=== PATIENT | male | born 1955 | race African-American/Black ===

== ENCOUNTER 2019-05-25 13:22 | Emergency (ER) | payer OTHER ==
--- OUTSIDE RECORDS SUMMARY | 2019-05-25 13:25 | XMS REPORT ---
:1955 Author Organization eClinicalWorks Care Team Providers Name Role Phone Alessandro Vasquez Provider Role Unavailable Allergies, Adverse Reactions, Alerts Substance Reaction Event Type penicillin Info Not Available Drug Allergy Problems Problem Type Condition Code Onset Dates Condition Status Assessment Acute pain of right knee M25.561 Active Problem Primary osteoarthritis of right M17.11 Active knee Assessment Primary osteoarthritis of right M17.11 Active knee Medications Medication Code Code Instructions Start End Status Dosage System Date Date Pravastatin NDC 80153752741 40 MG Orally Jun 01, Active 1 tablet Sodium Once a day 2017 Flomax ND 79049819230 0.4 MG Orally Jun 01, Active 1 capsule Once a day 2017 Brilinta NDC 26402207506 90 MG Orally Jun 01, Active 1 tablet Twice a day 2018 Prozac NDC 0 40 mg Oral Jun 01, Active 2 tab 2018 Metoprolol NDC 0 Jun 01, Active not Succinate 2018 defined Lisinopril NDC 47882079015 30 MG Orally Jun 01, Active 1 tablet Once a day 2018 Nexium NDC 15627651616 40 MG Orally Jun 01, Active 1 capsule Once a day 2018 Results No Known Results Summary Purpose eClinicalWorks Submission
[2019-05-25] MEDS ORDERED: HYDROCODONE/APAP 10/325 TAB ONE (13:50)
[2019-05-25] MEDS ORDERED: predniSONE 20 MG TAB ONE (13:50)
--- NOTE | 2019-05-25 14:38 | RAD REPORT ---
EXAM DESCRIPTION: RAD - Wrist Right 3 View - 05/25/2019 2:22 pm CLINICAL HISTORY: Right hand and wrist pain following trauma COMPARISON: None. FINDINGS: No fracture is identified. There is no dislocation or periosteal reaction noted. Mild dege nerative changes are present at the first MCP joint. Minimal degenerative change at the trapezium fir st metacarpal articulation. No significant carpal bone degenerative change. Patient does have arteria l tree calcifications. No foreign body or other soft tissue abnormality. IMPRESSION: Mild degenerative change present as detailed. No acute bone or joint finding.
--- NOTE | 2019-05-25 14:57 | EDPHYS ---
Physician Documentation [facility] Name: Jose Neil Age: 64 yrs Sex: Male : 1955 Arrival Date: 05/25/2019 Time: 13:24 Bed 17 Private MD: NEW Physician Inderjit Trotter HPI: 05/25 14:25 This 64 yrs old Black Male presents to ER via Ambulatory with complaints of Right Wrist pm1 Pain. 14:25 The patient or guardian reports pain. The complaints affect the Right wrist. 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 Onset: The symptoms/episode began/occurred 1 week(s) ago. Modifying factors: The symptoms are alleviated by holding still, the symptoms are aggravated by movement. Associated signs and symptoms: Pertinent negatives: cyanosis distally, decreased sensation distally, fever, numbness distally, tingling distally. Severity of symptoms: in the emergency department the symptoms are unchanged. The patient has not recently seen a physician. Historical: - Allergies: 13:29 PENICILLINS; aj - Home Meds: 13:29 BRILINTA 90 mg Oral tab 1 tab 2 times per day [Active]; Flomax 0.4 mg Oral cp24 1 cap aj once daily [Active]; lisinopril 30 mg Oral tab [Active]; metoprolol tartrate 25 mg Oral tab 1 tab once daily [Active]; Nexium 40 mg Oral cpDR 1 cap once daily [Active]; Prozac 40 mg Oral cap 1 cap once daily [Active]; pravastatin Oral daily [Active]; amitriptyline Oral [Active]; - PMHx: 13:29 High Cholesterol; Hypertension; Myocardial infarction; neuropathy; aj - Immunization history:: Adult Immunizations up to date. - Social history:: Smoking status: Patient/guardian denies using tobacco. - Ebola Screening: : Patient negative for fever greater than or equal to 101.5 degrees Fahrenheit, and additional compatible Ebola Virus Disease symptoms Patient denies exposure to infectious person Patient denies travel to an Ebola-affected area in the 21 days before illness onset No symptoms or risks identified at this time. ROS: 14:25 Constitutional: Negative for fever, chills, and weight loss, Cardiovascular: Negative pm1 for chest pain, palpitations, and edema, Respiratory: Negative for shortness of breath, cough, wheezing, and pleuritic chest pain, Abdomen/GI: Negative for abdominal pain, nausea, vomiting, diarrhea, and constipation, Back: Negative for injury and pain. 14:25 Skin: Negative for injury, rash, and discoloration, Neuro: Negative for headache, weakness, numbness, tingling, and seizure. 14:25 MS/extremity: Positive for pain, of the right hand and right wrist, Negative for deformity. Exam: 14:25 Constitutional: This is a well developed, well nourished patient who is awake, alert, pm1 and in no acute distress. Chest/axilla: Normal chest wall appearance and motion. Nontender with no deformity. No lesions are appreciated. Cardiovascular: Regular rate and rhythm with a normal S1 and S2. No gallops, murmurs, or rubs. Normal PMI, no JVD. No pulse deficits. Respiratory: Lungs have equal breath sounds bilaterally, clear to auscultation and percussion. No rales, rhonchi or wheezes noted. No increased work of breathing, no retractions or nasal flaring. Abdomen/GI: Soft, non-tender, with normal bowel sounds. No distension or tympany. No guarding or rebound. No evidence of tenderness throughout. Back: No spinal tenderness. No costovertebral tenderness. Full range of motion. Skin: Warm, dry with normal turgor. Normal color with no rashes, no lesions, and no evidence of cellulitis. 14:25 Musculoskeletal/extremity: Extremities: grossly normal except: positive phalen and tinnel sign to right wrist. Vital Signs: 13:29 BP 146 / 81; Pulse 68; Resp 16; Temp 98.6; Pulse Ox 98% on R/A; Weight 128.82 kg; aj Height 5 ft. 7 in. (170.18 cm); 14:30 BP 136 / 76; Pulse 66; Resp 16; Pulse Ox 99% on R/A; hb 13:29 Body Mass Index 44.48 (128.82 kg, 170.18 cm) aj MDM: 13:30 Patient medically screened. pm1 14:23 Data reviewed: vital signs. Data interpreted: Pulse oximetry: on room air is 98 %. pm1 Interpretation: normal. 14:54 Counseling: I had a detailed discussion with the patient and/or guardian regarding: the pm1 historical points, exam findings, and any diagnostic results supporting the discharge/admit diagnosis, radiology results, the need for outpatient follow up, to return to the emergency department if symptoms worsen or persist or if there are any questions or concerns that arise at home. 05/25 13:41 Order name: Wrist Right 3 View XRAY; Complete Time: 14:51 pm1 05/25 14:36 Order name: Wrist Splint; Complete Time: 14:58 pm1 Administered Medications: 13:53 Drug: [place] 10 mg-325 mg 1 tabs Route: PO; hb 14:59 Follow up: Response: No adverse reaction; Pain is decreased; RASS: Alert and Calm (0) ss 13:53 Drug: predniSONE 60 mg Route: PO; hb 14:58 Follow up: Response: No adverse reaction; Pain is decreased; RASS: Alert and Calm (0) ss Disposition: 05/26 09:14 Co-signature as Attending Physician, Inderjit Trotter MD I agree with the assessment and mimi plan of care. Disposition: 05/25/19 14:55 Discharged to Home. Impression: Pain in right wrist. - Condition is Stable. - Discharge Instructions: Wrist Pain, Wrist Splint. - Prescriptions for Tylenol- Codeine #3 300-30 mg Oral Tablet - take 2 tablets by ORAL route every 6 hours As needed; 20 tablet. Medrol (Jack) 4 mg Oral Tablets, Dose Pack - take 1 tablet by ORAL route as directed - follow package instructions; 1 packet. - Medication Reconciliation Form, Thank You Letter, Antibiotic Education, Prescription Opioid Use form. - Follow up: Emergency Department; When: As needed; Reason: Worsening of condition. Follow up: Private Physician; When: 2 - 3 days; Reason: Recheck today's complaints, Continuance of care, Re-evaluation by your physician. - Problem is new. - Symptoms have improved. Signatures: Dispatcher [employer] EDMS Marie Matson RN RN aj Anderson, Corey, MD MD cha Marinas, Patrick, ARBEN WARD MAID pm1 Bernice Mejia RN RN hb Smirch, Shelby RN ss Corrections: (The following items were deleted from the chart) 05/25 15:11 14:55 05/25/2019 14:55 Discharged to Home. Impression: Pain in right wrist. Condition hb is Stable. Forms are Medication Reconciliation Form, Thank You Letter, Antibiotic Education, Prescription Opioid Use. Follow up: Emergency Department; When: As needed; Reason: Worsening of condition. Follow up: Private Physician; When: 2 - 3 days; Reason: Recheck today's complaints, Continuance of care, Re-evaluation by your physician. Problem is new. Symptoms have improved. pm1
--- NOTE | 2019-05-25 14:57 | ER ---
Nurse's Notes [facility] Name: Jose Neil Age: 64 yrs Sex: Male : 1955 Arrival Date: 05/25/2019 Time: 13:24 Bed 17 Private MD: Diagnosis: Pain in right wrist Presentation: 05/25 13:28 Presenting complaint: Patient states: Right hand pain for 1 week after turning a wrench aj too hard and causing pain. Transition of care: patient was not received from another setting of care. Onset of symptoms was May 19, 2019. Risk Assessment: Do you want to hurt yourself or someone else? Patient reports no desire to harm self or others. Initial Sepsis Screen: Does the patient meet any 2 criteria? No. Patient's initial sepsis screen is negative. Does the patient have a suspected source of infection? No. Patient's initial sepsis screen is negative. Care prior to arrival: None. 13:28 Method Of Arrival: Ambulatory aj 13:28 Acuity: ANGIE 4 aj Triage Assessment: 13:29 General: Appears in no apparent distress. comfortable, Behavior is calm, cooperative, aj appropriate for age. Pain: Complains of pain in right hand. Neuro: Level of Consciousness is awake, alert, obeys commands, Oriented to person, place, time, situation, Appropriate for age. Respiratory: Airway is patent Respiratory effort is even, unlabored, Respiratory pattern is regular, symmetrical. Derm: Skin is intact, is healthy with good turgor, Skin is pink, warm \T\ dry. normal. Musculoskeletal: Reports pain in right hand. Historical: - Allergies: 13:29 PENICILLINS; aj - Home Meds: 13:29 BRILINTA 90 mg Oral tab 1 tab 2 times per day [Active]; Flomax 0.4 mg Oral cp24 1 cap aj once daily [Active]; lisinopril 30 mg Oral tab [Active]; metoprolol tartrate 25 mg Oral tab 1 tab once daily [Active]; Nexium 40 mg Oral cpDR 1 cap once daily [Active]; Prozac 40 mg Oral cap 1 cap once daily [Active]; pravastatin Oral daily [Active]; amitriptyline Oral [Active]; - PMHx: 13:29 High Cholesterol; Hypertension; Myocardial infarction; neuropathy; aj - Immunization history:: Adult Immunizations up to date. - Social history:: Smoking status: Patient/guardian denies using tobacco. - Ebola Screening: : Patient negative for fever greater than or equal to 101.5 degrees Fahrenheit, and additional compatible Ebola Virus Disease symptoms Patient denies exposure to infectious person Patient denies travel to an Ebola-affected area in the 21 days before illness onset No symptoms or risks identified at this time. Screenin:30 Abuse screen: Denies threats or abuse. Denies injuries from another. Nutritional hb screening: No deficits noted. Tuberculosis screening: No symptoms or risk factors identified. Fall Risk None identified. Assessment: 13:40 General: Appears in no apparent distress. Behavior is calm, cooperative. Pain: Pain hb currently is 7 out of 10 on a pain scale. Neuro: Level of Consciousness is awake, alert, obeys commands, Oriented to person, place, time, situation. Cardiovascular: Capillary refill < 3 seconds Patient's skin is warm and dry. Respiratory: Airway is patent Respiratory effort is even, unlabored, Respiratory pattern is regular, symmetrical. GI: No signs and/or symptoms were reported involving the gastrointestinal system. : No signs and/or symptoms were reported regarding the genitourinary system. EENT: No signs and/or symptoms were reported regarding the EENT system. Derm: Skin is intact, is healthy with good turgor. Musculoskeletal: Reports right wrist pain. 14:30 Reassessment: Patient appears in no apparent distress at this time. Patient and/or hb family updated on plan of care and expected duration. Pain level reassessed. Patient is alert, oriented x 3, equal unlabored respirations, skin warm/dry/pink. Vital Signs: 13:29 BP 146 / 81; Pulse 68; Resp 16; Temp 98.6; Pulse Ox 98% on R/A; Weight 128.82 kg; aj Height 5 ft. 7 in. (170.18 cm); 14:30 BP 136 / 76; Pulse 66; Resp 16; Pulse Ox 99% on R/A; hb 13:29 Body Mass Index 44.48 (128.82 kg, 170.18 cm) aj ED Course: 13:24 Patient arrived in ED. as 13:27 Chau Boone NP is PHCP. pm1 13:27 Inderjit Trotter MD is Attending Physician. pm1 13:28 Triage completed. aj 13:29 Arm band placed on left wrist. aj 13:53 Bernice Mejia, RN is Primary Nurse. hb 14:23 Wrist Right 3 View XRAY In Process Unspecified. EDMS 14:30 Patient has correct armband on for positive identification. hb 14:59 Velcro wrist splint applied to right wrist. ss 15:10 No provider procedures requiring assistance completed. Patient did not have IV access hb during this emergency room visit. Administered Medications: 13:53 Drug: [place] 10 mg-325 mg 1 tabs Route: PO; hb 14:59 Follow up: Response: No adverse reaction; Pain is decreased; RASS: Alert and Calm (0) ss 13:53 Drug: predniSONE 60 mg Route: PO; hb 14:58 Follow up: Response: No adverse reaction; Pain is decreased; RASS: Alert and Calm (0) Outcome: 14:55 Discharge ordered by MD. pm1 15:10 Discharged to home ambulatory, with significant other. hb 15:10 Condition: stable 15:10 Discharge instructions given to patient, Instructed on discharge instructions, follow up and referral plans. medication usage, Demonstrated understanding of instructions, follow-up care, medications, Prescriptions given X 2. 15:11 Patient left the ED. hb Signatures: Dispatcher [employer] EDMS Marie Matson RN RN aj Martinez, Amelia as Smirch, Shelby, RN RN Chau Boone, ORAL HEALTH THERAPIST ORAL HEALTH THERAPIST pm1 Bernice Mejia, RN RN hb
[2019-05-25 15:15] VITALS: TEMP 98.6
[2019-05-25 15:17] VITALS: BP 136/76; O2SAT 99
== END 2019-05-25 15:11 | disposition home or self-care (01) ==
LOC: ER 13:22
DX: M25.531 Pain in right wrist (principal); E78.00 Pure hypercholesterolemia, unspecified; I10 Essential (primary) hypertension; I25.2 Old myocardial infarction; Z88.0 Allergy status to penicillin
CPT/HCPCS: 99284; J7512

== ENCOUNTER 2021-01-15 21:07 | Emergency (ER) | payer OTHER, SELFPAY ==
[2021-01-15 23:48] LABS: SARS-COV-2 RT PCR POSITIVE (NEGATIVE)
--- OUTSIDE RECORDS SUMMARY | 2021-01-15 23:51 | XMS REPORT | Continuity of Care Document ---
:1955 Author Organization [facility] t Address 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 Clinician (SIG) Name Name Pravastatin Pravastatin Yes Alessandro [address] [facility] Sodium Sodium 06-01 Vasquez [facility] Flomax Flomax Yes Alessandro [address] 06-01 Vasquez [facility] Brilinta Brilinta Yes Alessandro [address] [facility] 14 Vasquez [facility] 00:[facility] Prozac Prozac Yes Alessandro 2 tab [facility] Nexium Nexium Yes Alessandro [address] 8-14 Vasquez [facility] 00[facility] Metoprolol Metoprolol Yes Alessandro not [facility] Succinate Succinate 8 Vasquez defined Rain kes - 00:00: [facility] Lisinopril Lisinopril Yes Alessandro [address] [facility] 8-14 Vasquez [facility] Acetaminoph Acetaminoph Yes Alessandro not [facility] en-Codeine en-Codeine Vasquez defined [facility]3 [facility] MethylPREDN MethylPREDN Yes Alessandro not [facility] ISolone ISolone Vasquez defined [facility] Fluoxetine Fluoxetine Yes Alessandro not [facility] HCl HCl Vasquez defined [facility] Amitriptyli Amitriptyli Yes Alessandro not [facility] ne HCl ne HCl Vasquez defined [facility] Procedures This patient has no known procedures. Encounters Start End Encounter Admission Attending Care Care Encounter Source Date/Time Date/Time Type Type Clinicians Facility Department ID 2020-12-26 2020-12-26 Laboratory Only, [facility] [id number] 11:08:15 11:23:15 Only Test Ariel [id number] [place] [id number] [place] [id number] 2020-12-26 2020-12-26 Orders Doctor GOYO [id number] 00:00:00 00:00:00 Only Unassigned, SERGIO [id number] [place] [facility] [id number] 2019-10-17 2019-10-17 [place] [facility] [id number] [facility] 16:23:00 16:23:00 [facility] 2019-09-19 2019-09-19 [place] [place] [id number] [facility] 14:33:00 14:33:00 t [facility] 2019-09-09 2019-09-09 Outpatient Yvette Turpin [id number] [facility] 09:00:00 09:00:00 t [facility] 2019-08-23 2019-08-23 Outpatient Yvette Turpin [id number] [facility] 13:30:00 13:30:00 t [facility] 2019-08-01 2019-08-01 Outpatient Yvette Turpin [id number] [facility] 08:00:00 08:00:00 t [facility] 2018-06-01 2018-06-01 Outpatient Yvette Turpin [id number] [facility] 10:30:00 10:30:00 t [facility] Results This patient has no known results.
--- NOTE | 2021-01-16 00:13 | EDPHYS ---
Physician Documentation [facility] Name: Jose Neil Age: 65 yrs Sex: Male : 1955 Arrival Date: 01/15/2021 Time: 21:13 Bed 5 Private MD: ED Physician Sameer Hopper HPI: 01/16 00:00 This 65 yrs old Black Male presents to ER via Ambulatory with complaints of Fever. pm1 00:00 The patient or guardian reports cough, with no sputum, flu symptoms, no appetite. pm1 Onset: The symptoms/episode began/occurred 8 day(s) ago. Severity of symptoms: in the emergency department the symptoms have improved. Associated signs and symptoms: Pertinent positives: Nausea and abdominal pain that has resolved. Patient presenting with his that has similar symptoms that started at the same time. 00:00 Patient said that he checked into the ER so that he can be in the ER with his pm1 instead of waiting outside. Historical: - Allergies: 01/15 21:37 PENICILLINS; ll1 - PMHx: 21:37 High Cholesterol; Hypertension; Myocardial infarction; neuropathy; ll1 - PSHx: 21:37 None; ll1 - Immunization history:: Flu vaccine is not up to date. - Social history:: Smoking status: Patient/guardian denies using tobacco, the patient reports quitting approximately 20 years ago. ROS: 01/16 00:00 Cardiovascular: Negative for chest pain, palpitations, and edema, Respiratory: Negative pm1 for shortness of breath, cough, wheezing, and pleuritic chest pain. Back: Negative for injury and pain, : Negative for injury, bleeding, discharge, and swelling, MS/Extremity: Negative for injury and deformity, Skin: Negative for injury, rash, and discoloration, Neuro: Negative for headache, weakness, numbness, tingling, and seizure. Constitutional: Positive for fever, poor PO intake. Abdomen/GI: Positive for abdominal pain, nausea, diarrhea, Negative for vomiting. Exam: 00:00 Constitutional: This is a well developed, well nourished patient who is awake, alert, pm1 and in no acute distress. Head/Face: Normocephalic, atraumatic. 00:00 Skin: Warm, dry with normal turgor. Normal color with no rashes, no lesions, and no evidence of cellulitis. MS/ Extremity: Pulses equal, no cyanosis. Neurovascular intact. Full, normal range of motion. 00:00 Cardiovascular: Exam negative for acute changes, Rate: normal, Rhythm: regular, Pulses: no pulse deficits are appreciated. 00:00 Respiratory: Exam negative for acute changes, respiratory distress, shortness of breath. 00:00 Abdomen/GI: Exam negative for Inspection: abdomen appears normal, Palpation: abdomen is soft and non-tender, in all quadrants. 00:00 Neuro: Exam negative for acute changes, Orientation: is normal, Mentation: is normal, Motor: is normal, moves all fours. Vital Signs: 01/15 21:32 BP 131 / 82; Pulse 82; Resp 18; Temp 98.8; Pulse Ox 99% ; Weight 126.1 kg; Height 5 ft. ll1 8 in. (172.72 cm); Pain 0/10; 21:32 Body Mass Index 42.27 (126.10 kg, 172.72 cm) ll1 MDM: 23:14 Patient medically screened. pm1 01/16 00:00 Data reviewed: vital signs. Data interpreted: Pulse oximetry: on room air is 99 %. pm1 Interpretation: normal. 00:12 Counseling: I had a detailed discussion with the patient and/or guardian regarding: the pm1 historical points, exam findings, and any diagnostic results supporting the discharge/admit diagnosis, lab results, the need for outpatient follow up. 01/15 22:05 Order name: COVID-19 : Document "Date of Symptom Onset" if Symptomatic. em 01/15 22:05 Order name: Flu em 01/15 23:48 Order name: COVID-19/FLU A+B; Complete Time: 00:04 EDMS Administered Medications: No medications were administered Disposition: 00:25 Co-signature as Attending Physician, Sameer Hopper MD. rn Disposition: 01/16/21 00:12 Discharged to Home. Impression: Coronavirus infection, unspecified. - Condition is Stable. - Discharge Instructions: COVID-19. - Medication Reconciliation Form, Thank You Letter, Antibiotic Education, Prescription Opioid Use form. - Follow up: Emergency Department; When: As needed; Reason: Worsening of condition. Follow up: Private Physician; When: 2 - 3 days; Reason: Recheck today's complaints, Continuance of care, Re-evaluation by your physician. - Problem is new. - Symptoms have improved. Signatures: Dispatcher [employer] [facility] Shaun Barry RN RN sg Sameer Hopper MD MD rn Marinas, Patrick, ARBEN FACTORY HELPER pm1 Beck Sands RN RN ll1 Corrections: (The following items were deleted from the chart) 01/15 22: 22:05 CORONAVIRUS ordered. [facility] 22:05 Influenza Screen (A ordered. [facility] 01/16 00:21 00:12 01/16/2021 00:12 Discharged to Home. Impression: Coronavirus infection, sg unspecified. Condition is Stable. Forms are Medication Reconciliation Form, Thank You Letter, Antibiotic Education, Prescription Opioid Use. Follow up: Emergency Department; When: As needed; Reason: Worsening of condition. Follow up: Private Physician; When: 2 - 3 days; Reason: Recheck today's complaints, Continuance of care, Re-evaluation by your physician. Problem is new. Symptoms have improved. pm1
--- NOTE | 2021-01-16 00:13 | ER ---
Nurse's Notes [facility] Name: Jose Neil Age: 65 yrs Sex: Male : 1955 Arrival Date: 01/15/2021 Time: 21:13 Bed 5 Private MD: Diagnosis: Coronavirus infection, unspecified Presentation: 01/15 21:32 Chief complaint: Patient states: Fever off/on, slight cough, abd pain with nausea, no ll1 appetite for 8 days. Coronavirus screen: Client denies travel out of the [place] in the last 14 days. chills, congestion, cough unrelated to allergies, diarrhea, fatigue, nausea, runny nose, shaking with chills, Client presents with at least one sign or symptom that may indicate coronavirus-19. Standard/surgical mask placed on the client. Ebola Screen: Patient denies travel to an Ebola-affected area in the 21 days before illness onset. Initial Sepsis Screen: Does the patient meet any 2 criteria? No. Patient's initial sepsis screen is negative. Does the patient have a suspected source of infection? Yes: Acute abdominal pain. Risk Assessment: Do you want to hurt yourself or someone else? Patient reports no desire to harm self or others. Onset of symptoms was January 07, 2021. 21:32 Method Of Arrival: Ambulatory ll1 21:32 Acuity: ANGIE 3 ll1 Historical: - Allergies: 21:37 PENICILLINS; ll1 - PMHx: 21:37 High Cholesterol; Hypertension; Myocardial infarction; neuropathy; ll1 - PSHx: 21:37 None; ll1 - Immunization history:: Flu vaccine is not up to date. - Social history:: Smoking status: Patient/guardian denies using tobacco, the patient reports quitting approximately 20 years ago. Screenin:13 Abuse screen: Denies threats or abuse. Nutritional screening: No deficits noted. ea Tuberculosis screening: No symptoms or risk factors identified. Fall Risk None identified. Assessment: 23:14 General: Appears in no apparent distress. Behavior is calm, cooperative, appropriate ea for age. Pain: Denies pain. Neuro: Level of Consciousness is awake, alert, obeys commands, Oriented to person, place, time. Cardiovascular: Patient's skin is warm and dry. Respiratory: Airway is patent Respiratory effort is even, unlabored, Respiratory pattern is regular, symmetrical. Derm: Skin is pink, warm \T\ dry. 01/16 00:22 Reassessment: Patient and/or family updated on plan of care and expected duration. Pain ea level reassessed. Patient is alert, oriented x 3, equal unlabored respirations, skin warm/dry/pink. Discharge instruction given to patient, verbalized the understanding of instructions. Vital Signs: 01/15 21:32 BP 131 / 82; Pulse 82; Resp 18; Temp 98.8; Pulse Ox 99% ; Weight 126.1 kg; Height 5 ft. ll1 8 in. (172.72 cm); Pain 0/10; 21:32 Body Mass Index 42.27 (126.10 kg, 172.72 cm) ll1 ED Course: 21:13 Patient arrived in ED. ag3 21:36 Triage completed. ll1 21:37 Arm band placed on. ll1 22:53 Chau Boone NP is PHCP. pm1 22:53 Sameer Hopper MD is Attending Physician. pm1 23:13 Elena Centeno RN is Primary Nurse. ea 23:13 Patient has correct armband on for positive identification. Bed in low position. Call ea light in reach. 01/16 00:22 No provider procedures requiring assistance completed. Patient did not have IV access ea during this emergency room visit. Administered Medications: No medications were administered Outcome: 00:12 Discharge ordered by . pm1 00:18 Discharged to home ambulatory, with family. sg 00:18 Condition: good 00:18 Discharge instructions given to patient, Instructed on discharge instructions, follow up and referral plans. safety practices, Demonstrated understanding of instructions, follow-up care. 00:21 Patient left the ED. sg 00:22 Discharged to home ea 00:22 Condition: stable 00:22 Discharge instructions given to patient, Instructed on discharge instructions, follow up and referral plans. Demonstrated understanding of instructions, follow-up care. Signatures: Shaun Barry RN RN sg Marinas, Patrick, NP MIXING ENGINEER pm1 Elena Centeno RN RN ea Gomez, Alice ag3 Beck Sands RN RN [facility]
[2021-01-16 01:47] VITALS: BP 131/82; TEMP 98.8; O2SAT 99
== END 2021-01-16 00:21 | disposition home or self-care (01) ==
LOC: ER 21:07
DX: U07.1 COVID-19 (principal); I10 Essential (primary) hypertension; I25.2 Old myocardial infarction; Z88.0 Allergy status to penicillin
CPT/HCPCS: 0240U; 99281

== ENCOUNTER 2021-08-04 15:54 | Emergency (ER) | payer OTHER ==
--- NOTE | 2021-08-04 16:43 | ER ---
Nurse's Notes [facility] Name: Jose Neil Age: 66 yrs Sex: Male : 1955 Arrival Date: 08/04/2021 Time: 15:55 Bed 18 Private MD: Diagnosis: Injury of conjunctiva and corneal abrasion with foreign body, right eye - foreign body removed Presentation: 08/04 16:11 Chief complaint: Patient states: FB TO R EYE Y/D AT 1500, PLASTIC FROM NAIL GUN SPOOL. bp Coronavirus screen: At this time, the client does not indicate any symptoms associated with coronavirus-19. Ebola Screen: No symptoms or risks identified at this time. Initial Sepsis Screen: Does the patient meet any 2 criteria? No. Patient's initial sepsis screen is negative. Does the patient have a suspected source of infection? No. Patient's initial sepsis screen is negative. Risk Assessment: Do you want to hurt yourself or someone else? Patient reports no desire to harm self or others. Onset of symptoms was August 03, 2021 at 15:00. 16:11 Method Of Arrival: Ambulatory bp 16:11 Acuity: ANGIE 3 bp Triage Assessment: 16:13 General: Appears in no apparent distress. uncomfortable, obese, Behavior is bp cooperative, appropriate for age, anxious. Pain: Complains of pain in right eye. EENT: Sclera/Cornea are reddened in right eye. Neuro: No deficits noted. Cardiovascular: No deficits noted. Respiratory: No deficits noted. GI: No signs and/or symptoms were reported involving the gastrointestinal system. : No signs and/or symptoms were reported regarding the genitourinary system. Musculoskeletal: No deficits noted. Historical: - Allergies: 16:13 PENICILLINS; bp - Home Meds: 16:13 Amitriptyline Oral [Active]; BRILINTA 90 mg Oral tab 1 tab 2 times per day [Active]; bp Flomax 0.4 mg Oral cp24 1 cap once daily [Active]; lisinopril 30 mg Oral tab [Active]; metoprolol tartrate 25 mg Oral tab 1 tab once daily [Active]; Nexium 40 mg Oral cpDR 1 cap once daily [Active]; pravastatin 40 mg oral tab [Active]; Prozac 40 mg Oral cap 1 cap once daily [Active]; ticagrelor oral [Active]; - PMHx: 16:13 neuropathy; Hypertension; High Cholesterol; Myocardial infarction; bp - Immunization history:: Last tetanus immunization: unknown. - Social history:: Smoking status: Patient denies any tobacco usage or history of. Screenin:17 Abuse screen: Denies threats or abuse. Denies injuries from another. Nutritional bp screening: No deficits noted. Tuberculosis screening: No symptoms or risk factors identified. Fall Risk None identified. Assessment: 16:17 General: SEE TRIAGE NOTE. bp 17:09 Reassessment: PT D/C HOME AMBULATORY, DX WITH CORNEAL ABRASION. bp Vital Signs: 16:06 BP 130 / 77; Pulse 75; Resp 16; Temp 97.8; Pulse Ox 100% on R/A; dh3 17:09 BP 137 / 69; Pulse 79; Resp 16; Temp 97.8; Pulse Ox 100% ; bp Visual Acuity: 16:14 Left Eye Visual acuity 20/15, ; Right Eye Visual acuity 20/15, ; Both Eyes Visual dh3 acuity 20/13; With Lenses; ED Course: 15:55 Patient arrived in ED. am2 16:00 Chau Boone NP is PHCP. pm1 16:00 John Hitchcock MD is Attending Physician. pm1 16:07 Davin Leggett, CALEB is Primary Nurse. bp 16:13 Triage completed. bp 16:13 Arm band placed on. bp 16:17 Patient has correct armband on for positive identification. Bed in low position. Call bp light in reach. Side rails up X2. 16:44 Darius Veras MD is Referral Physician. pm1 17:10 No provider procedures requiring assistance completed. Patient did not have IV access bp during this emergency room visit. 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 Exp: bp 03/01/2024. Lot #: [id number]. } Route: IM; Site: left deltoid; 17:11 Follow up: Response: No adverse reaction bp Outcome: 16:43 Discharge ordered by . pm1 17:10 Discharged to home ambulatory. bp 17:10 Condition: stable 17:10 Discharge instructions given to patient, Instructed on discharge instructions, follow up and referral plans. medication usage, Demonstrated understanding of instructions, follow-up care, medications, Prescriptions given X 1. 17:11 Patient left the ED. bp Signatures: Chau Boone NP SERVICE CENTER SPECIALIST pm1 Marie Caldera 2 Kajal Mccrary 3 Davin Leggett, RN RN bp
--- NOTE | 2021-08-04 16:44 | EDPHYS ---
Physician Documentation [facility] Name: Jose Neil Age: 66 yrs Sex: Male : 1955 Arrival Date: 08/04/2021 Time: 15:55 Bed 18 Private MD: ED Physician John Hitchcock HPI: 08/04 16:38 This 66 yrs old Black Male presents to ER via Ambulatory with complaints of Foreign pm1 Body In Eye. 16:38 The patient is experiencing foreign body sensation, to the right eye, caused by debris. pm1 16:38 Onset: The symptoms/episode began/occurred yesterday. Duration: the symptoms are pm1 continuous. Aggravated by nothing. Alleviated by nothing. Associated signs and symptoms: Pertinent negatives: fever, Visual change. Patient wears glasses. Severity of symptoms: in the emergency department the symptoms are unchanged. The patient has not recently seen a physician. Patient was working with wood and using a nail gun. Patient using standard glasses for vision no safety glasses. Patient reports foreign body sensation to right eye in the upper area.. Historical: - Allergies: 16:13 PENICILLINS; bp - Home Meds: 16:13 Amitriptyline Oral [Active]; BRILINTA 90 mg Oral tab 1 tab 2 times per day [Active]; bp Flomax 0.4 mg Oral cp24 1 cap once daily [Active]; lisinopril 30 mg Oral tab [Active]; metoprolol tartrate 25 mg Oral tab 1 tab once daily [Active]; Nexium 40 mg Oral cpDR 1 cap once daily [Active]; pravastatin 40 mg oral tab [Active]; Prozac 40 mg Oral cap 1 cap once daily [Active]; ticagrelor oral [Active]; - PMHx: 16:13 neuropathy; Hypertension; High Cholesterol; Myocardial infarction; bp - Immunization history:: Last tetanus immunization: unknown. - Social history:: Smoking status: Patient denies any tobacco usage or history of. ROS: 16:38 Constitutional: Negative for fever, chills, and weight loss. pm1 16:38 Cardiovascular: Negative for chest pain, palpitations, and edema, Respiratory: Negative for shortness of breath, cough, wheezing, and pleuritic chest pain, Skin: Negative for injury, rash, and discoloration, Neuro: Negative for headache, weakness, numbness, tingling, and seizure. 16:38 Eyes: Positive for foreign body sensation, pain, redness, Negative for discharge, visual disturbance. 16:38 All other systems are negative. Exam: 16:38 Constitutional: This is a well developed, well nourished patient who is awake, alert, pm1 and in no acute distress. Head/Face: Normocephalic, atraumatic. 16:38 Skin: Warm, dry with normal turgor. Normal color with no rashes, no lesions, and no evidence of cellulitis. MS/ Extremity: Pulses equal, no cyanosis. Neurovascular intact. Full, normal range of motion. 16:38 Eyes: Conjunctiva: injected, in the right eye, Corneas: abrasion, that is small, approximately 2 mm(s), on the right, at 11 o'clock, foreign body, on the right, at 11 o'clock, Hair, a fluorescein strip employed to appreciate the findings, Sclera: no acute changes, icterus, is not appreciated, Lids and lashes: no acute changes. 16:38 Cardiovascular: Exam negative for acute changes, Rate: normal, Rhythm: regular, Pulses: no pulse deficits are appreciated. 16:38 Respiratory: Exam negative for acute changes, respiratory distress, shortness of breath. 16:38 Neuro: Exam negative for acute changes, Orientation: is normal, Mentation: is normal, Motor: moves all fours, Gait: is steady, at a normal pace, without difficulty. Vital Signs: 16:06 BP 130 / 77; Pulse 75; Resp 16; Temp 97.8; Pulse Ox 100% on R/A; dh3 17:09 BP 137 / 69; Pulse 79; Resp 16; Temp 97.8; Pulse Ox 100% ; bp Visual Acuity: 16:14 Left Eye Visual acuity 20/15, ; Right Eye Visual acuity 20/15, ; Both Eyes Visual dh3 acuity 20/13; With Lenses; MDM: 16:05 Patient medically screened. pm1 16:38 Data reviewed: vital signs. Data interpreted: Pulse oximetry: on room air is 100 %. pm1 Interpretation: normal. 16:38 Counseling: I had a detailed discussion with the patient and/or guardian regarding: the pm1 historical points, exam findings, and any diagnostic results supporting the discharge/admit diagnosis, the need for outpatient follow up, an opthalmologist, to return to the emergency department if symptoms worsen or persist or if there are any questions or concerns that arise at home. 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 Exp: bp 03/01/2024. Lot #: [id number]. } Route: IM; Site: left deltoid; 17:11 Follow up: Response: No adverse reaction bp Disposition: 08/05 05:38 Co-signature as Attending Physician, John Hitchcock MD I agree with the assessment and kdr plan of care. Disposition Summary: 08/04/21 16:43 Discharge Ordered Location: Home pm1 Problem: new pm1 Symptoms: have improved pm1 Condition: Stable pm1 Diagnosis - Injury of conjunctiva and corneal abrasion with foreign body, right eye - foreign pm1 body removed Followup: pm1 - With: Emergency Department - When: As needed - Reason: Worsening of condition Followup: pm1 - With: Private Physician - When: 1 - 2 days - Reason: Recheck today's complaints, Continuance of care, Re-evaluation by your physician Followup: pm1 - With: Darius Veras MD - When: 1 - 2 days - Reason: Recheck today's complaints, Continuance of care, Re-evaluation by your physician Discharge Instructions: - Discharge Summary Sheet pm1 - Corneal Abrasion pm1 - Eye Foreign Body pm1 Forms: - Medication Reconciliation Form pm1 - Thank You Letter pm1 - Antibiotic Education pm1 - Prescription Opioid Use pm1 Prescriptions: - Erythromycin 5 mg/gram (0.5 %) Ophthalmic Ointment - apply 1 ribbon by OPHTHALMIC route every 8 hours for 7 days; 1 tube; Refills: pm1 0, Product Selection Permitted Signatures: John Hitchcock MD MD kdr Marinas, Patrick, NP STEAM TUNNEL FEEDER pm1 Davin Leggett, RN RN bp
[2021-08-04] MEDS ORDERED: FLUORESCEIN SODIUM 1 MG/WRAP ONE (16:47)
[2021-08-04] MEDS ORDERED: TETRACAINE HCL 0.5% 4ML OPTH ONE (16:47)
[2021-08-04] MEDS ORDERED: TETANUS & DIPHTHERIA TOX,ADULT 0.5 ML VIAL ONE (16:48)
[2021-08-04 17:22] VITALS: TEMP 97.8; O2SAT 100
[2021-08-04 17:24] VITALS: BP 137/69
== END 2021-08-04 17:11 | disposition home or self-care (01) ==
LOC: ER 15:54
PROC: 08D Eye, Extraction (ICD-10-PCS; principal; 2021-08-04)
DX: T15.01XA Foreign body in cornea, right eye, initial encounter (principal); I10 Essential (primary) hypertension; I25.2 Old myocardial infarction; Z88.0 Allergy status to penicillin; Z23 Encounter for immunization
CPT/HCPCS: 90714; 99283

== ENCOUNTER 2022-06-03 06:24 | Emergency (ER) | payer OTHER ==
--- OUTSIDE RECORDS SUMMARY | 2022-06-03 06:28 | XMS REPORT | Continuity of Care Document ---
:1955 Author Organization [facility] t Address [address] [place] [address] Care Team Providers Name Role Phone Jessica Segura Primary Care Physician Mohini Segura Attending Clinician Unavailable GONZALES Attending Clinician Unavailable Con Zamudio MD Attending Clinician Only, Adc Test Attending Clinician Unavailable Doctor Unassigned, [place] Attending Clinician Unavailable GONZALES Admitting Clinician Unavailable Payers Payer Name Policy Type Policy Number Effective Date Expiration Date S ource Problems Condition Condition Condition Status Onset Resolution Last Treating Co mments Source Name Details Category Date Date Treatment Clinician Date No known No known Disease Unive rs active active ity of problems problems [facility] Primary Primary Problem Active 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 right knee [facility] Carpal Carpal Problem Active 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 St wrist wrist [facility] Allergies, Adverse Reactions, Alerts Allergy Allergy Status Severity Reaction(s) Onset Inactive Treating Comm ents Source Name Type Date Date Clinician penicill Adverse Active Info Not Commo n in Reaction Available Spiri t - [facility] Social History Social Habit Start Date Stop Date Quantity Comments Source Exposure to 2022-02-14 2022-02-24 Not sure [facility] SARS-CoV-2 (event) 00:00:00 08:56:00 Christi Brown Sex Ass[birth year] At [birth year] [facility] 00:00:00 00:00:00 Medical Branch Smoking Status Start Date Stop Date Source Former smoker 2021-07-18 00:00:00 2021-07-18 00:00:00 [facility] Medications Ordered Filled Start Stop Current Ordering Indication Dosage Frequency Signature Comments Components Source Medication Medication Date Date Medication? Clinician (SIG) Name Name FLUoxetine Yes 40mg Take 40 mg U nivers 40 mg 9-30 by mouth ity of capsule 14:26: daily. [place] 40 [facility] esomeprazol Yes 40mg Take 40 mg Univers e (NEXIUM) 9-30 by mouth ity o f 40 mg 14:26: daily with [place] capsule 40 breakfast. Medica l Branch gabapentin Yes TAKE 1 Unive rs 100 mg 9-27 CAPSULE BY ity of capsule 00:00: MOUTH [place] [id number] THREE Medical TIMES Branch DAILY FOR NUMB FEET metoprolol Yes 25mg Take 25 mg U nivers succinate 9-27 by mouth ity of XL 25 mg 24 00:00: [place]. [place] tablet [address] [place] [address] lisinopriL Yes 30mg Take 30 mg U nivers 30 mg 9-13 by mouth ity of tablet 00:00: daily. [address] BRILINTA 60 Yes 1{tbl} Take 1 Un greg mg Tab 9-13 tablet by ity of 00:00: mouth 2 [place] 00 (two) Medical times Branch daily. tamsulosin Yes Univers 0.4 mg 24 8-20 ity of hr capsule 00:00: [address] pravastatin Yes 40mg Take 40 mg Univers 40 mg 8-10 by mouth ity of tablet 00:00: daily. [address] Pravastatin Pravastatin Yes Alessandro 1 tablet Common Sodium Sodium 14 [place] Spirit 00:00: - [facility] Flomax Flomax 2017- Yes Alessandro 1 capsule C ommon 14 [place] [facility] 00:00: - [facility] Brilinta Brilinta Yes Alessandro 1 tablet Common -14 [place] [facility] 00:00: - [facility] Prozac Prozac Yes Alessandro 2 tab Commo n 8-14 [place] [facility] 00:00: - [facility] Nexium Nexium 2018-0 Yes Alessandro 1 capsule C ommon 06-01 [place] [facility] 00:00: - [facility] Metoprolol Metoprolol Yes Alessandro not Common Succinate Succinate 06-01 [place] defined Sp angela 00:00: - [facility] 00 [facility] Lisinopril Lisinopril Yes Alessandro 1 tablet Common 06-01 [place] [facility] 00:00: - 00 [facility] Acetaminoph Acetaminoph Yes Alessandro not Common en-Codeine en-Codeine [place]quez defined Spirit #3 #3 - [facility] MethylPREDN MethylPREDN Yes Alessandro not Common ISolone ISolone [place]quez defined [facility] Fluoxetine Fluoxetine Yes Alessandro not Common HCl HCl Vasquez defined [facility] Amitriptyli Amitriptyli Yes Alessandro not Common ne HCl ne HCl Vasquez defined [facility] Vital Signs Vital Name Observation Time Observation Value Comments Source Systolic blood 2022-02-24 14:25:00 102 mm[Hg] Univer sity [facility] Diastolic blood 2022-02-24 14:25:00 70 mm[Hg] Unive rsity [facility] Heart rate 2022-02-24 14:25:00 76 /min [facility] Respiratory rate 2022-02-24 14:25:00 18 /min [facility] Body height 2022-02-24 14:25:00 170.2 cm [facility] Body weight 2022-02-24 14:25:00 127.461 kg [facility] BMI 2022-02-24 14:25:00 44.01 kg/m2 [facility] Oxygen saturation in 2022-02-24 14:25:00 98 /min [facility] Arterial blood by [facility] Pulse oximetry Branch Procedures This patient has no known procedures. Encounters Start End Encounter Admission Attending Care Care Encounter Source Date/Time Date/Time Type Type Clinicians Facility Department ID 2021-11-13 Outpatient ROLF Segura [id number] Common 10:58:49 Mohini [id number] [facility] 2022 2022 Outpatient RORY BANKS [address] [place] 00:00:00 00:00:00 HN [id number] [facility] 2022-02-24 2022-02-24 Office Robb, [facility] [id number] Univers 09:15:00 10:08:38 Visit Con MINERVA [id number] i ty of [place] [id number] [place] [id number] Sd dical NAL 204 Branch [facility] 2020-12-26 2020-12-26 Laboratory Only, Adc [facility] [id number] 11:08:15 11:23:15 Only Test [place] [id number] [place] [id number] [place] [id number] 2020-12-26 2020-12-26 Orders Doctor GOYO [id number] 00:00:00 00:00:00 Only Unassigned, SERGIO [id number] [place] [facility] [id number] 2019-10-17 2019-10-17 [facility] [id number] Common 16:23:00 16:23:00 t [facility] 2019-09-19 2019-09-19 [facility] [id number] Common 14:33:00 14:33:00 t Bone Bone and Spiri t and Joint [facility] 2019-09-09 2019-09-09 [facility] [id number] Common 09:00:00 09:00:00 t Bone Bone and Spiri t and Joint [facility] 2019-08-23 2019-08-23 [facility] [id number] Common 13:30:00 13:30:00 t Bone Bone and Spiri t and Joint [facility] 2019-08-01 2019-08-01 [facility] [id number] Common 08:00:00 08:00:00 t Bone Bone and Spiri t and Joint [facility] - [facility] 2018-06-01 2018-06-01 Outpatient Yvette Turpin [id number] Common 10:30:00 10:30:00 t Bone Bone and Spiri t and Joint [facility] Results This patient has no known results.
[2022-06-03 07:50] LABS: Absolute Lymphocytes (CBC) 1.4 K/uL (0.7-4.9); Hematocrit 33.3 % (39.6-49.0); Lymphocytes % 21.8 % (15.3-44.8); MCV 67.3 fL (80-100); MPV 7.8 fL (7.6-11.3); RBC Red Blood Cell Count 4.94 M/uL (4.33-5.43)
[2022-06-03 08:13] LABS: Magnesium 2.3 mg/dL (1.8-2.4); Potassium 3.8 mmol/L (3.5-5.1); Troponin High Sensitivity 6.1 pg/mL (<58.9)
--- NOTE | 2022-06-03 08:33 | RAD REPORT ---
EXAM DESCRIPTION: RAD - Chest Single View - 06/03/2022 8:23 am CLINICAL HISTORY: dizziness, vomiting COMPARISON: Two view chest 07/03/2016 TECHNIQUE: AP portable chest image was obtained 06/03/2022 8:23 am . FINDINGS: Lung volumes are low. Underinflated lungs, body habitus affects and under penetrated techn ique accentuate the interstitial pattern. This could mask minimal edema or infiltrate. Cardiac silhou ette is enlarged common magnified by the exam limitations. Upper lobe vasculature within range of nor mal for the exam limitations. No measurable pleural effusion and no pneumothorax. No acute bony abnormality seen. No acute aortic findings suspected. IMPRESSION: No focal mass or consolidation identified. Heart, vasculature and lung markings are accentuated by above detailed exam limitations. Mild failure or volume overload as well as mild interstitial edema or infiltrate could be masked.
[2022-06-03 08:40] LABS: Blood Morphology Comment NOTED (NOT SEEN); Hypochromasia 1+; Platelet Estimate ADEQ
--- NOTE | 2022-06-03 08:42 | ER ---
Nurse's Notes [facility] Name: Jose Neil Age: 67 yrs Sex: Male : 1955 Arrival Date: 06/03/2022 Time: 06:27 Bed 6 Private MD: Diagnosis: Dizziness;Nausea with vomiting, unspecified Presentation: 06/03 06:57 Chief complaint: Patient states: he got up to go to the bathroom this morning and felt bb dizzy and nauseous, he felt off-balance walking to the bathroom and when he looked around everything seemed to be moving he vomited x 2. Coronavirus screen: At this time, the client does not indicate any symptoms associated with coronavirus-19. Ebola Screen: No symptoms or risks identified at this time. Initial Sepsis Screen: Does the patient meet any 2 criteria? No. Patient's initial sepsis screen is negative. Does the patient have a suspected source of infection? No. Patient's initial sepsis screen is negative. Risk Assessment: Do you want to hurt yourself or someone else? Patient reports no desire to harm self or others. Onset of symptoms was June 03, 2022. 06:57 Method Of Arrival: Ambulatory bb 06:57 Acuity: ANGIE 3 bb Historical: - Allergies: 06:59 PENICILLINS; bb - Home Meds: 07:33 gabapentin 100 mg oral cap 1 cap 3 times per day [Active]; BRILINTA 90 mg Oral tab 1 vg1 tab 2 times per day [Active]; metoprolol tartrate 25 mg Oral tab 1 tab once daily [Active]; lisinopril 30 mg Oral tab [Active]; Flomax 0.4 mg Oral cp24 1 cap once daily [Active]; pravastatin 40 mg Oral tab [Active]; fluoxetine 40 mg Oral cap 1 cap once daily [Active]; Nexium 40 mg Oral cpDR 1 cap once daily [Active]; pantoprazole 40 mg oral TbEC 1 tab once daily [Active]; - PMHx: 07:33 High Cholesterol; Hypertension; Myocardial infarction; neuropathy; vg1 - Immunization history:: Moderna x 3. - Social history:: Smoking status: Patient denies any tobacco usage or history of. Screenin:12 Abuse screen: Denies threats or abuse. Nutritional screening: No deficits noted. vg1 Tuberculosis screening: No symptoms or risk factors identified. Fall Risk No fall in past 12 months (0 pts). No secondary diagnosis (0 pts). IV access (20 points). Ambulatory Aid- None/Bed Rest/Nurse Assist (0 pts). Gait- Normal/Bed Rest/Wheelchair (0 pts) Mental Status- Oriented to own ability (0 pts). Total Fong Fall Scale indicates No Risk (0-24 pts). Assessment: 07:12 General: Appears in no apparent distress. comfortable, Behavior is calm, cooperative. vg1 Pain: Denies pain. Neuro: Level of Consciousness is awake, alert, obeys commands, Oriented to person, place, time, situation, Reports dizziness. Cardiovascular: Denies chest pain, Patient's skin is warm and dry. Respiratory: Airway is patent Respiratory effort is even, unlabored. GI: Abdomen is round non-distended, Reports nausea, vomiting. : No signs and/or symptoms were reported regarding the genitourinary system. EENT: No signs and/or symptoms were reported regarding the EENT system. Derm: Skin is pink, warm \T\ dry. Musculoskeletal: Circulation, motion, and sensation intact. 08:31 Reassessment: Patient appears in no apparent distress at this time. No changes from vg1 previously documented assessment. Patient and/or family updated on plan of care and expected duration. Pain level reassessed. Patient is alert, oriented x 3, equal unlabored respirations, skin warm/dry/pink. 09:30 Reassessment: Patient appears in no apparent distress at this time. No changes from vg1 previously documented assessment. Patient and/or family updated on plan of care and expected duration. Pain level reassessed. Patient is alert, oriented x 3, equal unlabored respirations, skin warm/dry/pink. Vital Signs: 06:57 BP 125 / 87; Pulse 62; Resp 16 S; Temp 98.4; Pulse Ox 98% on R/A; Weight 127.01 kg (R); bb Height 5 ft. 8 in. (172.72 cm) (R); 08:32 BP 121 / 70; Pulse 58; Resp 17; Pulse Ox 97% on R/A; vg1 06:57 Body Mass Index 42.57 (127.01 kg, 172.72 cm) bb ED Course: 06:27 Patient arrived in ED. bp1 06:59 Triage completed. bb 06:59 Arm band placed on Patient placed in an exam room, on a stretcher, on pulse oximetry. bb Family accompanied patient. 07:10 Ovidio Tabares DO is Attending Physician. ms3 07:12 Patient has correct armband on for positive identification. Bed in low position. Call vg1 light in reach. Side rails up X 1. Adult w/ patient. Client placed on continuous cardiac and pulse oximetry monitoring. NIBP monitoring applied. 07:35 Initial lab(s) drawn, by ED staff, sent to lab. Inserted saline lock: 20 gauge in right vg1 antecubital area, using aseptic technique. ,using aseptic technique. completed by KJ Blood collected. 08:25 XRAY Chest (1 view) In Process Unspecified. EDMS 08:40 Scott Lovell DO is Referral Physician. ms3 09:37 No provider procedures requiring assistance completed. IV discontinued, intact, vg1 bleeding controlled, No redness/swelling at site. Pressure dressing applied. Administered Medications: No medications were administered Medication: 07:12 VIS not applicable for this client. vg1 Outcome: 08:41 Discharge ordered by MD. ms3 09:37 Discharged to home ambulatory, with family. vg1 09:37 Condition: good 09:37 Discharge instructions given to patient, Instructed on discharge instructions, follow up and referral plans. Demonstrated understanding of instructions, follow-up care. 09:37 Patient left the ED. vg1 Signatures: Dispatcher [employer] EDMS Patricia Smith RN RN bb Garcia, Victoria, RN RN vg1 Ovidio Tabares DO DO ms3 MarlonbevGris angel bp1
--- NOTE | 2022-06-03 08:42 | EDPHYS ---
Physician Documentation [facility] Name: Jose Neil Age: 67 yrs Sex: Male : 1955 Arrival Date: 06/03/2022 Time: 06:27 Bed 6 Private MD: ED Physician Ovidio Tabares HPI: 06/03 07:20 This 67 yrs old Black Male presents to ER via Ambulatory with complaints of Dizziness, ms3 Vomiting, Headache. 07:20 The patient presents with sense of spinning. Onset: The symptoms/episode began/occurred ms3 4 hour(s) ago. Context: occurred at home, occurred while the patient was Getting out of bed and going to the bathroom. Modifying factors: The symptoms are alleviated by lying down, the symptoms are aggravated by nothing. Associated signs and symptoms: Pertinent positives: nausea, vomiting, Pertinent negatives: abdominal pain, blurred vision, chest pain, shortness of breath. Severity of symptoms: At their worst the symptoms were moderate in the emergency department the symptoms have resolved. Patient's baseline: Neuro: alert and fully oriented, Motor: no deficits, Ambulation: walks without assistance, Speech: normal. Historical: - Allergies: 06:59 PENICILLINS; bb - Home Meds: 07:33 gabapentin 100 mg oral cap 1 cap 3 times per day [Active]; BRILINTA 90 mg Oral tab 1 vg1 tab 2 times per day [Active]; metoprolol tartrate 25 mg Oral tab 1 tab once daily [Active]; lisinopril 30 mg Oral tab [Active]; Flomax 0.4 mg Oral cp24 1 cap once daily [Active]; pravastatin 40 mg Oral tab [Active]; fluoxetine 40 mg Oral cap 1 cap once daily [Active]; Nexium 40 mg Oral cpDR 1 cap once daily [Active]; pantoprazole 40 mg oral TbEC 1 tab once daily [Active]; - PMHx: 07:33 High Cholesterol; Hypertension; Myocardial infarction; neuropathy; vg1 - Immunization history:: Moderna x 3. - Social history:: Smoking status: Patient denies any tobacco usage or history of. ROS: 07:20 Constitutional: Negative for fever, and chills. Neck: Negative for injury, pain, and ms3 swelling, Cardiovascular: Negative for chest pain, and palpitations. Respiratory: Negative for shortness of breath, cough, wheezing, and pleuritic chest pain, Neuro: Negative for headache, weakness, numbness, tingling. Psych: Negative for depression, anxiety, suicide ideation, homicidal ideation, and hallucinations. 07:20 Abdomen/GI: Positive for nausea and vomiting. 07:20 Neuro: Positive for dizziness. 07:20 All other systems are negative. Exam: 07:20 Constitutional: This is a well developed, well nourished patient who is awake, alert, ms3 and in no acute distress. Head/Face: Normocephalic, atraumatic. Neck: Trachea midline, no cervical lymphadenopathy. Supple, full range of motion without nuchal rigidity, or vertebral point tenderness. No Meningismus. Chest/axilla: Normal chest wall appearance and motion. Nontender with no deformity. Cardiovascular: Regular rate and rhythm with a normal S1 and S2. No gallops, murmurs, or rubs. Normal PMI, no JVD. No pulse deficits. Respiratory: Lungs have equal breath sounds bilaterally, clear to auscultation and percussion. No rales, rhonchi or wheezes noted. No increased work of breathing, no retractions or nasal flaring. Abdomen/GI: Soft, non-tender, with normal bowel sounds. No distension or tympany. No guarding or rebound. No evidence of tenderness throughout. Skin: Warm, dry with normal turgor. Normal color with no rashes, no lesions, and no evidence of cellulitis. MS/ Extremity: Pulses equal, no cyanosis. Neurovascular intact. Full, normal range of motion. Neuro: Awake and alert, GCS 15, oriented to person, place, time, and situation. Cranial nerves II-XII grossly intact. Motor strength 5/5 in all extremities. Sensory grossly intact. Cerebellar exam normal. Normal gait. Psych: Awake, alert, with orientation to person, place and time. Behavior, mood, and affect are within normal limits. 07:25 ECG was reviewed by the Attending Physician. ms3 Vital Signs: 06:57 BP 125 / 87; Pulse 62; Resp 16 S; Temp 98.4; Pulse Ox 98% on R/A; Weight 127.01 kg (R); bb Height 5 ft. 8 in. (172.72 cm) (R); 08:32 BP 121 / 70; Pulse 58; Resp 17; Pulse Ox 97% on R/A; vg1 06:57 Body Mass Index 42.57 (127.01 kg, 172.72 cm) bb MDM: 07:19 Patient medically screened. ms3 07:20 Differential diagnosis: cardiac arrhythmia, near-syncope, TIA, vertigo. ms3 08:41 Data reviewed: vital signs, nurses notes, lab test result(s), EKG, radiologic studies, ms3 and as a result, I will discharge patient. Data interpreted: satellite project site monitor: rate is 60 beats/min, rhythm is normal sinus rhythm, with no ectopy, Interpretation: normal rate, normal rhythm, Pulse oximetry: on room air is 97 %. Interpretation: normal. Counseling: I had a detailed discussion with the patient and/or guardian regarding: the historical points, exam findings, and any diagnostic results supporting the discharge/admit diagnosis, lab results, radiology results, the need for outpatient follow up, to return to the emergency department if symptoms worsen or persist or if there are any questions or concerns that arise at home. Special discussion: I discussed with the patient/guardian in detail that at this point there is no indication for admission to the hospital. It is understood, however, that if the symptoms persist or worsen the patient needs to return immediately for re-evaluation. ED course: Discussed labs, chest x-ray, physical exam findings with patient. Patient to follow-up with primary care physician in 1 to 2 days. Patient understands and agrees with plan. All questions were answered. Return precautions discussed include worsening symptoms, or any other concerns. On reevaluation patient is alert and oriented x4, in no apparent distress, nontoxic-appearing, speaking full sentences, ambulatory in emergency department.. 06/03 07:20 Order name: Basic Metabolic Panel; Complete Time: 08:23 ms3 06/03 07:20 Order name: CBC with Diff ms3 06/03 07:20 Order name: Magnesium; Complete Time: 08:23 ms3 06/03 07:20 Order name: Troponin HS; Complete Time: 08:23 ms3 06/03 07:20 Order name: XRAY Chest (1 view); Complete Time: 08:35 ms3 06/03 08:40 Order name: Manual Differential EDMS 06/03 07:20 Order name: EKG; Complete Time: 07:24 ms3 06/03 07:20 Order name: Cardiac monitoring; Complete Time: 07:33 ms3 06/03 07:20 Order name: EKG - Nurse/Tech; Complete Time: :33 ms3 06/03 07:20 Order name: IV Saline Lock; Complete Time: :33 ms3 06/03 07:20 Order name: Labs collected and sent; Complete Time: :33 ms3 06/03 07:20 Order name: O2 Per Protocol; Complete Time: : ms3 06/03 07:20 Order name: O2 Sat Monitoring; Complete Time: : ms3 EC:25 Rate is 54 beats/min. Rhythm is regular. QRS [place] is Normal. No ST changes noted. ms3 Clinical impression: Sinus bradycardia and with non-specific ST changes. Interpreted by me. Reviewed by me. Administered Medications: No medications were administered Disposition Summary: 06/03/22 08:41 Discharge Ordered Location: Home ms3 Condition: Stable ms3 Diagnosis - Dizziness ms3 - Nausea with vomiting, unspecified ms3 Followup: ms3 - With: Scott Lovell DO - When: 1 - 2 days - Reason: Recheck today's complaints Forms: - Medication Reconciliation Form ms3 - Thank You Letter ms3 - Antibiotic Education ms3 - Prescription Opioid Use ms3 Signatures: Dispatcher [employer] Patricia Calderon, RN RN Olesya Molina RN RN vg1 Ovidio Tabares DO DO ms3
[2022-06-03 09:54] VITALS: TEMP 98.4
[2022-06-03 09:56] VITALS: BP 121/70; O2SAT 97
== END 2022-06-03 09:37 | disposition home or self-care (01) ==
LOC: ER 06:24
DX: R42 Dizziness and giddiness (principal); R11.2 Nausea with vomiting, unspecified; I10 Essential (primary) hypertension; E78.00 Pure hypercholesterolemia, unspecified; Z88.0 Allergy status to penicillin
CPT/HCPCS: 36415; 71045; 80048; 83735; 84484; 85025

== ENCOUNTER 2022-06-24 08:57 | Observation (INO) | payer OTHER ==
--- OUTSIDE RECORDS SUMMARY | 2022-06-24 09:02 | XMS REPORT | Continuity of Care Document ---
:1955 Author Organization [facility] t Address [address] [place] [address] Care Team Providers Name Role Phone MILLER BARRETT Primary Care Physician Unavailable Mohini Barrett Attending Clinician Unavailable MEKHI ZAMUDIO Attending Clinician Unavailable LORENZA SMITH Attending Clinician Unavailable Jeffrey Lara MD Attending Clinician Lorenza Smith DO Attending Clinician GONZALES Attending Clinician Unavailable Mekhi Zamudio MD Attending Clinician Only, Adc Test Attending Clinician Unavailable Doctor Unassigned, Driscoll Attending Clinician Unavailable LORENZA SMITH Admitting Clinician Unavailable Lorenza Smith DO Admitting Clinician GONZALES Admitting Clinician Unavailable Payers Payer Name Policy Type Policy Number Effective Date Expiration Date Cheri arriola MEDICARE PART A [id number] 2009 \T\ B 00:00:00 Problems Condition Condition Condition Status Onset Resolution Last Treating Co mments Source Name Details Category Date Date Treatment Clinician Date Coronary Coronary Disease Active Unive rs artery artery 06-21 ity of disease disease 00:00: [place] involving involving 00 Medi jenn [place] coronary coronary artery of artery of [place] heart with heart with angina angina pectoris pectoris Essential Essential Disease Active Uni vers hypertensi hypertensi 06-21 it y of on on 00:00: [place] 00 Medical Branch Dyslipidem Dyslipidem Disease Active 2022-0 U nivers ia ia 06-21 ity of 00:00: [place] [facility] Elevated Elevated Disease Active Unive rs brain brain 06-21 ity of natriureti [place]ureti [place] peptide c peptide 00 Medi jenn (BNP) (BNP) Branch level level Chest Chest Disease Active Univers pain, pain, 06-19 ity of unspecifie unspecifie [place] d type d type 00 Medical [place] No known No known Disease Unive rs active active ity of problems problems [facility] Primary Primary Problem Active 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 St wrist wrist [facility] Allergies, Adverse Reactions, Alerts Allergy Allergy Status Severity Reaction(s) Onset Inactive Treating Comm ents Source Name Type Date Date Clinician PENICILL DRUG Active Swelling Univer s IN INGREDI 06-19 ity of 00:00: [place] [facility] Penicill Propensi Active Swelling Univ ers in ty to 06-19 ity of adverse 00:00: [place] reaction 00 Medical s Branch penicill Adverse Active Info Not Commo n in Reaction Available Spiri t - [facility] NO KNOWN Drug Active Univers ALLERGIE Class ity of S [facility] Social History Social Habit Start Date Stop Date Quantity Comments Source History of Cigarette Smoker Universi ty of tobacco use [facility] Exposure to 2022-06-09 2022-06-19 Not sure [facility] SARS-CoV-2 00:00:00 19:09:00 [place] [facility] (event) Branch Tobacco use and 2022-06-19 2022-06-19 Smokeless tobacco Un iversity of exposure 00:00:00 00:00:00 non-user [facility] Education 2022-06-19 2022-06-19 14 University of 00:00:00 00:00:00 [facility] Sex Ass[birth year] Universit y of 00:00:00 00:00:00 [facility] Smoking Status Start Date Stop Date Source Ex-smoker 2022-06-19 00:00:00 2022-06-19 [facility] Ordered Filled Start Stop Current Ordering Indication Dosage Frequency Signature Comments Components Source Medication Medication Date Date Medication? Clinician (SIG) Name Name samiusate 202- Yes [id number] 100mg Take 1 Univers 100 mg 06-22 capsule by ity of capsule 00:00: 04:59 mouth in [place] 00 :00 the Medical morning [place] for 30 days. aspirin 81 0 2021- Yes [id number] 81mg Take 1 Univers mg EC 06-22 tablet by ity of tablet 00:00: 04:59 mouth in [place] 00 :00 [facility] morning [place] for 30 days. FLUoxetine Yes 40mg Take 40 mg U nivers 40 mg 06-21 by mouth ity of capsule 14:27: daily. [address] esomeprazol Yes 40mg Take 40 mg Univers e 40 mg 06-21 by mouth ity of capsule 14:27: daily with [facility] s 59 breakfast. [facility] aspirin EC Yes 81mg 81 mg, Unive rs tablet 81 06-21 Oral, ity of mg 14:00: DAILY, [place] 00 First dose Medical on [facility] 06/21/22 at 0900, Until Discontinu ed, Routine atorvastati Yes 80mg 80 mg, Univ ers n (LIPITOR) 06-21 Oral, QHS, it y of tablet 80 02:00: [place] mg [facility] 06/20/22 at Branch 2100, Until Discontinu ed, Routine
membership sales manager approving Restricted medication : HIMANSHU BOLAÑOS isosorbide Yes 30mg 30 mg, Unive rs mononitrate 06-21 Oral, BID, it y of (IMDUR) 24 01:00: First dose [place] hr tablet 00 on Fri Medical 30 mg 06/20/22 at Branch 2000, Until Discontinu ed, Routine metoprolol 0 Yes 25mg 25 mg, Unive rs succinate 06-21 Oral, BID, ity of XL (TOPROL 01:00: First dose [place] XL) tablet 00 (after Medical 25 mg last Branch modificati on) on [facility] 06/20/22 at 2000, Until Discontinu ed, Routine ticagrelor 0 Yes 90mg 90 mg, Unive rs (BRILINTA) 06-21 Oral, BID, ity of tablet 90 01:00: [place] mg 00 (after Medical last Branch modificati on) on Thu06/20/22 at 2000, Until Discontinu ed, Routine atorvastati 2021- Yes [id number] 80mg Take 1 Univers n 80 mg 06-21 tablet by ity of tablet 00:00: 04:59 mouth at [place] 00 :00 bedtime Medical for 30 Branch days. ferrous 2021- Yes [id number] 325mg Take 1 U nivers sulfate 325 06-21 tablet by it y of mg (65 mg 00:00: 04:59 mouth in [place] as iron) 00 :00 the Medical tablet morning Branch for 30 days. isosorbide 2021- Yes [id number] 30mg Take 1 Univers mononitrate 06-21 tablet by it y of 30 mg 24 hr 00:00: 04:59 [place] in [place] tablet 00 :00 the Medical morning Branch and 1 tablet in the evening. Do all this for 30 days. sulfur 2021- No [id number] 5mL 5 mL, Unive rs hexafluorid 06-20 Intravenou i ty of e microsphr 18:45: 18:45 s, ONCE, 1 [place] (LUMASON) 00 :00 dose, On Medica l injection 5 Thu06/20/22 Br anch mL at 1345, Routine
membership sales manager approving Restricted medication : HIMANSHU BOLAÑOS FLUoxetine Yes 40mg 40 mg, Unive rs (PROZAC) 06-20 Oral, ity of capsule 40 14:00: DAILY, [place] mg 00 First dose Medical on Thu Branch 06/20/22 at 0900, Until Discontinu ed, Routine tamsulosin Yes .4mg 0.4 mg, Univ ers (FLOMAX) 06-20 Oral, ity of capsule 0.4 14:00: DAILY, [place] mg 00 First dose Medical on Thu Branch 06/20/22 at 0900, Until Discontinu ed, Routine docusate Yes 100mg 100 mg, Unive rs (COLACE) 06-20 Oral, ity of capsule 100 14:00: [place]ILY, [place] mg 00 First dose Medical on Thu Branch 06/20/22 at 0900, Until Discontinu ed, Routine enoxaparin Yes 40mg 40 mg, Unive rs (LOVENOX) 06-20 Subcutaneo ity of injection 14:00: [place], [place]ILY, [place] 40 mg 00 First dose Medical on Thu Branch 06/20/22 at 0900, Until Discontinu ed, Routine ticagrelor No 90mg 90 mg, Univ ers (BRILINTA) 06-20 Oral, ity of tablet 90 14:00: 19:37 DAILY, [place] mg 00 :36 First dose Medical on Thu Branch 06/20/22 at 0900, Until Discontinu ed, Routine pravastatin No 40mg 40 mg, Uni vers (PRAVACHOL) 06-20 Oral, ity of tablet 40 14:00: 19:37 DAILY, [place] mg 00 :36 First dose Medical on Thu Branch 06/20/22 at 0900, Until Discontinu ed, Routine metoprolol 2021- No 25mg 25 mg, Univ ers succinate 06-20 Oral, ity of XL (TOPROL 14:00: 19:37 DAILY, [place] XL) tablet 00 :36 First dose Med ical 25 mg on Thu Branch 06/20/22 at 0900, Until Discontinu ed, Routine gabapentin Yes 100mg 100 mg, Uni vers (NEURONTIN) 06-20 Oral, TID, it y of capsule 100 13:00: First dose [place] mg 00 on Thu Medical 06/20/22 at Branch 0800, Until Discontinu ed, Routine maalox:diph 2021- No 15mL 15 mL, Uni vers enhydrAMINE 06-20 Oral, ity of :lidocaine 06:00: 05:19 ONCE, 1 [place] as 2 % viscous 00 :00 dose, On Medi jenn 1:1:1 Thu06/20/22 Branch (FIRST-MOUT at 0100, [facility]) Routine oral suspension 15 mL HYDROcodone 2021- Yes 1{tbl} 1 tablet, Univers -acetaminop 06-19 Oral, ity of hen (NORCO 23:25: 23:24 Q6HPRN, [place] as 5) 5-325 mg 46 :46 Starting Medi jenn tablet 1 on [place] Branch tablet 06/19/22 at 1825, Until 06/21/22 at 1824, Routine, Pain (scale 4-6) acetaminoph Yes 650mg 650 mg, Un greg en 06-19 Oral, ity of (TYLENOL) 23:25: Q6HPRN, [place] tablet 650 40 Starting Medic al mg on [place] Branch 06/19/22 at 1825, Until Discontinu ed, Routine, Pain (scale 1-3) FLUoxetine Yes 40mg Take 40 mg U nivers 40 mg 9-30 by mouth ity of capsule 14:26: daily. [address] esomeprazol Yes 40mg Take 40 mg Univers e (NEXIUM) 9-30 by mouth ity o f 40 mg 14:26: daily with [place] capsule 40 breakfast. [facility] gabapentin Yes TAKE 1 Unive rs 100 mg 9-27 CAPSULE BY ity of capsule 00:00: MOUTH [place] [address] THREE Medical TIMES Branch DAILY FOR NUMB FEET metoprolol Yes 25mg Take 25 mg U nivers succinate 9-27 by mouth ity of XL 25 mg 24 00:00: [place]. [place] tablet 00 Medical Branch gabapentin Yes TAKE 1 Unive rs 100 mg 9-27 CAPSULE BY ity of capsule 00:00: MOUTH [place] [address] THREE Medical TIMES [place] DAILY FOR NUMB FEET metoprolol Yes 25mg Take 25 mg U nivers succinate 9-27 by mouth ity of XL 25 mg 24 00:00: [place]. [place] hr tablet 00 Medical Branch lisinopriL Yes 30mg Take 30 mg U nivers 30 mg 9-13 by mouth ity of tablet 00:00: daily. [address] BRILINTA 60 Yes 1{tbl} Take 1 Un greg mg Tab 9-13 tablet by ity of 00:00: mouth 2 [place] 00 (two) Medical times Branch daily. lisinopriL Yes 30mg Take 30 mg U nivers 30 mg 9-13 by mouth ity of tablet 00:00: daily. [address] Branch TICAGRELOR Yes 1{tbl} Take 1 Uni vers 90 mg 9-13 tablet by ity of tablet 00:00: mouth in [place] 00 the Medical morning. Branch tamsulosin Yes Univers 0.4 mg 24 8-20 ity of hr capsule 00:00: [address] Branch tamsulosin 0 Yes Univers 0.4 mg 24 8-20 ity of hr capsule 00:00: [address] Branch pravastatin 0 Yes 40mg Take 40 mg Univers 40 mg 8-10 by mouth ity of tablet 00:00: daily. [address] pravastatin 2021- No 40mg Take 40 mg Univers 40 mg 8-10 06-21 by mouth ity of tablet 00:00: 00:00 daily. [place] 00 :00 [facility] Pravastatin Pravastatin 0 Yes Alessandro 1 tablet Common Sodium Sodium 06-01 [facility] 00:00: - [facility] Flomax Flomax 2018-0 Yes [place] 1 capsule C ommon 06-01 [facility] [facility] 00:00: - [facility] Brilinta Brilinta 2018-0 Yes Alessandro 1 tablet Common 14 [facility] 00:00: - [facility] Prozac Prozac 2018-0 Yes Aless[place] 2 tab Commo n 06-01 [facility] 00:00: - [facility] Nexium Nexium 2018-0 Yes Alessandro 1 capsule C ommon 14 [facility] 00:00: - [facility] Metoprolol Metoprolol 2018-0 Yes [place]ess[place] not Common Succinate Succinate 06-01 Vasquez defined Sp angela 00:00: - [facility] Lisinopril Lisinopril 2018-0 Yes Alessandro 1 tablet Common 14 [facility] 00:00: - [facility] Acetaminoph Acetaminoph Yes [place] not Common en-Codeine en-Codeine [place]quez defined Spirit #3 #3 [facility] MethylPREDN MethylPREDN Yes [place] not Common ISolone ISolone Vasquez defined [facility] Fluoxetine Fluoxetine Yes [place] not Common HCl HCl Vasquez defined [facility] Amitriptyli Amitriptyli Yes [place] not Common ne HCl ne HCl Vasquez defined [facility] Immunizations Ordered Filled Immunization Date Status Comments Sourc e Immunization Name Name SARS-COV-2 COVID-19 2021-09-10 Completed Unive rsity of MODERNA 0.25ML 00:00:00 [place] Medi jenn BOOSTER VACCINE Branch SARS-COV-2 COVID-19 2021-03-10 Completed Unive rsity of MODERNA 12+ YRS 00:00:00 [place] Med ical VACCINE Branch SARS-COV-2 COVID-19 2021-02-08 Completed Unive rsity of MODERNA 12+ YRS 00:00:00 [place] Med ical VACCINE Branch Vital Signs Vital Name Observation Time Observation Value Comments Source Diastolic blood 2022-06-21 12:39:00 68 mm[Hg] Unive rsity of pressure [facility] Heart rate 2022-06-21 12:39:00 54 /min [facility] Body temperature 2022-06-21 12:39:00 36.44 [facility] Respiratory rate 2022-06-21 12:39:00 14 /min [facility] Oxygen saturation in 2022-06-21 12:39:00 95 /min [place] of Arterial blood by [facility] Pulse oximetry Branch Systolic blood 2022-06-21 12:39:00 122 mm[Hg] Univer sity of [facility] Body weight 2022-06-21 08:20:00 125.465 kg [facility] BMI 2022-06-21 08:20:00 43.32 kg/m2 [facility] Body height 2022-06-20 00:19:00 170.2 cm [facility] Systolic blood 2022-02-24 14:25:00 102 mm[Hg] Univer sity of [facility] Diastolic blood 2022-02-24 14:25:00 70 mm[Hg] Unive rsity of pressure [facility] Heart rate 2022-02-24 14:25:00 76 /min [facility] Respiratory rate 2022-02-24 14:25:00 18 /min [facility] Body height 2022-02-24 14:25:00 170.2 cm [facility] Body weight 2022-02-24 14:25:00 127.461 kg [facility] BMI 2022-02-24 14:25:00 44.01 kg/m2 [facility] Oxygen saturation in 2022-02-24 14:25:00 98 /min University Arterial blood by [facility] Pulse oximetry Branch Procedures Procedure Date / Time Performing Clinician Source Performed FERRITIN SERUM 2022-06-21 09:38:00 Bhanu Cain [facility] TROPONIN I 2022-06-21 09:38:00 Ant [facility] IRON PANEL 2022-06-21 09:38[facility]-06-20 21:14[facility] 2022-06-20 09:42:00 Ant [facility] TROPONIN I 2022-06-20 09:42:00 Ant [facility] THYROID STIMULATING 2022-06-20 09:42:00 [facility] [address] HORMONE [facility] BASIC METABOLIC PANEL 2022-06-20 09:42:00 Bhanu Cain [facility] (NA, K, CL, CO2, GLUCOSE, Medica l Branch BUN, CREATININE, CA) CBC WITH DIFF 2022-06-20 09:42:00 [facility] 2022-06-20 02:17:00 [facility] LIPID PANEL ([id number])(TOTAL 2022-06-20 02:17:00 Patricia Fagan [facility] CHOLESTEROL, [facility] TRIGLYCERIDES, HDL) XR CHEST 1 VW 2022-06-19 21:18:27 Marco [facility] TROPONIN I 2022-06-19 21:11:00 Marco [facility] COMP. METABOLIC PANEL 2022-06-19 21:11:00 Jeffrey Lara [facility] ([id number]) [facility] CBC WITH DIFF 2022-06-19 21:11:00 Jeffrey Lara [place] [facility] PROTHROMBIN TIME / INR 2022-06-19 21:11:00 Jeffrey Lara [facility] ACTIVATED PARTIAL 2022-06-19 21:11:00 Jeffrey Lara [facility] THRMPLAS DIDIER [facility] N-TERMINAL PRO-BNP 2022-06-19 21:11:00 Jeffrey Lara [facility] COVID-19 (ID NOW RAPID 2022-06-19 21:11:00 Jeffrey Lara [facility] TESTING) Medical Branch LAB ONLY COVID 2022-06-19 21:11:00 Jeffrey Lara [facility] INTERPRETATION [facility] HB ECG ROUTINE & RHYTHM 2022-06-19 20:40:50 Jeffrey Lara [facility] CONSENT/REFUSAL FOR 2022-06-19 20:34:15 Doctor Unassigned, [facility] DIAGNOSIS AND TREATMENT [facility] [place] Encounters Start End Encounter Admission Attending Care Care Encounter Source Date/Time Date/Time Type Type Clinicians Facility Department ID 2021-11-13 Outpatient ROLF Barrett [facility] [id number] Common 10:58:49 Mohini [id number] [facility] 2022-09-25 2022-09-25 Outpatient Tracie ZAMUDIO [facility] [id number] P-20 Univers 08:30:00 08:30:00 MEKHI [id number] [facility] 2022-06-19 2022-06-21 Outpatient Sabrina SMITH MTSABINO LEONILA [id number] Univers 15:47:00 14:18:00 LORENZA mary [facility] 2022-06-19 2022-06-21 Emergency Jeffrey Lara [facility] [id number] Univers 15:47:00 14:18:00 Lorenza Smith [id number] [facility] [id number] [facility] [id number] [facility] jenn 081 Branch 2022 2022 Outpatient RORY BANKS [id number] [place] 00:00:00 00:00:00 HN [id number] da [facility] Outre h Program 2022-02-24 2022-02-24 Office Alzweri, [facility] [id number] [facility] 09:15:00 10:08:38 Visit Mekhi PALMA [id number] i ty of [place] [id number] [place] PROFESS[place] [id number] Me dical NAL 204 Branch [facility] 2020-12-26 2020-12-26 Laboratory Only, Adc [facility] [id number] 11:08:15 11:23:15 Only Test Ariel [id number] [place] [id number] [place] [id number] 2020-12-26 2020-12-26 Orders Doctor GOYO [id number] 00:00:00 00:00:00 Only Unassigned, SERGIO [id number] Driscoll [facility] [id number] 2019-10-17 2019-10-17 Out[facility] [id number] Common 16:23:00 16:23:00 [facility] 2019-09-19 2019-09-19 [facility] [id number] Common 14:33:00 14:33:00 t [facility] 2019-09-09 2019-09-09 [facility] [id number] Common 09:00:00 09:00:00 t [facility] 2019-08-23 2019-08-23 [facility] [id number] Common 13:30:00 13:30:00 t [facility] 2019-08-01 2019-08-01 [facility] [id number] Common 08:00:00 08:00:00 t [facility] 2018-06-01 2018-06-01 Outpatient Yvette Turpin [id number] Common 10:30:00 10:30:00 t [facility] Results This patient has no known results.
--- NOTE | 2022-06-24 09:32 | ER ---
Nurse's Notes [facility] Name: Jose Neil Age: 67 yrs Sex: Male : 1955 Arrival Date: 06/24/2022 Time: 09:00 Bed 15 Private MD: Diagnosis: Chest pain, unspecified;Unstable angina Presentation: 06/24 09:11 Chief complaint: Patient states: chest pain that started on and was relieved. kr3 Went to [facility] and stayed till Thursday. Came in this morning per Dr Dupree's orders. 09:11 Method Of Arrival: Ambulatory kr3 09:11 Acuity: ANGIE 2 kr3 11:57 Coronavirus screen: At this time, the client does not indicate any symptoms associated jd3 with coronavirus-19. Ebola Screen: No symptoms or risks identified at this time. Initial Sepsis Screen: Does the patient meet any 2 criteria? No. Patient's initial sepsis screen is negative. Does the patient have a suspected source of infection? No. Patient's initial sepsis screen is negative. Risk Assessment: Do you want to hurt yourself or someone else? Patient reports no desire to harm self or others. Onset of symptoms was June 24, 2022. Triage Assessment: 09:15 General: Appears in no apparent distress. uncomfortable, Behavior is calm, cooperative, kr3 appropriate for age. Historical: - Allergies: 12:28 PENICILLINS; em6 - PMHx: 09:06 Myocardial infarction; neuropathy; ll1 12:28 High Cholesterol; Hypertension; em6 - Immunization history:: Adult Immunizations unknown. - Family history:: not pertinent. - Social history:: Smoking status: unknown. - Hospitalizations: : No recent hospitalization is reported. Screenin:58 Abuse screen: Denies threats or abuse. Nutritional screening: No deficits noted. jd3 Tuberculosis screening: No symptoms or risk factors identified. Fall Risk Ambulatory Aid- None/Bed Rest/Nurse Assist (0 pts). Gait- Normal/Bed Rest/Wheelchair (0 pts) Mental Status- Oriented to own ability (0 pts). Total Fong Fall Scale indicates No Risk (0-24 pts). Assessment: 09:15 General: Appears in no apparent distress. comfortable, Behavior is calm, cooperative, em6 appropriate for age. Pain: Denies pain. Neuro: Quesada Agitation-Sedation Scale (RASS): 0 - Alert and Calm. Cardiovascular: Heart tones present Patient's skin is warm and dry. Rhythm is sinus rhythm. Respiratory: Airway is patent Respiratory effort is even, unlabored, Respiratory pattern is regular, symmetrical, Breath sounds are clear bilaterally. GI: No signs and/or symptoms were reported involving the gastrointestinal system. : No signs and/or symptoms were reported regarding the genitourinary system. EENT: No signs and/or symptoms were reported regarding the EENT system. Derm: No signs and/or symptoms reported regarding the dermatologic system. Musculoskeletal: Circulation, motion, and sensation intact. Range of motion: intact in all extremities. 10:15 Reassessment: Patient appears in no apparent distress at this time. No changes from em6 previously documented assessment. Patient and/or family updated on plan of care and expected duration. Pain level reassessed. Patient is alert, oriented x 3, equal unlabored respirations, skin warm/dry/pink. 11:15 Reassessment: Patient appears in no apparent distress at this time. No changes from em6 previously documented assessment. Patient and/or family updated on plan of care and expected duration. Pain level reassessed. Patient is alert, oriented x 3, equal unlabored respirations, skin warm/dry/pink. 12:15 Reassessment: Patient appears in no apparent distress at this time. No changes from em6 previously documented assessment. Patient and/or family updated on plan of care and expected duration. Pain level reassessed. Patient is alert, oriented x 3, equal unlabored respirations, skin warm/dry/pink. 12:27 Reassessment: left to lab technologist . em6 Vital Signs: 09:11 BP 148 / 77; Pulse 63; Resp 18; Temp 98.1; Pulse Ox 98% on R/A; kr3 11:00 BP 121 / 80; Pulse 58; Resp 13; Pulse Ox 99% ; em6 11:00 BP 123 / 83; Pulse 56; Resp 18; Pulse Ox 97% on R/A; em6 ED Course: 09:00 Patient arrived in ED. rg4 09:01 Sameer Hopper MD is Attending Physician. rn 09:06 Arm band placed on Patient placed in an exam room, on a stretcher. ll1 09:13 Huitron, Alessandro, RN is Primary Nurse. jd3 09:15 Triage completed. kr3 09:28 XRAY Chest (1 view) In Process Unspecified. EDMS 09:32 Niraj Olson is Hospitalizing Provider. rn 09:45 Inserted saline lock: 20 gauge in left antecubital area, using aseptic technique. Blood jd3 collected. 09:47 SARS RAPID Sent. jd3 09:47 Basic Metabolic Panel Sent. jd3 09:47 CBC with Diff Sent. jd3 09:47 NT PRO-BNP Sent. jd3 09:47 Troponin HS Sent. jd3 10:27 Olegario Gaines MD is Hospitalizing Provider. rn 11:58 Patient has correct armband on for positive identification. Placed in gown. Bed in low jd3 position. Call light in reach. Side rails up X 1. Client placed on continuous cardiac and pulse oximetry monitoring. NIBP monitoring applied. turf and grounds supervisor on. Pulse ox on. NIBP on. 11:58 No provider procedures requiring assistance completed. Patient admitted, IV remains in jd3 place. Patient maintains SpO2 saturation greater than 95% on room air. Administered Medications: No medications were administered Medication: 11:58 VIS not applicable for this client. jd3 Outcome: 09:32 Decision to Hospitalize by Provider. rn 12:30 Admitted to Porcelain Enameling Supervisor Other with lab technologist nurse em6 12:30 Condition: stable 12:30 Instructed on the need for admit, the need for admitting to lab technologist 12:33 Patient left the ED. em6 Signatures: Dispatcher [employer] EDMS Sameer Hopper MD MD rn Garcia, Rubi rg4 Alessandro Huitron RN RN Beck Morton RN RN [email or web address] Naty Elliott RN RN [email or web address] Monika Edwards RN RN em6 Corrections: (The following items were deleted from the chart) 12: 09:06 Allergies: PENICILLINS; 1 em6 12: 09:06 PMHx: High Cholesterol; 1 em6 12: 09:06 PMHx: Hypertension; ll1 em6
--- NOTE | 2022-06-24 09:33 | EDPHYS ---
Physician Documentation [facility] Name: Jose Neil Age: 67 yrs Sex: Male : 1955 Arrival Date: 06/24/2022 Time: 09:00 Bed 15 Private MD: ED Physician Sameer Hopper HPI: 06/24 09:02 This 67 yrs old Black Male presents to ER via Unassigned with complaints of Chest Pain. rn 09:02 The patient or guardian reports chest pain that is located primarily in the substernal rn area. Onset: 1 week(s) ago. Associated signs and symptoms: Pertinent negatives: abdominal pain, cough. 09:29 The pain does not radiate. The chest pain is described as aching. Duration: The patient rn or guardian reports multiple episodes, that are intermittent. Modifying factors: The symptoms are alleviated by nothing. the symptoms are aggravated by nothing. Severity of pain: At its worst the pain was moderate in the emergency department the pain has improved. The patient has experienced similar episodes in the past. The patient has been recently seen by a physician:. Sent in by Dr. German for chest pain, planning on heart cath today. No current chest pain. No sob. No hemoptysis. . Historical: - Allergies: 12:28 PENICILLINS; em6 - PMHx: 09:06 Myocardial infarction; neuropathy; ll1 12:28 High Cholesterol; Hypertension; em6 - Immunization history:: Adult Immunizations unknown. - Family history:: not pertinent. - Social history:: Smoking status: unknown. - Hospitalizations: : No recent hospitalization is reported. ROS: 09:29 Constitutional: Negative for fever, chills, and weight loss, Eyes: Negative for injury, rn pain, redness, and discharge, Neck: Negative for injury, pain, and swelling, Cardiovascular: Negative for palpitations, and edema, Respiratory: Negative for shortness of breath, cough, wheezing, and pleuritic chest pain, Abdomen/GI: Negative for abdominal pain, nausea, vomiting, diarrhea, and constipation, Back: Negative for injury and pain, MS/Extremity: Negative for injury and deformity, Skin: Negative for injury, rash, and discoloration, Neuro: Negative for headache, weakness, numbness, tingling, and seizure. Exam: :29 Constitutional: This is a well developed, well nourished patient who is awake, alert, rn and in no acute distress. Head/Face: Normocephalic, atraumatic. Cardiovascular: Regular rate and rhythm. No pulse deficits. Respiratory: No increased work of breathing, no retractions or nasal flaring. Abdomen/GI: Soft, non-tender Skin: Warm, dry MS/ Extremity: Pulses equal, no cyanosis. Neuro: Awake and alert, GCS 15 11:06 ECG was reviewed by the Attending Physician. rn Vital Signs: 09:11 BP 148 / 77; Pulse 63; Resp 18; Temp 98.1; Pulse Ox 98% on R/A; kr3 11:00 BP 121 / 80; Pulse 58; Resp 13; Pulse Ox 99% ; em6 11:00 BP 123 / 83; Pulse 56; Resp 18; Pulse Ox 97% on R/A; em6 MDM: 09:01 Patient medically screened. rn 09:29 Differential diagnosis: acute myocardial infarction, coronary artery disease stable rn angina, unstable angina. HEART Score: History: Moderately Suspicious (1), ECG: Non specific repolarization disturbance / LBTB / PM (1), Age: > or = 65 years (2), Risk Factors: > or = 3 Risk factors for atherosclerotic disease (2), Troponin: < or = 1 x Normal Limit (0), Total Score = 6. Data reviewed: vital signs, nurses notes, EKG, and as a result, I will admit patient. Counseling: I had a detailed discussion with the patient and/or guardian regarding: the historical points, exam findings, and any diagnostic results supporting the discharge/admit diagnosis, the need for further work-up and treatment in the hospital. Response to treatment: and as a result, I will admit patient. 09:29 ED course: Dr. German plans to cath today, requests NPO and no anticoagulation.. rn 06/24 09:11 Order name: Basic Metabolic Panel; Complete Time: 10: rn 06/24 09:11 Order name: CBC with Diff rn 06/24 09:11 Order name: NT PRO-BNP; Complete Time: 10: rn 06/24 09:11 Order name: Troponin HS; Complete Time: 10: rn 06/24 09:11 Order name: SARS RAPID; Complete Time: : rn 06/24 10:53 Order name: CBC Smear Scan EDMS 06/24 09:11 Order name: XRAY Chest (1 view); Complete Time: 09:42 rn 06/24 09:11 Order name: EKG; Complete Time: 09:12 rn 06/24 09:11 Order name: Cardiac monitoring; Complete Time: 09:22 rn 06/24 09:11 Order name: EKG - Nurse/Tech; Complete Time: 09:22 rn 06/24 09:11 Order name: IV Saline Lock; Complete Time: 09:47 rn 06/24 09:11 Order name: Labs collected and sent; Complete Time: 09:47 rn 06/24 09:58 Order name: NPO EDMS 06/24 10:00 Order name: CL CARDIAC CATH - REQUEST EDMS 06/24 09:11 Order name: O2 Per Protocol; Complete Time: 09:13 rn 06/24 09:11 Order name: O2 Sat Monitoring; Complete Time: 09:13 rn EC:06 Rate is 61 beats/min. Rhythm is regular. QRS [place] is Normal. ND interval is normal. QRS rn interval is normal. QT interval is normal. No Q waves. T waves are Normal. No ST changes noted. Clinical impression: NSR w/ Non-specific ST/T Changes. Interpreted by me. Reviewed by me. Administered Medications: No medications were administered Disposition Summary: 06/24/22 09:32 Hospitalization Ordered Hospitalization Status: Observation rn Location: Telemetry/[facility] (observation) rn Condition: Stable rn Problem: an ongoing problem rn Symptoms: have improved rn Bed/Room Type: Standard rn Room Assignment: rn Provider: Olegario Gaines(06/24/22 10:27) rn Diagnosis - Chest pain, unspecified rn - Unstable angina rn Forms: - Medication Reconciliation Form rn - SBAR form rn Signatures: Dispatcher [employer] [facility] Sameer Hopper MD MD rn Davies, Jonathon, RN RN Beck Morton RN RN ll1 Monika Edwards RN RN em6 Corrections: (The following items were deleted from the chart) 10:27 09:32 Niraj Olson rn rn 12:29 09:06 Allergies: PENICILLINS; ll1 em6 12:29 09:06 PMHx: High Cholesterol; ll1 em6 12:29 09:06 PMHx: Hypertension; ll1 em6
--- NOTE | 2022-06-24 09:34 | RAD REPORT ---
EXAM DESCRIPTION: RAD - Chest Single View - 06/24/2022 9:26 am CLINICAL HISTORY: CHEST PAIN COMPARISON: Portable 06/03/2022 TECHNIQUE: AP portable chest image was obtained 06/24/2022 9:26 am . FINDINGS: Lungs are clear. Interstitial pattern matches comparison. Heart and vasculature are normal . No measurable pleural effusion and no pneumothorax. No acute bony abnormality seen. No acute aortic findings suspected. IMPRESSION: No acute cardiopulmonary process.
[2022-06-24 09:58] LABS: Absolute Lymphocytes (CBC) 1.7 K/uL (0.7-4.9); Lymphocytes % 26.2 % (15.3-44.8); MCV 68.2 fL (80-100); MPV 8.5 fL (7.6-11.3); RBC Red Blood Cell Count 5.13 M/uL (4.33-5.43)
[2022-06-24 10:18] LABS: SARS-CoV-2 Antigen Rapid Res Negative (Negative)
[2022-06-24 10:19] LABS: Potassium 4.3 mmol/L (3.5-5.1); Troponin High Sensitivity 6.1 pg/mL (<58.9)
[2022-06-24 10:52] LABS: Anisocytosis 1+; Blood Morphology Comment NOTED (NOT SEEN); Platelet Estimate ADEQ; Poikilocytosis 1+; White Blood Cell Scan OK (OK)
[2022-06-24] MEDS ORDERED: HEPARIN 5000 UNIT/ML 1 ML VIAL ONE (11:25)
[2022-06-24] MEDS ORDERED: HEPA 1000U/500MLS 1,000 UNIT/500 ML BAG IV ONE ×2 (11:25→13:56)
[2022-06-24] MEDS ORDERED: MIDAZOLAM HCL 2 MG/2 ML INJ ONE ×2 (11:25→12:54)
[2022-06-24] MEDS ORDERED: VERAPAMIL HCL 10 MG/4 ML VIAL IV ONE (11:25)
[2022-06-24] MEDS ORDERED: FENTANYL CITR 100 MCG/2 ML ONE (11:25)
[2022-06-24] MEDS ORDERED: CLOPIDOGREL 75 MG TABLET ONE (11:26)
[2022-06-24] MEDS ORDERED: HEPARIN 10,000 UNIT/10 ML VIAL IV ONE ×2 (11:26→13:38)
[2022-06-24] MEDS ORDERED: ASPIRIN 325 MG TAB ONE (11:26)
[2022-06-24] MEDS ORDERED: TICAGRELOR 90 MG TABLET PO ONE (11:27)
[2022-06-24] MEDS ORDERED: ONDANSETRON 4 MG/2 ML VIAL IV PRN (12:37)
[2022-06-24] MEDS ORDERED: NA CHLORIDE 0.9% 500 ML ONE (12:42)
--- NOTE | 2022-06-24 13:10 | P.HP ---
Certification for Inpatient Patient admitted to: Observation With expected LOS: <2 Midnights Patient will require the following post-hospital care: None Practitioner: I am a practitioner with admitting privileges, knowledge of patient current condition, hospital course, and medical plan of care. Services: Services provided to patient in accordance with Admission requirements found in Title 42 Section 412.3 of the Code of Federal Regulations Patient History Date of Service: 06/24/22 Reason for admission: NSTEMI unstable angina. History of Present Illness: [age]-year-old male patient with medical history significant for hypertension, history of coronary artery disease status post stent x2, hyperlipidemia was evaluated in the ER after he had an encounter with cardiology for intervention. He had elevated troponin and chest discomfort couple of days prior to this encounter. He declined intervention at that time but he continued to have have chest pain and has been asked to be admitted for [facility]. No active chest pain reported. No sob, n/v, orthopnea or PND. Allergies Penicillins Allergy (Mild, Verified 07/23/12 12:35) Itching/Hives/Rash Home Medications: Aspirin [Aspirin EC 81 MG] 81 mg PO DAILY 02/23/13 Atorvastatin Calcium [Lipitor*] 80 mg PO BEDTIME 02/23/13 Esomeprazole Mag Trihydrate [Nexium] 40 mg PO DAILY 02/23/13 Fluoxetine HCl [Prozac*] 40 mg PO DAILY 02/23/13 Metoprolol Tartrate [Lopressor*] 25 mg PO DAILY 02/23/13 Ticagrelor [Brilinta*] 90 mg PO BID 02/23/13 lisinopriL [Prinivil*] 30 mg PO DAILY 02/23/13 - Past Medical/Surgical History Diabetic: No -: Hypertension -: Hyperlipidemia -: CAD Past Surgical History: Patient denies surgical history - Social History Alcohol use: Yes CD- Drugs: No Caffeine use: Yes Review of Systems 10-point ROS is otherwise unremarkable Physical Examination - Physical Exam General: Alert, Oriented x3 HEENT: Atraumatic, Normocephalic Neck: Supple Respiratory: Normal air movement Cardiovascular: Regular rate/rhythm, Normal S1 S2 Gastrointestinal: Soft and benign Musculoskeletal: No swelling Neurological: Normal speech - Studies Laboratory Data (last 24 hrs) 06/24/22 09:44: WBC 6.40, Hgb 10.8 L, Hct 35.0 L, Plt Count 253 06/24/22 09:44: Sodium 137, Potassium 4.3, BUN 13, Creatinine 1.12, Glucose 105 Assessment and Plan - Plan Chest Pain/NSTEMI/CAD: Significant concern and need for intervention as per cardiology. Left heart cath to be done by cardiology team today. Will monitor on telemetry and follow cardiology recommendation. He will be n.p.o. for procedure We will continue aspirin and statin therapy. Will obtain lipid panel in am. Hypertension: We will monitor vital signs per unit protocol and continue antihypertensive medications. Hyperlipidemia: Will continue statin therapy. Prophylaxis: SCDs for DVT prophylaxis and Lovenox. Status: Full code Disposition: To be discharged pending left heart cath procedure. - Advance Directives Does patient have a Living Will: No Does patient have a Durable POA for Healthcare: No
[2022-06-24 15:37] VITALS: BMI 42.5
[2022-06-24 16:07] VITALS: O2SAT 99
[2022-06-24] MEDS ORDERED: ATORVASTATIN 10 MG TAB PO SCH (21:00)
[2022-06-24] MEDS: GABAPENTIN 100 MG CAP PO SCH (21:09)
[2022-06-24] MEDS: TICAGRELOR 90 MG TABLET PO SCH (21:09)
[2022-06-24 21:27] LABS: Urine Bilirubin NEGATIVE (Negative); Urine Blood Negative (Negative); Urine Clarity Clear (Clear); Urine Color Light-Yellow (Yellow); Urine Glucose NEGATIVE (Negative); Urine Protein NEGATIVE (Negative); Urine Urobilinogen Normal (Normal)
[2022-06-24 21:29] LABS: Specific Gravity 1.015 (1.005-1.030)
--- NOTE | 2022-06-25 01:10 | OP ---
Date of Procedure: 06/24/2022 Surgeon: JENNIFER HENDERSON Procedures Performed: 1.Selective coronary angiogram. 2.Failed attempt of PCI of [employer]OR proximal RCA. Access: Right radial artery 6-Polish closed with TR band. Complications: None. Estimated Blood Loss: Bleeding less than 20 mL. Anesthesia: Total sedation time was 45 minutes. Description Of Procedure: After risks, benefits, alternatives were explained, the patient agreed to proceed and signed consent. The patient was brought into cardiac catheterization laboratory, prepped and draped in usual sterile fashion. Then, I accessed right radial artery using pediatric micropunc ture kit and took a 5-Polish [place] 4 catheter into the aortic root and engaged left main and right co ronary artery, took standard views and then exchanged for 6-Polish JR4 guide and then 3DRC guide and AR1 guide in attempt to engage the RCA for intervention. I was able to engage it. However, from the radial approach, with the tortuosity, it was very difficult for the guide to sit in and this is a CT O. I could not pass the wire, so the procedure was aborted as there was a good perfusion to the RCA territory from the left and right collaterals and plan for possible staged PCI, if the patient contin ues to be symptomatic. Then I removed the guide and sheath and placed TR band with good hemostasis. Findings: 1.Left main, large and long. It could be coming from the right coronary cusp. However, no disease. 2.LAD, large and normal with some luminal irregularities in the midportion. Normal diagonal branche s. 3.The left circumflex is of moderate size and normal. 4.RCA. Proximal 100% chronic total occlusion right after the marginal branch and there are OM2 boyd aterals from the marginal branch into the PDA as well as from the septals to the PDA with good flow i n the PDA. Conclusion: Severe mid right coronary artery stenosis. It is a chronic total occlusion, 100% occlud ed with good left to right collaterals. Plan: Medical management. If he continues to have symptoms with maximal medical therapy, we will pl an for a PCI of the proximal RCA [employer] in [place] via groin approach. SR/MODL Voice ID: [id number] Report ID: [id number]
--- NOTE | 2022-06-25 04:25 | CON ---
Date of Consultation: 06/24/2022 Reason For Consultation: Unstable angina. History Of Present Illness: Mr. Neil is a 67-year-old black male. He is known to me from previous office visits and admissions in the past. Has had a history of coronary artery disease status post stent of his RCA in the past. He came in with unstable angina. He had a non-STEMI in [facility] recently. They had recommended a heart catheterization, but he wanted to have us do it here in the hospital. He was released with appropriate medication, but came back into the offi ce with chest pain and was sent to the emergency room to be admitted for heart catheterization and fu rther intervention. Allergies: PENICILLIN. Review of Systems: Negative. Social History: Negative. Family History: Noncontributory. Medications: Include Lipitor Neurontin, Brilinta, Imdur, Nexium, Prozac, metoprolol, Pravachol, and tamsulosin as well as lisinopril 30 mg daily. Physical Examination: Vital Signs: Stable, afebrile. HEENT: Negative. Neck: Supple. No bruit. Chest: Clear. Cardiac: Exam revealed a regular rhythm and rate. No murmurs, gallops, or rubs. Abdomen: Benign. Extremities: No clubbing, cyanosis, or edema. Diagnostic Data: His hemoglobin was 10.8. His creatinine was 1.12. Troponin was normal. BNP was 3 67. Chest x-ray was negative. Impression And Plan: The patient with recent non-ST elevation myocardial infarction, history of willy nary artery disease status post RCA stent in the past. I think he needs to be admitted. Left heart catheterization has already been planned to be done today by Dr. Benítez to define his coronary anatom y. He understands the risk and the benefits of the procedure and he agrees to proceed. Meanwhile, w e will continue his present regimen including aspirin, metoprolol, Brilinta, statin, and lisinopril. We will see what that shows before making further decisions. RODNEY/ESPERANZA Voice ID: [id number] Report ID: [id number]
[2022-06-25 06:00] LABS: Absolute Lymphocytes (CBC) 1.7 K/uL (0.7-4.9); Hematocrit 32.4 % (39.6-49.0); Lymphocytes % 24.7 % (15.3-44.8); MCV 67.5 fL (80-100); MPV 8.4 fL (7.6-11.3)
[2022-06-25 06:20] LABS: Magnesium 2.3 mg/dL (1.8-2.4)
[2022-06-25] MEDS ORDERED: PANTOPRAZOLE 40MG TABLET PO SCH (06:30)
[2022-06-25] MEDS: GABAPENTIN 100 MG CAP PO SCH (08:04)
[2022-06-25] MEDS: TICAGRELOR 90 MG TABLET PO SCH (08:04)
[2022-06-25] MEDS ORDERED: METOPROLOL TAR 25 MG TAB PO SCH (09:00)
[2022-06-25] MEDS ORDERED: FLUOXETINE 20 MG CAP PO SCH (09:00)
[2022-06-25] MEDS ORDERED: lisinopriL 10 MG TAB PO SCH (09:00)
[2022-06-25] MEDS ORDERED: TAMSULOSIN 0.4 MG SR CAP PO SCH (09:00)
[2022-06-25] MEDS ORDERED: ISOSORBIDE MONO SR 30 MG TAB PO SCH (09:00)
[2022-06-25 11:37] VITALS: TEMP 96.5
[2022-06-25 11:38] VITALS: BP 144/80
--- NOTE | 2022-06-25 12:50 | EKG ---
Test Date: 2022-06-24 Test Time: 09:12:08 Senior Librarian: MEASUREMENT RESULTS: Intervals: Rate: 61 DE: 200 QRSD: 94 QT: 408 QTc: 410 Ransom: P: 30 DE: 200 QRS: 31 T: -14 INTERPRETIVE STATEMENTS: Normal sinus rhythm Inferior infarct, age undetermined Anterior infarct, age undetermined Abnormal ECG Compared to ECG 06/03/2022 07:25:07 Sinus bradycardia no longer present First degree AV block no longer present Myocardial infarct finding still present Electronically Signed On 06-25-22 12:49:37 CDT by Gurpreet Benítez
--- NOTE | 2022-07-15 00:44 | P.DS ---
Discharge Date: 06/25/22 Disposition: ROUTINE DISCHARGE Discharge Condition: GOOD Reason for Admission: NSTEMI unstable angina. Brief History of Present Illness: Pt is a 67-year-old male patient with medical history significant for hypertension, history of coronary artery disease status post stent x2, hyperlipidemia was evaluated in the ER after he had an encounter with cardiology for intervention. He had elevated troponin and chest discomfort couple of days prior to this encounter. He declined intervention at that time but he continued to have have chest pain and has been asked to be admitted for [facility]. No active chest pain reported. No sob, n/v, orthopnea or PND. Hospital Course: Patient has done well during hospital stay. Clinically, patient is much better. At this time, patient is stable for discharge home. Patient will follow-up with consultants and PCP as an outpatient. Vital Signs/Physical Exam: Temp Pulse Resp BP Pulse Ox 96.5 F L 64 23 H 144/80 H 98 06/25/22 07:00 06/25/22 09:00 06/25/22 09:00 06/25/22 09:00 06/25/22 07:00 General: Alert, In no apparent distress, Oriented x3 Laboratory Data at Discharge: WBC 6.80 K/uL (4.3-10.9) 06/25/22 05:50 Hgb 10.4 g/dL (13.6-17.9) L 06/25/22 05:50 Hct 32.4 % (39.6-49.0) L 06/25/22 05:50 Plt Count 226 K/uL (152-406) 06/25/22 05:50 Sodium 138 mmol/L (136-145) 06/25/22 05:50 Potassium 4.0 mmol/L (3.5-5.1) 06/25/22 05:50 BUN 12 mg/dL (7-18) 06/25/22 05:50 Creatinine 0.93 mg/dL (0.55-1.3) 06/25/22 05:50 Glucose 100 mg/dL (74-106) 06/25/22 05:50 Magnesium 2.3 mg/dL (1.8-2.4) 06/25/22 05:50 Home Medications: Esomeprazole Mag Trihydrate [Nexium] 40 mg PO DAILY 02/23/13 Fluoxetine HCl [Prozac*] 40 mg PO DAILY 02/23/13 Metoprolol Tartrate [Lopressor*] 25 mg PO DAILY 02/23/13 Ticagrelor [Brilinta*] 90 mg PO BID 02/23/13 lisinopriL [Prinivil*] 30 mg PO DAILY 02/23/13 Ferrous Sulfate [Ferrous Sulfate*] 325 mg PO DAILY 06/24/22 Gabapentin [Neurontin*] 100 mg PO TID 06/24/22 Isosorbide Mononitrate [Isosorbide Mononitrate ER] 30 mg PO BID 06/24/22 Pravastatin [Pravachol*] 40 mg PO DAILY 06/24/22 Tamsulosin HCl [Flomax] 0.4 mg PO DAILY 06/24/22 Aspirin [Aspirin EC 81 MG] 162 mg PO DAILY #60 06/25/22 New Medications: Aspirin [Aspirin EC 81 MG] 162 mg PO DAILY #60 Physician Discharge Instructions: PROBLEM: Non ST elevation DE GOAL: Clear understanding of disease process INSTRUCTIONS: PHYSICIAN'S DISCHARGE INSTRUCTIONS OK TO DC IV AND DC HOME FOLLOW-UP WITH PRIMARY CARE PROVIDER IN 1-2 WEEKS FOLLOW-UP WITH CARDIOLOGY IN 1-2 WEEKS RETURN TO THE ER IF symptoms worsens CALL DR. ORTIZ AT [phone] IF ANY QUESTIONS REGARDING HOSPITAL STAY. PLEASE CALL THE FLOOR AT [phone] IF ANY MEDICATION OR NURSING QUESTIONS. Diet: AHA Activity: Fall precautions DME DME: Date Ordered: Name of Company: [employer] Services Needed: Name of Company: Date or Referral: IMMUNIZATION Influenza Vaccine Indicated: Influenza Vaccine Given: Date Given: Pneumonia Vaccine Indicated: No Pneumonia Vaccine Given: Date Given: Diet: AHA Activity: Fall precautions Followup: YAYO BARRETT [Primary Care Provider] - Time spent managing pt's care (in minutes): 35
== END 2022-06-25 11:10 | disposition home or self-care (01) ==
LOC: ER 08:57 → ERHOLD 12:38 → 3RD-ICU 14:45
PROVIDERS: ADMIT Internal Medicine Nephrology; ATTEND Hospitalist
DX: I21.4 Non-ST elevation (NSTEMI) myocardial infarction (principal); I25.110 Atherosclerotic heart disease of native coronary artery with unstable angina pectoris; I25.82 Chronic total occlusion of coronary artery; I77.1 Stricture of artery; I10 Essential (primary) hypertension; E78.5 Hyperlipidemia, unspecified; G62.9 Polyneuropathy, unspecified; E78.00 Pure hypercholesterolemia, unspecified; Z95.5 Presence of coronary angioplasty implant and graft; Z79.01 Long term (current) use of anticoagulants; Z79.899 Other long term (current) drug therapy; Z88.0 Allergy status to penicillin; Z20.822 Contact with and (suspected) exposure to COVID-19
CPT/HCPCS: 93005; 85025 ×2; 80048 ×2; 36415; 83735; 85347; 81003; 84484 ×2; 83880; 71045; 93454; 76937; 99285; 87811; C1893; Q9967; J1644 ×3; J2250; J3010; J7040; G0378 ×3

== ENCOUNTER 2023-06-07 10:50 | Emergency (ER) | payer OTHER ==
--- OUTSIDE RECORDS SUMMARY | 2023-06-07 10:55 | XMS REPORT | Continuity of Care Document ---
:[address] [facility] t Address [address] [facility] [address] [place] [address] Care Team Providers Name Role Phone MILLER BARRETT Primary Care Physician Unavailable Mohini Barrett Attending Clinician Unavailable MEKHI ZAMUDIO Attending Clinician Unavailable Gurpreet Benítez Attending Clinician Unavailable Gerri Boland RN Attending Clinician Unavailable LORENZA SMITH Attending Clinician Unavailable Jeffrey Lara MD Attending Clinician Lorenza Smith DO Attending Clinician GONZALES Attending Clinician Unavailable 2, Adc Lab Attending Clinician Unavailable Mekhi Zamudio MD Attending Clinician Doctor Unassigned, [place] Attending Clinician Unavailable Gramm GREEN BUILDING MATERIALS DESIGNERBruna Davidson A Attending Clinician TANIYA BRUNA A Attending Clinician Unavailable Only, Adc Test Attending Clinician Unavailable Juan Daugherty MD Attending Clinician JUAN DAUGHERTY Attending Clinician Unavailable Referred, Self Admitting Clinician Unavailable LORENZA SMITH Admitting Clinician Unavailable Lorenza Smith DO Admitting Clinician GONZALES Admitting Clinician Unavailable BRUNA MONAHAN Admitting Clinician Unavailable Payers Payer Name Policy Type Policy Number Effective Date Expiration Date S ource MEDICARE PART A [id number] 2009 \T\ B 00:00:00 Problems Condition Condition Condition Status Onset Resolution Last Treating Co mments Source Name Details Category Date Date Treatment Clinician Date Coronary Coronary Disease Active Unive rs artery artery 06-21 ity of disease disease 00:00: [place] involving involving 00 Medi [place]enn [place] coronary coronary artery of artery of [place] heart with heart with angina angina pectoris pectoris Essential Essential Disease Active Uni vers hypertensi hypertensi 06-21 it y of on on 00:00: [address] Branch Dyslipidem Dyslipidem Disease Active U nivers ia ia 06-21 ity of 00:: [address] Branch Elevated Elevated Disease Active Unive rs brain brain 06-21 ity of natriureti [place]ure[place] c peptide c peptide 00 Medi jenn (BNP) (BNP) Branch level level Morbid Morbid Disease Active Univers obesity obesity 06-21 ity of 00:00: [address] Branch NSVT NSVT Disease Active Univers (nonsustai (nonsustai 06-21 it y of megan megan 00:00: [place] ventricula ventricula 00 Me dical r r Branch tachycardi tachycardi a) a) Chest Chest Disease Active Univers pain, pain, 06-19 ity of unspecifie unspecifie [place] d type d type 00 [facility] Branch No known No known Disease Unive rs active active ity of problems problems [facility] Primary Primary Problem Active 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 right knee [facility] Carpal Carpal Problem Active 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 St wrist wrist [facility] Allergies, Adverse Reactions, Alerts Allergy Allergy Status Severity Reaction(s) Onset Inactive Treating Comm ents Source Name Type Date Date Clinician Penicill DA Active SV RASH, [facility] ins SWELLING 06-27 Clear 00:00: Roman [address] [place] [address] PENICILL DRUG Active Swelling Univer s IN INGREDI 06-19 ity of 00:00: [place] 00 Medical Branch Penicill Propensi Active Swelling Univ ers in ty to 06-19 ity of adverse 00:00: [place] reaction 00 Medical s Branch penicill Adverse Active Info Not Commo n in Reaction Available Gil t - MAURO [facility] NO KNOWN Drug Active Univers ALLERGIE Class ity of S [facility] Social History Social Habit Start Date Stop Date Quantity Comments Source History of Cigarette Smoker Universi ty of tobacco use [facility] Exposure to 2022-06-09 2022-06-19 Not sure University SARS-CoV-2 00:00:00 19:09:00 [facility] (event) [place] Tobacco use and 2022-06-19 2022-06-19 Smokeless tobacco Un iversity of exposure 00:00:00 00:00:00 non-user [facility] Education 2022-06-19 2022-06-19 14 University 00:00:00 00:00:00 [facility] Sex Ass[birth year] Universit y of 00:00:00 00:00:00 [facility] Smoking Status Start Date Stop Date Source Ex-smoker 2022-06-19 00:00:00 2022-06-19 00:00:00 [facility] of [facility] Medications Ordered Filled Start Stop Current Ordering Indication Dosage Frequency Signature Comments Components Source Medication Medication Date Date Medication? Clinician (SIG) Name Name docusate 2021- No [id number] 100mg Take 1 Univers 100 mg 9-04 10-05 capsule by ity of capsule 00:00: 04:59 mouth in [place] 00 :00 [facility] for 30 days. aspirin 81 2021- No [id number] 81mg Take 1 Univers mg EC 9-04 10-05 tablet by ity of tablet 00:00: 04:59 mouth in [place] 00 :00 [facility] for 30 days. docusate 2021- No [id number] 100mg Take 1 Univers 100 mg 9-04 10-05 capsule by ity of capsule 00:00: 04:59 mouth in [place] 00 :00 [facility] for 30 days. aspirin 81 2021- No [id number] 81mg Take 1 Univers mg EC 9-04 10-05 tablet by ity of tablet 00:00: 04:59 mouth in [place] 00 :00 [facility] for 30 days. FLUoxetine 2022-0 Yes 40mg Take 40 mg U nivers 40 mg 06-21 by mouth ity of capsule 14:27: daily. [address] Branch esomeprazol 0 Yes 40mg Take 40 mg Univers e 40 mg 06-21 by mouth ity of capsule 14:27: daily [place] 59 breakfast. [facility] Branch FLUoxetine 0 Yes 40mg Take 40 mg U nivers 40 mg 06-21 by mouth ity of capsule 14:27: daily. [address] Branch esomeprazol 0 Yes 40mg Take 40 mg Univers e 40 mg 06-21 by mouth ity of capsule 14:27: daily [place] 59 breakfast. [facility] Branch aspirin EC 0 Yes 81mg 81 mg, Unive rs tablet 81 06-21 Oral, ity of mg 14:00: DAILY, [place] [address] First dose Medical on [facility] 06/21/22 at 0900, Until Discontinu ed, Routine atorvastati Yes 80mg 80 mg, Univ ers n (LIPITOR) 06-21 Oral, QHS, it y of tablet 80 02:00: [place] mg 00 on Thu [facility] 06/20/22 at Branch 2100, Until Discontinu ed, Routine
hourly team members approving Restricted medication : HIMANSHU BOLAÑOS isosorbide Yes 30mg 30 mg, Unive rs mononitrate 06-21 Oral, BID, it y of (IMDUR) 24 01:00: First dose [place] hr tablet 00 on Thu Medical 30 mg 06/20/22 at Branch 2000, Until Discontinu ed, Routine metoprolol 0 Yes 25mg 25 mg, Unive rs succinate 06-21 Oral, BID, ity of XL (TOPROL 01:00: First dose [place] XL) tablet 00 (after Medical 25 mg last Branch modificati on) on [facility] 06/20/22 at 2000, Until Discontinu ed, Routine ticagrelor 0 Yes 90mg 90 mg, Unive rs (BRILINTA) 06-21 Oral, BID, ity of tablet 90 01:00: First [place] mg 00 (after Medical last Branch modificati on) on [facility] 06/20/22 at 1999, Until Discontinu ed, Routine atorvastati 2021- No [id number] 80mg Take 1 Univers n 80 mg 06-21 tablet by ity of tablet 00:00: 04:59 mouth at [place] 00 :00 bedtime Medical for 30 Branch days. ferrous 2021- No [id number] 325mg Take 1 U nivers sulfate 325 06-21 tablet by it y of mg (65 mg 00:00: 04:59 mouth in [place] as iron) 00 :00 the Medical tablet morning Branch for 30 days. isosorbide 2021- No [id number] 30mg Take 1 Univers mononitrate 06-21 tablet by it y of 30 mg 24 hr 00:00: 04:59 mouth in [place] tablet 00 :00 the Medical morning Branch and 1 tablet in the evening. Do all this for 30 days. atorvastati 2021- No [id number] 80mg Take 1 Univers n 80 mg 06-21 tablet by ity of tablet 00:00: 04:59 mouth at [place] 00 :00 bedtime Medical for 30 Branch days. ferrous 2021- No [id number] 325mg Take 1 U nivers sulfate 325 06-21 tablet by it y of mg (65 mg 00:00: 04:59 mouth in [place] iron) 00 :00 the Medical tablet morning Branch for 30 days. isosorbide 2021- No [id number] 30mg Take 1 Univers mononitrate 06-21 tablet by it y of 30 mg 24 hr 00:00: 04:59 mouth in [place] tablet 00 :00 the Medical morning Branch and 1 tablet in the evening. Do all this for 30 days. sulfur 2021- No [id number] 5mL 5 mL, Unive rs hexafluorid 06-20 Intravenou i ty of e microsphr 18:45: 18:45 s, ONCE, 1 [place] (LUMASON) 00 :00 dose, On Medica l injection 5 Thu06/20/22 Br anch mL at 1345, Routine
hourly team members approving Restricted medication : HIMANSHU BOLAÑOSHBang FLUoxetine Yes 40mg 40 mg, Unive rs [...] ed, Routine enoxaparin Yes 40mg 40 [facility], [facility] ([facility] 06-20 Subcutaneo ity of injection 14:00: [place], [place]ILY, [place] 40 mg 00 First dose Medical on Thu Branch 06/20/22 at 0900, Until Discontinu ed, Routine ticagrelor 2021- No 90mg 90 mg, Univ ers (BRILINTA) 06-20 Oral, ity of tablet 90 14:00: 19:37 DAILY, [place] mg 00 :36 First dose Medical on Thu Branch 06/20/22 at 0900, Until Discontinu ed, Routine pravastatin 2021- No 40mg 40 mg, Uni vers (PRAVACHOL) [...] 13:00: First dose [place] mg 00 on [facility] Medical 06/20/22 at Branch 0800, Until Discontinu ed, Routine maalox:diph 2021- No 15mL 15 mL, Uni vers enhydrAMINE 06-20 Oral, ity of :lidocaine 06:00: 05:19 ONCE, 1 [place] as 2 % viscous 00 :00 dose, On Medi jenn 1:1:1 06/20/22 Branch (FIRST-MOUT at 0100, HWASH BLM) Routine oral suspension 15 mL HYDROcodone 2021- No 1{tbl} 1 tablet, Univers -acetaminop 06-19 Oral, ity of hen (NORCO 23:25: 23:24 Q6HPRN, [place] as 5) 5-325 mg 46 :46 Starting Medi jenn tablet 1 on [facility] Branch tablet 06/19/22 at 1825, Until 06/21/22 [...] by mouth ity of capsule 14:26: daily. [address] esomeprazol Yes 40mg Take 40 mg Univers e (NEXIUM) 9-30 by mouth ity o f 40 mg 14:26: daily with [place] capsule 40 breakfast. Medica l Branch gabapentin Yes TAKE 1 Unive rs 100 mg 9-27 CAPSULE BY ity of capsule 00:00: MOUTH [place] [address] THREE Medical TIMES [place] DAILY FOR NUMB FEET metoprolol Yes 25mg Take 25 mg U nivers succinate 9-27 by mouth ity of XL 25 mg 24 00:00: [place]. [place] tablet 00 [facility] gabapentin Yes TAKE 1 Unive rs 100 mg 9-27 CAPSULE BY ity of capsule 00:00: MOUTH [place] 00 THREE Medical TIMES [place] DAILY FOR NUMB FEET metoprolol Yes 25mg Take 25 mg U nivers succinate 9-27 by mouth ity of XL 25 mg 24 00:00: daily. [place] hr tablet [facility] gabapentin Yes TAKE 1 Unive rs 100 mg 9-27 CAPSULE BY ity of capsule 00:00: MOUTH [place] [address] THREE Medical TIMES [place] DAILY FOR NUMB FEET metoprolol Yes 25mg Take 25 mg U nivers succinate 9-27 by mouth ity of XL 25 mg 24 00:00: daily. [place] hr tablet [facility] Branch lisinopriL Yes 30mg Take 30 mg U nivers 30 mg 9-13 by mouth ity of tablet 00:00: daily. [address] BRILINTA 60 Yes 1{tbl} Take 1 Un greg mg Tab 9-13 tablet by ity of 00:00: mouth 2 [place] [address] (two) Medical times [place] daily. lisinopriL Yes 30mg Take 30 mg U nivers 30 mg 9-13 by mouth ity of tablet 00:00: daily. [address] TICAGRELOR Yes 1{tbl} Take 1 Uni vers 90 mg 9-13 tablet by ity of tablet 00:00: mouth in [place] the Medical morning. Branch lisinopriL Yes 30mg Take 30 mg U nivers 30 mg 9-13 by mouth ity of tablet 00:00: daily. [address] TICAGRELOR Yes 1{tbl} Take 1 Uni vers 90 mg 9-13 tablet by ity of tablet 00:00: mouth in [place] the Medical morning. Branch tamsulosin Yes Univers 0.4 mg 24 8-20 ity of hr capsule 00:00: [address] tamsulosin 0 Yes Univers 0.4 mg 24 8-20 ity of hr capsule 00:00: [address] tamsulosin 0 Yes Univers 0.4 mg 24 8-20 ity of hr capsule 00:00: [address] pravastatin 0 Yes 40mg Take 40 mg Univers 40 mg 8-10 by mouth ity of tablet 00:00: daily. [address] pravastatin 2020-0 2022- No 40mg Take 40 mg Univers 40 mg 8-10 06-21 by mouth ity of tablet 00:00: 00:00 daily. [place] 00 :00 Medical Branch Pravastatin Pravastatin 2017-0 Yes Alessandro 1 tablet Common Sodium Sodium 06-01 [facility] Spirit 00:00: - [facility] Flomax Flomax Yes Alessandro 1 capsule C ommon 06-01 [facility] 00:00: - [facility] Brilinta Brilinta 0 Yes Alessandro 1 tablet Common 06-01 [facility] 00:00: - [facility] Prozac Prozac Yes Alessandro 2 tab Commo n 06-01 [facility] [facility] 00:00: - [facility] Nexium Nexium Yes Alessandro 1 capsule C ommon 06-01 [facility] 00:00: - [facility] Metoprolol Metoprolol Yes Alessandro not Common Succinate Succinate 06-01 Vasquez defined Sp angela 00:00: - [facility] Lisinopril Lisinopril Yes Alessandro 1 tablet Common 06-01 [facility] Spirit 00:00: - [facility] Acetaminoph Acetaminoph Yes Alessandro not Common en-Codeine en-Codeine Vasquez defined [facility] #3 #3 [facility] MethylPREDN MethylPREDN Yes Alessandro not Common ISolone ISolone Vasquez defined [facility] Fluoxetine Fluoxetine Yes Alessandro not Common HCl HCl Vasquez defined [facility] Amitriptyli Amitriptyli Yes Alessandro not Common ne HCl ne HCl Mcdavid defined [facility] Immunizations Ordered Filled Immunization Date Status Comments Sour e Immunization Name Name SARS-COV-2 COVID-19 2021-09-10 Completed Unive rsity of MODERNA 0.25ML 00:00:00 [place] Medi jenn BOOSTER VACCINE Branch SARS-COV-2 COVID-19 2021-09-10 Completed Unive rsity of MODERNA 0.25ML 00:00:00 [place] Medi jenn BOOSTER VACCINE Branch SARS-COV-2 COVID-19 2021-03-10 Completed Unive rsity of MODERNA 12+ YRS 00:00:00 [place] Med ical VACCINE Branch SARS-COV-2 COVID-19 2021-03-10 Completed Unive rsity of MODERNA 12+ YRS 00:00:00 [place] Med ical VACCINE Branch SARS-COV-2 COVID-19 2021-02-08 Completed Unive rsity of MODERNA 12+ YRS 00:00:00 [place] Med ical VACCINE Branch SARS-COV-2 COVID-19 2021-02-08 Completed Unive rsity of MODERNA 12+ YRS 00:00:[address] [facility] [place] ical VACCINE Branch Vital Signs Vital Name Observation Time Observation Value Comments Source Systolic blood 2022-06-21 12:39:00 122 mm[Hg] Univer sity of pressure [place] Medical Branch Diastolic blood 2022-06-21 12:39:00 68 mm[Hg] Unive rsity of pressure [facility] Heart rate 2022-06-21 12:39:00 54 /min Universi ty of [facility] Body temperature 2022-06-21 12:39:00 36.44 Sidra Univ ersity of [facility] Respiratory rate 2022-06-21 12:39:00 14 /min Univ ersity of [facility] Oxygen saturation in 2022-06-21 12:39:00 95 /min University Arterial blood by [facility] Pulse oximetry Branch Body weight 2022-06-21 08:20:00 125.465 kg Universi ty of [place] Medical [place] BMI 2022-06-21 08:20:00 43.32 kg/m2 Universi ty of [place] Medical [place] Body height 2022-06-20 00:19:00 170.2 cm Universi ty of [place] [facility] Systolic blood 2022-02-24 14:25:00 102 mm[Hg] Univer sity of pressure [place] [facility] Diastolic blood 2022-02-24 14:25:00 70 mm[Hg] Unive rsity of pressure [facility] Branch Heart rate 2022-02-24 14:25:00 76 /min Universi ty of [place] [facility] Branch Respiratory rate 2022-02-24 14:25:00 18 /min Univ ersity of [facility] Branch Body height 2022-02-24 14:25:00 170.2 cm Universi ty of [place] [facility] [place] Body weight 2022-02-24 14:25:00 127.461 kg Universi ty of [place] Medical [place] BMI 2022-02-24 14:25:00 44.01 kg/m2 Universi ty of [facility] Oxygen saturation in 2022-02-24 14:25:00 98 /min University Arterial blood by [facility] Pulse oximetry Branch Procedures Procedure Date / Time Performing Clinician Source Performed FERRITIN SERUM 2022-06-21 09:38:00 Bhanu Cain [facility] TROPONIN I 2022-06-21 09:38:00 Bhanu Cain [facility] IRON PANEL 2022-06-21 09:38:00 Bhanu Cain [facility] TROPONIN I 2022-06-20 21:14:00 Bhanu Cain [facility] MAGNESIUM 2022-06-20 09:42:[address] [facility] 2022-06-20 09:42:[address] [facility] THYROID STIMULATING 2022-06-20 09:42:00 [facility] BASIC METABOLIC PANEL 2022-06-20 09:42:00 [facility] (NA, K, CL, CO2, GLUCOSE, Medica l Branch BUN, CREATININE, CA) CBC WITH DIFF 2022-06-20 09:42:[address] [facility] TROP[facility] I 2022-06-20 02:17:[address] [facility] LIPID PANEL ([id number])(TOTAL 2022-06-20 02:17:00 Patricia Fagan [facility] CHOLESTEROL, [facility] TRIGLYCERIDES, HDL) XR CHEST 1 VW 2022-06-19 21:18:27 Jeffrey Lara [facility] TROPONIN I 2022-06-19 21:11:00 Marco Jeffrey [facility] COMP. METABOLIC PANEL 2022-06-19 21:11:00 Jeffrey Lara [facility] ([id number]) [facility] CBC WITH DIFF 2022-06-19 21:11:00 Marco Jeffrey [facility] PROTHROMBIN TIME / INR 2022-06-19 21:11:00 Jeffrey Lara [facility] ACTIVATED PARTIAL 2022-06-19 21:11:00 Laar, [facility] PRO-BNP 2022-06-19 21:11:00 Jeffrey Lara [facility] of [facility] COVID-19 (ID NOW RAPID 2022-06-19 21:11:00 Jeffrey Lara [facility] TESTING) Medical Branch LAB ONLY COVID 2022-06-19 21:11:00 Jeffrey Lara [place] INTERPRETATION [facility] HB ECG ROUTINE & RHYTHM 2022-06-19 20:40:50 Jeffrey Lara [facility] STRIP [facility] Branch CONSENT/REFUSAL FOR 2022-06-19 20:34:15 Doctor Unassigned, [facility] DIAGNOSIS AND TREATMENT [place] [facility] Branch Encounters Start End Encounter Admission Attending Care Care Encounter Source Date/Time Date/Time Type Type Clinicians Facility Department ID 2021-11-13 [facility] [id number] Common 10:58:49 Mohini 10222 [facility] 2023-05-04 2023-05-04 Outpatient SFA SFA [id number] [place] 14:10:12 14:10:12 [id number] [place] 2023-04-10 2023-04-10 Outpatient SFA SFA [id number] [place] 08:58:41 08:58:41 [id number] [place] 2023-04-03 2023-04-03 Outpatient SFA [id number] [id number] [place] 16:42:57 16:42:57 [id number] [facility] 2022-08-27 2022-08-27 Outpatient Tracie ZAMUDIO [facility] [id number] [facility] 00:00:00 00:00:00 MEKHI hood [facility] 2022-07-09 2022-07-09 Outpatient DENNY Allen [facility] [id number] [facility] 05:05:00 05:05:00 Gurpreet 96 [facility] 2022-06-24 2022-06-24 Transition DANNA Boland 1.2.840.114 [id number] Univers 00:00:00 00:00:00 of Care Gerri JASSO 350.1.13.10 it y of [place] [id number] Medi jenn 403 Branch 2022-06-19 2022-06-21 Outpatient X SARAH [facility] [id number] Univers 15:47:00 14:18:00 LORENZA ity [facility] 2022-06-19 2022-06-21 Emergency Jeffrey Lara [facility] 1.2.840. 114 [id number] Univers 15:47:00 14:18:00 Lorenza Smith [place] [id number] ity of [place] [id number] [facility] 081 [place] 2022 2022 Outpatient JOEL_GABRIELA [facility] 811 [place] 00:00:00 00:00:00 HN [id number] da [facility] 2022-02-24 2022-02-24 Bookmaker'S Clerk 2, Adc Lab [facility] 1.2.840.114 [id number] Univers 10:15:00 10:30:00 Visit Mekhi Zamudio [id number] ity of [place] PROFESS[place] [id number] Me dical NAL 353 [facility] 2022-02-24 2022-02-24 [facility] [id number] Univers 09:15:00 10:08:38 MEKHI [facility] 2022-02-24 2022-02-24 [facility] 1.2.840.114 [id number] Univers 09:15:00 10:08:38 Visit Mekhi PALMA [id number] i ty of [facility] 4.2.7.2.[place] [phone] Me dical NAL 204 [facility] 2022-02-24 2022-02-24 Orders Doctor NANCE 1.2.840.114 [id number] Univers 00:00:00 00:00:00 Only Unassigned, SERGIO 350.1.13.10 ity of [place] [facility] 4.2.7.2.686 Jemal as [id number] [facility] 009 Branch 2021-12-30 2021-12-30 Outpatient [facility] [id number] Univers 11:30:00 11:30:00 MEKHI ity of [facility] 2021-08-20 2021-08-20 Hospital ROSALINDA Monahan 1.2.840.114 [id number] Univers 11:22:46 23:59:00 Encounter Bruna CHOI 350.1.13.10 ity of CL[place]ICS 4[place]2.[place].2.[place] [id number] [facility] 804 [place] 2021-08-20 2021-08-20 Outpatient R TANYIA [facility] [id number] [facility] 11:22:46 23:59:00 BRUNA ity of [facility] 2021-07-18 2021-07-18 Bookmaker'S Clerk 2, [facility] Lab [facility] 1.2.840.114 [id number] Univers 14:54:30 15:09:30 Visit Mekhi Zamudio 350.1.13.10 ity of [place] Professio [id number] Mn dical nal 353 [facility] 2021-07-18 2021-07-18 [facility] 1.2.840.114 [id number] Univers 13:54:19 14:51:57 Visit Mekhi Palma 350.1.13.10 i ty of [place] Professio [id number] Mn dical nal 204 [facility] 2021-07-18 2021-07-18 Outpatient R ROBB [facility] [id number] Univers 14:30:00 14:30:00 MEKHI ity of [facility] 2021-07-18 2021-07-18 Orders Doctor GOYO 1.2.840.114 [id number] Univers 00:00:00 00:00:00 Only Unassigned, SERGIO 350.1.13.10 ity of [place] [facility] 4.2.7.2.686 Jemal as [id number] [facility] 009 [place] 2020-12-26 2020-12-26 Laboratory Only, [facility] 1.2.840.114 [id number] 11:08:15 11:23:15 Only Test Mullen 350.1.13.10 [place] 4.2.7.2.686 [place] [id number] 353 2020-12-26 2020-12-26 Laboratory Only, Adc Test [facility] 1.2.840. 114 [id number] Univers 11:08:15 11:23:15 Only Juan Daugherty 350.1.13.10 ity of [place] [id number] [place] [address] Branch 2020-12-26 2020-12-26 Outpatient R DAT [facility] [id number] Univers 11:00:00 11:00:00 JUAN hood [facility] 2020-12-26 2020-12-26 Orders Doctor GOYO 1.2.840.114 [id number] 00:00:00 00:00:00 Only Unassigned, SERGIO 350.1.13.10 [place] [id number] 2020-12-26 2020-12-26 Orders Doctor GOYO 1.2.840.114 [id number] [facility] 00:00:00 00:00:00 Only Unassigned, SERGIO 350.1.13.10 ity of [place] [facility] 4.2.7.2.686 Jemal [id number] [address] 2019-10-17 2019-10-17 Outpatient [facility] [id number] Common 16:23:00 16:23:00 t [facility] - [facility] 2019-09-19 2019-09-19 Outpatient [facility] [id number] Common 14:33:00 14:33:00 t [facility] Bone [facility] Spiri t and Joint [facility] - [facility] 2019-09-09 2019-09-09 Outpatient [facility] [id number] Common 09:00:00 09:00:00 t Bone Bone [facility] Spiri t and [facility] - [facility] 2019-08-23 2019-08-23 Outpatient [facility] [id number] Common 13:30:00 13:30:00 t Bone Bone [facility] Spiri t and [facility] - [facility] [facility] 2019-08-01 2019-08-01 Outpatient Yvette Turpin 27 [id number] Common 08:00:00 08:00:00 [facility] - [facility] 2018-06-01 2018-06-01 Outpatient Yvette Turpin 14 [id number] Common 10:30:00 10:30:00 t [facility] - [facility] Results Test Description Test Time Test Comments Results Result Comments Source ACT-ISTAT 2022-07-09 10:06:00 Test Item Value Reference Range Interpretation Comme nts ACT-ISTAT (test code = ACTI) 277 SEC 74-137 H Performed by certified strap making machine operator at [facility] [id number] 09:27:00 Test Item Value Reference Range Interpretation Comments ACT-ISTAT (test code 306 SEC 74-137 H Perform ed by certified = ACTI) strap making machine operator at [facility] CBC W/AUTO [id number] 13:11:00 Test Item Value Reference Range Interpretation Comments WHITE BLOOD CELL (test code = 6.3 x10 3/uL 4.5-11.0 N WBC) RED BLOOD CELL (test code = 4.91 x10 6/uL 4.00-5.60 N RBC) HEMOGLOBIN (test code = HGB) 10.5 g/dL 12.5-16.9 L HEMATOCRIT (test code = HCT) 35.4 % 37.5-50.7 L MEAN CELL VOLUME (test code = 72.1 fL 81.0-99.0 L MCV) MEAN CELL HGB (test code = MCH) 21.4 pg 27.0-33.0 L MEAN CELL HGB CONCETRATION 29.7 g/dL 33.0-37.0 L (test code = MCHC) RED CELL DISTRIBUTION WIDTH CV 18.8 % 11.5-14.5 H (test code = RDW) RED CELL DISTRIBUTION WIDTH SD 48.0 fL 37.0-54.0 N (test code = RDW-SD) PLATELET COUNT (test code = 368 x10 3/uL 150-400 N PLT) MEAN PLATELET VOLUME (test code 9.6 fL 7.0-9.0 H = MPV) NEUTROPHIL % (test code = NT%) 55.0 % 56.0-77.0 L IMMATURE GRANULOCYTE % (test 0.3 % 0.0-2.0 N code = IG%) LYMPHOCYTE % (test code = LY%) 30.6 % 14.0-32.0 N MONOCYTE % (test code = MO%) 8.4 % 4.8-9.0 N EOSINOPHIL % (test code = EO%) 5.1 % 0.3-3.7 H BASOPHIL % (test code = BA%) 0.6 % 0.0-2.0 N NUCLEATED RBC % (test code = 0.0 % 0-0 N NRBC%) NEUTROPHIL # (test code = NT#) 3.47 x10 3/uL 2.0-7.6 N IMMATURE GRANULOCYTE # (test 0.02 x10 3/uL 0.00-0.03 N code = IG#) LYMPHOCYTE # (test code = LY#) 1.93 x10 3/uL 1.0-3.8 N MONOCYTE # (test code = MO#) 0.53 x10 3/uL 0.1-0.8 N EOSINOPHIL # (test code = EO#) 0.32 x10 3/uL 0.0-0.2 H BASOPHIL # (test code = BA#) 0.04 x10 3/uL 0.0-0.2 N NUCLEATED RBC # (test code = 0.00 x10 3/uL 0.0-0.1 N NRBC#) MANUAL DIFF REQUIRED (test code NO = MDIFF) RBC [id number] 13:11:00 Test Item Value Reference Range Interpretation Comments ANISOCYTOSIS (test code = ANISO) 2+ POIKILOCYTOSIS (test code = POIK) 1+ MICROCYTOSIS (test code = MICR) 1+ ELLIPTOCYTES (test code = ELL) 1+ BASIC METABOLIC [id number] 11:54:00 Test Item Value Reference Range Interpretation Comments SODIUM (test code = NA) 139 mEq/L 134-147 N POTASSIUM (test code = 4.3 mEq/L 3.4-5.0 N K) CHLORIDE (test code = 107 mEq/L 100-108 N CL) CARBON DIOXIDE (test 26 mEq/l 21-33 N code = CO2) ANION GAP (test code = 10 0-20 N GAP) GLUCOSE (test code = 94 mg/dL 70-110 N GLU) BLOOD UREA NITROGEN 8 mg/dL 7-18 N (test code = BUN) GLOMERULAR FILTRATION 80.3 80-90 N Units of measure = RATE (test code = GFR) ml/mi n/1.73 m2 CREATININE (test code = 1.1 mg/dL 0.6-1.3 N CREAT) CALCIUM (test code = 9.2 mg/dL 8.0-10.5 N CA) PROTHROMBIN [id number] 11:53:00 Test Item Value Reference Range Interpretation Comments PROTHROMBIN TIME 13.0 SECONDS 9.3-12.9 H PATIENT (test code = PTP) INTERNATIONAL NORMAL 1.2 0.8-1.2 N TARGET INR BY RATIO (test code = INDICATIO N Indication INR) INR1. Prophylax is of venous thrombos is 2.0 - 3.0 (orthoped ic surgery), Proph ylaxis of venous throm bosis (other than hig h-risk surgery), Treat ment of Deep Vein Thrombosis/Pulm onary Embolism, Preve ntion of systemic emb olism - Tissue heart va lves, Acute Myocardia l Infarction (to prevent systemic emboli sm), Valvular heart disease, Atrial Fibrillation, Bileaflet mecha nical valve in aortic position.2. Mec hanical prosthetic valv es (high risk), 2. 5 - 3.5 Presence of Lup us Anticoagulant o r Antiphospholipi d Antibodies, Pre vention of systemic emb olism - Acute Myocardia l Infarction (to prevent recurrent infar ct). - XR CHEST 2 [id number] 00:00:00 [facility] : 1955 Sex: M FAX:Gurpreet Christianson MD [phone] [place]: St: PRE Name: ELMER BLOUNT [facility] [place] : 1955 Age/S: 67/M [address] [place] [address] Unit #: [id number] Loc: [place] [address] Phys: Gurpreet Benítez MD Acct: [id number] Dis Date: Status: PRE SDC PHONE #: [phone] Exam Date: 07/07/2022 1245 FAX #: [phone] Reason: PREOP EXAMS: CPT CODE: [id number] XR CHEST 2 V [id number] PROCEDURE INFORMATION: Exam: XR Chest Exam date and time: 07/07/2022 12:40 PM Age: 67 years old Clinical indication: Pre-operative exam; Respiratory screening exam; Additional info: Preop TECHNIQUE: Imaging protocol: Radiologic exam of the [facility]. Views: 2 views. PA and Lateral COMPARISON: No relevant prior studies available. FINDINGS: Lungs:There are normal lung volumes without consolidation or interstitial oppacities. Pleural spaces: No pleural effusion. No pneumothorax. Heart/Mediastinum: Mild cardiomegaly. Bones/joints: Degenerative changes in lower thoracic spine. IMPRESSION: Hypoinflated lungs. No acute cardiopulmonary process. at 1402 Reported and signed by: Davin Celis M.D. CC: Gurpreet Benítez MD Technologist: RT Laurel(R) Trnscrd Date/Time/By: 07/07/2022 (1401) : By: [email or web address] Orig Print D/T: S: 07/07/2022 (0530) PAGE 1 Signed Report Notes Date/Time Note Provider Source 2022-07-09 10:31:00-00:00 [id number] [address] PATIENT NAME: ELMER BLOUNT ADMIT DATE: 07/09/22 ACCOUNT NO: [id number] ROOM NO: AGE: 67 REPORT TYPE: CARDIAC CATHETERIZATION REPORT SEX: M ADMITTING PHYSICIAN: ATTENDING PHYSICIAN:Gurpreet Benítez MD PROCEDURE DATE: 07/09/2022 PROCEDURE PERFORMED: 1. Selective coronary angiogram. 2. Failed attempt of PCI to proximal to mid RCA LITIGATION EXAMINER. INDICATION: Angina with known LITIGATION EXAMINER of the mid RCA . ACCESS: Right femoral artery, 6-Tristanian with 6-Fr ench Angio-Seal. COMPLICATIONS: None. BLEEDING: Less than 20 mL TOTAL SEDATION TIME: 75 minutes. I used fentanyl and Versed. DESCRIPTION OF PROCEDURE: After risks, benefits and alternatives were explained. The patient gives us informed consent, the patient was brought into cardiac catheterization laboratory, prepped and draped in the usual sterile fashion. Accessed the right femoral artery using micropuncture kit under fluoroscopy and ultrasound g iwona and placed 6-Tristanian Kinney sheath and took a 6-Tristanian JR4 catheter into the aortic root, engaged the RCA and took a Fielder XT wire, [TIME: 01:08] LITIGATION EXAMINER and the microcat heter and also placed a GuideLiner for further support, placed i t in the mid RCA and then subsequently was able to get through all the way to the stent of the distal RCA; however, once I get to the stent, I c ould not advance the wires anymore. I exchanged for a [employer] 6 and a [employer] 200 wires witho ut success. At this point, it was felt that aborting the p rocedure is in the best interest of the patient and we will treat him medically. We then removed the wires and the catheter and took final pictures that showed a beauti ful channel that was created; however, it was stopped at the stent, then removed the gu erick and the sheath, placed a 6-Tristanian Angio-Seal for closure with good hemost asis. FINDINGS: Mid RCA 100% occluded all the way to the distal portion, status post failed attempt to PCI . PLAN: Continue medical management and fo llow up in 1 to 2 weeks in the office. Dictated By: Gurpreet Benítez MD Date Dictated: 07/09/2022 10:31:31 Date Transcribed: 07/09/2022 13:38:38 PATIENT NAME: ELMER BLOUNT 696 SR/FINA/AMI Receipt ID: [id number] Authenticated by Gurpreet Benítez MD On 08/20/2022 09:56:42 AM Electronically Signed by Gurpreet Benítez MD on at 0956 PATIENT NAME: ELMER BLOUNT 696 2022-07-07 12:15:00-00:00 [id number] [place] [address] PATIENT NAME: ELMER BLOUNT ADMIT DATE: ACCOUNT NO: [id number] ROOM NO: AGE: 67 REPORT TYPE: eELECTROCARDIOGRAM REPORT SEX: M ADMITTING PHYSICIAN: ATTENDING PHYSICIAN:Gurpreet Benítez MD Order: [id number] Test Reason : PREOP Test Date/Time Stamp: ThuJul 07 2022 12:15:14 Blood Pressure : / mmHG Vent. Rate : 061 BPM Atrial Rate : 061 BPM P-R Int : 208 ms QRS Dur : 084 ms QT Int : 436 ms P-R-T Axes : 059 -63 014 degree s QTc Int : 438 ms Sinus rhythm with frequent premature ventricular complexes Left axis deviation Inferior infarct , age undetermined Anterior infarct , age undetermined Abnormal ECG PRE_OP Confirmed by SHELL YAN MD ([id number]) on 07/08/20 8:42:41 AM Referred By: Self Referred Confirmed by:SHELL RICO MD at 0842 PATIENT NAME: ELMER BLOUNT 696
[2023-06-07 12:08] LABS: Absolute Lymphocytes (CBC) 2.3 K/uL (0.7-4.9); Hematocrit 36.3 % (39.6-49.0); Lymphocytes % 30.5 % (15.3-44.8); MCV 69.8 fL (80-100); MPV 8.5 fL (7.6-11.3); Platelets 256 thou/uL (152-406)
[2023-06-07 12:13] LABS: Protime INR 1.15
[2023-06-07 12:28] LABS: ALT/SGPT 16 U/L (16-61); AST/SGOT 11 U/L (15-37); Albumin 3.4 g/dL (3.4-5.0); Alkaline Phosphatase 65 U/L (45-117); BUN Blood Urea Nitrogen 13 mg/dL (7-18); Bicarbonate 26 mEq/L (21-32); Bilirubin Total 0.2 mg/dL (0.2-1.0); Glomerular Filtration Rate 72 ml/min (=/>90); Glucose Level 89 mg/dL (74-106); Magnesium 2.1 mg/dL (1.6-2.4); NT PRO-BNP 287 pg/mL (<125); Potassium 3.8 mEq/L (3.5-5.1); Protein, Total 7.1 g/dL (6.4-8.2); Sodium Level 138 mEq/L (136-145); Troponin High Sensitivity 8.9 pg/mL (<58.9)
--- NOTE | 2023-06-07 12:30 | RAD REPORT ---
EXAM DESCRIPTION: RAD - Chest Single View - 06/07/2023 12:21 pm CLINICAL HISTORY: CHEST PAIN COMPARISON: Chest Single View dated 06/24/2022; Chest Single View dated 06/03/2022; Chest Pa And Lat (2 Views) dated 07/03/2016; CHEST PA AND LAT 2 VIEW dated 11/14/2014 FINDINGS: Lines: None. Lungs: No evidence of edema or pneumonia. Pleural: No significant pleural effusions or pneumothorax. Cardiac: The heart size is within normal limits. Mediastinum: Within normal limits. Bones: No acute fractures. Other: None IMPRESSION: No acute cardiopulmonary disease.
[2023-06-07 12:46] LABS: Bilirubin Direct < 0.1 mg/dL (0-0.2); Bilirubin Indirect, Calculated ND mg/dL (0.2-0.8)
[2023-06-07 13:18] LABS: SARS-CoV-2 Antigen Rapid Res Negative (Negative)
[2023-06-07 13:41] LABS: Anisocytosis 1+; Blood Morphology Comment NOTED (NOT SEEN); Platelet Estimate ADEQ; White Blood Cell Scan OK (OK)
--- NOTE | 2023-06-07 13:55 | ER ---
Nurse's Notes [facility] Name: Jose Neil Age: 68 yrs Sex: Male : 1955 Arrival Date: 06/07/2023 Time: 10:50 Bed 13 Private MD: Diagnosis: Other malaise and fatigue;Chest pain, unspecified Presentation: 06/07 10:57 Chief complaint: Patient states: Everything tasting too salty. Excessive saliva nj1 production. Pressure sensation to throat. Last few days "it bothers me when i swallow". Coronavirus screen: Vaccine status: Patient reports receiving the 2nd dose of the covid vaccine. Ebola Screen: Patient denies travel to an Ebola-affected area in the 21 days before illness onset. Initial Sepsis Screen: Does the patient meet any 2 criteria? No. Patient's initial sepsis screen is negative. Does the patient have a suspected source of infection? No. Patient's initial sepsis screen is negative. Risk Assessment: Do you want to hurt yourself or someone else? Patient reports no desire to harm self or others. Onset of symptoms was June 04, 2023. 10:57 Method Of Arrival: Ambulatory [facility] 10:57 Acuity: ANGIE 3 nj1 Triage Assessment: 11:06 General: Appears in no apparent distress. comfortable, Behavior is calm, cooperative, nj1 appropriate for age. Pain: Complains of pain in back and throat Pain currently is 3 out of 10 on a pain scale. EENT: Reports difficulty swallowing pain in throat sore throat. Neuro: Level of Consciousness is awake, alert, obeys commands, Oriented to person, place, time, situation. Cardiovascular: Reports chest pain, mostly when swallowing Patient's skin is warm and dry. Respiratory: Airway is patent Respiratory effort is even, unlabored. Musculoskeletal: Reports pain in upper back. Historical: - Allergies: 11:02 PENICILLINS; nj1 - PMHx: 11:02 High Cholesterol; Hypertension; Myocardial infarction; neuropathy; Myocardial nj1 infarction; Coronary atherosclerosis; - PSHx: 11:02 Coronary Angioplasty; Stented artery; nj1 - Immunization history:: Client reports receiving the 2nd dose of the Covid vaccine. - Social history:: Smoking status: Patient denies any tobacco usage or history of. Screenin:09 [facility] ED Fall Risk Assessment (Adult) Score/Fall Risk Level 0 - 2 = Low Risk [facility] Oriented to surroundings, Maintained a safe environment, Hourly rounding (assess needs \\T\\ fall precautionary measures) done. Abuse screen: Denies threats or abuse. Denies injuries from another. Nutritional screening: No deficits noted. Tuberculosis screening: No symptoms or risk factors identified. Assessment: 11:49 Reassessment: PATIENT AMBULATORY TO RESTROOM WITH STEADY GATE. db Vital Signs: 10:57 BP 107 / 76; Pulse 75; Resp 18; Temp 98.3; Pulse Ox 99% ; Weight 129.27 kg; Height 5 nj1 ft. 6 in. ; Pain 3/10; 12:42 BP 109 / 66; Pulse 66; Resp 20; Pulse Ox 97% on R/A; hb 13:30 BP 117 / 68; Pulse 66; Resp 16; Pulse Ox 100% on R/A; db 10:57 Body Mass Index 46.00 (129.27 kg, 167.64 cm) nj1 10:57 Pain Scale: Adult [facility] ED Course: 10:53 Patient arrived in ED. ts1 10:56 Saira Mckay FNP-C is PHCP. snw 10:56 Benjamin Lovell MD is Attending Physician. snw 11:02 Triage completed. nj1 11:03 Arm band placed on left wrist. nj1 11:08 Tiffany Fulton, RN is Primary Nurse. db 11:09 Patient has correct armband on for positive identification. Bed in low position. Call [facility] light in reach. Side rails up X 1. Adult w/ patient. Provided Education on: fall precautions, call light. 12:22 XRAY Chest (1 view) In Process Unspecified. EDMS 12:30 Warm blanket given. Client placed on continuous cardiac and pulse oximetry monitoring. ds4 NIBP monitoring applied. site monitor on. Pulse ox on. NIBP on. 12:30 EKG done, by ED staff, reviewed by Saira RAMIREZ. Initial lab(s) drawn, by ED ds4 staff, sent to lab. COVID swab sent to lab. Flu and/or RSV swab sent to lab. 12:35 Basic Metabolic Panel Sent. ds4 12:35 CBC Smear Scan Sent. ds4 12:35 Strep Sent. ds4 12:35 SARS RAPID Sent. ds4 12:35 LFT's Sent. ds4 12:35 Magnesium Sent. ds4 12:35 NT PRO-BNP Sent. ds4 12:35 Troponin HS Sent. ds4 12:36 Strep swab sent to lab. ds4 13:49 EKG done, by ED staff, reviewed by Saira RAMIREZ. db 14:10 No provider procedures requiring assistance completed. IV discontinued, intact, hb bleeding controlled. Administered Medications: No medications were administered Medication: 14:10 VIS not applicable for this client. hb Outcome: 13:55 Discharge ordered by . snw 14:10 Discharged to home ambulatory, with significant other. hb 14:10 Condition: stable 14:10 Discharge instructions given to patient, significant other, Instructed on discharge instructions, follow up and referral plans. medication usage, Demonstrated understanding of instructions, follow-up care, medications, Prescriptions given X 1. 14:10 Patient left the ED. hb Signatures: Dispatcher [employer] EDMS Saira Mckay, JAMES SILVERING APPLICATOR-Csnw Alfred Rodas ds4 Bernice Mejia, RN RN Tiffany Fulton, CALEB RN db Inés Noonan RN RN nj1 Lucia Liao, PAS PAS ts1
--- NOTE | 2023-06-07 13:55 | EDPHYS ---
Physician Documentation [facility] Name: Jose Neil Age: 68 yrs Sex: Male : 1955 Arrival Date: 06/07/2023 Time: 10:50 Bed 13 Private MD: ED Physician Benjamin Lovell HPI: 06/07 11:55 This 68 yrs old Black Male presents to ER via Ambulatory with complaints of Back Pain, snw Chest Pain, Sore Throat. 11:55 Severity of symptoms: At their worst the symptoms were moderate. It is unknown whether snw or not the patient has had similar symptoms in the past. Historical: - Allergies: 11:02 PENICILLINS; nj1 - PMHx: 11:02 High Cholesterol; Hypertension; Myocardial infarction; neuropathy; Myocardial nj1 infarction; Coronary atherosclerosis; - PSHx: 11:02 Coronary Angioplasty; Stented artery; nj1 - Immunization history:: Client reports receiving the 2nd dose of the Covid vaccine. - Social history:: Smoking status: Patient denies any tobacco usage or history of. ROS: 11:55 Eyes: Negative for injury, pain, redness, and discharge, ENT: Negative for injury, snw pain, and discharge, Neck: Negative for injury, pain, and swelling, Respiratory: Negative for shortness of breath, cough, wheezing, and pleuritic chest pain, Back: Negative for injury and pain, : Negative for injury, bleeding, discharge, and swelling, MS/Extremity: Negative for injury and deformity, Skin: Negative for injury, rash, and discoloration, Neuro: Negative for headache, weakness, numbness, tingling, and seizure, Psych: Negative for depression, anxiety, suicide ideation, homicidal ideation, and hallucinations. 11:55 Constitutional: Positive for fatigue, foods taste salty, metallic. . 11:55 Cardiovascular: Positive for chest pain, of the chest. 11:55 Abdomen/GI: Positive for nausea. Exam: 11:55 Constitutional: This is a well developed, well nourished patient who is awake, alert, snw and in no acute distress. Head/Face: Normocephalic, atraumatic. Eyes: Pupils equal round and reactive to light, extra-ocular motions intact. Lids and lashes normal. Conjunctiva and sclera are non-icteric and not injected. Cornea within normal limits. Periorbital areas with no swelling, redness, or edema. 11:55 Neck: Trachea midline, no thyromegaly or masses palpated, and no cervical lymphadenopathy. Supple, full range of motion without nuchal rigidity, or vertebral point tenderness. No Meningismus. Chest/axilla: Normal chest wall appearance and motion. Nontender with no deformity. No lesions are appreciated. Cardiovascular: Regular rate and rhythm with a normal S1 and S2. No gallops, murmurs, or rubs. Normal PMI, no JVD. No pulse deficits. Respiratory: Lungs have equal breath sounds bilaterally, clear to auscultation and percussion. No rales, rhonchi or wheezes noted. No increased work of breathing, no retractions or nasal flaring. Abdomen/GI: Soft, non-tender, with normal bowel sounds. No distension or tympany. No guarding or rebound. No evidence of tenderness throughout. Back: No spinal tenderness. No costovertebral tenderness. Full range of motion. Skin: Warm, dry with normal turgor. Normal color with no rashes, no lesions, and no evidence of cellulitis. MS/ Extremity: Pulses equal, no cyanosis. Neurovascular intact. Full, normal range of motion. Neuro: Awake and alert, GCS 15, oriented to person, place, time, and situation. Cranial nerves II-XII grossly intact. Motor strength 5/5 in all extremities. Sensory grossly intact. Cerebellar exam normal. Normal gait. Psych: Awake, alert, with orientation to person, place and time. Behavior, mood, and affect are within normal limits. 11:55 ENT: Ear canal(s): cerumen impaction, that is mild, bilaterally, Nose: is normal, Posterior pharynx: erythema, that is moderate, Voice: is normal. Vital Signs: 10:57 BP 107 / 76; Pulse 75; Resp 18; Temp 98.3; Pulse Ox 99% ; Weight 129.27 kg; Height 5 nj1 ft. 6 in. ; Pain 3/10; 12:42 BP 109 / 66; Pulse 66; Resp 20; Pulse Ox 97% on R/A; hb 13:30 BP 117 / 68; Pulse 66; Resp 16; Pulse Ox 100% on R/A; db 10:57 Body Mass Index 46.00 (129.27 kg, 167.64 cm) nj1 10:57 Pain Scale: Adult nj1 MDM: 11:17 Patient medically screened. snw 13:57 Differential diagnosis: arthritis, Cholelithiasis unstable angina, stable angina, gerd. snw Data reviewed: vital signs, nurses notes. Historians other than the Patient: Spouse/Significant Other: . Counseling: I had a detailed discussion with the patient and/or guardian regarding the historical points, exam findings, and any diagnostic results supporting the discharge/admit diagnosis, lab results, radiology results, the need for outpatient follow up, for definitive care, to return to the emergency department if symptoms worsen or persist or if there are any questions or concerns that arise at home. Special discussion: Based on the patient's history, exam, and Dx evaluation, there is no indication for emergent intervention or inpatient Tx. It is understood by the patient/guardian that if the Sx's persist or worsen they need to return immediately for re-evaluation. Based on the history and exam findings, there is no indication for further emergent testing or inpatient evaluation. I discussed with the patient/guardian the need to see the spring coiler hand for further evaluation of the symptoms. I discussed with the patient/guardian the need to see the assistant signal maintainer for further evaluation of the symptoms. I discussed with the patient/guardian the need to see the primary care provider for further evaluation of the symptoms. 16:25 ED course: Discussed with pt and Spouse likelihood of GERD as Chest pain intermittent snw with sore throat without source of infection, EKGs unchanged, enzymes and chest x-ray negative. 06/07 11:29 Order name: Basic Metabolic Panel; Complete Time: 12:46 snw 06/07 11:29 Order name: CBC with Diff; Complete Time: 13:43 snw 06/07 11:29 Order name: LFT's; Complete Time: 12:46 snw 06/07 11:29 Order name: Magnesium; Complete Time: 12:46 snw 06/07 11:29 Order name: NT PRO-BNP; Complete Time: 12:46 snw 06/07 11:29 Order name: PT-INR; Complete Time: 12:18 snw 06/07 11:29 Order name: Troponin HS; Complete Time: 12:46 snw 06/07 11:29 Order name: SARS RAPID; Complete Time: 13:18 snw 06/07 11:29 Order name: Strep snw 06/07 12:15 Order name: CBC Smear Scan; Complete Time: 13:43 EDMS 06/07 13:18 Order name: Throat Culture EDMS 06/07 13:19 Order name: Troponin High Sensitivity snw 06/07 11:29 Order name: XRAY Chest (1 view); Complete Time: 12:31 snw 06/07 11:29 Order name: EKG; Complete Time: 11:30 snw 06/07 13:19 Order name: EKG; Complete Time: 13:20 snw 06/07 11:29 Order name: Cardiac monitoring; Complete Time: 11:56 snw 06/07 11:29 Order name: EKG - Nurse/Tech; Complete Time: 11:57 snw 06/07 11:29 Order name: IV Saline Lock; Complete Time: 12:35 snw 06/07 11:29 Order name: Labs collected and sent; Complete Time: 12:35 snw 06/07 11:29 Order name: O2 Per Protocol; Complete Time: 12:35 snw 06/07 11:29 Order name: O2 Sat Monitoring; Complete Time: 12:33 snw 06/07 13:19 Order name: EKG - Nurse/Tech; Complete Time: 14:10 snw EC:10 Rate is 70 beats/min. Rhythm is regular. Q waves are Present in leads II, III, aVF, V1, snw V6. Clinical impression: NSR w/ Non-specific ST/T Changes and 1st degree heart block. 13:49 Rate is 63 beats/min. Rhythm is regular. LA interval is prolonged. Q waves are Present snw in leads II, III, aVF, V1, V6. Clinical impression: NSR w/ Non-specific ST/T Changes and 1st degree heart block. Administered Medications: No medications were administered Disposition Summary: 06/07/23 13:55 Discharge Ordered Location: Home snw Condition: Stable snw Diagnosis - Other malaise and fatigue snw - Chest pain, unspecified snw Followup: snw - With: Emergency Department - When: As needed - Reason: Worsening of condition Followup: snw - With: Private Physician - When: 2 - 3 days - Reason: Recheck today's complaints, Continuance of care, Re-evaluation by your physician Discharge Instructions: - Discharge Summary Sheet snw - Nonspecific Chest Pain, Adult snw - Gastroesophageal Reflux Disease, Adult snw - Fatigue snw Forms: - Medication Reconciliation Form snw - Thank You Letter snw - Antibiotic Education snw - Prescription Opioid Use snw - Patient Portal Instructions snw - Leadership Thank You Letter snw Prescriptions: - Pepcid 20 mg Oral Tablet - take 1 tablet by ORAL route once daily; 20 tablet; Refills: 0, Product snw Selection Permitted Signatures: Dispatcher [employer] Saira Martines, ASSISTANT ACCOUNT MANAGER-C ASSISTANT ACCOUNT MANAGER-Csnw Inés Noonan, RN RN nj1
[2023-06-07 14:18] VITALS: TEMP 98.3
[2023-06-07 14:20] VITALS: BP 117/68; O2SAT 100
--- NOTE | 2023-06-08 17:58 | EKG ---
Test Date: 2023-06-07 Test Time: 13:49:01 Bean Picker: PREETHI MEASUREMENT RESULTS: Intervals: Rate: 63 WI: 212 QRSD: 96 QT: 420 QTc: 429 [place]: P: 37 WI: 212 QRS: -23 T: 16 INTERPRETIVE STATEMENTS: Sinus rhythm with 1st degree AV block Inferior infarct, age undetermined Anterior infarct, age undetermined Abnormal ECG Compared to ECG 06/07/2023 12:07:36 No significant changes Electronically Signed On 06-08-23 17:56:41 CDT by Gurpreet Benítez
--- NOTE | 2023-06-08 17:59 | EKG ---
Test Date: 2023-06-07 Test Time: 12:07:36 High School Music Teacher: KIYA MEASUREMENT RESULTS: Intervals: Rate: 70 RI: 212 QRSD: 94 QT: 402 QTc: 434 [place]: P: 37 RI: 212 QRS: -26 T: 10 INTERPRETIVE STATEMENTS: Sinus rhythm with 1st degree AV block Inferior infarct, age undetermined Anterior infarct, age undetermined Abnormal ECG Compared to ECG 06/24/2022 09:12:08 First degree AV block now present Myocardial infarct finding still present Electronically Signed On 06-08-23 17:56:47 CDT by Gurpreet Benítez
== END 2023-06-07 14:10 | disposition home or self-care (01) ==
LOC: ER 10:50
DX: R07.9 Chest pain, unspecified (principal); R53.81 Other malaise; R53.83 Other fatigue; I10 Essential (primary) hypertension; I25.2 Old myocardial infarction; Z20.822 Contact with and (suspected) exposure to COVID-19; Z88.0 Allergy status to penicillin
CPT/HCPCS: 36415; 71045; 80048; 80076; 83735; 83880; 84484; 85025; 85610; 87070; 87081; 87811; 93005; 99284

== ENCOUNTER → 2024-01-02 | Emergency (ER) | payer OTHER ==
[~2024-01-02] MED LIST: HYDROCODONE/APAP 5/325 MG TAB ONE; dexAMETHasone 10 MG/ML VIAL ONE
--- OUTSIDE RECORDS SUMMARY | 2024-01-02 17:14 | XMS REPORT | Continuity of Care Document ---
Author Name Unknown Address [address] [facility] [address] [place] [address] [facility] thconnect Address [address] [facility] [address] [place] [address] Care Team Providers Care C Java Developer Name Role Phone MILLER BARRETT Primary Care Physician Unav ailable Mohini Barrett Attending Clinician UnavailMEKHI Mcwilliams Attending Clinician Unavailable Gurpreet Benítez Attending Clinician Unavailable Gerri Boland RN Attending Clinician Unavailable LORENZA SIMTH Attending Clinician Unavailable Jeffrey Lara MD Attending Clinician [phone] Lorenza Smith DO Attending Clinician [phone] GONZALES Attending Clinician Unavailable 2, [facility] Attending Clinician Unavailable Mekhi Zamudio MD Attending Clinician [phone] Doctor Unassigned, [place] Attending Clinician U navailable Bruna Valenzuela Attending Clinician [phone] BRUNA MONAHAN Attending Clinician Unavailable Only, Adc Test Attending Clinician Unavailable Juan Daugherty MD Attending Clinician [phone] JUAN DAUGHERTY Attending Clinician Unavaileduardo e Referred, Self Admitting Clinician Unavailable LORENZA SMITH Admitting Clinician Unavailable Lorenza Smith DO Admitting Clinician [phone] GONZALES Admitting Clinician Unavailable BRUNA MONAHAN Admitting Clinician Unavailable Payers Payer Name Policy Type Policy Number Effective Date Expirati on Date Source MEDICARE PART A \T\ B [id number] 2009 00:00:00 Problems Condition Name Condition Details Condition Category Status Onset Date Resolution Date Last Treatment Date Treating Clinician Comments Source Coronary artery disease involving [place] coronary artery of [place] heart with angina pectoris Coronary artery disease involving [place] coronary artery of [place] heart with angina pectoris Disease Active 06-21 00:00: 00 [facility] Essential hypertensi on Essential hypertensi on Disease Active 06-21 00:00: 00 [facility] Dyslipidem ia Dyslipidem ia Disease Active 06-21 00:00: 00 [facility] Elevated brain natriureti c peptide (BNP) level Elevated brain natriureti c peptide (BNP) level Disease Active 06-21 00:00: 00 [facility] Morbid obesity Morbid obesity Disease Active 06-21 00:00: 00 [facility] NSVT (nonsustai megan ventricula r tachycardi a) NSVT (nonsustai megan ventricula r tachycardi a) Disease Active 06-21 00:00: 00 [facility] Chest pain, unspecifie d type Chest pain, unspecifie d type Disease Active 06-19 00:00: 00 [facility] No known active problems No known active problems Disease [facility] Primary osteoarthr itis of right knee Primary osteoarthr itis of right knee Problem Active [facility] Carpal tunnel syndrome of right wrist Carpal tunnel syndrome of right wrist Problem Active [facility] Allergies, Adverse Reactions, Alerts Allergy Name Allergy Type Status Severity Reaction(s) Onset Date Inactive Date Treating Clinician Comments Source Penicill ins DA Active SV RASH, SWELLING 06-27 00:00: 00 [facility] PENICILL IN DRUG INGREDI Active Swelling 06-19 00:00: 00 [facility] Penicill in Propensi ty to adverse reaction s Active Swelling 06-19 00:00: 00 [facility] penicill in Adverse Reaction Active Info Not Available [facility] NO KNOWN ALLERGIE S Drug Class Active [facility] Social History Social Habit Start Date Stop Date Quantity Comments Source History of tobacco use Cigarette Smoker [facility] Exposure to SARS-CoV-2 (event) 2022-06-09 00:00:00 2022-06-19 19:09:00 Not sure [facility] Tobacco use and exposure 2022-06-19 00:00:00 2022-06-19 00:00:00 Smokeless tobacco non-user [facility] Education 2022-06-19 00:00:00 2022-06-19 00:00:00 14 [facility] Sex Assigned At 1955 00:00:00 1955 00:00:00 [facility] Smoking Status Start Date Stop Date Source Ex-smoker 2022-06-19 00:00:00 [facility]22-[facility] Ordered Medication Name Filled Medication Name Start Date Stop Date Current Medication? Ordering Clinician Indication Dosage Frequency Signature (SIG) Comments Components Source docusate 100 mg capsule 06-22 00:00: 00 07-23 04:59 :00 No [id number] 100mg Take 1 capsule by mouth in the morning for 30 days. [facility] aspirin 81 mg EC tablet 06-22 00:00: 00 07-23 04:59 :00 No [id number] 81mg Take 1 tablet by mouth in the morning for 30 days. [facility] docusate 100 mg capsule 06-22 00:00: 00 07-23 04:59 :00 No [id number] 100mg Take 1 capsule by mouth in the morning for 30 days. [facility] aspirin 81 mg EC tablet 06-22 00:00: 00 07-23 04:59 :00 No [id number] 81mg Take 1 tablet by mouth in the morning for 30 days. [facility] FLUoxetine 40 mg capsule 06-21 14:27: 59 Yes 40mg Take 40 mg by mouth daily. [facility] esomeprazol e 40 mg capsule 06-21 14:27: 59 Yes 40mg Take 40 mg by mouth daily with breakfast. [facility] FLUoxetine 40 mg capsule 06-21 14:27: 59 Yes 40mg Take 40 mg by mouth daily. [facility] esomeprazol e 40 mg capsule 06-21 14:27: 59 Yes 40mg Take 40 mg by mouth daily with breakfast. [facility] aspirin EC tablet 81 mg 06-21 14:00: 00 Yes 81mg 81 mg, Oral, DAILY, First dose on Thu06/21/22 at 0900, Until Discontinu ed, Routine [facility] atorvastati n (LIPITOR) tablet 80 mg 06-21 02:00: 00 Yes 80mg 80 mg, Oral, QHS, First dose on Thu06/20/22 at 2100, Until Discontinu ed, Routine
research assistant member approving Restricted medication : HIMANSHU BOLAÑOS [facility] isosorbide mononitrate (IMDUR) 24 hr tablet 30 mg 06-21 01:00: 00 Yes 30mg 30 mg, Oral, BID, First dose on Thu06/20/22 at 2000, Until Discontinu ed, Routine [facility] metoprolol succinate XL (TOPROL XL) tablet 25 mg 06-21 01:00: 00 Yes 25mg 25 mg, Oral, BID, First dose (after last modificati on) on Thu06/20/22 at 2000, Until Discontinu ed, Routine [facility] ticagrelor (BRILINTA) tablet 90 mg 06-21 01:00: 00 Yes 90mg 90 mg, Oral, BID, First dose (after last modificati on) on Thu06/20/22 at 2000, Until Discontinu ed, Routine [facility] atorvastati n 80 mg tablet 06-21 00:00: 00 07-22 04:59 :00 No [id number] 80mg Take 1 tablet by mouth at bedtime for 30 days. [facility] ferrous sulfate 325 mg (65 mg iron) tablet 06-21 00:00: 07-22 04:59 :00 No [id number] 325mg Take 1 tablet by mouth in the morning for 30 days. [facility] isosorbide mononitrate 30 mg 24 hr tablet 06-21 00:00: 07-22 04:59 :00 No [id number] 30mg Take 1 tablet by mouth in the morning and 1 tablet in the evening. Do all this for 30 days. [facility] atorvastati n 80 mg tablet 06-21 00:00: 00 07-22 04:59 :00 No [id number] 80mg Take 1 tablet by mouth at bedtime for 30 days. [facility] ferrous sulfate 325 mg (65 mg iron) tablet 06-21 00:00: 07-22 04:59 :00 No [id number] 325mg Take 1 tablet by mouth in the morning for 30 days. [facility] isosorbide mononitrate 30 mg 24 hr tablet 06-21 00:00: 00 07-22 04:59 :00 No [id number] 30mg Take 1 tablet by mouth in the morning and 1 tablet in the evening. Do all this for 30 days. [facility] sulfur hexafluorid e microsphr (LUMASON) injection 5 mL 06-20 18:45: 00 06-20 18:45 :00 No [id number] 5mL 5 mL, Intravenou s, ONCE, 1 dose, On Thu06/20/22 at 1345, Routine
research assistant member approving Restricted medication : HIMANSHU BOLAÑOS [facility] FLUoxetine (PROZAC) capsule 40 mg 06-20 14:00: 00 Yes 40mg 40 mg, Oral, DAILY, First dose on Thu06/20/22 at 0900, Until Discontinu ed, Routine [facility] tamsulosin (FLOMAX) capsule 0.4 mg 06-20 14:00: 00 Yes .4mg 0.4 mg, Oral, DAILY, First dose on Thu06/20/22 at 0900, Until Discontinu ed, Routine [facility] docusate (COLACE) capsule 100 mg 06-20 14:00: 00 Yes 100mg 100 mg, Oral, DAILY, First dose on Thu06/20/22 at 0900, Until Discontinu ed, Routine [facility] enoxaparin (LOVENOX) injection 40 mg 06-20 14:00: 00 Yes 40mg 40 mg, Subcutaneo us, DAILY, First dose on Thu06/20/22 at 0900, Until Discontinu ed, Routine [facility] ticagrelor (BRILINTA) tablet 90 mg 06-20 14:00: 00 06-20 19:37 :36 No 90mg 90 mg, Oral, DAILY, First dose on Thu06/20/22 at 0900, Until Discontinu ed, Routine [facility] pravastatin (PRAVACHOL) tablet 40 mg 06-20 14:00: 00 06-20 19:37 :36 No 40mg 40 mg, Oral, DAILY, First dose on Thu06/20/22 at 0900, Until Discontinu ed, Routine [facility] metoprolol succinate XL (TOPROL XL) tablet 25 mg 06-20 14:00: 00 06-20 19:37 :36 No 25mg 25 mg, Oral, DAILY, First dose on Thu06/20/22 at 0900, Until Discontinu ed, Routine [facility] gabapentin (NEURONTIN) capsule 100 mg 06-20 13:00: 00 Yes 100mg 100 mg, Oral, TID, First dose on Thu06/20/22 at 0800, Until Discontinu ed, Routine [facility] maalox:diph enhydrAMINE :lidocaine 2 % viscous 1:1:1 ([facility]) oral suspension 15 mL 06-20 06:00: 00 06-20 05:19 :00 No 15mL 15 mL, Oral, ONCE, 1 dose, On Thu06/20/22 at 0100, Routine [facility] HYDROcodone -acetaminop hen (NORCO 5) 5-325 mg tablet 1 tablet 06-19 23:25: 46 06-21 23:24 :46 No 1{tbl} 1 tablet, Oral, Q6HPRN, Starting on Lesli 06/19/22 at 1825, Until 06/21/22 at 1824, Routine, Pain (scale 4-6) [facility] acetaminoph en (TYLENOL) tablet 650 mg 06-19 23:25: 40 Yes 650mg 650 mg, Oral, Q6HPRN, Starting on Thu06/19/22 at 1825, Until Discontinu ed, Routine, Pain (scale 1-3) [facility] FLUoxetine 40 mg capsule 07-18 14:26: 40 Yes 40mg Take 40 mg by mouth daily. [facility] esomeprazol e (NEXIUM) 40 mg capsule 07-18 14:26: 40 Yes 40mg Take 40 mg by mouth daily with breakfast. [facility] gabapentin 100 mg capsule 07-15 00:00: 00 Yes TAKE 1 CAPSULE BY MOUTH THREE TIMES DAILY FOR NUMB FEET [facility] metoprolol succinate XL 25 mg 24 hr tablet 07-15 00:00: 00 Yes 25mg Take 25 mg by mouth daily. [facility] gabapentin 100 mg capsule 07-15 00:00: 00 Yes TAKE 1 CAPSULE BY MOUTH THREE TIMES DAILY FOR NUMB FEET [facility] metoprolol succinate XL 25 mg 24 hr tablet 07-15 00:00: 00 Yes 25mg Take 25 mg by mouth daily. [facility] gabapentin 100 mg capsule 07-15 00:00: 00 Yes TAKE 1 CAPSULE BY MOUTH THREE TIMES DAILY FOR NUMB FEET [facility] metoprolol succinate XL 25 mg 24 hr tablet 07-15 00:00: 00 Yes 25mg Take 25 mg by mouth daily. [facility] lisinopriL 30 mg tablet 07-01 00:00: 00 Yes 30mg Take 30 mg by mouth daily. [facility] BRILINTA 60 mg Tab 07-01 00:00: 00 Yes 1{tbl} Take 1 tablet by mouth 2 (two) times daily. [facility] lisinopriL 30 mg tablet 07-01 00:00: 00 Yes 30mg Take 30 mg by mouth daily. [facility] TICAGRELOR 90 mg tablet 07-01 00:00: 00 Yes 1{tbl} Take 1 tablet by mouth in the morning. [facility] lisinopriL 30 mg tablet 07-01 00:00: 00 Yes 30mg Take 30 mg by mouth daily. [facility] TICAGRELOR 90 mg tablet 07-01 00:00: 00 Yes 1{tbl} Take 1 tablet by mouth in the morning. [facility] tamsulosin 0.4 mg 24 hr capsule 06-07 00:00: 00 Yes [facility] tamsulosin 0.4 mg 24 hr capsule 0 06-07 00:00: 00 Yes [facility] tamsulosin 0.4 mg 24 hr capsule 06-07 00:00: 00 Yes [facility] pravastatin 40 mg tablet 05-28 00:00: 00 Yes 40mg Take 40 mg by mouth daily. [facility] pravastatin 40 mg tablet 05-28 00:00: 00 06-21 00:00 :00 No 40mg Take 40 mg by mouth daily. [facility] Pravastatin Sodium Pravastatin Sodium 06-01 00:00: 00 Yes Alessandro Vasquez 1 tablet [facility] Flomax Flomax 06-01 00:00: 00 Yes Alessandro Vasquez 1 capsule [facility] Brilinta Brilinta 06-01 00:00: 00 Yes Alessandro Vasquez 1 tablet [facility] Prozac Prozac 06-01 00:00: 00 Yes Alessandro Vasquez 2 tab [facility] Nexium Nexium 06-01 00:00: 00 Yes Alessandro Vasquez 1 capsule [facility] Metoprolol Succinate Metoprolol Succinate 06-01 00:00: 00 Yes Alessandro Vasquez not defined [facility] Lisinopril Lisinopril 06-01 00:00: 00 Yes Alessandro Vasquez 1 tablet [facility] Acetaminoph en-Codeine #3 Acetaminoph en-Codeine #3 Yes Alessandro Vasquez not defined [facility] MethylPREDN ISolone MethylPREDN ISolone Yes Alessandro Vasquez not defined [facility] Fluoxetine HCl Fluoxetine HCl Yes Alessandro Vasquez not defined [facility] Amitriptyli ne HCl Amitriptyli ne HCl Yes Alessandro Vasquez not defined [facility] Vital Signs Vital Name Observation Time Observation Value Comments S ource Systolic blood pressure 2022-06-21 12:39:00 122 mm[Hg] [facility] Diastolic blood pressure 2022-06-21 12:39:00 68 mm[Hg] [facility] Heart rate 2022-06-21 12:39:00 54 /min [facility] Body temperature 2022-06-21 12:39:00 36.44 Sidra [facility] Respiratory rate 2022-06-21 12:39:00 14 /min [facility] Oxygen saturation in Arterial blood by Pulse oximetry 2022-06-21 12:39:00 95 /min [facility] Body weight 2022-06-21 08:20:00 125.465 kg [facility] BMI 2022-06-21 08:20:00 43.32 kg/m2 [facility] Body height 2022-06-20 00:19:00 170.2 cm [facility] Systolic blood pressure 2022-02-24 14:25:00 102 mm[Hg] [facility] Diastolic blood pressure 2022-02-24 14:25:00 70 mm[Hg] [facility] Heart rate 2022-02-24 14:25:00 76 /min [facility] Respiratory rate 2022-02-24 14:25:00 18 /min [facility] Body height 2022-02-24 14:25:00 170.2 cm [facility] Body weight 2022-02-24 14:25:00 127.461 kg [facility] BMI 2022-02-24 14:25:00 44.01 kg/m2 [facility] Oxygen saturation in Arterial blood by Pulse oximetry 2022-02-24 14:25:00 98 /min [facility] Procedures Procedure Date / Time Performed Performing Clinician Source FERRITIN SERUM 2022-06-21 09:38:00 Bhanu Cain [facility] TROPONIN I 2022-06-21 09:38:[address] [facility] IRON PANEL 2022-06-21 09:38:[address] [facility] TROPONIN I 2022-06-20 21:14:[address] [facility] MAGNESIUM 2022-06-20 09:42:[address] [facility] TROPONIN I 2022-06-20 09:42:[address] [facility] THYROID STIMULATING HORMONE 2022-06-20 09:42:00 Bhanu Cain [facility] BASIC METABOLIC PANEL (NA, K, CL, CO2, GLUCOSE, BUN, CREATININE, CA) 2022-06-20 09:42:00 Bhanu Cain [facility] CBC WITH DIFF 2022-06-20 09:42:00 Bhanu Cain [facility] TROPONIN I 2022-06-20 02:17:[address] [facility] LIPID PANEL ([id number])(TOTAL CHOLESTEROL, TRIGLYCERIDES, HDL) 2022-06-20 02:17:00 Patricia Fagan [facility] XR CHEST 1 VW 2022-06-19 21:18:27 Jeffrey Lara [facility] TROPONIN I 2022-06-19 21:11:00 Jeffrey Lara [facility] COMP. METABOLIC PANEL ([id number]) 2022-06-19 21:11:00 Jeffrey Lara [facility] CBC WITH DIFF 2022-06-19 21:11:00 Jeffrey Lara [facility] PROTHROMBIN TIME / INR 2022-06-19 21:11:00 Mario Lara [facility] ACTIVATED PARTIAL THRMPLAS DIDIER 2022-06-19 21:11:00 Jeffrey Lara [facility] N-TERMINAL PRO-BNP 2022-06-19 21:11:00 Jeffrey Lara [facility] COVID-19 (ID NOW RAPID TESTING) 2022-06-19 21:11:00 Jeffrey Lara [facility] LAB ONLY COVID INTERPRETATION 2022-06-19 21:11:00 Jeffrey Lara [facility] HB ECG ROUTINE & RHYTHM STRIP 2022-06-19 20:40:50 Jeffrey Lara [facility] CONSENT/REFUSAL FOR DIAGNOSIS AND TREATMENT 2022-06-19 20:34:15 Doctor Unassigned, [place] [facility] Encounters Start Date/Time End Date/Time Encounter Type Admission Type Attending [facility] Care Facility Care Department Encounter ID Source 2021-11-13 10:58:[address] [facility] [id number] [facility] 2023-09-29 14:28:19 2023-09-29 14:28:19 Outpatient [facility] [id number] Goldy Menon David 2023-05-04 14:10:12 2023-05-04 14:10:12 Outpatient SFA SFA [id number] Goldy Menon David 2023-04-10 08:58:41 2023-04-10 08:58:41 Outpatient SFA SFA [id number] Goldy F David 2023-04-03 16:42:57 2023-04-03 16:42:57 Outpatient SFA SFA [id number] Goldy Menon David 2022-08-27 00:00:00 2022-08-27 00:00:00 [id number] 2022-07-09 05:05:00 2022-07-09 05:05:00 Outpatient Gurpreet Allen [facility] [id number] [facility] 2022-06-24 00:00:00 2022-06-24 00:00:00 Transition of Care Gerri Boland 1..840.114 350.1.13.10 4.2.7.2.686 [id number] [facility] 2022-06-19 15:47:00 2022-06-21 14:18:00 Outpatient LORENZA PATRICK [facility] [id number] [facility] 2022-06-19 15:47:00 2022-06-21 14:18:00 Emergency Jeffrey Lara [facility] 1..840.114 350.1.13.10 4.2.7.2.686 [id number] [facility] 2022 00:00:00 2022 00:00:00 Outpatient RORY BANKS [facility] [id number] [facility] Program 2022-02-24 10:15:00 2022-02-24 10:30:00 Cover Operator Visit 2, Adc Lab Robb [facility]ESSIO [facility] 1..840.114 350.1.13.10 4.2.7.2.686 [id number] [facility] 2022-02-24 09:15:00 2022-02-24 10:08:38 [facility] [id number] [facility] 2022-02-24 09:15:00 2022-02-24 10:08:38 Office Visit Robb [facility] [id number] 350.1.13.10 4.2.7.2.686 [id number] [facility] 2022-02-24 00:00:00 2022-02-24 00:00:00 Orders Only Doctor Unassigned, [place] [facility] [id number] 350.1.13.10 4.2.7.2.686 [id number] [facility] 2021-12-30 11:30:00 2021-12-30 11:30:00 Outpatient R ROBB [facility] [id number] [facility] 2021-08-20 11:22:46 2021-08-20 23:59:00 Hospital Encounter Bruna Monahan [facility] 1..114 350.1.13.10 4.2.7.2.686 [id number] [facility] 2021-08-20 11:22:46 2021-08-20 23:59:00 Outpatient R BRUNA MONAHAN [facility] [id number] [facility] 2021-07-18 14:54:30 2021-07-18 15:09:30 Cover Operator Visit 2, Adc Lab Robb [facility] [id number] 350.1.13.10 4.2.7.2.686 [id number] [facility] 2021-07-18 13:54:19 2021-07-18 14:51:57 Office Visit Robb [facility] 1.2840.114 350.1.13.10 4.2.7.2.686 [id number] [facility] 2021-07-18 14:30:00 2021-07-18 14:30:00 Outpatient R ROBB [facility] [id number] [facility] 2021-07-18 00:00:00 2021-07-18 00:00:00 Orders Only Doctor Unassigned, [place] [facility] [id number] 350.1.13.10 4.2.7.2.686 [id number] [facility] 2020-12-26 11:08:15 2020-12-26 11:23:15 Laboratory Only Only, Adc Test [facility] [id number] 350.1.13.10 4.2.7.2.686 [id number] 2020-12-26 11:08:15 2020-12-26 11:23:15 Laboratory Only Only, Adc Test Juan Daugherty [facility] [id number] 350.1.13.10 4.2.7.2.686 [id number] [facility] 2020-12-26 11:00:00 2020-12-26 11:00:00 Outpatient JUAN HUGGINS [facility] [id number] [facility] 2020-12-26 00:00:00 2020-12-26 00:00:00 Orders Only Doctor Unassigned, [place] [facility] [id number] 350.1.13.10 4.2.7.2.686 [id number] 2020-12-26 00:00:00 2020-12-26 00:00:00 Orders Only Doctor Unassigned, [place] [facility] [id number] 350.1.13.10 4.2.7.2.686 [id number] [facility] 2019-10-17 16:23:00 2019-10-17 16:23:00 Outpatient [facility] [id number] [facility] 2019-09-19 14:33:00 2019-09-19 14:33:00 Outpatient [facility] [id number] [facility] 2019-09-09 09:00:00 2019-09-09 09:00:00 Outpatient [facility] [id number] [facility] 2019-08-23 13:30:00 2019-08-23 13:30:00 Outpatient [facility] [id number] [facility] 2019-08-01 08:00:00 2019-08-01 08:00:00 Outpatient [facility] [id number] [facility] 2018-06-01 10:30:00 2018-06-01 10:30:00 Outpatient [facility] [id number] [facility] Results Test Description Test Time Test Comments Results Result Co mments Source [id number] 09:27:00* Test Item Value Reference Range Interpretation Comme nts ACT-ISTAT (test code = ACTI) 306 SEC [id number] H Performed by cer tified sand system operator at [facility] CBC W/AUTO [id number] 13:11:00* Test Item Value Reference Range Interpretation Comme nts WHITE BLOOD CELL (test code = WBC) 6.3 x10 3/uL 4.5-11.0 N RED BLOOD CELL (test code = RBC) 4.91 x10 6/uL 4.00-5.60 N HEMOGLOBIN (test code = HGB) 10.5 g/dL 12.5-16.9 L HEMATOCRIT (test code = HCT) 35.4 % 37.5-50.7 L MEAN CELL VOLUME (test code = MCV) 72.1 fL 81.0-99.0 L MEAN CELL HGB (test code = MCH) 21.4 pg 27.0-33.0 L MEAN CELL HGB CONCETRATION (test code = MCHC) 29.7 g/dL 33.0-37.0 L RED CELL DISTRIBUTION WIDTH CV (test code = RDW) 18.8 % 11.5-14.5 H RED CELL DISTRIBUTION WIDTH SD (test code = RDW-SD) 48.0 fL 37.0-54.0 N PLATELET COUNT (test code = PLT) 368 x10 3/uL 150-400 N MEAN PLATELET VOLUME (test c ode = MPV) 9.6 fL 7.0-9.0 H NEUTROPHIL % (test code = NT%) 55.0 % 56.0-77.0 L IMMATURE GRANULOCYTE % (test code = IG%) 0.3 % 0.0-2.0 N LYMPHOCYTE % (test code = LY%) 30.6 % 14.0-32.0 N MONOCYTE % (test code = MO%) 8.4 % 4.8-9.0 N EOSINOPHIL % (test code = EO%) 5.1 % 0.3-3.7 H BASOPHIL % (test code = BA%) 0.6 % 0.0-2.0 N NUCLEATED RBC % (test code = NRBC%) 0.0 % 0-0 N NEUTROPHIL # (test code = NT#) 3.47 x10 3/uL 2.0-7.6 N IMMATURE GRANULOCYTE # (test code = IG#) 0.02 x10 3/uL 0.00-0.03 N LYMPHOCYTE # (test code = LY#) 1.93 x10 3/uL 1.0-3.8 N MONOCYTE # (test code = MO#) 0.53 x10 3/uL 0.1-0.8 N EOSINOPHIL # (test code = EO#) 0.32 x10 3/uL 0.0-0.2 H BASOPHIL # (test code = BA#) 0.04 x10 3/uL 0.0-0.2 N NUCLEATED RBC # (test code = NRBC#) 0.00 x10 3/uL 0.0-0.1 N MANUAL DIFF REQUIRED (test c ode = MDIFF) NO RBC [id number] 13:11:00* Test Item Value Reference Range Interpretation Comme nts ANISOCYTOSIS (test code = ANISO) 2+ POIKILOCYTOSIS (test code = POIK) 1+ MICROCYTOSIS (test code = MICR) 1+ ELLIPTOCYTES (test code = ELL) 1+ BASIC METABOLIC [id number] 11:54:00* Test Item Value Reference Range Interpretation Comme nts SODIUM (test code = NA) 139 mEq/L 134-147 N POTASSIUM (test code = K) 4.3 mEq/L 3.4-5.0 N CHLORIDE (test code = CL) 107 mEq/L 100-108 N CARBON DIOXIDE (test code = CO2) 26 mEq/l 21-33 N ANION GAP (test code = GAP) 10 0-20 N GLUCOSE (test code = GLU) 94 mg/dL 70-110 N BLOOD UREA NITROGEN (test code = BUN) 8 mg/dL 7-18 N GLOMERULAR FILTRATION RATE (test code = GFR) 80.3 80-90 N Units of measure = ml/min/1.73 m2 CREATININE (test code = CREAT) 1.1 mg/dL 0.6-1.3 N CALCIUM (test code = CA) 9.2 mg/dL 8.0-10.5 N PROTHROMBIN [id number] 11:53:00* Test Item Value Reference Range Interpretation Comme nts PROTHROMBIN TIME PATIENT (test code = PTP) 13.0 SECONDS 9.3-12.9 H INTERNATIONAL NORMAL RATIO (test code = INR) 1.2 0.8-1.2 N TARGET INR BY INDICATION Indication INR1. Prophylaxis of venous thrombosis 2.0 - 3.0 (orthopedic surgery), Prophylaxis of venous thrombosis (other than high-risk surgery), Treatment of Deep Vein Thrombosis/Pulmonary Embolism, Prevention of systemic embolism - Tissue heart valves, Acute Myocardial Infarction (to prevent systemic embolism), Valvular heart disease, Atrial Fibrillation, Bileaflet mechanical valve in aortic position.2. Mechanical prosthetic valves (high risk), 2.5 - 3.5 Presence of Lupus Anticoagulant or Antiphospholipid Antibodies, Prevention of systemic embolism - Acute Myocardial Infarction (to prevent recurrent infarct). - XR CHEST 2 [id number] 00:00:00 [facility] : 1955 Sex: M FAX: Gurpreet Christianson MD [phone] [place]: St: PRE Name: ELMER BLOUNT [facility] : 1955 Age/S: 67/M [address] [place] [address] Unit #: [id number] Loc: [place] [address] Phys: Gurpreet Benítez MD Acct: [id number] Dis Date: Status: PRE SDC PHONE #: [phone] Exam Date: 07/07/2022 1245 FAX #: [phone] Reason: PREOP EXAMS: CPT CODE: [id number] XR CHEST 2 V [id number] PROCEDURE INFORMATION: Exam: XR Chest Exam date and time: 07/07/2022 12:40 PM Age: 67 years old Clinical indication: Pre-operative exam; Respiratory screening exam; Additional info: Preop TECHNIQUE: Imaging protocol: Radiologic exam of the chest. Views: 2 views. PA and Lateral COMPARISON: No relevant prior studies available. FINDINGS: Lungs: There are normal lung volumes without consolidation or interstitial oppacities. Pleuralspaces: No pleural effusion. No pneumothorax. Heart/Mediastinum: Mild cardiomegaly. Bones/joints: Degenerative changes in lower thoracic spine. IMPRESSION: Hypoinflated lungs. No acute cardiopulmonary process. at 1402 Reported and signed by: Davin Celis M.D. CC: Gurpreet Benítez MD Technologist: RT Laurel(Tracie) Trnscrd Date/Time/By: 07/07/2022 (280) : By: [email or web address] Orig Print D/T: S: 07/07/2022 (2057) PAGE 1Signed Report Notes Date/Time Note Provider Source 2022-07-09 10:31:00 [id number] 2-0003 [place] [address] PATIENT NAME: ELMER BLOUNT ADMIT DATE: 07/09/22ACCOUNT NO: [id number] ROOM NO: AGE: 67 REPORT TYPE: CARDIAC CATHETERIZATION REPORT SEX: M ADMITTING PHYSICIAN: ATTENDING PHYSICIAN:Gurpreet Benítez MD PROCEDURE DATE: 07/09/2022 PROCEDURE PERFORMED: 1. Selective coronary angiogram.2. Failed attempt of PCI to proximal to mid RCA CONCRETE WALL GRINDER OPERATOR. INDICATION: Angina with known CONCRETE WALL GRINDER OPERATOR of the mid RCA. ACCESS: Right femoral artery, 6-Jordanian with 6-Jordanian Angio-Seal. COMPLICATIONS: None. BLEEDING: Less than 20 mL TOTAL SEDATION TIME: 75 minutes. I used fentanyl and Versed. DESCRIPTION OF PROCEDURE: After risks, benefits and alternatives were explained. The patient gives us informed consent, the patient was brought into cardiac catheterization laboratory, prepped and draped in the usual sterile fashion. Accessed the right femoral artery using micropuncture kit under fluoroscopy and ultrasound guidance and placed 6-Jordanian [place] sheath and tooka 6-Jordanian JR4 catheter into the aortic root, engaged the RCA and took a FielderXT wire, [TIME: 01:08] CONCRETE WALL GRINDER OPERATOR and the microcatheter and also placed a GuideLiner for further support, placed it in the mid RCA and then subsequently was able to get through all the way to the stent of the distal RCA; however, once I get to the stent, I could not advance the wires anymore. I exchanged fora [employer] 6 and a Rectifying Operator 200 wires without success. At this point, it was felt that aborting the procedure is in the best interest of the patient and we will treat him medically. We then removed the wires and the catheter and took final pictures that showed a beautiful channel that was created; however, it was stopped at the stent, then removed the guide and the sheath, placed a 6-Jordanian Angio-Seal for closure with good hemostasis. FINDINGS: Mid RCA 100% occluded all the way to the distal portion, status postfailed attempt to PCI . PLAN: Continue medical management and follow up in 1 to 2 weeks in the office. Dictated By: Gurpreet Benítez MD Date Dictated: 07/09/2022 10:31:31Date Transcribed: 07/09/2022 13:38:38PATIENT NAME: ELMER BLOUNT /FINA/Donaldo #: [id number] ID: [id number] by Gurpreet Benítez MD On 08/20/2022 09:56:42 AM at 0956 PATIENT NAME: ELMER BLOUNT [id number]:38:00G.[id number] ble for patient [id number]:57:31 [facility] 2022-07-07 12:15:00 [id number]:15:42031 0-0017 [place] [address] PATIENT NAME: ELMER BLOUNT ADMIT DATE: ACCOUNT NO: [id number] ROOM NO: AGE: 67 REPORT TYPE: eELECTROCARDIOGRAM REPORT SEX: M ADMITTING PHYSICIAN: ATTENDING PHYSICIAN:Gurpreet Benítez MD Order:[id number] Reason : PREOP Test Date/Time Stamp:ThuJul 07 2022 12:15:14Blood Pressure : / mmHGVent. Rate : 061 BPM Atrial Rate : 061 BPM P-R Int : 208 ms QRS Dur : 084 ms QT Int : 436 ms P-R-T Axes : 059 -63 014 degrees QTc Int : 438 ms Sinus rhythm with frequent premature ventricular complexesLeft axis deviationInferior infarct , age undeterminedAnterior infarct , age undeterminedAbnormal ECGPRE_OPConfirmed by SHELL YAN MD ([id number]) on 07/08/2022 8:42:41 AM Referred By: Self Referred Confirmed by:SHELL YAN MD at 0842 PATIENT NAME: ELMER BLOUNT .[id number] AVAvailable for patient [id number]:43:20 [facility]
--- NOTE | 2024-01-02 18:49 | RAD REPORT ---
EXAM DESCRIPTION: RAD - Chest Pa And Lat (2 Views) - 01/02/2024 6:42 pm CLINICAL HISTORY: PAIN Chest pain. COMPARISON: Chest Single View dated 06/07/2023; Chest Single View dated 06/24/2022; Chest Single View d ated 06/03/2022; Chest Pa And Lat (2 Views) dated 07/03/2016 FINDINGS: The lungs are clear. The heart is normal in size. No displaced fractures. IMPRESSION: No acute or concerning finding suspected.
--- NOTE | 2024-01-02 19:24 | EDPHYS ---
Physician Documentation [facility] Name: Jose Neil Age: 68 yrs Sex: Male : 1955 Arrival Date: 01/02/2024 Time: 17:10 Bed 14 Private MD: ED Physician Leonora Garcia HPI: 01/01 19:39 This 68 yrs old Black Male presents to ER via Ambulatory with complaints of Flank Pain, kb Back Pain. 19:39 Patient is a 68-year-old male who presents for pain across upper back that started 2 kb days ago after doing yard work and was exacerbated today when he tried to start the lawnmower. Reports pain with palpation and movement only. Denies any pain at rest.. Historical: - Allergies: 17:33 PENICILLINS; aa5 - PMHx: 17:33 coronary atherosclerosis; High Cholesterol; Hypertension; Myocardial infarction; aa5 Myocardial infarction; neuropathy; - PSHx: 17:33 Coronary Angioplasty; Stented artery; aa5 - Immunization history:: Adult Immunizations unknown. - Social history:: Smoking status: unknown. ROS: 19:37 Constitutional: As per HPI kb Exam: 19:37 Constitutional: This is a well developed, well nourished patient who is awake, alert, kb and in no acute distress. Head/Face: Normocephalic, atraumatic. ENT: Moist Mucous membranes Chest/axilla: Normal chest wall appearance and motion. Cardiovascular: Regular rate Respiratory: Respirations even and unlabored. No increased work of breathing. Talking in full sentences Skin: Warm, dry with normal turgor. Normal color. MS/ Extremity: Pulses equal, no cyanosis. Neurovascular intact. Full, normal range of motion. Neuro: Awake and alert, GCS 15, oriented to person, place, time, and situation. Moves all extremities. Normal gait. 19:37 Back: pain, that is moderate, of the left scapular area, right scapular area and thoracic area, ROM is painful, normal spinal alignment noted, vertebral tenderness, is not appreciated, Vital Signs: 17:33 BP 109 / 63; Pulse 79; Resp 18 S; Temp 98(TE); Pulse Ox 99% on R/A; aa5 18:07 BP 112 / 79; Pulse 78; Resp 16; Pulse Ox 97% on R/A; me1 18:07 BP 103 / 69; Pulse 68; Resp 16; Temp 98.4(O); Pulse Ox 96% on R/A; me1 MDM: 17:20 Patient medically screened. kb 19:38 Differential diagnosis: strain, herniated disc, fracture, PA. Data reviewed: vital kb signs, nurses notes. Counseling: I had a detailed discussion with the patient and/or guardian regarding the historical points, exam findings, and any diagnostic results supporting the discharge/admit diagnosis, radiology results, the need for outpatient follow up, a family practitioner, to return to the emergency department if symptoms worsen or persist or if there are any questions or concerns that arise at home. 01/01 17:40 Order name: Chest Pa And Lat (2 Views) XRAY; Complete Time: 18:52 aa5 01/01 18:52 Order name: EKG; Complete Time: 18:53 kb 01/01 18:52 Order name: EKG - Nurse/Tech; Complete Time: 19:12 kb Administered Medications: 18:15 Drug: Dexamethasone IM 10 mg IM once Route: IM; Site: right deltoid; me1 18:42 Follow up: Response: No adverse reaction me1 18:15 Drug: HYDROcodone-acetaminophen PO 5 mg-325 mg 1 tabs PO once Route: PO; me1 18:42 Follow up: Response: No adverse reaction; Pain is decreased me1 Disposition: 01/02 08:18 Co-signature as Attending Physician, Leonora Garcia MD I agree with the assessment and cp3 plan of care. Disposition Summary: 01/02/24 19:24 Discharge Ordered Notes: Location: Home kb Condition: Stable kb Diagnosis - Upper back pain kb - muscle strain kb Followup: kb - With: Emergency Department - When: As needed - Reason: Worsening of condition Followup: kb - With: Private Physician - When: 2 - 3 days - Reason: Recheck today's complaints, Continuance of care, Re-evaluation by your physician Discharge Instructions: - Discharge Summary Sheet kb - Muscle Strain, Xjbg-qt-[id number] kb Forms: - Medication Reconciliation Form kb - Thank You Letter kb - Antibiotic Education kb - Prescription Opioid Use kb - Patient Portal Instructions kb - Leadership Thank You Letter kb Prescriptions: - Prednisone 20 mg Oral Tablet - take 1 tablet ORAL route once daily for 5 days; 5 tablet; Refills: 0, Product kb Selection Permitted - Cyclobenzaprine 10 mg Oral tablet - take 1 tablet ORAL route every 8 hours As needed; 21 tablet; Refills: 0, kb Product Selection Permitted Signatures: Dispatcher [employer] Lisbet Baker, FLAT OPTICAL ELEMENT MAKERLeonora Stroud MD MD cp3 Amber Parr RN RN aa5 Bruna Stock RN RN me1 Corrections: (The following items were deleted from the chart) 01/01 18:52 17:40 Rhythm Strip ordered. aa5 kb
--- NOTE | 2024-01-02 19:24 | ER ---
Nurse's Notes [facility] Name: Jose Neil Age: 68 yrs Sex: Male : 1955 Arrival Date: 01/02/2024 Time: 17:10 Bed 14 Private MD: Diagnosis: Upper back pain;muscle strain Presentation: 01/01 17:33 Chief complaint: Patient states: "I was doing some yard work and my back has been aa5 hurting since then". Pt c/o pain to right flank. 17:33 Acuity: ANGIE 3 aa5 17:33 Coronavirus screen: At this time, the client does not indicate any symptoms associated aa5 with coronavirus-19. Ebola Screen: Patient denies travel to an Ebola-affected area in the 21 days before illness onset. Initial Sepsis Screen: Does the patient meet any 2 criteria? No. Patient's initial sepsis screen is negative. Does the patient have a suspected source of infection? No. Patient's initial sepsis screen is negative. Risk Assessment: Do you want to hurt yourself or someone else? Patient reports no desire to harm self or others. Onset of symptoms was December 2023. 17:33 Method Of Arrival: Ambulatory aa5 Historical: - Allergies: 17:33 PENICILLINS; aa5 - PMHx: 17:33 coronary atherosclerosis; High Cholesterol; Hypertension; Myocardial infarction; aa5 Myocardial infarction; neuropathy; - PSHx: 17:33 Coronary Angioplasty; Stented artery; aa5 - Immunization history:: Adult Immunizations unknown. - Social history:: Smoking status: unknown. Screenin:35 [facility] ED Fall Risk Assessment (Adult) History of falling in the last 3 months, me1 including since admission No falls in past 3 months (0 pts) Confusion or Disorientation No (0 pts) Intoxicated or Sedated No (0 pts) Impaired Gait No (0 pts) Mobility Assist Device Used No (0 pt) Altered Elimination No (0 pt) Score/Fall Risk Level 0 - 2 = Low Risk Maintained a safe environment, Provided non-skid footwear, Hourly rounding (assess needs \\T\\ fall precautionary measures) done. Abuse screen: Denies threats or abuse. Nutritional screening: No deficits noted. Tuberculosis screening: No symptoms or risk factors identified. Assessment: 17:35 General: Appears uncomfortable, obese, well groomed, well developed, Behavior is calm, me1 cooperative, appropriate for age, Reports right flank/back pain that started after doing some yard work. Pain: Complains of pain in right subscapular area and mid back area Pain does not radiate. Pain currently is 5 out of 10 on a pain scale. Quality of pain is described as sharp, stabbing, Pain began suddenly, Is continuous. Neuro: Level of Consciousness is awake, alert, obeys commands, Oriented to person, place, time, situation, Appropriate for age. Cardiovascular: Capillary refill < 3 seconds Patient's skin is warm and dry. Respiratory: Airway is patent Trachea midline Respiratory effort is even, unlabored, Respiratory pattern is regular, symmetrical. Derm: Skin is intact, is healthy with good turgor, Skin is dry, Skin is pink, warm \\T\\ dry. Musculoskeletal: Reports pain in right subscapular area and right flank. 19:31 Reassessment: Patient is alert, oriented x 3, equal unlabored respirations, skin me1 warm/dry/pink. Patient states feeling better. Patient states symptoms have improved. Vital Signs: 17:33 BP 109 / 63; Pulse 79; Resp 18 S; Temp 98(TE); Pulse Ox 99% on R/A; aa5 18:07 BP 112 / 79; Pulse 78; Resp 16; Pulse Ox 97% on R/A; me1 18:07 BP 103 / 69; Pulse 68; Resp 16; Temp 98.4(O); Pulse Ox 96% on R/A; me1 ED Course: 17:14 Patient arrived in ED. mg5 17:20 Lisbet Morgan F[facility]-C [facility]. kb 17:20 Leonora Garcia MD is Attending Physician. kb 17:33 Triage completed. aa5 17:33 Arm band placed on. aa5 17:35 Patient has correct armband on for positive identification. Bed in low position. Call me1 light in reach. Side rails up X 1. Provided Education on: POC. Verbalized understanding. . 17:35 No provider procedures requiring assistance completed. Patient did not have IV access me1 during this emergency room visit. 18:07 Bruna Stock, RN is Primary Nurse. me1 18:43 Chest Pa And Lat (2 Views) XRAY In Process Unspecified. EDMS Administered Medications: 18:15 Drug: Dexamethasone IM 10 mg IM once Route: IM; Site: right deltoid; me1 18:42 Follow up: Response: No adverse reaction me1 18:15 Drug: HYDROcodone-acetaminophen PO 5 mg-325 mg 1 tabs PO once Route: PO; me1 18:42 Follow up: Response: No adverse reaction; Pain is decreased me1 Medication: 17:35 VIS not applicable for this client. me1 Outcome: 19:24 Discharge ordered by MD. taylor 19:37 Discharged to home ambulatory, with significant other, me1 19:37 Condition: stable 19:37 Discharge instructions given to patient, significant other, Instructed on discharge instructions, follow up and referral plans. medication usage, Demonstrated understanding of instructions, follow-up care, medications, Prescriptions given X 2, 19:38 Patient left the ED. me1 Signatures: Dispatcher [employer] EDMS Lisbet Morgan, SPRAGGER-C SPRAGGER-Amber Vidal RN RN aa5 Bruna Stock RN RN me1 Colleen Alaniz mg5 Corrections: (The following items were deleted from the chart) 17:48 17:33 Pulse 79bpm; Resp 18bpm; Spontaneous; Pulse Ox 99% RA; Temp 98F Temporal; aa5 aa5
[2024-01-02 19:48] VITALS: BP 103/69; TEMP 98.4; O2SAT 96
--- NOTE | 2024-01-04 14:26 | EKG ---
Test Date: 2024-01-02 Test Time: 19:05:43 Director Of Exhibits: MEASUREMENT RESULTS: Intervals: Rate: 69 VT: 198 QRSD: 92 QT: 410 QTc: 439 [place]: P: 36 VT: 198 QRS: -29 T: 29 INTERPRETIVE STATEMENTS: Normal sinus rhythm Inferior infarct, age undetermined Anterior infarct, age undetermined Abnormal ECG Compared to ECG 06/07/2023 13:49:01 First degree AV block no longer present Myocardial infarct finding still present Electronically Signed On 01-04-24 14:23:57 CDT by Gurpreet Benítez
== END ==
LOC: ER 17:10
DX: S29.012A Strain of muscle and tendon of back wall of thorax, initial encounter (principal); Z88.0 Allergy status to penicillin
CPT/HCPCS: 93005; 71046; 96372; 99284; J1100

== ENCOUNTER 2024-04-14 11:30 | Emergency (ER) | payer OTHER ==
--- OUTSIDE RECORDS SUMMARY | 2024-04-14 11:35 | XMS REPORT | Continuity of Care Document ---
Author Name Unknown Address [address] [facility] [address] [place] [address] [facility] thconnect Address [address] [facility] 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 Name Role Phone MILLER BARRETT Primary Care Physician Unav ailable Mohini Barrett Attending Clinician UnavailMEKHI Mcwilliams Attending Clinician Unavailable Gurpreet Benítez Attending Clinician Unavailable Gerri Boland RN Attending Clinician Unavailable LORENZA SMITH Attending Clinician Unavailable Jeffrey Lara MD Attending Clinician [phone] Lorenza Smith DO Attending Clinician [phone] GONZALES Attending Clinician Unavailable 2, [facility] Attending Clinician Unavailable Mekhi Zamudio MD Attending Clinician [phone] Doctor Unassigned, Bernie Attending Clinician U navailable Bruna Valenzuela Attending Clinician [phone] BRUNA MONAHAN Attending Clinician Unavailable Only, Adc Test Attending Clinician Unavailable Juan Daugherty MD Attending Clinician [phone] JUAN DAUGHERTY Attending Clinician Unavaileduardo e Referred, Self Admitting Clinician Unavailable LORENZA SMITH Admitting Clinician Unavailable Lorenza Smith DO Admitting Clinician [phone] GONZALES Admitting Clinician Unavailable BRUNA MONAHAN Admitting Clinician Unavailable Payers Payer Name Policy Type Policy Number Effective Date Expirati on Date Source MEDICARE PART A \T\ [id number] 2009 00:00:00 Problems Condition Name Condition Details Condition Category Status Onset Date Resolution Date Last Treatment Date Treating Clinician Comments Source 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 Disease Active 06-21 00:00: 00 [facility] Essential hypertensi on Essential hypertensi on Disease Active 06-21 00:00: 00 [facility] Dyslipidem ia Dyslipidem ia Disease Active 06-21 00:00: 00 [facility] Elevated brain natriureti c peptide (BNP) level Elevated brain natriureti c peptide (BNP) level Disease Active 06-21 00:00: 00 [facility] Morbid obesity Morbid obesity Disease Active 06-21 00:00: 00 [facility] NSVT (nonsustai megan ventricula r tachycardi a) NSVT (nonsustai megan ventricula r tachycardi a) Disease Active 06-21 00:00: 00 [facility] Chest pain, unspecifie d type Chest pain, unspecifie d type Disease Active 06-19 00:00: 00 [facility] No known active problems No known active problems Disease [facility] Primary osteoarthr itis of right knee Primary osteoarthr itis of right knee Problem Active [facility] Carpal tunnel syndrome of right wrist Carpal tunnel syndrome of right wrist Problem [facility] Allergies, Adverse Reactions, Alerts Allergy Name Allergy Type Status Severity Reaction(s) Onset Date Inactive Date Treating Clinician Comments Source Penicill ins DA Active SV RASH, SWELLING 06-27 00:00: 00 [facility] PENICILL IN DRUG INGREDI Active Swelling 06-19 00:00: 00 [facility] Penicill in Propensi ty to adverse reaction s Active Swelling 06-19 00:00: 00 [facility] penicill in Adverse Reaction Active Info Not Available [facility] NO KNOWN ALLERGIE S Drug Class Active [facility] Social History Social Habit Start Date Stop Date Quantity Comments Source History of tobacco use Cigarette Smoker [facility] Exposure to SARS-CoV-2 (event) 2022-06-09 00:00:00 2022-06-19 19:09:00 Not sure [facility] Tobacco use and exposure 2022-06-19 00:00:00 2022-06-19 00:00:00 Smokeless tobacco non-user [facility] Education 2022-06-19 00:00:00 2022-06-19 00:00:00 14 [facility] Sex Assigned At 1955 00:00:00 1955 00:00:00 [facility] Smoking Status Start Date Stop Date Source Ex-smoker 2022-06-19 00:00:00 2022-06-19 00:00:00 [facility] Medications Ordered Medication Name Filled Medication Name Start Date Stop Date Current Medication? Ordering Clinician Indication Dosage Frequency Signature (SIG) Comments Components Source docusate 100 mg capsule 06-22 00:00: 00 07-23 04:59 :00 No [id number] 100mg Take 1 capsule by mouth in the morning for 30 days. [facility] aspirin 81 mg EC tablet 06-22 00:00: 00 07-23 04:59 :00 No [id number] 81mg Take 1 tablet by mouth in the morning for 30 days. [facility] FLUoxetine 40 mg capsule 06-21 14:27: 59 Yes 40mg Take 40 mg by mouth daily. [facility] esomeprazol e 40 mg capsule 06-21 14:27: 59 Yes 40mg Take 40 mg by mouth daily with breakfast. [facility] aspirin EC tablet 81 mg 06-21 14:00: 00 Yes 81mg 81 mg, Oral, DAILY, First dose on 06/21/22 at 0900, Until Discontinu ed, Routine [facility] atorvastati n (LIPITOR) tablet 80 mg 06-21 02:00: 00 Yes 80mg 80 mg, Oral, QHS, First dose on Thu06/20/22 at 2100, Until Discontinu ed, Routine
produce service team member approving Restricted medication : HIMANSHU BOLAÑOS [facility] isosorbide mononitrate (IMDUR) 24 hr tablet 30 mg 06-21 01:00: 00 Yes 30mg 30 mg, Oral, BID, First dose on Thu06/20/22 at 1999, Until Discontinu ed, Routine [facility] metoprolol succinate XL (TOPROL XL) tablet 25 mg 06-21 01:00: 00 Yes 25mg 25 mg, Oral, BID, First dose (after last modificati on) on Thu06/20/22 at 1999, Until Discontinu ed, Routine [facility] ticagrelor (BRILINTA) tablet 90 mg 06-21 01:00: 00 Yes 90mg 90 mg, Oral, BID, First dose (after last modificati on) on Thu06/20/22 at 1999, Until Discontinu ed, Routine [facility] atorvastati n 80 mg tablet 06-21 00:00: 00 07-22 04:59 :00 No [id number] 80mg Take 1 tablet by mouth at bedtime for 30 days. [facility] ferrous sulfate 325 mg (65 mg iron) tablet 06-21 00:00: 00 07-22 04:59 :00 No [id number] 325mg Take 1 tablet by mouth in the morning for 30 days. [facility] isosorbide mononitrate 30 mg 24 hr tablet 06-21 00:00: 00 07-22 04:59 :00 No [id number] 30mg Take 1 tablet by mouth in the morning and 1 tablet in the evening. Do all this for 30 days. [facility] sulfur hexafluorid e microsphr (LUMASON) injection 5 mL 06-20 18:45: 00 06-20 18:45 :00 No [id number] 5mL 5 mL, Intravenou s, ONCE, 1 dose, On Thu06/20/22 at 1345, Routine
produce service team member approving Restricted medication : HIMANSHU BOLAÑOS [facility] FLUoxetine (PROZAC) capsule 40 mg 06-20 14:00: 00 Yes 40mg 40 mg, Oral, DAILY, First dose on Thu06/20/22 at 0900, Until Discontinu ed, Routine [facility] tamsulosin (FLOMAX) capsule 0.4 mg 06-20 14:00: 00 Yes .4mg 0.4 mg, Oral, DAILY, First dose on Thu06/20/22 at 0900, Until Discontinu ed, Routine [facility] docusate (COLACE) capsule 100 mg 06-20 14:00: 00 Yes 100mg 100 mg, Oral, DAILY, First dose on Thu06/20/22 at 0900, Until Discontinu ed, Routine [facility] enoxaparin (LOVENOX) injection 40 mg 06-20 14:00: 00 Yes 40mg 40 mg, Subcutaneo us, DAILY, First dose on Thu06/20/22 at 0900, Until Discontinu ed, Routine [facility] ticagrelor (BRILINTA) tablet 90 mg 06-20 14:00: 00 06-20 19:37 :36 No 90mg 90 mg, Oral, DAILY, First dose on Thu06/20/22 at 0900, Until Discontinu ed, Routine [facility] pravastatin (PRAVACHOL) tablet 40 mg 06-20 14:00: 00 06-20 19:37 :36 No 40mg 40 mg, Oral, DAILY, First dose on Thu06/20/22 at 0900, Until Discontinu ed, Routine [facility] metoprolol succinate XL (TOPROL XL) tablet 25 mg 06-20 14:00: 00 06-20 19:37 :36 No 25mg 25 mg, Oral, DAILY, First dose on Thu06/20/22 at 0900, Until Discontinu ed, Routine [facility] gabapentin (NEURONTIN) capsule 100 mg 06-20 13:00: 00 Yes 100mg 100 mg, Oral, TID, First dose on Thu06/20/22 at 0800, Until Discontinu ed, Routine [facility] maalox:diph enhydrAMINE :lidocaine 2 % viscous 1:1:1 (FIRST-MOUT HWASH BLM) oral suspension 15 mL 06-20 06:00: 00 06-20 05:19 :00 No 15mL 15 mL, Oral, ONCE, 1 dose, On Thu06/20/22 at 0100, Routine [facility] HYDROcodone -acetaminop hen (NORCO 5) 5-325 mg tablet 1 tablet 06-19 23:25: 46 06-21 23:24 :46 No 1{tbl} 1 tablet, Oral, Q6HPRN, Starting on Thu06/19/22 at 1825, Until 06/21/22 at 1824, Routine, Pain (scale 4-6) [facility] acetaminoph en (TYLENOL) tablet 650 mg 06-19 23:25: 40 Yes 650mg 650 mg, Oral, Q6HPRN, Starting on Thu06/19/22 at 1825, Until Discontinu ed, Routine, Pain (scale 1-3) [facility] FLUoxetine 40 mg capsule 07-18 14:26: 40 Yes 40mg Take 40 mg by mouth daily. [facility] esomeprazol e (NEXIUM) 40 mg capsule 07-18 14:26: 40 Yes 40mg Take 40 mg by mouth daily with breakfast. [facility] gabapentin 100 mg capsule 07-15 00:00: 00 Yes TAKE 1 CAPSULE BY MOUTH THREE TIMES DAILY FOR NUMB FEET [facility] metoprolol succinate XL 25 mg 24 hr tablet 07-15 00:00: 00 Yes 25mg Take 25 mg by mouth daily. [facility] BRILINTA 60 mg Tab 07-01 00:00: 00 Yes 1{tbl} Take 1 tablet by mouth 2 (two) times daily. [facility] TICAGRELOR 90 mg tablet 07-01 00:00: 00 Yes 1{tbl} Take 1 tablet by mouth in the morning. [facility] lisinopriL 30 mg tablet 07-01 00:00: 00 Yes 30mg Take 30 mg by mouth daily. [facility] tamsulosin 0.4 mg 24 hr capsule 06-07 00:00: 00 Yes [facility] pravastatin 40 mg tablet 05-28 00:00: 00 Yes 40mg Take 40 mg by mouth daily. [facility] Pravastatin Sodium Pravastatin Sodium 06-01 00:00: 00 Yes Alessandro Vasquez 1 tablet [facility] Flomax Flomax 06-01 00:00: 00 Yes Alessandro Vasquez 1 capsule [facility] Brilinta Brilinta 06-01 00:00: 00 Yes Alessandro Vasquez 1 tablet [facility] Prozac Prozac 06-01 00:00: 00 Yes Alessandro Vasquez 2 tab [facility] Nexium Nexium 06-01 00:00: 00 Yes Alessandro Vasquez 1 capsule [facility] Metoprolol Succinate Metoprolol Succinate 06-01 00:00: 00 Yes Alessandro Vasquez not defined [facility] Lisinopril Lisinopril 06-01 00:00: 00 Yes Alessandro Vasquez 1 tablet [facility] Acetaminoph en-Codeine #3 Acetaminoph en-Codeine #3 Yes Alessandro Vasquez not defined [facility] MethylPREDN ISolone MethylPREDN ISolone Yes Alessandro Vasquez not defined [facility] Fluoxetine HCl Fluoxetine HCl Yes Alessandro Vasquez not defined [facility] Amitriptyli ne HCl Amitriptyli ne HCl Yes Alessandro Vasquez not defined [facility] Vital Signs Vital Name Observation Time Observation Value Comments Cheri arriola Systolic blood pressure 2022-06-21 12:39:00 122 mm[Hg[facility] Diastolic blood pressure 2022-06-21 12:39:00 68 mm[Hg] [facility] Heart rate 2022-06-21 12:39:00 54 /min Unive [facility] Body temperature 2022-06-21 12:39:00 36.44 Sidra [facility] Respiratory rate 2022-06-21 12:39:00 14 /min [facility] Oxygen saturation in Arterial blood by Pulse oximetry 2022-06-21 12:39:00 95 /min [facility] Body weight 2022-06-21 08:20:00 125.465 kg [facility] BMI 2022-06-21 08:20:00 43.32 kg/m2 [facility] Body height 2022-06-20 00:19:00 170.2 cm [facility] Systolic blood pressure 2022-02-24 14:25:00 102 mm[Hg] [facility] Diastolic blood pressure 2022-02-24 14:25:00 70 mm[Hg] [facility] Heart rate 2022-02-24 14:25:00 76 /min Unive [facility] Respiratory rate 2022-02-24 14:25:00 18 /min [facility] Body height 2022-02-24 14:25:00 170.2 cm [facility] Body weight 2022-02-24 14:25:00 127.461 kg [facility] BMI 2022-02-24 14:25:00 44.01 kg/m2 [facility] Oxygen saturation in Arterial blood by Pulse oximetry 2022-02-24 14:25:00 98 /min [facility] Procedures Procedure Date / Time Performed Performing Clinician Source FERRITIN SERUM 2022-06-21 09:38:00 Bhanu Cain [facility] TROPONIN I 2022-06-21 09:38:00 Bhanu Cain [facility] IRON PANEL 2022-06-21 09:38:00 Bhanu Cain [facility] TROPONIN I 2022-06-20 21:14:00 Bhanu Cain [facility] MAGNESIUM 2022-06-20 09:42:00 Bhanu Cain [facility] TROPONIN I 2022-06-20 09:42:00 Bhanu Cain [facility] THYROID STIMULATING HORMONE 2022-06-20 09:42:00 Bhanu Cain [facility] BASIC METABOLIC PANEL (NA, K, CL, CO2, GLUCOSE, BUN, CREATININE, CA) 2022-06-20 09:42:00 Bhanu Cain [facility] CBC WITH DIFF 2022-06-20 09:42:00 Bhanu Cain [facility] TROPONIN I 2022-06-20 02:17:00 Bhanu Cain [facility] LIPID PANEL (28204)(TOTAL CHOLESTEROL, TRIGLYCERIDES, HDL) 2022-06-20 02:17:00 Patricia Fagan [facility] XR CHEST 1 VW 2022-06-19 21:18:27 Jeffrey Lara [facility] TROPONIN I 2022-06-19 21:11:00 Jeffrey Lara [facility] COMP. METABOLIC PANEL (41022) 2022-06-19 21:11:00 Jeffrey Lara [facility] CBC WITH DIFF 2022-06-19 21:11:00 Jeffrey Lara [facility] PROTHROMBIN TIME / INR 2022-06-19 21:11:00 Mario Lara [facility] ACTIVATED PARTIAL THRMPLAS DIDIER 2022-06-19 21:11:00 Jeffrey Lara [facility] N-TERMINAL PRO-BNP 2022-06-19 21:11:00 Jeffrey Lara [facility] COVID-19 (ID NOW RAPID TESTING) 2022-06-19 21:11:00 Jeffrey Lara [facility] LAB ONLY COVID INTERPRETATION 2022-06-19 21:11:00 Jeffrey Lara [facility] HB ECG ROUTINE & RHYTHM STRIP 2022-06-19 20:40:50 Jeffrey Lara [facility] CONSENT/REFUSAL FOR DIAGNOSIS AND TREATMENT 2022-06-19 20:34:15 Doctor Unassigned, Bernie [facility] Encounters Start Date/Time End Date/Time Encounter Type Admission Type Attending Clinicians Care Facility Care Department Encounter ID Source 2021-11-13 10:58:49 Outpatient Mohini Barrett [facility] [id number] [facility] 2024-03-15 11:00:42 2024-03-15 11:00:42 Outpatient [facility] [id number] Goldy Hernandez 2024-02-02 14:57:11 2024-02-02 14:57:11 Outpatient [facility] [id number] Goldy Hernandez 2024-01-26 15:22:09 2024-01-26 15:22:09 Outpatient [facility] SFA [id number] Goldy Hernandez 2023-09-29 14:28:19 2023-09-29 14:28:19 Outpatient [facility] [id number] Goldy Hernandez 2023-05-04 14:10:12 2023-05-04 14:10:12 Outpatient [facility] [id number] Goldy Hernandez 2023-04-10 08:58:41 2023-04-10 08:58:41 Outpatient [facility] [id number] Goldy Hernandez 2023-04-03 16:42:57 2023-04-03 16:42:57 Outpatient SFA [facility] [id number] Goldy Hernandez 2022-08-27 00:00:00 2022-08-27 00:00:00 Outpatient MEKHI MOLINA [facility] [id number] [facility] 2022-07-09 05:05:00 2022-07-09 05:05:00 Outpatient DEANA Rileymitch Gurpreet [facility] [id number] [facility] 2022-06-24 00:00:00 2022-06-24 00:00:00 Transition of Care Gerri Boland 1.2840.114 350.1.13.10 4.2.7.2.686 [id number] [facility] 2022-06-19 15:47:00 2022-06-21 14:18:00 Outpatient Sabrina SMITH [facility] [id number] [facility] 2022-06-19 15:47:00 2022-06-21 14:18:00 Emergency Jeffrey Lraa David [facility] 1.2840.114 350.1.13.10 4.2.7.2.686 [id number] [facility] 2022 00:00:00 2022 00:00:00 Outpatient RORY BANKS [facility] [id number] [facility] 2022-02-24 10:15:00 2022-02-24 10:30:00 Delivery Clerk Visit 2, Adc Lab Vijayalexis [facility] 1.2840.114 350.1.13.10 4.2.7.2.686 [id number] [facility] 2022-02-24 09:15:00 2022-02-24 10:08:38 Outpatient R ROBB [facility] [id number] [facility] 2022-02-24 09:15:00 2022-02-24 10:08:38 Office Visit Robb [facility] [employer] 1.2840.114 350.1.13.10 4.2.7.2.686 [id number] [facility] 2022-02-24 00:00:00 2022-02-24 00:00:00 Orders Only Doctor Unassigned, Bernie [facility] 1.2840.114 350.1.13.10 4.2.7.2.686 [id number] [facility] 2021-12-30 11:30:00 2021-12-30 11:30:00 Outpatient R KIYA [facility] [id number] [facility] 2021-08-20 11:22:46 2021-08-20 23:59:00 Hospital Encounter Bruna Monahan [facility] 1.114 350.1.13.10 4.2.7.2.686 [id number] [facility] 2021-08-20 11:22:46 2021-08-20 23:59:00 Outpatient R TANIYA BRUNA [facility] [id number] [facility] 2021-07-18 14:54:30 2021-07-18 15:09:30 Delivery Clerk Visit 2, Adc Lab Robb [facility] Building 1.84.114 350.1.13.10 4.2.7.2.686 [id number] [facility] 2021-07-18 13:54:19 2021-07-18 14:51:57 Office Visit Robb [facility] 1..114 350.1.13.10 4.2.7.2.686 [id number] [facility] 2021-07-18 14:30:00 2021-07-18 14:30:00 Outpatient R ROBB [facility] [id number] [facility] 2021-07-18 00:00:00 2021-07-18 00:00:00 Orders Only Doctor Unassigned, Bernie [facility] 1.2.114 350.1.13.10 4.2.7.2.686 [id number] [facility] 2020-12-26 11:08:15 2020-12-26 11:23:15 Laboratory Only Only, Adc Test [facility] 1.2.114 350.1.13.10 4.2.7.2.686 [id number] 2020-12-26 11:08:15 2020-12-26 11:23:15 Laboratory Only Only, Adc Juan Garcia [facility] [id number] 350.1.13.10 4.2.7.2.686 [id number] [facility] 2020-12-26 11:00:00 2020-12-26 11:00:00 Outpatient JUAN HUGGINS [facility] [id number] [facility] 2020-12-26 00:00:00 2020-12-26 00:00:00 Orders Only Doctor Unassigned, Bernie [facility] [id number] 350.1.13.10 4.2.7.2.686 [id number] 2020-12-26 00:00:00 2020-12-26 00:00:00 Orders Only Doctor Unassigned, Bernie [facility] [id number] 350.1.13.10 4.2.7.2.686 [id number] [facility] 2019-10-17 16:23:00 2019-10-17 16:23:00 Outpatient [facility] [id number] [facility] 2019-09-19 14:33:00 2019-09-19 14:33:00 Outpatient [facility] [id number] [facility] 2019-09-09 09:00:00 2019-09-09 09:00:00 Outpatient [facility] [id number] [facility] 2019-08-23 13:30:00 2019-08-23 13:30:00 Outpatient [facility] [id number] [facility] 2019-08-01 08:00:00 2019-08-01 08:00:00 Outpatient [facility] [id number] [facility] 2018-06-01 10:30:00 2018-06-01 10:30:00 Out[facility] [id number] [facility] Results Test Description Test Time Test Comments Results Result Co mments Source [id number] 09:27:00* Test Item Value Reference Range Interpretation Comme nts ACT-ISTAT (test code = ACTI) 306 SEC 74-137 H Performed by cer tified cafeteria operator at [facility] CBC W/AUTO [id number] 13:11:00* Test Item Value Reference Range Interpretation [...] (test c ode = MDIFF) NO RBC [id number] 13:11:00* Test Item Value Reference Range Interpretation Comme nts ANISOCYTOSIS (test code = ANISO) 2+ POIKILOCYTOSIS (test code = POIK) 1+ MICROCYTOSIS (test code = MICR) 1+ ELLIPTOCYTES (test code = ELL) 1+ BASIC METABOLIC [id number] 11:54:00* Test Item Value Reference Range Interpretation [...] = CA) 9.2 mg/dL 8.0-10.5 N PROTHROMBIN [id number] 11:53:00* Test Item Value Reference Range Interpretation [...] prevent recurrent infarct). - XR CHEST 2 [id number] 00:00:00 [facility] ALE[facility]DR[facility] : 1955 Sex: M FAX: Gurpreet Christianson MD [phone] Keeler: CAMACHO St: PRE Name: ELMER BLOUNT [facility] : 1955 Age/S: 67/M [address] [place] [address] Unit #: [id number] Loc: [place] [address] Phys: Gurpreet Benítez MD Acct: [id number] Dis Date: Status: PRE SDC PHONE #: [phone] Exam Date: 07/07/2022 1245 FAX #: [phone] Reason: PREOP EXAMS: CPT CODE: [id number] XR CHEST 2 V 45928 PROCEDURE INFORMATION: Exam: XR Chest Exam date and time: 07/07/2022 12:40 PM Age: 67 years old Clinical indication: Pre-operative exam; Respiratory screening exam; Additional info: Preop TECHNIQUE: Imaging protocol: Radiologic examof the chest. Views: 2 views. PA and Lateral COMPARISON: No relevant prior studies available. FINDINGS: Lungs: There are normal lung volumes without consolidation or interstitial oppacities. Pleural spaces: No pleural effusion. No pneumothorax. Heart/Mediastinum: Mild cardiomegaly. Bones/joints: Degenerative changes in lower thoracic spine. IMPRESSION: Hypoinflated lungs. No acute cardiopulmonaryprocess. at 1402 Reportedand signed by: Davin Celis M.D. CC: Gurpreet Benítez MD Technologist: RT Laurel(R) Trnscrd Date/Time/By: 07/07/2022 (140) : By: [email or web address] Orig Print D/T: S: 07/07/2022 (140) PAGE 1 Signed Report Notes Date/Time Note Provider Source 2022-07-09 10:31:00 [id number] 2-[address] [place], [place] [address] PATIENT NAME: ELMER BLOUNT ADMIT DATE: 07/09/22ACCOUNT NO: [id number] ROOM NO: AGE: 67 REPORT TYPE: CARDIAC CATHETERIZATION REPORT SEX: M ADMITTING PHYSICIAN: ATTENDING PHYSICIAN:Gurpreet Benítez MD PROCEDURE DATE: 07/09/2022 PROCEDURE PERFORMED: 1. Selective coronary angiogram.2. Failed attempt of PCI to proximal to mid RCA SOFTWARE PERFORMANCE ENGINEER. INDICATION: Angina with known SOFTWARE PERFORMANCE ENGINEER of the mid RCA. ACCESS: Right femoral artery, 6-Palauan with 6-Palauan Angio-Seal. COMPLICATIONS: None. BLEEDING: Less than 20 [...] under fluoroscopy and ultrasound guidance and placed 6-Palauan Robards sheath and tooka 6-Palauan JR4 catheter into the aortic root, engaged the RCA and took a FielderXT wire, [TIME: 01:08] SOFTWARE PERFORMANCE ENGINEER and the microcatheter and also placed a GuideLiner for further support, placed it in the mid RCA and then subsequently was able to get through all the way to the stent of the distal RCA; however, once I get to the stent, I could not advance the wires anymore. I exchanged fora [employer] 6 and a [employer] 200 wires without success. At this point, [...] the guide and the sheath, placed a 6-[place] Angio-Seal for closure with good hemostasis. FINDINGS: Mid RCA 100% occluded all the way to the distal portion, status postfailed attempt to PCI . PLAN: Continue medical management and follow up in 1 to 2 weeks in the office. Dictated By: Gurpreet Benítez MD Date Dictated: 07/09/2022 10:31:31Date Transcribed: 07/09/2022 13:38:38PATIENT NAME: ELMER BLOUNT /FINA/AMIMeryl #: [id number] ID: [id number] by Gurpreet Benítez MD On 08/20/2022 09:56:42 AM at 0956 PATIENT NAME: ELMER BLOUNT [id number] ble for patient [id number] [facility] 2022-07-07 12:15:00 [id number] 0-0017 [place] [address] PATIENT NAME: ELMER BLOUNT ADMIT DATE: ACCOUNT NO: [id number] ROOM NO: AGE: 67 REPORT TYPE: eELECTROCARDIOGRAM REPORT SEX: M ADMITTING PHYSICIAN: ATTENDING PHYSICIAN:Gurpreet Benítez MD Order:[id number] Reason : PREOP Test Date/Time Stamp:ThuJul 07 [...] MD at 0842 PATIENT NAME: ELMER BLOUNT .[id number] AVAvailable for patient [id number] [facility]
[2024-04-14 14:08] LABS: Absolute Eosinophils 0.2 K/uL (0-0.5); Absolute Lymphocytes (CBC) 1.8 K/uL (0.7-4.9); Absolute Monocytes 0.5 K/uL (0.1-1.3); Absolute Neutrophil 4.1 K/uL (1.8-8.0); Basophils % 0.6 % (0-1.3); Eosinophils % 3.4 % (0-4.4); Hemoglobin 10.8 g/dL (13.6-17.9); MCH 21.8 pg (27.0-35.0); MCHC 30.8 g/dL (32.0-36.0); MCV 70.7 fL (80-100); MPV 8.3 fL (7.6-11.3); Monocytes % 7.6 % (3.3-12.3); Neutrophils % 61.4 % (41.7-73.7); Nucleated Red Blood Cells % 0.2 % (0-0); Platelets 241 thou/uL (152-406); RBC Red Blood Cell Count 4.95 M/uL (4.33-5.43); Red Cell Distribution Width 19.2 % (12.1-15.2)
[2024-04-14 14:24] LABS: Anion Gap 6.1 mEq/L (5.0-15.0); BUN Blood Urea Nitrogen 11 mg/dL (7-18); Bicarbonate 28 mEq/L (21-32); Glucose Level 91 mg/dL (74-106); Potassium 4.1 mEq/L (3.5-5.1); Sodium Level 138 mEq/L (136-145)
[2024-04-14 14:25] LABS: ALT/SGPT < 14 U/L (16-61); AST/SGOT < 10 U/L (15-37); Albumin 3.3 g/dL (3.4-5.0); Albumin/Globulin Ratio 0.9 (1.1-1.8); Alkaline Phosphatase 69 U/L (45-117); Bilirubin Direct < 0.2 mg/dL (0-0.2); Bilirubin Indirect, Calculated 0.2 mg/dL (0.2-0.8); Bilirubin Total 0.4 mg/dL (0.2-1.0); Globulin 3.5 g/dL (2.3-3.5); Glomerular Filtration Rate 72 ml/min (=/>90); Magnesium 1.9 mg/dL (1.6-2.4); Protein, Total 6.8 g/dL (6.4-8.2); Troponin High Sensitivity 11.5 pg/mL (<58.9)
--- NOTE | 2024-04-14 15:14 | EDPHYS ---
Physician Documentation [facility] Name: Jose Neil Age: 68 yrs Sex: Male : 1955 Arrival Date: 04/14/2024 Time: 11:30 Bed 4 Private MD: ED Physician Cole Vera HPI: 04/14 14:23 This 68 yrs old Black Male presents to ER via Ambulatory with complaints of High Blood rt Pressure, Dizziness, Vomiting. 14:23 Patient presents to the ED with elevated blood pressures to about 160 systolic for the rt past 2 days. Patient states that today, he developed nausea with vomiting as well as a dizziness which he describes as the room is moving. States that the symptoms have completely resolved, states that he feels well currently. Denies other acute complaints at this time, symptoms are moderate in severity, no other aggravating or alleviating factors.. Historical: - Allergies: 12:24 PENICILLINS; ll1 - PMHx: 12:24 coronary atherosclerosis; High Cholesterol; Hypertension; Myocardial infarction; ll1 neuropathy; - PSHx: 12:24 Coronary Angioplasty; Stented artery; ll1 - Immunization history:: Adult Immunizations up to date. - Infectious Disease History:: Denies. - Social history:: Smoking status: Patient/guardian denies using tobacco, the patient reports quitting approximately 20 years ago. - Family history:: not pertinent. ROS: 14:23 Constitutional: Negative for fever, chills, and weight loss, Cardiovascular: Negative rt for chest pain, palpitations, and edema, Respiratory: Negative for shortness of breath, cough, wheezing, and pleuritic chest pain, MS/Extremity: Negative for injury and deformity, Skin: Negative for injury, rash, and discoloration, Neuro: Negative for headache, weakness, numbness, tingling, and seizure, 14:23 Abdomen/GI: Positive for nausea and vomiting, Negative for abdominal pain, 14:23 Neuro: Positive for dizziness, Negative for loss of consciousness, Exam: 14:23 Constitutional: This is a well developed, well nourished patient who is awake, alert, rt and in no acute distress. Head/Face: Normocephalic, atraumatic. Chest/axilla: Normal chest wall appearance and motion. Nontender with no deformity. No lesions are appreciated. Cardiovascular: Regular rate and rhythm with a normal S1 and S2. No gallops, murmurs, or rubs. Normal PMI, no JVD. No pulse deficits. Respiratory: Lungs have equal breath sounds bilaterally, clear to auscultation and percussion. No rales, rhonchi or wheezes noted. No increased work of breathing, no retractions or nasal flaring. Abdomen/GI: Soft, non-tender, with normal bowel sounds. No distension or tympany. No guarding or rebound. No evidence of tenderness throughout. Skin: Warm, dry with normal turgor. Normal color with no rashes, no lesions, and no evidence of cellulitis. MS/ Extremity: Pulses equal, no cyanosis. Neurovascular intact. Full, normal range of motion. Neuro: Awake and alert, GCS 15, oriented to person, place, time, and situation. Cranial nerves II-XII grossly intact. Motor strength 5/5 in all extremities. Sensory grossly intact. Cerebellar exam normal. Normal gait. 14:23 ECG was reviewed by the Attending Physician. Vital Signs: 12:22 BP 155 / 70; Pulse 59; Resp 17; Temp 97.4; Pulse Ox 97% on R/A; ll1 14:58 BP 170 / 82; Pulse 48; Resp 18 S; Pulse Ox 100% on R/A; kc6 15:35 BP 162 / 84; Pulse 48; Resp 14 S; Temp 97.8(TE); Pulse Ox 100% on R/A; aa5 MDM: 12:19 Patient medically screened. rt 15:15 Differential diagnosis: Vertigo, dehydration, near syncope, dysrhythmia, electrolyte rt disturbance. Data reviewed: vital signs, nurses notes, lab test result(s), EKG. Consideration of Admission/Observation Escalation of care including admission/observation considered. Symptoms resolved, unremarkable workup, no indications for admission at this time, return precautions discussed.. Test considered but Not performed: CT: No focal neurodeficits, no trauma, CT scan of the head is not indicated. Care significantly affected by the following chronic conditions: Hypertension. Counseling: I had a detailed discussion with the patient and/or guardian regarding the historical points, exam findings, and any diagnostic results supporting the discharge/admit diagnosis, lab results, the need for outpatient follow up. Response to treatment: the patient's symptoms have resolved after treatment. 04/14 12:26 Order name: Basic Metabolic Panel; Complete Time: 15:10 rt 04/14 12:26 Order name: CBC with Diff rt 04/14 12:26 Order name: LFT's; Complete Time: 15:10 rt 04/14 12:26 Order name: Magnesium; Complete Time: 15:10 rt 04/14 12:26 Order name: Troponin HS; Complete Time: 15:10 rt 04/14 14:19 Order name: CBC Smear Scan EDMS 04/14 12:26 Order name: Cardiac monitoring; Complete Time: 14:00 rt 04/14 12:26 Order name: EKG - Nurse/Tech; Complete Time: 14:00 rt 04/14 12:26 Order name: IV Saline Lock; Complete Time: 14:00 rt 04/14 12:26 Order name: Labs collected and sent; Complete Time: 14:00 rt 04/14 12:26 Order name: O2 Per Protocol; Complete Time: 13:42 rt 04/14 12:26 Order name: O2 Sat Monitoring; Complete Time: 13:42 rt EC:23 Rate is 50 beats/min. Rhythm is regular, Sinus bradycardia with No ectopy. QRS [place] is rt Normal. QRS interval is normal. QT interval is normal. No Q waves. No ST changes noted. Interpreted by me. Administered Medications: No medications were administered Disposition Summary: 04/14/24 15:13 Discharge Ordered Notes: Location: Home rt Problem: new rt Symptoms: are resolved rt Condition: Stable rt Diagnosis - Dizziness and giddiness rt Followup: rt - With: Private Physician - When: 2 - 3 days - Reason: Discharge Instructions: - Discharge Summary Sheet rt - Dizziness rt Forms: - Medication Reconciliation Form rt - Antibiotic Education rt - Prescription Opioid Use rt - Patient Portal Instructions rt - Leadership Thank You Letter rt Signatures: Dispatcher [employer] Beck Guadarrama RN RN ll1 Cole Vera MD MD rt Corrections: (The following items were deleted from the chart) 12: 12:27 BASIC METABOLIC PANEL+C.LAB.BRZ ordered. EDMS EDMS 12: 12:27 CBC+H.LAB.BRZ ordered. EDMS EDMS 12: 12:27 HEPATIC FUNCTION+C.LAB.BRZ ordered. EDMS EDMS 12: 12:27 MAGNESIUM+C.LAB.BRZ ordered. EDMS EDMS 12:27 12:27 Troponin High Sensitivity+C.LAB.BRZ ordered. EDMS EDMS
--- NOTE | 2024-04-14 15:14 | ER ---
Nurse's Notes [facility] Name: Jose Neil Age: 68 yrs Sex: Male : 1955 Arrival Date: 04/14/2024 Time: 11:30 Bed 4 Private MD: Diagnosis: Dizziness and giddiness Presentation: 04/14 12:22 Chief complaint: Patient states: Elevated BP for 2 days. + dizzy with N/V started ll1 today. Coronavirus screen: Client denies travel out of the [place] in the last 14 days. fatigue, nausea, vomiting. Client presents with at least one sign or symptom that may indicate coronavirus-19. Standard/surgical mask placed on the client. Ebola Screen: Patient denies travel to an Ebola-affected area in the 21 days before illness onset. Initial Sepsis Screen: Does the patient meet any 2 criteria? No. Patient's initial sepsis screen is negative. Does the patient have a suspected source of infection? No. Patient's initial sepsis screen is negative. Risk Assessment: Do you want to hurt yourself or someone else? Patient reports no desire to harm self or others. Onset of symptoms was April 13, 2024. 12:22 Method Of Arrival: Ambulatory ll1 12:22 Acuity: ANGIE 3 ll1 Triage Assessment: 12:24 General: Appears uncomfortable, Behavior is calm, cooperative, appropriate for age. ll1 Pain: Denies pain. Neuro: Reports dizziness, weakness elevated BP. GI: Reports nausea, vomiting. Historical: - Allergies: 12:24 PENICILLINS; ll1 - PMHx: 12:24 coronary atherosclerosis; High Cholesterol; Hypertension; Myocardial infarction; ll1 neuropathy; - PSHx: 12:24 Coronary Angioplasty; Stented artery; ll1 - Immunization history:: Adult Immunizations up to date. - Infectious Disease History:: Denies. - Social history:: Smoking status: Patient/guardian denies using tobacco, the patient reports quitting approximately 20 years ago. - Family history:: not pertinent. Screenin:00 [facility] ED Fall Risk Assessment (Adult) History of falling in the last 3 months, kc6 including since admission No falls in past 3 months (0 pts) Confusion or Disorientation No (0 pts) Intoxicated or Sedated No (0 pts) Impaired Gait No (0 pts) Mobility Assist Device Used No (0 pt) Altered Elimination No (0 pt) Score/Fall Risk Level 0 - 2 = Low Risk. Abuse screen: Denies threats or abuse. Denies injuries from another. Nutritional screening: No deficits noted. Tuberculosis screening: No symptoms or risk factors identified. Assessment: 13:00 General: Appears in no apparent distress. comfortable, well groomed, well developed, kc6 Behavior is calm, cooperative, appropriate for age. Pain: Denies pain. Neuro: Level of Consciousness is awake, alert, obeys commands, Oriented to person, place, time, situation, Appropriate for age Reports dizziness. Cardiovascular: Capillary refill < 3 seconds. Respiratory: Airway is patent Trachea midline Respiratory effort is even, unlabored, Respiratory pattern is regular, symmetrical. GI: Abdomen is round non-distended. : No signs and/or symptoms were reported regarding the genitourinary system. EENT: No signs and/or symptoms were reported regarding the EENT system. Derm: No signs and/or symptoms reported regarding the dermatologic system. Skin is intact, is healthy with good turgor, Skin is pink, warm \T\ dry. Musculoskeletal: No signs and/or symptoms reported regarding the musculoskeletal system. Circulation, motion, and sensation intact. Capillary refill < 3 seconds, Range of motion: intact in all extremities. 15:00 Reassessment: Patient appears in no apparent distress at this time. No changes from kc6 previously documented assessment. Patient and/or family updated on plan of care and expected duration. Pain level reassessed. Patient is alert, oriented x 3, equal unlabored respirations, skin warm/dry/pink. 15:39 General: Appears comfortable, Behavior is calm, cooperative. Neuro: Level of aa5 Consciousness is awake, alert, obeys commands, Oriented to person, place, time, situation. Respiratory: Airway is patent Respiratory effort is even, unlabored, Respiratory pattern is regular, symmetrical. Derm: Skin is dry, Skin is normal, Skin temperature is warm. Vital Signs: 12:22 BP 155 / 70; Pulse 59; Resp 17; Temp 97.4; Pulse Ox 97% on R/A; ll1 14:58 BP 170 / 82; Pulse 48; Resp 18 S; Pulse Ox 100% on R/A; kc6 15:35 BP 162 / 84; Pulse 48; Resp 14 S; Temp 97.8(TE); Pulse Ox 100% on R/A; aa5 ED Course: 11:33 Patient arrived in ED. mr 11:57 Cole Vera MD is Attending Physician. rt 12:24 Triage completed. ll1 12:24 Arm band placed on. ll1 13:42 Britney Oneal RN is Primary Nurse. kc6 14:00 Patient has correct armband on for positive identification. Placed in gown. Bed in low kc6 position. Call light in reach. Side rails up X 1. Adult w/ patient. panel monitor on. Pulse ox on. NIBP on. Warm blanket given. Pillow given. 14:00 EKG done, by ED staff, reviewed by Cole Vera MD. Inserted saline lock: 20 gauge kc6 in left antecubital area, using aseptic technique. Blood collected. 15:38 IV discontinued, intact, bleeding controlled, No redness/swelling at site. Pressure aa5 dressing applied. 15:39 No provider procedures requiring assistance completed. aa5 Administered Medications: No medications were administered Medication: 15:39 VIS not applicable for this client. aa5 Outcome: 15:13 Discharge ordered by MD. rt 15:39 Discharged to home ambulatory, with significant other, aa5 15:39 Condition: stable 15:39 Discharge instructions given to patient, Instructed on discharge instructions, follow up and referral plans. Demonstrated understanding of instructions, follow-up care, 15:40 Patient left the ED. aa5 Signatures: Mariangel Zheng, Reg Reg mr ParrAmber RN RN aa5 Beck Sands RN RN ll1 Britney Oneal RN RN kc6 Cole Vera MD MD rt Corrections: (The following items were deleted from the chart) 15:01 13:00 General: Appears in no apparent distress. comfortable, well groomed, well kc6 developed, Behavior is calm, cooperative, appropriate for age, kc6
[2024-04-14 16:04] VITALS: BP 162/84; TEMP 97.8; O2SAT 100
[2024-04-14 16:50] LABS: Platelet Estimate ADEQ; White Blood Cell Scan OK (OK)
[2024-04-14 16:51] LABS: Anisocytosis 1+; Blood Morphology Comment NOTED (NOT SEEN)
--- NOTE | 2024-04-16 14:10 | EKG ---
Test Date: 2024-04-14 Test Time: 13:50:16 Bias Cutter Helper: BERNARDINO MEASUREMENT RESULTS: Intervals: Rate: 50 IL: 238 QRSD: 96 QT: 452 QTc: 412 [place]: P: 3 IL: 238 QRS: 20 T: -3 INTERPRETIVE STATEMENTS: Sinus bradycardia with 1st degree AV block Inferior infarct, age undetermined Anterior infarct, age undetermined Abnormal ECG Compared to ECG 01/02/2024 19:05:43 First degree AV block now present Sinus rhythm no longer present Myocardial infarct finding still present Electronically Signed On 04-16-24 14:07:14 CDT by Alexis Hassan
== END 2024-04-14 15:40 | disposition home or self-care (01) ==
LOC: ER 11:30
DX: R42 Dizziness and giddiness (principal); I10 Essential (primary) hypertension; E78.00 Pure hypercholesterolemia, unspecified; I25.10 Atherosclerotic heart disease of native coronary artery without angina pectoris; I25.2 Old myocardial infarction; Z95.5 Presence of coronary angioplasty implant and graft; Z87.891 Personal history of nicotine dependence; Z88.0 Allergy status to penicillin
CPT/HCPCS: 36415; 80048; 80076; 83735; 84484; 85025; 93005; 99284

== ENCOUNTER 2024-06-11 18:54 | Inpatient (IN) | payer OTHER ==
--- OUTSIDE RECORDS SUMMARY | 2024-06-11 18:57 | XMS REPORT | Continuity of Care Document ---
Author Name Unknown Address [address] [place] [address] [facility] thconnect Address [address] [place] [address] Care Team Providers Care Tube Fitter Name Role Phone MILLER BARRETT Primary Care Physician Unav ailable Mohini Barrett Attending Clinician UnavailMEKHI Mcwilliams Attending Clinician Unavailable Gurpreet Benítez Attending Clinician Unavailable Gerri Boland RN Attending Clinician Unavailable LORENZA SMITH Attending Clinician Unavailable Jeffrey Lara MD Attending Clinician [phone] Lorenza Smith DO Attending Clinician [phone] GONZALES Attending Clinician Unavailable 2, [facility] Attending Clinician Unavailable Mekhi Zamudio MD Attending Clinician [phone] Doctor Unassigned, [place] Attending Clinician U navailable Bruna Valenzuela Attending Clinician [phone] BRUNA MONAHAN Attending Clinician Unavailable Only, Adc Test Attending Clinician Unavailable Juan Daugherty MD Attending Clinician [phone] JUAN DAUGHERTY Attending Clinician Unavaileduardo e Referred, Self Admitting Clinician Unavailable LORENZA SMITH Admitting Clinician Unavailable Lorenza Smith DO Admitting Clinician [phone] GONZALES Admitting Clinician Unavailable BRUNA MONAHAN Admitting Clinician Unavailable Payers Payer Name Policy Type Policy Number Effective Date Expirati on Date Source MEDICARE PART A \T\ [id number] 2009 00:00:00 Problems Condition Name Condition Details Condition Category Status Onset Date Resolution Date Last Treatment Date Treating Clinician Comments Source Coronary artery disease involving [place] coronary artery of [place] heart with angina pectoris Coronary artery disease involving [place] coronary artery of [place] heart with angina pectoris Disease Active 06-21 00:00: 00 [facility] Essential hypertensi on Essential hypertensi on Disease Active 06-21 00:00: 00 [facility] Dyslipidem ia Dyslipidem ia Disease Active 06-21 00:00: 00 [facility] Elevated brain natriureti c peptide (BNP) level Elevated brain natriureti c peptide (BNP) level Disease Active 06-21 00:00: 00 [facility] Morbid obesity Morbid obesity Disease Active 06-21 00:00: 00 [facility] NSVT (nonsustai megan ventricula r tachycardi a) NSVT (nonsustai megan ventricula r tachycardi a) Disease Active 06-21 00:00: 00 [facility] Chest pain, unspecifie d type Chest pain, unspecifie d type Disease Active 06-19 00:00: 00 [facility] No known active problems No known active problems Disease [facility] Primary osteoarthr itis of right knee Primary osteoarthr itis of right knee Problem Active [facility] Carpal tunnel syndrome of right wrist Carpal tunnel syndrome of right wrist Problem Active [facility] Allergies, Adverse Reactions, Alerts Allergy Name Allergy Type Status Severity Reaction(s) Onset Date Inactive Date Treating Clinician Comments Source Penicill ins DA Active SV RASH, SWELLING 06-27 00:00: 00 [facility] PENICILL IN DRUG INGREDI Active Swelling 06-19 00:00: 00 [facility] Penicill in Propensi ty to adverse reaction s Active Swelling 06-19 00:00: 00 [facility] penicill in Adverse Reaction Active Info Not Available [facility] NO KNOWN ALLERGIE S Drug Class Active [facility] Social History Social Habit Start Date Stop Date Quantity Comments Source History of tobacco use Cigarette Smoker [facility] Exposure to SARS-CoV-2 (event) 2022-06-09 00:00:00 2022-06-19 19:09:00 Not sure [facility] Tobacco use and exposure 2022-06-19 00:00:00 2022-06-19 00:00:00 Smokeless tobacco non-user [facility] Education 2022-06-19 00:00:00 2022-06-19 00:00:00 14 [facility] Sex Assigned At 1955 00:00:00 1955 00:00:00 [facility] Smoking Status Start Date Stop Date Source Ex-smoker 2022-06-19 00:00:00 2022-06-19 [facility]00[facility]00 [facility] Medications Ordered Medication Name Filled Medication Name Start Date Stop Date Current Medication? Ordering Clinician Indication Dosage Frequency Signature (SIG) Comments Components Source docusate 100 mg capsule 06-22 00:00: 00 07-23 04:59 :00 No [id number] 100mg Take 1 capsule by mouth in the morning for 30 days. [facility] aspirin 81 mg EC tablet 06-22 00:00: 00 07-23 04:59 :00 No [id number] 81mg Take 1 tablet by mouth in the morning for 30 days. [facility] FLUoxetine 40 mg capsule 06-21 14:27: 59 Yes 40mg Take 40 mg by mouth daily. [facility] esomeprazol e 40 mg capsule 06-21 14:27: 59 Yes 40mg Take 40 mg by mouth daily with breakfast. [facility] aspirin EC tablet 81 mg 06-21 14:00: 00 Yes 81mg 81 mg, Oral, DAILY, First dose on 06/21/22 at 0900, Until Discontinu ed, Routine [facility] atorvastati n (LIPITOR) tablet 80 mg 06-21 02:00: 00 Yes 80mg 80 mg, Oral, QHS, First dose on Thu06/20/22 at 2100, Until Discontinu ed, Routine
receiving team member approving Restricted medication : HIMANSHU BOLAÑOS [facility] isosorbide mononitrate (IMDUR) 24 hr tablet 30 mg 06-21 01:00: 00 Yes 30mg 30 mg, Oral, BID, First dose on Thu06/20/22 at 1999, Until Discontinu ed, Routine [facility] metoprolol succinate XL (TOPROL XL) tablet 25 mg 06-21 01:00: 00 Yes 25mg 25 mg, Oral, BID, First dose (after last modificati on) on Thu06/20/22 at 1999, Until Discontinu ed, Routine [facility] ticagrelor (BRILINTA) tablet 90 mg 06-21 01:00: 00 Yes 90mg 90 mg, Oral, BID, First dose (after last modificati on) on Thu06/20/22 at 1999, Until Discontinu ed, Routine [facility] atorvastati n 80 mg tablet 06-21 00:00: 00 07-22 04:59 :00 No [id number] 80mg Take 1 tablet by mouth at bedtime for 30 days. [facility] ferrous sulfate 325 mg (65 mg iron) tablet 06-21 00:00: 00 07-22 04:59 :00 No [id number] 325mg Take 1 tablet by mouth in the morning for 30 days. [facility] isosorbide mononitrate 30 mg 24 hr tablet 06-21 00:00: 00 07-22 04:59 :00 No [id number] 30mg Take 1 tablet by mouth in the morning and 1 tablet in the evening. Do all this for 30 days. [facility] sulfur hexafluorid e microsphr (LUMASON) injection 5 mL 06-20 18:45: 00 06-20 18:45 :00 No [id number] 5mL 5 mL, Intravenou s, ONCE, 1 dose, On Thu06/20/22 at 1345, Routine
receiving team member approving Restricted medication : HIMANSHU BOLAÑOS [facility] FLUoxetine (PROZAC) capsule 40 mg 06-20 14:00: 00 Yes 40mg 40 mg, Oral, DAILY, First dose on Thu06/20/22 at 0900, Until Discontinu ed, Routine [facility] tamsulosin (FLOMAX) capsule 0.4 mg 06-20 14:00: 00 Yes .4mg 0.4 mg, Oral, DAILY, First dose on Thu06/20/22 at 0900, Until Discontinu ed, Routine [facility] docusate (COLACE) capsule 100 mg 06-20 14:00: 00 Yes 100mg 100 mg, Oral, DAILY, First dose on Thu06/20/22 at 0900, Until Discontinu ed, Routine [facility] enoxaparin (LOVENOX) injection 40 mg 06-20 14:00: 00 Yes 40mg 40 mg, Subcutaneo us, DAILY, First dose on Thu06/20/22 at 0900, Until Discontinu ed, Routine [facility] ticagrelor (BRILINTA) tablet 90 mg 06-20 14:00: 00 06-20 19:37 :36 No 90mg 90 mg, Oral, DAILY, First dose on Thu06/20/22 at 0900, Until Discontinu ed, Routine [facility] pravastatin (PRAVACHOL) tablet 40 mg 06-20 14:00: 00 06-20 19:37 :36 No 40mg 40 mg, Oral, DAILY, First dose on Thu06/20/22 at 0900, Until Discontinu ed, Routine [facility] metoprolol succinate XL (TOPROL XL) tablet 25 mg 06-20 14:00: 00 06-20 19:37 :36 No 25mg 25 mg, Oral, DAILY, First dose on Thu06/20/22 at 0900, Until Discontinu ed, Routine [facility] gabapentin (NEURONTIN) capsule 100 mg 06-20 13:00: 00 Yes 100mg 100 mg, Oral, TID, First dose on Thu06/20/22 at 0800, Until Discontinu ed, Routine [facility] maalox:diph enhydrAMINE :lidocaine 2 % viscous 1:1:1 (FIRST-MOUT HWASH BLM) oral suspension 15 mL 06-20 06:00: 00 06-20 05:19 :00 No 15mL 15 mL, Oral, ONCE, 1 dose, On Thu06/20/22 at 0100, Routine [facility] HYDROcodone -acetaminop hen (NORCO 5) 5-325 mg tablet 1 tablet 06-19 23:25: 46 06-21 23:24 :46 No 1{tbl} 1 tablet, Oral, Q6HPRN, Starting on Thu06/19/22 at 1825, Until 06/21/22 at 1824, Routine, Pain (scale 4-6) [facility] acetaminoph en (TYLENOL) tablet 650 mg 06-19 23:25: 40 Yes 650mg 650 mg, Oral, Q6HPRN, Starting on Thu06/19/22 at 1825, Until Discontinu ed, Routine, Pain (scale 1-3) [facility] FLUoxetine 40 mg capsule 07-18 14:26: 40 Yes 40mg Take 40 mg by mouth daily. [facility] esomeprazol e (NEXIUM) 40 mg capsule 07-18 14:26: 40 Yes 40mg Take 40 mg by mouth daily with breakfast. [facility] gabapentin 100 mg capsule 07-15 00:00: 00 Yes TAKE 1 CAPSULE BY MOUTH THREE TIMES DAILY FOR NUMB FEET [facility] metoprolol succinate XL 25 mg 24 hr tablet 07-15 00:00: 00 Yes 25mg Take 25 mg by mouth daily. [facility] BRILINTA 60 mg Tab 07-01 00:00: 00 Yes 1{tbl} Take 1 tablet by mouth 2 (two) times daily. [facility] TICAGRELOR 90 mg tablet 07-01 00:00: 00 Yes 1{tbl} Take 1 tablet by mouth in the morning. [facility] lisinopriL 30 mg tablet 07-01 00:00: 00 Yes 30mg Take 30 mg by mouth daily. [facility] tamsulosin 0.4 mg 24 hr capsule 06-07 00:00: 00 Yes [facility] pravastatin 40 mg tablet 05-28 00:00: 00 Yes 40mg Take 40 mg by mouth daily. [facility] Pravastatin Sodium Pravastatin Sodium 06-01 00:00: 00 Yes Alessandro Vasquez 1 tablet [facility] Flomax Flomax 06-01 00:00: 00 Yes Alessandro Vasquez 1 capsule [facility] Brilinta Brilinta 06-01 00:00: 00 Yes Alessandro Vasquez 1 tablet [facility] Prozac Prozac 06-01 00:00: 00 Yes Alessandro Vasquez 2 tab [facility] Nexium Nexium 06-01 00:00: 00 Yes Alessandro Vasquez 1 capsule [facility] Metoprolol Succinate Metoprolol Succinate 06-01 00:00: 00 Yes Alessandro Vasquez not defined [facility] Lisinopril Lisinopril 06-01 00:00: 00 Yes Alessandro Vasquez 1 tablet [facility] Acetaminoph en-Codeine #3 Acetaminoph en-Codeine #3 Yes Alessandro Vasquez not defined [facility] MethylPREDN ISolone MethylPREDN ISolone Yes Alessandro Vasquez not defined [facility] Fluoxetine HCl Fluoxetine HCl Yes Alessandro Vasquez not defined [facility] Amitriptyli ne HCl Amitriptyli ne HCl Yes Alessandro Vasquez not defined [facility] Vital Signs Vital Name Observation Time Observation Value Comments Cheri arriola Systolic blood pressure 2022-06-21 12:39:00 122 mm[Hg] [facility] Diastolic blood pressure 2022-06-21 12:39:00 68 mm[Hg] [facility] Heart rate 2022-06-21 12:39:00 54 /min [facility] Body temperature 2022-06-21 12:39:00 36.44 Sidra [facility] Respiratory rate 2022-06-21 12:39:00 14 /min [facility] Oxygen saturation in Arterial blood by Pulse oximetry 2022-06-21 12:39:00 95 /min [facility] Body weight 2022-06-21 08:20:00 125.465 kg [facility] BMI 2022-06-21 08:20:00 43.32 kg/m2 [facility] Body height 2022-06-20 00:19:00 170.2 cm [facility] Systolic blood pressure 2022-02-24 14:25:00 102 mm[Hg] [facility] Diastolic blood pressure 2022-02-24 14:25:00 70 mm[Hg] [facility] Heart rate 2022-02-24 14:25:00 76 /min [facility] Respiratory rate 2022-02-24 14:25:00 18 /min [facility] Body height 2022-02-24 14:25:00 170.2 cm [facility] Body weight 2022-02-24 14:25:00 127.461 kg [facility] BMI 2022-02-24 14:25:00 44.01 kg/m2 [facility] Oxygen saturation in Arterial blood by Pulse oximetry 2022-02-24 14:25:00 98 /min [facility] Procedures Procedure Date / Time Performed Performing Clinician Source FERRITIN SERUM 2022-06-21 09:38:00 Bhanu Cain [facility] TROPONIN I 2022-06-21 09:38:00 Bhanu Cain [facility] IRON PANEL 2022-06-21 09:38:00 Bhanu Cain [facility] TROPONIN I 2022-06-20 21:14:00 Bhanu Cain [facility] MAGNESIUM 2022-06-20 09:42:00 Bhanu Cain [facility] TROPONIN I 2022-06-20 09:42:00 Bhanu Cain [facility] THYROID STIMULATING HORMONE 2022-06-20 09:42:00 Bhanu Cain [facility] BASIC METABOLIC PANEL (NA, K, CL, CO2, GLUCOSE, BUN, CREATININE, CA) 2022-06-20 09:42:00 Bhanu Cain [facility] CBC WITH DIFF 2022-06-20 09:42:00 Bhanu Cain [facility] TROPONIN I 2022-06-20 02:17:00 Bhanu Cain [facility] LIPID PANEL (24122)(TOTAL CHOLESTEROL, TRIGLYCERIDES, HDL) 2022-06-20 02:17:00 Patricia Fagan [facility] XR CHEST 1 VW 2022-06-19 21:18:27 Jeffrey Lara [facility] TROPONIN I 2022-06-19 21:11:00 Jeffrey Lara [facility] COMP. METABOLIC PANEL (40051) 2022-06-19 21:11:00 Jeffrey Lara [facility] CBC WITH DIFF 2022-06-19 21:11:00 Jeffrey Lara [facility] PROTHROMBIN TIME / INR 2022-06-19 21:11:00 Mario Lara [facility] ACTIVATED PARTIAL THRMPLAS DIDIER 2022-06-19 21:11:00 Jeffrey Lara [facility] N-TERMINAL PRO-BNP 2022-06-19 21:11:00 Jeffrey Lara [facility] COVID-19 (ID NOW RAPID TESTING) 2022-06-19 21:11:00 Jeffrey Lara [facility] LAB ONLY COVID INTERPRETATION 2022-06-19 21:11:00 Jeffrey Lara [facility] HB ECG ROUTINE & RHYTHM STRIP 2022-06-19 20:40:50 Jeffrey Lara [facility] CONSENT/REFUSAL FOR DIAGNOSIS AND TREATMENT 2022-06-19 20:34:15 Doctor Unassigned, [place] [facility] Encounters Start Date/Time End Date/Time Encounter Type Admission Type Attending [facility] Facility Care Department Encounter ID Source 2021-11-13 10:58:49 Outpatient Mohini Barrett [facility] [id number] [facility] 2024-04-18 14:52:51 2024-04-18 14:52:51 Outpatient [facility] [id number] Goldy Hernandez 2024-03-15 11:00:42 2024-03-15 11:00:42 Outpatient SFA SFA [id number] Goldy Hernandez 2024-02-02 14:57:11 2024-02-02 14:57:11 Outpatient SFA SFA [id number] Goldy Hernandez 2024-01-26 15:22:09 2024-01-26 15:22:09 Outpatient SFA SFA [id number] Goldy Hernandez 2023-09-29 14:28:19 2023-09-29 14:28:19 Outpatient SFA SFA [id number] Goldy Hernandez 2023-05-04 14:10:12 2023-05-04 14:10:12 Outpatient SFA SFA [id number] Goldy Hernandez 2023-04-10 08:58:41 2023-04-10 08:58:41 Outpatient SFA SFA [id number] Goldy Hernandez 2023-04-03 16:42:57 2023-04-03 16:42:57 Outpatient SFA SFA [id number] Goldy Hernandez 2022-08-27 00:00:00 2022-08-27 00:00:00 Outpatient [facility] [id number] [facility] 2022-07-09 05:05:00 2022-07-09 05:05:00 Outpatient Gurpreet Allen [facility] [id number] [address] [place] [address] 2022-06-24 00:00:00 2022-06-24 00:00:00 Transition of Care Gerri Boland 1.840.114 350.1.13.10 4.2.7.2.686 [id number] [facility] 2022-06-19 15:47:00 2022-06-21 14:18:00 Outpatient X SARAH [facility] [id number] [facility] 2022-06-19 15:47:00 2022-06-21 14:18:00 Emergency Marco Jeffreydeanna Smith [facility] 1.840.114 350.1.13.10 4.2.7.2.686 [id number] [facility] 2022 00:00:00 2022 00:00:00 Outpatient RORY AGUERO AKJUDY [facility] [id number] [facility] 2022-02-24 10:15:00 2022-02-24 10:30:00 Archivist Political History Visit 2, Adc Lab [facility] 1.840.114 350.1.13.10 4.2.7.2.686 [id number] [facility] 2022-02-24 09:15:00 2022-02-24 10:08:38 Outpatient R ROBB [facility] [id number] [facility] 2022-02-24 09:15:00 2022-02-24 10:08:[address] [facility] [id number] 350.1.13.10 4.2.7.2.686 [id number] [facility] 2022-02-24 00:00:00 2022-02-24 00:00:00 Orders Only Doctor Unassigned, [place] [facility] [id number] 350.1.13.10 4.2.7.2.686 [id number] [facility] 2021-12-30 11:30:00 2021-12-30 11:30:00 Outpatient R KIYA [facility] [id number] [facility] 2021-08-20 11:22:46 2021-08-20 23:59:00 Hospital Encounter Bruna Monahan [facility] 1.2840.114 350.1.13.10 4.2.7.2.686 [id number] [facility] 2021-08-20 11:22:46 2021-08-20 23:59:00 Outpatient R [facility] [id number] [facility] 2021-07-18 14:54:30 2021-07-18 15:09:30 Archivist Political History Visit 2, Adc Lab Robb [facility] Building 1.2840.114 350.1.13.10 4.2.7.2.686 [id number] [facility] 2021-07-18 13:54:19 2021-07-18 14:51:57 Office Visit Robb [facility] 1.2840.114 350.1.13.10 4.2.7.2.686 [id number] [facility] 2021-07-18 14:30:00 2021-07-18 14:30:00 Outpatient R ROBB [facility] [id number] [facility] 2021-07-18 00:00:00 2021-07-18 00:00:00 Orders Only Doctor Unassigned, [place] [facility] 1.2.840.114 350.1.13.10 4.2.7.2.686 [id number] [facility] 2020-12-26 11:08:15 2020-12-26 11:23:15 Laboratory Only Only, Adc Test [facility] 1.2.840.114 350.1.13.10 4.2.7.2.686 [id number] 2020-12-26 11:08:15 2020-12-26 11:23:15 Laboratory Only Only, Adc Test Juan Daugherty [facility] 1.2.840.114 350.1.13.10 4.2.7.2.686 [id number] [facility] 2020-12-26 11:00:00 2020-12-26 11:00:00 Outpatient [facility]AN [facility] [id number] [facility] 2020-12-26 00:00:00 2020-12-26 00:00:00 Orders Only Doctor Unassigned, [place] [facility] [id number] 350.1.13.10 4.2.7.2.686 [id number] 2020-12-26 00:00:00 2020-12-26 00:00:00 Orders Only Doctor Unassigned, [place] [facility] [id number] 350.1.13.10 4.2.7.2.686 [id number] [facility] 2019-10-17 16:23:00 2019-10-17 16:23:00 Outpatient [facility] [id number] [facility] 2019-09-19 14:33:00 2019-09-19 14:33:00 Outpatient [facility] [id number] [facility] 2019-09-09 09:00:00 2019-09-09 09:00:00 Outpatient [facility] [id number] [facility] 2019-08-23 13:30:00 2019-08-23 13:30:00 Outpatient [facility] [id number] [facility] 2019-08-01 08:00:00 2019-08-01 08:00:00 Outpatient [facility] [id number] [facility] 2018-06-01 10:30:00 2018-06-01 10:30:00 Outpatient [facility] [id number] [facility] Results Test Description Test Time Test Comments Results Result Co mments Source [id number] 09:27:00* Test Item Value Reference Range Interpretation Comme nts ACT-ISTAT (test code = ACTI) 306 SEC 74-137 H Performed by cer tified burning machine operator at [facility] CBC W/AUTO [id number] 13:11:00* Test Item Value Reference Range Interpretation [...] (test c ode = MDIFF) NO RBC [id number] 13:11:00* Test Item Value Reference Range Interpretation Comme nts ANISOCYTOSIS (test code = ANISO) 2+ POIKILOCYTOSIS (test code = POIK) 1+ MICROCYTOSIS (test code = MICR) 1+ ELLIPTOCYTES (test code = ELL) 1+ BASIC METABOLIC [id number] 11:54:00* Test Item Value Reference Range Interpretation [...] = CA) 9.2 mg/dL 8.0-10.5 N PROTHROMBIN [id number] 11:53:00* Test Item Value Reference Range Interpretation [...] prevent recurrent infarct). - XR CHEST 2 [id number] 00:00:[address] [facility]: ELMER BLOUNT : 1955 Sex: M FAX: Gurpreet Christianson MD [phone] [place]: St: PRE Name: ELMER BLOUNT [facility] : 1955 Age/S: 67/M [address] [place] [address] Unit #: [id number] Loc: [place] [id number] Phys: Gurpreet Benítez MD Acct: [id number] Dis Date: Status: PRE SDC PHONE #: [phone] Exam Date: 07/07/2022 1245 FAX #: [phone] Reason: PREOP EXAMS: CPT CODE: [id number] XR CHEST 2 V 84333 PROCEDURE INFORMATION: Exam: XRChest Exam date and time: 07/07/2022 12:40 PM [...] Celis M.D. CC: Gurpreet Benítez MD Technologist: Alia Hawkins RT(R) Trnscrd Date/Time/By: 07/07/2022 (1401) : By: [email or web address] Orig Print D/T: S: 07/07/2022 (1401) PAGE 1 Signed Report Notes Date/Time Note Provider Source 2022-07-09 10:31:00 [id number] [place] [id number] PATIENT NAME: ELMER BLOUNT ADMIT DATE: 07/09/22 ACCOUNT NO: [id number] ROOM NO: AGE: 67 REPORT TYPE: CARDIAC CATHETERIZATION REPORT SEX: M ADMITTING PHYSICIAN: ATTENDING PHYSICIAN:Gurpreet Benítez MD PROCEDURE DATE: 07/09/2022 PROCEDURE PERFORMED: 1. Selective coronary angiogram. 2. Failed attempt of PCI to proximal to mid RCA JAVA PROGRAMMING PROFESSOR. INDICATION: Angina with known JAVA PROGRAMMING PROFESSOR of the mid RCA. ACCESS: Right femoral artery, 6-Bulgarian with 6-Bulgarian Angio-Seal. COMPLICATIONS: None. BLEEDING: Less than 20 [...] under fluoroscopy and ultrasound guidance and placed 6-Bulgarian Potter sheath and took a 6-Bulgarian JR4 catheter into the aortic root, engaged the RCA and took a Fielder XT wire, [TIME: 01:08] JAVA PROGRAMMING PROFESSOR and the microcatheter and also placed a GuideLiner for further support, placed it in the mid RCA and then subsequently was able to get through all the way to the stent of the distal RCA; however, once I get to the stent, I could not advance the wires anymore. I exchanged for a [employer] 6 and a Reporter 200 wires without success. At this point, [...] the guide and the sheath, placed a 6-Bulgarian Angio-Seal for closure with good hemostasis. FINDINGS: Mid RCA 100% occluded all the way to the distal portion, status post failed attempt to PCI . PLAN: Continue medical management and follow up in 1 to 2 weeks in the office. Dictated By: Gurpreet Benítez MD Date Dictated: 07/09/2022 10:31:31 Date Transcribed: 07/09/2022 13:38:38 PATIENT NAME: ELMER BLOUNT SR/FINA/AMI Receipt ID: [id number] Authenticated by Gurpreet Benítez MD On 08/20/2022 09:56:42 AM at 0956 PATIENT NAME: ELMER BLOUNT [facility] 2022-07-07 12:15:00 [id number] [place] [address] PATIENT NAME: ELMER BLOUNT ADMIT DATE: ACCOUNT NO: [id number] ROOM NO: AGE: 67 REPORT TYPE: eELECTROCARDIOGRAM REPORT SEX: M ADMITTING PHYSICIAN: ATTENDING PHYSICIAN:Gurpreet Benítez MD Order: [id number] Test Reason : PREOP Test Date/Time Stamp: [...] Confirmed by SHELL YAN MD ([id number]) on 07/08/2022 8:42:41 AM Referred By: Self Referred Confirmed by:SHELL YAN MD at 0842 PATIENT NAME: ELMER BLOUNT [facility]
--- NOTE | 2024-06-11 20:11 | RAD REPORT ---
EXAM DESCRIPTION: CT - Abdomen Pelvis Wo Contrast - 06/11/2024 8:03 pm CLINICAL HISTORY: Abdominal pain. urinary retention ;Abd pain COMPARISON: <Comparisons> TECHNIQUE: CT imaging of the abdomen and pelvis was performed without contrast. Solid organ, bowel a nd vascular assessment is limited due to lack of IV and oral contrast. All CT scans are performed using dose optimization technique as appropriate and may include automated exposure control or mA/KV adjustment according to patient size. FINDINGS: The lower lung bower are clear. The liver, spleen, pancreas, adrenal glands and kidneys are within normal limits for a limited non-co ntrast examination.A few punctate left renal calculi may be present. No bowel obstruction, free air, free fluid or abscess. Mild sigmoid diverticulosis coli. The appendix is normal. Moderate prostatomegaly. The osseous structures are within normal limits. IMPRESSION: Moderate prostatomegaly is noted. A limited non-contrast examination was performed as detailed.
[2024-06-11 20:36] LABS: Absolute Basophils 0.1 K/uL (0-0.5); Absolute Eosinophils 0.2 K/uL (0-0.5); Absolute Lymphocytes (CBC) 1.8 K/uL (0.7-4.9); Absolute Monocytes 1.5 K/uL (0.1-1.3); Absolute Neutrophil 10.3 K/uL (1.8-8.0); Basophils % 0.4 % (0-1.3); Eosinophils % 1.5 % (0-4.4); Hemoglobin 10.7 g/dL (13.6-17.9); Lymphocytes % 12.9 % (15.3-44.8); MCH 21.7 pg (27.0-35.0); MCHC 30.6 g/dL (32.0-36.0); MCV 70.9 fL (80-100); MPV 8.7 fL (7.6-11.3); Monocytes % 10.9 % (3.3-12.3); Neutrophils % 74.3 % (41.7-73.7); Platelets 232 thou/uL (152-406); RBC Red Blood Cell Count 4.93 M/uL (4.33-5.43); Red Cell Distribution Width 18.9 % (12.1-15.2)
[2024-06-11 20:54] LABS: SARS-CoV-2 Antigen CONTROL BLUE LINE VIS/BG OK; SARS-CoV-2 Antigen Rapid Res Negative (Negative)
[2024-06-11 21:11] LABS: Specific Gravity 1.024 (1.005-1.030); Sqamous Epithelial <5 /HPF (None Seen); Urine Bacteria <20 /HPF (<20); Urine Bilirubin NEGATIVE (Negative); Urine Blood 3+ (Negative); Urine Clarity Extremely Turbid (Clear); Urine Color Yellow (Yellow); Urine Culture Reflex Order NOT NEEDED; Urine Glucose NEGATIVE (Negative); Urine Ketones NEGATIVE (Negative); Urine Microscopic Reflex YN ORDER UMIC; Urine Mucus Slight /HPF (None Seen); Urine Nitrite NEGATIVE (Negative); Urine Protein 2+ (Negative); Urine RBC >50 /HPF (None Seen); Urine Urobilinogen 1+ (Normal); Urine pH 5.5 (5.0-7.0)
[2024-06-11 21:13] LABS: Albumin 3.1 g/dL (3.4-5.0); Albumin/Globulin Ratio 0.7 (1.1-1.8); Alkaline Phosphatase 73 U/L (45-117); Anion Gap 10.3 mEq/L (5.0-15.0); BUN Blood Urea Nitrogen 63 mg/dL (7-18); Bicarbonate 24 mEq/L (21-32); Bilirubin Total 0.6 mg/dL (0.2-1.0); Globulin 4.2 g/dL (2.3-3.5); Glomerular Filtration Rate 17 ml/min (=/>90); Glucose Level 104 mg/dL (74-106); Lipase 37 U/L (13-75); Potassium 3.3 mEq/L (3.5-5.1); Protein, Total 7.3 g/dL (6.4-8.2); Sodium Level 135 mEq/L (136-145)
[2024-06-11 21:15] LABS: ALT/SGPT < 14 U/L (16-61); AST/SGOT < 10 U/L (15-37)
[2024-06-11] MEDS ORDERED: CEFTRIAXONE 1000 MG/VIAL ONE (21:51)
[2024-06-11] MEDS ORDERED: NA CHLORIDE 0.9% 50 ML ONE (21:52)
[2024-06-11] MEDS ORDERED: NA CHLORIDE 0.9% 1,000 ML ONE (21:52)
[2024-06-11 22:05] LABS: Anisocytosis 1+; Blood Morphology Comment NOTED (NOT SEEN); Platelet Estimate ADEQ; Poikilocytosis 1+; White Blood Cell Scan OK (OK)
--- NOTE | 2024-06-11 22:25 | EDPHYS ---
Physician Documentation [facility] Name: Jose Neil Age: 69 yrs Sex: Male : 1955 Arrival Date: 06/11/2024 Time: 18:54 Bed 6 Private MD: ED Physician Kulwinder Power HPI: 06/11 19:06 This 69 yrs old Black Male presents to ER via Unassigned with complaints of Urinary sp4 Problem, Decreased Appetite, Weakness. 19:42 69-year-old male presents with 2 days of painful urination and also difficulty sp4 evacuating bladder decreased urinary stream. . Historical: - Allergies: 20:02 PENICILLINS; vc1 - Home Meds: 20:19 gabapentin 100 mg oral capsule 1 cap 3 times per day [Active]; Brilinta 90 mg oral bm8 tablet 1 tab 2 times per day [Active]; metoprolol succinate 25 mg oral Tablet, Extended Release 24 hr 1 tab once [Active]; lisinopril 30 mg Oral tablet 1 tab daily [Active]; tamsulosin 0.4 mg oral capsule 1 cap daily [Active]; atorvastatin 40 mg oral tablet 1 tab daily [Active]; fluoxetine 40 mg Oral capsule 1 cap daily [Active]; esomeprazole magnesium oral [Active]; - PMHx: 20:02 coronary atherosclerosis; High Cholesterol; Hypertension; Myocardial infarction; vc1 Myocardial infarction; neuropathy; - PSHx: 20:02 Coronary Angioplasty; Stented artery; vc1 - Immunization history:: Client reports receiving the 2nd dose of the Covid vaccine. - Infectious Disease History:: Denies. - Family history:: not pertinent. - Social history:: Smoking status: Patient denies any tobacco usage or history of. ROS: 19:42 Constitutional: Negative for fever, chills, and weight loss, today for urinary sp4 retention positive for decreased urinary stream positive for bladder pain 19:42 All other systems are negative, Exam: 19:42 Constitutional: This is a well developed, well nourished patient who is awake, alert, sp4 and in no acute distress. Head/Face: Normocephalic, atraumatic. Eyes: Pupils equal round and reactive to light, extra-ocular motions intact. Lids and lashes normal. Conjunctiva and sclera are not injected. Cornea within normal limits. Periorbital areas with no swelling, redness, or edema. ENT: Nares patent. No nasal discharge, no septal abnormalities noted. Tympanic membranes are normal and external auditory canals are clear. Oropharynx with no redness, swelling, or masses, exudates, or evidence of obstruction, uvula midline. Mucous membranes moist. Neck: Trachea midline, no thyromegaly or masses palpated, and no cervical lymphadenopathy. Supple, full range of motion without nuchal rigidity, or vertebral point tenderness. Chest/axilla: Normal chest wall appearance and motion. Nontender with no deformity. No lesions are appreciated. Cardiovascular: Regular rate and rhythm with a normal S1 and S2. No gallops, murmurs, or rubs. Normal PMI, no JVD. No pulse deficits. Respiratory: Lungs have equal breath sounds bilaterally, clear to auscultation and percussion. No rales, rhonchi or wheezes noted. No increased work of breathing, no retractions or nasal flaring. Abdomen/GI: Soft, with normal bowel sounds. No distension or tympany. No guarding or rebound. No evidence of tenderness throughout. Back: No spinal tenderness. No costovertebral tenderness. Skin: Warm, dry with normal turgor. Normal color with no rashes, no lesions, and no evidence of cellulitis. MS/ Extremity: Pulses equal, no cyanosis. Neurovascular intact. Full, normal range of motion. Neuro: Awake and alert, GCS 15, oriented to person, place, time, and situation. Cranial nerves II-XII grossly intact. Motor strength 5/5 in all extremities. Sensory grossly intact. Psych: Awake, alert, with orientation to person, place and time. Behavior, mood, and affect are within normal limits Vital Signs: 20:00 Weight 126.1 kg; Height 5 ft. 6 in. ; Pain 10/10; vc1 20:15 BP 97 / 66; Pulse 68; Resp 18; Temp 99.4; Pulse Ox 97% ; Weight 127.01 kg; Height 5 ft. bm8 7 in. ; Pain 0/10; 22:02 BP 97 / 62; Pulse 67; Resp 18; Temp 99.4; Pulse Ox 96% ; Pain 0/10; bm8 06/12 00:15 BP 104 / 69; Pulse 63; Resp 17; Temp 99.2; Pulse Ox 96% ; Pain 0/10; bm8 06/11 20:15 Body Mass Index 43.85 (127.01 kg, 170.18 cm) bm8 06/11 20:00 Pain Scale: Adult vc1 20:15 Pain Scale: Adult bm8 22:02 Pain Scale: Adult bm8 06/12 00:15 Pain Scale: Adult bm8 [place] Coma Score: 06/11 19:42 Eye Response: spontaneous(4). Motor Response: obeys commands(6). Verbal Response: sp4 oriented(5). Total: 15. 20:16 Eye Response: spontaneous(4). Motor Response: obeys commands(6). Verbal Response: bm8 oriented(5). Total: 15. 22:02 Eye Response: spontaneous(4). Motor Response: obeys commands(6). Verbal Response: bm8 oriented(5). Total: 15. 06/12 00:15 Eye Response: spontaneous(4). Motor Response: obeys commands(6). Verbal Response: bm8 oriented(5). Total: 15. MDM: 06/11 19:06 Patient medically screened. sp4 22:25 Data reviewed: vital signs, nurses notes, old medical records, radiologic studies, CT sp4 scan. Consideration of Admission/Observation Patient was admitted/placed on observation. Escalation of care including admission/observation considered. Management of patient was discussed with the following: Hospitalist: Diomedes GUILLEN . Assisted Living Nursing Director: Roel Reinoso MD . ED course: Stable for admission to the hospital . 06/11 19:06 Order name: SARS RAPID; Complete Time: 21:45 sp4 06/11 19:41 Order name: CBC with Diff; Complete Time: 00:11 sp4 06/11 19:41 Order name: CMP; Complete Time: 21:45 sp4 06/11 19:41 Order name: Lipase; Complete Time: 21:45 sp4 06/11 19:41 Order name: Urinalysis w/ reflexes; Complete Time: 21:45 sp4 06/11 22:06 Order name: CBC Smear Scan; Complete Time: 00:11 EDMS 06/11 23:30 Order name: Urinalysis w/ reflexes EDMS 06/11 23:30 Order name: CBC with Automated Diff EDMS 06/11 23:30 Order name: CBC with Automated Diff EDMS 06/11 23:30 Order name: Comprehensive Metabolic Panel EDMS 06/11 23:30 Order name: Comprehensive Metabolic Panel EDMS 06/11 19:41 Order name: CT Abd/Pelvis - Without Contrast; Complete Time: 21:45 sp4 06/11 19:41 Order name: IV Saline Lock; Complete Time: 20:18 sp4 06/11 19:41 Order name: Labs collected and sent; Complete Time: 20:18 sp4 Administered Medications: 22:02 Drug: Rocephin - Rocephin (cefTRIAXone) IVPB 1 grams IVPB once over 30 mins; (mix in 50 bm8 mL NS) Route: IVPB; Infused Over: 30 mins; Site: right antecubital; 23:15 Follow up: Response: No adverse reaction; IV Status: Completed infusion; IV Intake: [id number] 22:02 Drug: NS 0.9% IV 1000 ml IV at 1 bolus Per protocol; 1000 mL bolus Route: IV; Rate: 1 bm8 bolus; Site: right antecubital; 23:15 Follow up: Response: No adverse reaction; IV Status: Completed infusion; IV Intake: bm8 1000ml Disposition Summary: 06/11/24 22:24 Hospitalization Ordered Notes: Hospitalization Status: Inpatient Admission sp4 Provider: Denton Hercules sp4 Location: Telemetry/[facility] (Inpatient) sp4 Condition: Stable sp4 Problem: new sp4 Symptoms: have improved sp4 Bed/Room Type: Standard sp4 Room Assignment: 217(06/11/24 23:36) sp Diagnosis - Acute renal insufficiency, acute renal failure, moderate dehydration, acute sp4 cystitis with hematuria Forms: - Medication Reconciliation Form sp4 - SBAR form sp4 - Leadership Thank You Letter sp4 Signatures: Dispatcher [employer] EDMS Roxane Carrasco Vanessa RN RN vc1 Kulwinder Power MD MD sp4 Ignacio Charles RN RN bm8 Corrections: (The following items were deleted from the chart) 19:42 19:42 CBC+H.LAB.BRZ ordered. EDMS EDMS 19:42 19:42 COMPREHENSIVE METABOLIC PANEL+C.LAB.BRZ ordered. EDMS EDMS 19:42 19:42 LIPASE+C.LAB.BRZ ordered. EDMS EDMS 19:42 19:42 Urinalysis+U.LAB.BRZ ordered. EDMS EDMS 19:42 Abdomen Pelvis Wo Con+CT.RAD.BRZ ordered. EDMS EDMS 23:36 22:24 sp4 sp
--- NOTE | 2024-06-11 22:25 | ER ---
Nurse's Notes [facility] Name: Jose Neil Age: 69 yrs Sex: Male : 1955 Arrival Date: 06/11/2024 Time: 18:54 Bed 6 Private MD: Diagnosis: Acute renal insufficiency, acute renal failure, moderate dehydration, acute cystitis with hematuria Presentation: 06/11 19:59 Method Of Arrival: Ambulatory bm8 20:00 Chief complaint: Patient states: Trouble peeing and pain with urination, chills, no vc1 appetite, and diarrhea. Coronavirus screen: Vaccine status: Patient reports receiving the 2nd dose of the covid vaccine. Client denies travel out of the [place] in the last 14 days. chills, cough unrelated to allergies, diarrhea, shaking with chills, Client presents with at least one sign or symptom that may indicate coronavirus-19. Ebola Screen: Patient negative for fever greater than or equal to 101.5 degrees Fahrenheit, and additional compatible Ebola Virus Disease symptoms Patient denies exposure to infectious person. Patient denies travel to an Ebola-affected area in the 21 days before illness onset. No symptoms or risks identified at this time. Initial Sepsis Screen: Does the patient meet any 2 criteria? No. Patient's initial sepsis screen is negative. Does the patient have a suspected source of infection? No. Patient's initial sepsis screen is negative. Risk Assessment: Do you want to hurt yourself or someone else? Patient reports no desire to harm self or others. Onset of symptoms was June 08, 2024. 20:00 Method Of Arrival: Ambulatory vc1 20:00 Acuity: ANGIE 3 vc1 Triage Assessment: 20:03 General: Appears in no apparent distress. uncomfortable, obese, Behavior is calm, vc1 cooperative, appropriate for age. General: Reports chills for 2-3 days. Pain: Complains of pain in shaft of penis Pain does not radiate. Pain currently is 10 out of 10 on a pain scale. Quality of pain is described as burning, sharp. EENT: No deficits noted. No signs and/or symptoms were reported regarding the EENT system. Neuro: Level of Consciousness is awake, alert, obeys commands, Oriented to person, place, time, situation, Appropriate for age. Cardiovascular: No deficits noted. Respiratory: Reports cough that is Airway is patent Respiratory effort is even, unlabored, Respiratory pattern is regular, symmetrical. : Reports burning with urination, inability to void, pain with urination, Pain is 10 out of 10 on a pain scale. Historical: - Allergies: 20:02 PENICILLINS; vc1 - Home Meds: 20:19 gabapentin 100 mg oral capsule 1 cap 3 times per day [Active]; Brilinta 90 mg oral bm8 tablet 1 tab 2 times per day [Active]; metoprolol succinate 25 mg oral Tablet, Extended Release 24 hr 1 tab once [Active]; lisinopril 30 mg Oral tablet 1 tab daily [Active]; tamsulosin 0.4 mg oral capsule 1 cap daily [Active]; atorvastatin 40 mg oral tablet 1 tab daily [Active]; fluoxetine 40 mg Oral capsule 1 cap daily [Active]; esomeprazole magnesium oral [Active]; - PMHx: 20:02 coronary atherosclerosis; High Cholesterol; Hypertension; Myocardial infarction; vc1 Myocardial infarction; neuropathy; - PSHx: 20:02 Coronary Angioplasty; Stented artery; vc1 - Immunization history:: Client reports receiving the 2nd dose of the Covid vaccine. - Infectious Disease History:: Denies. - Family history:: not pertinent. - Social history:: Smoking status: Patient denies any tobacco usage or history of. Screenin:02 [facility] ED Fall Risk Assessment (Adult) History of falling in the last 3 months, vc1 including since admission No falls in past 3 months (0 pts) Confusion or Disorientation No (0 pts) Intoxicated or Sedated No (0 pts) Impaired Gait No (0 pts) Mobility Assist Device Used No (0 pt) Altered Elimination Yes (1 pt) Score/Fall Risk Level 0 - 2 = Low Risk Oriented to surroundings, Maintained a safe environment, Educated pt \T\ family on fall prevention, incl call for assistance when getting out of bed. Abuse screen: Denies threats or abuse. Nutritional screening: No deficits noted. Tuberculosis screening: No symptoms or risk factors identified. Assessment: 20:16 General: Appears in no apparent distress. comfortable, Behavior is calm, cooperative, bm8 appropriate for age. Pain: Denies pain. Neuro: No deficits noted. Level of Consciousness is awake, alert, obeys commands, Oriented to person, place, time, situation, Appropriate for age. Cardiovascular: Denies chest pain, Heart tones S1 S2 present Capillary refill < 3 seconds Patient's skin is warm and dry. Respiratory: Airway is patent Respiratory effort is even, unlabored, Respiratory pattern is regular, symmetrical, Breath sounds are clear bilaterally. GI: No signs and/or symptoms were reported involving the gastrointestinal system. : Urine is cloudy, Bladder is distended Reports inability to void, since thursday only able to squeeze minimal amounts out. EENT: No signs and/or symptoms were reported regarding the EENT system. Derm: No signs and/or symptoms reported regarding the dermatologic system. Musculoskeletal: No signs and/or symptoms reported regarding the musculoskeletal system. 22:02 Reassessment: Patient appears in no apparent distress at this time. Patient and/or bm8 family updated on plan of care and expected duration. Pain level reassessed. Patient is alert, oriented x 3, equal unlabored respirations, skin warm/dry/pink. pt states that it just feels like he always has to go pee. pain only present during urination Patient states feeling better. 06/12 00:15 Reassessment: Patient appears in no apparent distress at this time. Patient and/or bm8 family updated on plan of care and expected duration. Pain level reassessed. Patient is alert, oriented x 3, equal unlabored respirations, skin warm/dry/pink. Patient states feeling better. Patient states symptoms have improved. Vital Signs: 06/11 20:00 Weight 126.1 kg; Height 5 ft. 6 in. ; Pain 10/10; vc1 20:15 BP 97 / 66; Pulse 68; Resp 18; Temp 99.4; Pulse Ox 97% ; Weight 127.01 kg; Height 5 ft. bm8 7 in. ; Pain 0/10; 22:02 BP 97 / 62; Pulse 67; Resp 18; Temp 99.4; Pulse Ox 96% ; Pain 0/10; bm8 06/12 00:15 BP 104 / 69; Pulse 63; Resp 17; Temp 99.2; Pulse Ox 96% ; Pain 0/10; bm8 06/11 20:15 Body Mass Index 43.85 (127.01 kg, 170.18 cm) bm8 06/11 20:00 Pain Scale: Adult vc1 20:15 Pain Scale: Adult bm8 22:02 Pain Scale: Adult bm8 06/12 00:15 Pain Scale: Adult bm8 [place] Coma Score: 06/11 19:42 Eye Response: spontaneous(4). Motor Response: obeys commands(6). Verbal Response: sp4 oriented(5). Total: 15. 20:16 Eye Response: spontaneous(4). Motor Response: obeys commands(6). Verbal Response: bm8 oriented(5). Total: 15. 22:02 Eye Response: spontaneous(4). Motor Response: obeys commands(6). Verbal Response: bm8 oriented(5). Total: 15. 06/12 00:15 Eye Response: spontaneous(4). Motor Response: obeys commands(6). Verbal Response: bm8 oriented(5). Total: 15. ED Course: 06/11 19:01 Patient arrived in ED. mr 19:06 Kulwinder Power MD is Attending Physician. sp4 19:44 Ignacio Charles RN is Primary Nurse. bm8 20:02 Triage completed. vc1 20:02 Arm band placed on left wrist. vc1 20:03 Patient has correct armband on for positive identification. Placed in gown. Bed in low vc1 position. Call light in reach. Pulse ox on. NIBP on. 20:04 CT Abd/Pelvis - Without Contrast In Process Unspecified. EDMS 20:16 Door closed. Noise minimized. Warm blanket given. Pillow given. Verbal reassurance bm8 given. Head of bed elevated. 20:16 No provider procedures requiring assistance completed. Initial lab(s) drawn, by ED bm8 staff, sent to lab. Urine collected: clean catch specimen, cloudy, COVID swab sent to lab. Inserted saline lock: 20 gauge in right antecubital area, using aseptic technique. Blood collected. Flushed with 10 mL NS. 22:02 Provided Education on: need for admission. bm8 22:24 Denton Hercules MD is Hospitalizing Provider. sp4 06/12 00:15 Patient admitted, IV remains in place. bm8 Administered Medications: 06/11 22:02 Drug: Rocephin - Rocephin (cefTRIAXone) IVPB 1 grams IVPB once over 30 mins; (mix in 50 bm8 mL NS) Route: IVPB; Infused Over: 30 mins; Site: right antecubital; 23:15 Follow up: Response: No adverse reaction; IV Status: Completed infusion; IV Intake: [id number] 22:02 Drug: NS 0.9% IV 1000 ml IV at 1 bolus Per protocol; 1000 mL bolus Route: IV; Rate: 1 bm8 bolus; Site: right antecubital; 23:15 Follow up: Response: No adverse reaction; IV Status: Completed infusion; IV Intake: bm8 1000ml Medication: 20:16 VIS not applicable for this client. bm8 Intake: 23:15 IV: 1000ml; Total: 1000ml. bm8 23:15 IV: 50ml; Total: 1050ml. bm8 Outcome: 22:24 Decision to Hospitalize by Provider. sp4 06/12 00:15 Admitted to Med/surg accompanied by nurse, via wheelchair, room 217, bm8 Condition: stable Instructed on the need for admit, Demonstrated understanding of instructions, follow-up care, 00:17 Patient left the ED. bm8 Signatures: Dispatcher [employer] EDMS Mariangel Zheng, Richard Ramos mr Anastasia Lerma, RN RN vc1 Kulwinder Power MD MD sp4 Ignacio Charles RN RN bm8 Corrections: (The following items were deleted from the chart) 06/11 20:01 19:59 Chief complaint: Patient states: I have been feeling short of breath since bm8 Thursday. no fevers though bm8 20:01 19:59 Coronavirus screen: At this time, the client does not indicate any symptoms bm8 associated with coronavirus-19. bm8 20:01 19:59 Ebola Screen: Patient negative for fever greater than or equal to 101.5 degrees bm8 Fahrenheit, and additional compatible Ebola Virus Disease symptoms Patient denies exposure to infectious person. Patient denies travel to an Ebola-affected area in the 21 days before illness onset. No symptoms or risks identified at this time. bm8
[2024-06-11] MEDS ORDERED: ACETAMINOPHEN 325 MG TABLET PO PRN (23:25)
[2024-06-11] MEDS ORDERED: ONDANSETRON 4 MG/2 ML VIAL IV PRN (23:25)
--- NOTE | 2024-06-11 23:35 | P.HP ---
Certification for Inpatient Patient admitted to: Inpatient With expected LOS: >2 Midnights Practitioner: I am a practitioner with admitting privileges, knowledge of patient current condition, hospital course, and medical plan of care. Services: Services provided to patient in accordance with Admission requirements found in Title 42 Section 412.3 of the Code of Federal Regulations Patient History Date of Service: 06/12/24 Reason for admission: Elevated renal parameters History of Present Illness: 69 yrs old Male with past medical history of hypertension, hyperlipidemia, CAD, status post PCI, neuropathy, who was brought to ER with decreased appetite and generalized weakness associated with dysuria and painful micturition and difficulty in her evacuation bladder and decreased urinary stream which has been going on for the last few days and has been progressively getting worse and was brought to ER. Denies any fever or chills. No nausea vomiting or diarrhea. Patient also complains of some hematuria. Denies any chest pain or shortness of breath. Patient was assessed in the ER and is admitted for further management of acute renal failure and prostatomegaly Allergies Penicillins Allergy (Mild, Verified 06/12/24 00:33) Itching/Hives/Rash Home medications list reviewed: Yes Home Medications: Esomeprazole Mag Trihydrate [Nexium] 40 mg PO DAILY 02/23/13 Fluoxetine HCl [Prozac*] 40 mg PO DAILY 02/23/13 Metoprolol Tartrate [Lopressor*] 25 mg PO DAILY 02/23/13 Ticagrelor [Brilinta*] 90 mg PO BID 02/23/13 lisinopriL [Prinivil*] 30 mg PO DAILY 02/23/13 Ferrous Sulfate [Ferrous Sulfate*] 325 mg PO DAILY 06/24/22 Gabapentin [Neurontin*] 100 mg PO TID 06/24/22 Isosorbide Mononitrate [Isosorbide Mononitrate ER] 30 mg PO BID 06/24/22 Pravastatin [Pravachol*] 40 mg PO DAILY 06/24/22 Tamsulosin HCl [Flomax] 0.4 mg PO DAILY 06/24/22 Aspirin [Aspirin EC 81 MG] 162 mg PO DAILY #60 06/25/22 - Past Medical/Surgical History Diabetic: No Past Medical History: Reviewed- Non-Contributory -: Hypertension -: Hyperlipidemia -: CAD -: MIx2 stents Past Surgical History: Reviewed- Non-Contributory -: cardiac cath - Family History Family History: Reviewed- Non-Contributory - Family History Father -: Heart disease, Hypertension, Stroke - Social History Smoking Status: Never smoker Alcohol use: Yes CD- Drugs: Yes Caffeine use: Yes Review of Systems 10-point ROS is otherwise unremarkable Physical Examination - Vital Signs Temperature: 97.2 F Blood Pressure: 102/62 Pulse: 68 Respirations: 18 Pulse Ox (%): 96 - Physical Exam General: Alert, In no apparent distress, Oriented x3 HEENT: Atraumatic, Normocephalic Neck: Supple, 2+ carotid pulse no bruit Respiratory: Clear to auscultation bilaterally, Normal air movement Cardiovascular: Normal pulses, Regular rate/rhythm Capillary refill: <2 Seconds Gastrointestinal: Soft and benign, W/out hepatosplenomegaly Musculoskeletal: No clubbing, No swelling Integumentary: No rashes, No breakdown Neurological: Normal strength at 5/5 x4 extr, Cranial nerves 3-12 intact, Normal reflexes 2+ Lymphatics: No axilla or inguinal lymphadenopathy - Studies Laboratory Data (last 24 hrs) 06/11/24 06/11/24 20:14 20:14 WBC 13.90 H Hgb 10.7 L Hct 35.0 L Plt Count 232 Sodium 135 L Potassium 3.3 L BUN 63 H Creatinine 3.63 H Glucose 104 Total Bilirubin 0.6 AST < 10 L ALT < 14 L Alkaline Phosphatase 73 Lipase 37 Assessment and Plan - Plan Acute kidney injury Renal parameters monitor Electrolytes monitor and replace accordingly IV started on IV hydration Prostatomegaly Will get a PSA level Needs urology consult as outpatient CT findings noted UTI Started on IV antibiotic Will obtain urine culture Change antibiotic as per sensitivity Hypertension Antihypertensives titrated Continue home medications and titrate as needed Hyperlipidemia Continue statin CAD Continue home medications and titrate as needed GI/DVT prophylaxis Advanced directive full code Discharge Plan: Home Plan to discharge in: 48 Hours - Advance Directives Does patient have a Living Will: No Does patient have a Durable POA for Healthcare: Yes - Code Status/Comfort Care Code Status: Full Code Time Spent Managing Pts Care (In Minutes): 48
[2024-06-12] MEDS: NA CHLORIDE 0.9% 1,000 ML IV SCH (00:49)
[2024-06-12 00:50] VITALS: BMI 41.7
[2024-06-12 06:34] LABS: Specific Gravity 1.018 (1.005-1.030); Sqamous Epithelial None Seen /HPF (None Seen); Urine Bacteria <20 /HPF (<20); Urine Bilirubin NEGATIVE (Negative); Urine Blood 3+ (Negative); Urine Clarity Turbid (Clear); Urine Color Light-Yellow (Yellow); Urine Culture Reflex Order NOT NEEDED; Urine Glucose NEGATIVE (Negative); Urine Ketones NEGATIVE (Negative); Urine Microscopic Reflex YN ORDER UMIC; Urine Mucus Slight /HPF (None Seen); Urine Nitrite NEGATIVE (Negative); Urine Protein 1+ (Negative); Urine RBC >50 /HPF (None Seen); Urine Urobilinogen Normal (Normal); Urine pH 5.5 (5.0-7.0)
[2024-06-12 07:05] LABS: Absolute Basophils 0.1 K/uL (0-0.5); Absolute Eosinophils 0.2 K/uL (0-0.5); Absolute Lymphocytes (CBC) 1.6 K/uL (0.7-4.9); Absolute Neutrophil 8.9 K/uL (1.8-8.0); Basophils % 0.8 % (0-1.3); Eosinophils % 1.9 % (0-4.4); Hematocrit 33.4 % (39.6-49.0); Hemoglobin 10.5 g/dL (13.6-17.9); Lymphocytes % 13.8 % (15.3-44.8); MCHC 31.3 g/dL (32.0-36.0); MCV 70.2 fL (80-100); MPV 8.6 fL (7.6-11.3); Monocytes % 8.8 % (3.3-12.3); Neutrophils % 74.7 % (41.7-73.7); Nucleated Red Blood Cells % 0.1 % (0-0); Platelets 237 thou/uL (152-406); RBC Red Blood Cell Count 4.76 M/uL (4.33-5.43); Red Cell Distribution Width 18.7 % (12.1-15.2)
--- NOTE | 2024-06-12 07:27 | P.PN ---
Date of Service: 06/12/24 subjective Admitted for dehydration with dysuria, hematuria Review of Systems 10-point ROS is otherwise unremarkable Physical Examination - Vital Signs Reviewed - Physical Exam General: Alert, In no apparent distress, Oriented x3 HEENT: Atraumatic, Normocephalic Neck: Supple, 2+ carotid pulse no bruit Respiratory: Clear to auscultation bilaterally, Normal air movement Cardiovascular: Normal pulses, Regular rate/rhythm Capillary refill: <2 Seconds Gastrointestinal: Soft and benign, W/out hepatosplenomegaly Musculoskeletal: No clubbing, No swelling Integumentary: No rashes, No breakdown Neurological: Normal strength at 5/5 x4 extr, Cranial nerves 3-12 intact, Normal reflexes 2+ Lymphatics: No axilla or inguinal lymphadenopathy Assessment and Plan - Plan SIRS with mild hypotension Dehydration Dysuria Hematuria UTI CKD stage II with acute kidney injury Renal parameters monitor Electrolytes monitor and replace accordingly IV started on IV hydration-monitor hypotension Started on IV antibiotic Will obtain urine culture, start Flomax Change antibiotic as per sensitivity Nephrology to see for YAIMA, underlying CKD A1c to check for undiagnosed diabetes Prostatomegaly Will get a PSA level Needs urology consult as outpatient CT findings noted Hypertension Antihypertensives titrated Continue home medications and titrate as needed Hyperlipidemia Continue statin CAD Continue home medications and titrate as needed GI/DVT prophylaxis Advanced directive full code Discharge Plan: Home Plan to discharge in: 48 Hours - Advance Directives Does patient have a Living Will: No Does patient have a Durable POA for Healthcare: Yes - Code Status/Comfort Care Code Status: Full Code Time Spent Managing Pts Care (In Minutes): 35 <Natividad Duvall - Last Filed: 06/12/24 15:18> Patient was seen and examined. Events of the last 24 hours have been noted. Spoke with with [facility] regarding patient's clinical picture after evaluating and examining the patient independently. I performed a substantial part of the MDM during this patient's care today. I personally made or approved the documented management plan and acknowledge its risk of complications. I agree with the findings and documentation provided in the [facility]'s notes. Patient clinically improved. Renal function better. Patient was working outside and sweating quite a bit and also taken Tylenol arthritis. After hydration his kidney function has improved. Anticipate discharge in a.m. if his renal function continues to improve. <Yuliet aHnsen - Last Filed: 06/13/24 03:03>
[2024-06-12 07:29] LABS: Albumin/Globulin Ratio 0.8 (1.1-1.8); Alkaline Phosphatase 67 U/L (45-117); Anion Gap 9.1 mEq/L (5.0-15.0); BUN Blood Urea Nitrogen 59 mg/dL (7-18); Bicarbonate 23 mEq/L (21-32); Bilirubin Total 0.4 mg/dL (0.2-1.0); Globulin 3.9 g/dL (2.3-3.5); Glomerular Filtration Rate 26 ml/min (=/>90); Glucose Level 115 mg/dL (74-106); Potassium 3.1 mEq/L (3.5-5.1); Protein, Total 6.9 g/dL (6.4-8.2); Sodium Level 136 mEq/L (136-145)
[2024-06-12] MEDS: Levofloxacin 250mg IV 250 MG/50 ML BAG IV SCH (07:30)
[2024-06-12 07:31] LABS: ALT/SGPT < 14 U/L (16-61); AST/SGOT < 10 U/L (15-37)
[2024-06-12] MEDS: HOME MED 1 EA UNK (Esomeprazole Mag Trihydrate [Nexium] 40 MG Capsule.Dr) PO SCH (09:00)
[2024-06-12] MEDS: ASPIRIN EC 81 MG TAB PO SCH (09:00)
[2024-06-12] MEDS: HOME MED 1 EA UNK (Pravastatin [Pravachol*] 40 MG/TAB Tab) PO SCH (09:00)
[2024-06-12] MEDS: FLUOXETINE 20 MG CAP PO SCH (09:30)
[2024-06-12] MEDS: TAMSULOSIN 0.4 MG SR CAP PO SCH (09:30)
[2024-06-12] MEDS: FERROUS SULFATE 325 MG TAB PO SCH (09:30)
[2024-06-12] MEDS: TICAGRELOR 90 MG TABLET PO SCH (09:30)
[2024-06-12] MEDS: ISOSORBIDE MONO SR 30 MG TAB PO SCH (09:30)
[2024-06-12] MEDS: POTASSIUM 25 MEQ EFFERV TAB PO ONE (09:31)
[2024-06-12] MEDS: GABAPENTIN 100 MG CAP PO SCH ×2 (09:31→22:23)
[2024-06-12] MEDS: METOPROLOL TAR 25 MG TAB PO SCH (09:31)
--- NOTE | 2024-06-12 12:14 | P.CNS ---
Date of Consult: 06/12/24 Reason for Consult: YAIMA Requesting Physician: Natividad Duvall Chief Complaint: Elevated renal parameters History of Present Illness: 69 yrs old AA Male with past medical history of chronic controlled hypertension, hyperlipidemia, unspecified CAD, who came in to the ER with generalized weakness associated reduced UOP, urinary hesitancy, and other. Pt has been working outdoors daily and sweating profusely. He does monitor BP and reports low normal SBP in the 110s. He is on a ACEi. He has a hx of BPH. He reports UOP has improved some on IVF. He reports urine had been dark prior to admission but without gross hematuria. No abd pain or back pain or N/V. Allergies Penicillins Allergy (Mild, Verified 06/12/24 00:33) Itching/Hives/Rash Home Medications: Atorvastatin Calcium [Lipitor] 40 mg PO DAILY 06/12/24 Esomeprazole Magnesium 40 mg PO DAILY 06/12/24 Fluoxetine HCl [Prozac] 40 mg PO DAILY 06/12/24 Gabapentin [Neurontin*] 100 mg PO TID 06/12/24 Isosorbide Dinitrate 30 mg PO BID 06/12/24 Lisinopril [Zestril] 30 mg PO DAILY 06/12/24 Metoprolol Succinate [Toprol Xl*] 25 mg PO DAILY 06/12/24 Tamsulosin [Flomax*] 0.4 mg PO DAILY 06/12/24 Ticagrelor [Brilinta*] 90 mg PO BID 06/12/24 - Past Medical/Surgical History Diabetic: No -: Hypertension -: Hyperlipidemia -: CAD -: MIx2 stents -: cardiac cath - Family History Father Medical History: Heart disease, Hypertension, Stroke - Social History Smoking Status: Unknown if ever smoked Alcohol use: Yes CD- Drugs: Yes Caffeine use: Yes Place of Residence: Home Review of Systems General: Weakness Eyes: Unremarkable ENT: Unremarkable Respiratory: Unremarkable Cardiovascular: As per HPI Gastrointestinal: Unremarkable Genitourinary: As per HPI Musculoskeletal: Unremarkable Integumentary: Unremarkable Neurological: Unremarkable Lymphatics: Unremarkable Physical Examination Temp Pulse Resp BP Pulse Ox 97.1 F 69 20 95/64 99 06/12/24 08:00 06/12/24 09:31 06/12/24 08:00 06/12/24 09:31 06/12/24 08:00 General: Alert, In no apparent distress HEENT: Atraumatic, Normocephalic Neck: Supple Respiratory: Clear to auscultation bilaterally, Normal air movement Cardiovascular: No edema, Regular rate/rhythm Gastrointestinal: Soft and benign, Non-distended, No tenderness Musculoskeletal: No swelling, No contractures Integumentary: No rashes Neurological: Normal speech, Normal tone, Normal affect Laboratory Data (last 24 hrs) 06/11/24 06/11/24 20:14 20:14 WBC 13.90 H Hgb 10.7 L Hct 35.0 L Plt Count 232 Sodium 135 L Potassium 3.3 L BUN 63 H Creatinine 3.63 H Glucose 104 Total Bilirubin 0.6 AST < 10 L ALT < 14 L Alkaline Phosphatase 73 Lipase 37 Conclusions/Impression: A/P) 1. Stage II YAIMA 2nd to pre-renal state, relative hypotension, concurrent mod ACEi use and heat exertion but hopefully more of a functional YAIMA than intrinsic with UOP improving and Cr level downward trending 2. Cont IVF hydration with isotonic IVF 3. Hypokalemia 2nd to renal/other losses -replete 4. Abnormal findings in urine, unspecified. Microscopic hematuria. In the setting of YAIMA, BPH, some punctuate calculi. CT scan did not show any hydro or masses. Repeat UA in two weeks to document clearance, if persistent hematuria persists, will w/u. 5. BPH with LUTs -check PVR, cont alpha julia Thank you for this referral, Max Lobo MD, [facility]
[2024-06-12] MEDS: PNEUMOCOCCAL VACCINE 0.5 ML IMVAC ONE (13:00)
[2024-06-12 17:22] VITALS: O2SAT 95
[2024-06-13 06:32] LABS: Absolute Eosinophils 0.3 K/uL (0-0.5); Absolute Lymphocytes (CBC) 1.6 K/uL (0.7-4.9); Absolute Monocytes 0.6 K/uL (0.1-1.3); Absolute Neutrophil 4.9 K/uL (1.8-8.0); Basophils % 0.7 % (0-1.3); Eosinophils % 3.9 % (0-4.4); Hematocrit 32.3 % (39.6-49.0); MCV 70.8 fL (80-100); MPV 8.7 fL (7.6-11.3); Monocytes % 8.6 % (3.3-12.3); Neutrophils % 65.8 % (41.7-73.7); Platelets 217 thou/uL (152-406); RBC Red Blood Cell Count 4.56 M/uL (4.33-5.43); Red Cell Distribution Width 18.9 % (12.1-15.2)
[2024-06-13 07:11] LABS: Albumin 2.7 g/dL (3.4-5.0)
[2024-06-13 07:20] LABS: Anion Gap 8.4 mEq/L (5.0-15.0); Potassium 4.4 mEq/L (3.5-5.1)
--- NOTE | 2024-06-13 09:02 | P.DS ---
Admission Date: 06/11/24 Discharge Date: 06/13/24 Reason for Admission: Elevated renal parameters Consultations: Dr. Mcdonald/Dr. Lobo Brief History of Present Illness: 69 yrs old Male with past medical history of hypertension, hyperlipidemia, CAD, status post PCI, neuropathy, who was brought to ER with decreased appetite and generalized weakness associated with dysuria and painful micturition and difficulty in her evacuation bladder and decreased urinary stream which has been going on for the last few days and has been progressively getting worse and was brought to ER. Denies any fever or chills. No nausea vomiting or diarrhea. Patient also complains of some hematuria. Denies any chest pain or shortness of breath. Patient was assessed in the ER and is admitted for further management of acute renal failure and prostatomegaly Hospital Course: Jolynn is a 69-year-old gentleman who came in with heat exhaustion and prerenal YAIMA. Upon his evaluation, he was also noted to have a urinary tract infection. His renal function has returned to normal (creatinine from 3.63 to 1.3) after IV fluids and he will continue Levaquin x 7 days on an outpatient basis. He states he is feeling back to normal, taking p.o. fluids, and is aware he should avoid heat for at least the next week. He is to follow-up with Jessica Barrett his PCP and also Dr. Lobo in 1 to 2 weeks. <Saira Mckay - Last Filed: 06/13/24 09:06> Admission Date: 06/11/24 Discharge Date: 06/13/24 Hospital Course: Pt seen and examined. I agree with the note by the PHD INTERN. Ok to discharge pt with levaquin for 7 days. F/U with PCP within 1 - 2 weeks <Shirin Calzada - Last Filed: 06/13/24 14:00> Disposition: ROUTINE DISCHARGE Discharge Condition: GOOD Vital Signs/Physical Exam: Temp Pulse Resp BP Pulse Ox 97.0 F 68 18 111/60 98 06/13/24 04:00 06/13/24 04:00 06/13/24 04:00 06/13/24 04:00 06/13/24 04:00 General: Alert, In no apparent distress, Oriented x3 HEENT: Atraumatic, Normocephalic Neck: Supple Respiratory: Clear to auscultation bilaterally, Normal air movement Cardiovascular: Normal pulses, Regular rate/rhythm Capillary refill: <2 Seconds Gastrointestinal: Soft and benign Musculoskeletal: No clubbing Integumentary: No rashes Neurological: Normal speech, Normal tone, Normal affect Lymphatics: No axilla or inguinal lymphadenopathy External genitalia: Deferred Rectal: Deferred Laboratory Data at Discharge: WBC 7.40 thou/uL (4.3-10.9) 06/13/24 06:14 Hgb 10.0 g/dL (13.6-17.9) L 06/13/24 06:14 Hct 32.3 % (39.6-49.0) L 06/13/24 06:14 Plt Count 217 thou/uL (152-406) 06/13/24 06:14 Sodium 140 mEq/L (136-145) 06/13/24 06:14 Potassium 4.4 mEq/L (3.5-5.1) D 06/13/24 06:14 BUN 25 mg/dL (7-18) H 06/13/24 06:14 Creatinine 1.30 mg/dL (0.70-1.30) 06/13/24 06:14 Glucose 106 mg/dL (74-106) 06/13/24 06:14 Phosphorus 2.0 mg/dL (2.5-4.9) L 06/13/24 06:14 Magnesium 2.0 mg/dL (1.6-2.4) 06/13/24 06:14 Total Bilirubin 0.4 mg/dL (0.2-1.0) 06/12/24 06:42 AST < 10 U/L (15-37) L 06/12/24 06:42 ALT < 14 U/L (16-61) L 06/12/24 06:42 Alkaline Phosphatase 67 U/L (45-117) 06/12/24 06:42 Triglycerides 78 mg/dL (<150) 06/13/24 06:14 Cholesterol 100 mg/dL (<200) 06/13/24 06:14 HDL Cholesterol 39 mg/dL (40-60) L 06/13/24 06:14 Cholesterol/HDL Ratio 2.56 06/13/24 06:14 Lipase 37 U/L (13-75) 06/11/24 20:14 <Mckay,Saira Bridger - Last Filed: 06/13/24 09:06> Vital Signs/Physical Exam: Temp Pulse Resp BP Pulse Ox 97.7 F 60 16 114/59 L 95 06/13/24 08:00 06/13/24 08:00 06/13/24 08:00 06/13/24 08:00 06/13/24 08:00 Laboratory Data at Discharge: WBC 7.40 thou/uL (4.3-10.9) 06/13/24 06:14 Hgb 10.0 g/dL (13.6-17.9) L 06/13/24 06:14 Hct 32.3 % (39.6-49.0) L 06/13/24 06:14 Plt Count 217 thou/uL (152-406) 06/13/24 06:14 Sodium 140 mEq/L (136-145) 06/13/24 06:14 Potassium 4.4 mEq/L (3.5-5.1) D 06/13/24 06:14 BUN 25 mg/dL (7-18) H 06/13/24 06:14 Creatinine 1.30 mg/dL (0.70-1.30) 06/13/24 06:14 Glucose 106 mg/dL (74-106) 06/13/24 06:14 Phosphorus 2.0 mg/dL (2.5-4.9) L 06/13/24 06:14 Magnesium 2.0 mg/dL (1.6-2.4) 06/13/24 06:14 Total Bilirubin 0.4 mg/dL (0.2-1.0) 06/12/24 06:42 AST < 10 U/L (15-37) L 06/12/24 06:42 ALT < 14 U/L (16-61) L 06/12/24 06:42 Alkaline Phosphatase 67 U/L (45-117) 06/12/24 06:42 Triglycerides 78 mg/dL (<150) 06/13/24 06:14 Cholesterol 100 mg/dL (<200) 06/13/24 06:14 HDL Cholesterol 39 mg/dL (40-60) L 06/13/24 06:14 Cholesterol/HDL Ratio 2.56 06/13/24 06:14 Lipase 37 U/L (13-75) 06/11/24 20:14 <Maurilio Calzadamateo Ramos - Last Filed: 06/13/24 14:00> Diet: Renal Activity: Fall precautions <Saira Mckay - Last Filed: 06/13/24 09:06> <Maurilio Calzadamateo Ramos - Last Filed: 06/13/24 14:00> Home Medications: Atorvastatin Calcium [Lipitor] 40 mg PO DAILY 06/12/24 Esomeprazole Magnesium 40 mg PO DAILY 06/12/24 Fluoxetine HCl [Prozac] 40 mg PO DAILY 06/12/24 Gabapentin [Neurontin*] 100 mg PO TID 06/12/24 Isosorbide Dinitrate 30 mg PO BID 06/12/24 Metoprolol Succinate [Toprol Xl*] 25 mg PO DAILY 06/12/24 Tamsulosin [Flomax*] 0.4 mg PO DAILY 06/12/24 Ticagrelor [Brilinta*] 90 mg PO BID 06/12/24 levoFLOXacin [Levaquin] 500 mg PO DAILY #7 tab 06/13/24 New Medications: levoFLOXacin [Levaquin] 500 mg PO DAILY #7 tab Physician Discharge Instructions: Jolynn is a 69-year-old gentleman who came in with heat exhaustion and prerenal YAIMA. Upon his evaluation, he was also noted to have a urinary tract infection. His renal function has returned to normal (creatinine from 3.63 to 1.3) after IV fluids and he will continue Levaquin x 7 days on an outpatient basis. He states he is feeling back to normal, taking p.o. fluids, and is aware he should avoid heat for at least the next week. He is to follow-up with Jessica Barrett his PCP and also Dr. Lobo in 1 to 2 weeks. -DC IV and DC home -liberal oral fluid intake, avoid heat -Follow-up with PCP in 1 to 2 weeks -Follow-up with Nephrology in 1 to 2 weeks -Please call Dr. Hansen at [phone] if any questions regarding hospital stay -Please call nursing station at [phone] if any nursing or medication questions -Return to the emergency room if symptoms worsen Followup: Max Lobo [ACTIVE - CAN ADMIT] - 1-2 Weeks YAYO BARRETT [Primary Care Provider] - 1-2 Weeks
[2024-06-13] MEDS: ISOSORBIDE MONO SR 30 MG TAB PO SCH (09:23)
[2024-06-13] MEDS: POTASS/SODIUM PHOSPHATE 1 PKT POWD.PACK PO SCH (12:42)
[2024-06-13] MEDS: Levofloxacin 250mg IV 250 MG/50 ML BAG IV SCH (12:43)
[2024-06-13 14:08] VITALS: BP 125/76; TEMP 97.5
--- NOTE | 2024-06-13 21:54 | P.PN ---
Date of Service: 06/13/24 Vital Signs Temp Pulse Resp BP Pulse Ox 97.5 F 62 16 125/76 98 06/13/24 12:00 06/13/24 12:00 06/13/24 12:00 06/13/24 12:00 06/13/24 12:00 Assessment/ Plan: Nephrology No dyspnea No chest pain No acute events overnight Vitals, medications, blood work and imaging reviewed in the chart NAD. MMM. NCAT. Normal Respiratory Effort. S1S2. ND Abd. No C/C/E. No rash. AAO. Normal speech. Stage II YAIMA Proteinuria -No NSAIDs Hypokalemia -Replete prn Hypophosphatemia -Encourage nutrition Hypoalbuminemia -Consider protein supplementation Microcytic anemia Hx iron deficiency -Consider IV Iron BPH with LUTS -Continue flomax
[2024-06-14] MEDS ORDERED: Levofloxacin500mg IV 500 MG/100 ML BAG IV SCH (09:00)
== END 2024-06-13 14:31 | disposition home or self-care (01) | DRG 683 ==
LOC: ER 18:54 → 2ND 23:25
PROVIDERS: ADMIT Family Medicine; ATTEND Hospitalist
DX: N17.9 Acute kidney failure, unspecified (principal); N30.01 Acute cystitis with hematuria; R65.10 Systemic inflammatory response syndrome (SIRS) of non-infectious origin without acute organ dysfunction; T67.5XXA Heat exhaustion, unspecified, initial encounter; E86.0 Dehydration; G62.9 Polyneuropathy, unspecified; I12.9 Hypertensive chronic kidney disease with stage 1 through stage 4 chronic kidney disease, or unspecified chronic kidney disease; N18.2 Chronic kidney disease, stage 2 (mild); D63.1 Anemia in chronic kidney disease; D50.9 Iron deficiency anemia, unspecified; N40.1 Benign prostatic hyperplasia with lower urinary tract symptoms; E78.00 Pure hypercholesterolemia, unspecified; E88.09 Other disorders of plasma-protein metabolism, not elsewhere classified; E83.39 Other disorders of phosphorus metabolism; I25.10 Atherosclerotic heart disease of native coronary artery without angina pectoris; I25.2 Old myocardial infarction; Z88.0 Allergy status to penicillin; Z95.1 Presence of aortocoronary bypass graft; Z95.5 Presence of coronary angioplasty implant and graft; Z79.82 Long term (current) use of aspirin; Z11.52 Encounter for screening for COVID-19; Z79.899 Other long term (current) drug therapy
CPT/HCPCS: 36415; 74176; 80053; 80061; 80069; 81001; 82550; 83036; 83690; 83735; 85025; 87045; 87046; 87811; 96365; 99285; J0696; J7030

== ENCOUNTER 2024-10-05 10:46 | Emergency (ER) | payer OTHER ==
--- OUTSIDE RECORDS SUMMARY | 2024-10-05 10:51 | XMS REPORT | Continuity of Care Document ---
Author Name Unknown Address [address] [facility] [address] [place] [address] [facility] thconnect Address [address] [facility] 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 Name Role Phone MILLER BARRETT Primary Care Physician Unav ailable Mohini Barrett Attending Clinician UnavailMEKHI Mcwilliams Attending Clinician Unavailable Gurpreet Benítez Attending Clinician Unavailable Gerri Boland RN Attending Clinician Unavailable LORENZA SMITH Attending Clinician Unavailable Jeffrey Lara MD Attending Clinician [phone] Lorenza Smith DO Attending Clinician [phone] GONZALES Attending Clinician Unavailable 2, [facility] Attending Clinician Unavailable Mekhi Zamudio MD Attending Clinician [phone] Doctor Unassigned, [place] Attending Clinician U navailable Bruna Valenzuela Attending Clinician [phone] BRUNA MONAHAN Attending Clinician Unavailable Only, Ad[facility] Test Attending Clinician Unavailable Juan Daugherty MD Attending Clinician [phone] JUAN DAUGHERTY Attending Clinician Unavaileduardo e Referred, Self Admitting Clinician Unavailable LORENZA SMITH Admitting Clinician Unavailable Lorenza Smith DO Admitting Clinician [phone] GONZALES Admitting Clinician Unavailable BRUNA MONAHAN Admitting Clinician Unavailable Payers Payer Name Policy Type Policy Number Effective Date Expirati on Date Source MEDICARE PART A \T\ B [id number] 2009 00:00:00 Problems Condition Name Condition Details Condition Category Status Onset Date Resolution Date Last Treatment Date Treating Clinician Comments Source 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 Essential hypertensi on Essential hypertensi on Disease Active 06-21 00:00: 00 [facility] Dyslipidem ia Dyslipidem ia Disease Active 06-21 00:00: 00 [facility] Elevated brain natriureti c peptide (BNP) level Elevated brain natriureti c peptide (BNP) level Disease Active 06-21 00:00: 00 [facility] Morbid obesity Morbid obesity Disease Active 06-21 00:00: 00 [facility] NSVT (nonsustai megan ventricula r tachycardi a) NSVT (nonsustai megan ventricula r tachycardi a) Disease Active 06-21 00:00: 00 [facility] Chest pain, unspecifie d type Chest pain, unspecifie d type Disease Active 06-19 00:00: 00 [facility] No known active problems No known active problems Disease [facility] Primary osteoarthr itis of right knee Primary osteoarthr itis of right knee Problem Active [facility] Carpal tunnel syndrome of right wrist Carpal tunnel syndrome of right wrist Problem Active [facility] Allergies, Adverse Reactions, Alerts Allergy Name Allergy Type Status Severity Reaction(s) Onset Date Inactive Date Treating Clinician Comments Source Penicill ins DA Active SV RASH, SWELLING 06-27 00:00: 00 [facility] PENICILL IN DRUG INGREDI Active Swelling 06-19 00:00: 00 [facility] Penicill in Propensi ty to adverse reaction s Active Swelling 06-19 00:00: 00 [facility] penicill in Adverse Reaction Active Info Not Available [facility] NO KNOWN ALLERGIE S Drug Class Active [facility] Social History Social Habit Start Date Stop Date Quantity Comments Source History of tobacco use Cigarette Smoker [facility] Exposure to SARS-CoV-2 (event) 2022-06-09 00:00:00 2022-06-19 19:09:00 Not sure [facility] Tobacco use and exposure 2022-06-19 00:00:00 2022-06-19 00:00:00 Smokeless tobacco non-user [facility] Education 2022-06-19 00:00:00 2022-06-19 00:00:00 14 [facility] Sex Assigned At 1955 00:00:00 1955 00:00:00 [facility] Smoking Status Start Date Stop Date Source Ex-smoker 2022-06-19 00:00:00 2022-06-19 [facility]00[facility] Ordered Medication Name Filled Medication Name Start Date Stop Date Current Medication? Ordering Clinician Indication Dosage Frequency Signature (SIG) Comments Components Source docusate 100 mg capsule 06-22 00:00: 00 07-23 04:59 :00 No [id number] 100mg Take 1 capsule by mouth in the morning for [address] [facility] aspirin 81 mg EC tablet 06-22 00:00: 00 07-23 04:59 :00 No [id number] 81mg Take 1 tablet by mouth in the morning for [address] [facility] FLUoxetine 40 mg capsule 06-21 14:27: 59 Yes 40mg Take 40 mg by mouth daily. [facility] esomeprazol e 40 mg capsule 06-21 14:27: 59 Yes 40mg Take 40 mg by mouth daily with breakfast. [facility] aspirin EC tablet 81 mg 06-21 14:00: 00 Yes 81mg 81 mg, Oral, DAILY, First dose on 06/21/22 at 0900, Until Discontinu ed, Routine [facility] atorvastati n (LIPITOR) tablet 80 mg 06-21 02:00: 00 Yes 80mg 80 mg, Oral, QHS, First dose on Thu06/20/22 at 2100, Until Discontinu ed, Routine
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 isosorbide mononitrate (IMDUR) 24 hr tablet 30 mg 06-21 01:00: 00 Yes 30mg 30 mg, Oral, BID, First dose on Thu06/20/22 at 1999, Until Discontinu ed, Routine [facility] metoprolol succinate XL (TOPROL XL) tablet 25 mg 06-21 01:00: 00 Yes 25mg 25 mg, Oral, BID, First dose (after last modificati on) on Thu06/20/22 at 1999, Until Discontinu ed, Routine [facility] ticagrelor (BRILINTA) tablet 90 mg 06-21 01:00: 00 Yes 90mg 90 mg, Oral, BID, First dose (after last modificati on) on Thu06/20/22 at 1999, Until Discontinu ed, Routine [facility] atorvastati n 80 mg tablet 06-21 00:00: 00 07-22 04:59 :00 No [id number] 80mg Take 1 tablet by mouth at bedtime for [address] [facility] ferrous sulfate 325 mg (65 mg iron) tablet 06-21 00:00: 00 07-22 04:59 :00 No [id number] 325mg Take 1 tablet by mouth in the morning for [address] [facility] isosorbide mononitrate 30 mg 24 hr tablet 06-21 00:00: 00 07-22 04:59 :00 No [id number] 30mg Take 1 tablet by mouth in the morning and 1 tablet in the evening. Do all this for [address] [facility] sulfur hexafluorid e microsphr (LUMASON) injection 5 mL 06-20 18:45: 00 06-20 18:45 :00 No [id number] 5mL 5 mL, Intravenou s, ONCE, 1 dose, On Thu06/20/22 at 1345, Routine
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 FLUoxetine (PROZAC) capsule 40 mg 06-20 14:00: 00 Yes 40mg 40 mg, Oral, DAILY, First dose on Thu06/20/22 at 0900, Until Discontinu ed, Routine [facility] tamsulosin (FLOMAX) capsule 0.4 mg 06-20 14:00: 00 Yes .4mg 0.4 mg, Oral, DAILY, First dose on Thu06/20/22 at 0900, Until Discontinu ed, Routine [facility] docusate (COLACE) capsule 100 mg 06-20 14:00: 00 Yes 100mg 100 mg, Oral, DAILY, First dose on Thu06/20/22 at 0900, Until Discontinu ed, Routine [facility] enoxaparin (LOVENOX) injection 40 mg 06-20 14:00: 00 Yes 40mg 40 mg, Subcutaneo us, DAILY, First dose on Thu06/20/22 at 0900, Until Discontinu ed, Routine [facility] ticagrelor (BRILINTA) tablet 90 mg 06-20 14:00: 00 06-20 19:37 :36 No 90mg 90 mg, Oral, DAILY, First dose on Thu06/20/22 at 0900, Until Discontinu ed, Routine [facility] pravastatin (PRAVACHOL) tablet 40 mg 06-20 14:00: 00 06-20 19:37 :36 No 40mg 40 mg, Oral, DAILY, First dose on Thu06/20/22 at 0900, Until Discontinu ed, Routine [facility] metoprolol succinate XL (TOPROL XL) tablet 25 mg 06-20 14:00: 00 06-20 19:37 :36 No 25mg 25 mg, Oral, DAILY, First dose on Thu06/20/22 at 0900, Until Discontinu ed, Routine [facility] gabapentin (NEURONTIN) capsule 100 mg 06-20 13:00: 00 Yes 100mg 100 mg, Oral, TID, First dose on Thu06/20/22 at 0800, Until Discontinu ed, Routine [facility] maalox:diph enhydrAMINE :lidocaine 2 % viscous 1:1:1 (FIRST-MOUT HWASH BLM) oral suspension 15 mL 06-20 06:00: 00 06-20 05:19 :00 No 15mL 15 mL, Oral, ONCE, 1 dose, On Thu06/20/22 at 0100, Routine [facility] HYDROcodone -acetaminop hen (NORCO 5) 5-325 mg tablet 1 tablet 06-19 23:25: 46 06-21 23:24 :46 No 1{tbl} 1 tablet, Oral, Q6HPRN, Starting on Thu06/19/22 at 1825, Until 06/21/22 at 1824, Routine, Pain (scale 4-6) [facility] acetaminoph en (TYLENOL) tablet 650 mg 06-19 23:25: 40 Yes 650mg 650 mg, Oral, Q6HPRN, Starting on Thu06/19/22 at 1825, Until Discontinu ed, Routine, Pain (scale 1-3) [facility] FLUoxetine 40 mg capsule 07-18 14:26: 40 Yes 40mg Take 40 mg by mouth daily. [facility] esomeprazol e (NEXIUM) 40 mg capsule 07-18 14:26: 40 Yes 40mg Take 40 mg by mouth daily with breakfast. [facility] gabapentin 100 mg capsule 07-15 00:00: 00 Yes TAKE 1 CAPSULE BY MOUTH THREE TIMES DAILY FOR NUMB FEET [facility] metoprolol succinate XL 25 mg 24 hr tablet 07-15 00:00: 00 Yes 25mg Take 25 mg by mouth daily. [facility] BRILINTA 60 mg Tab 07-01 00:00: 00 Yes 1{tbl} Take 1 tablet by mouth 2 (two) times daily. [facility] TICAGRELOR 90 mg tablet 07-01 00:00: 00 Yes 1{tbl} Take 1 tablet by mouth in the morning. [facility] lisinopriL 30 mg tablet 07-01 00:00: 00 Yes 30mg Take 30 mg by mouth daily. [facility] tamsulosin 0.4 mg 24 hr capsule 06-07 00:00: [address] [facility] pravastatin 40 mg tablet 05-28 00:00: 00 Yes 40mg Take 40 mg by mouth daily. [facility] Pravastatin Sodium Pravastatin Sodium 06-01 00:00: 00 Yes Alessandro Vasquez 1 tablet [facility] Flomax Flomax 06-01 00:00: 00 Yes Alessandro Vasquez 1 capsule [facility] Brilinta Brilinta 06-01 00:00: 00 Yes Alessandro Vasquez 1 tablet [facility] Prozac Prozac 06-01 00:00: 00 Yes Alessandro Vasquez 2 tab [facility] Nexium Nexium 06-01 00:00: 00 Yes Alessandro Vasquez 1 capsule [facility] Metoprolol Succinate Metoprolol Succinate 06-01 00:00: 00 Yes Alessandro Vasquez not defined [facility] Lisinopril Lisinopril 06-01 00:00: 00 Yes Alessandro Vasquez 1 tablet [facility] Acetaminoph en-Codeine #3 Acetaminoph en-Codeine #3 Yes Alessandro Vasquez not defined [facility] MethylPREDN ISolone MethylPREDN ISolone Yes Alessandro Vasquez not defined [facility] Fluoxetine HCl Fluoxetine HCl Yes Alessandro Vasquez not defined [facility] Amitriptyli ne HCl Amitriptyli ne HCl Yes Alessandro Vasquez not defined [facility] Vital Signs Vital Name Observation Time Observation Value Comments Cheri arriola Systolic blood pressure 2022-06-21 12:39:00 122 mm[Hg] [facility] Diastolic blood pressure 2022-06-21 12:39:00 68 mm[Hg] [facility] Heart rate 2022-06-21 12:39:00 54 /min [facility] Body temperature 2022-06-21 12:39:00 36.44 Sidra [facility] Respiratory rate 2022-06-21 12:39:00 14 /min [facility] Oxygen saturation in Arterial blood by Pulse oximetry 2022-06-21 12:39:00 95 /min [facility] Body weight 2022-06-21 08:20:00 125.465 kg [facility] BMI 2022-06-21 08:20:00 43.32 kg/m2 [facility] Body height 2022-06-20 00:19:00 170.2 cm [facility] Systolic blood pressure 2022-02-24 14:25:00 102 mm[Hg] [facility] Diastolic blood pressure 2022-02-24 14:25:00 70 mm[Hg] [facility] Heart rate 2022-02-24 14:25:00 76 /min [facility] Respiratory rate 2022-02-24 14:25:00 18 /min [facility] Body height 2022-02-24 14:25:00 170.2 cm [facility] Body weight 2022-02-24 14:25:00 127.461 kg [facility] BMI 2022-02-24 14:25:00 44.01 kg/m2 [facility] Oxygen saturation in Arterial blood by Pulse oximetry 2022-02-24 14:25:00 98 /min [facility] Procedures Procedure Date / Time Performed Performing Clinician Source FERRITIN SERUM 2022-06-21 09:38:00 Bhanu Cain [facility] TROPONIN I 2022-06-21 09:38:00 Bhanu Cain [facility] IRON PANEL 2022-06-21 09:38:00 Bhanu Cain [facility] TROPONIN I 2022-06-20 21:14:00 Bhanu Cain [facility] MAGNESIUM 2022-06-20 09:42:00 Bhanu Cain [facility] TROPONIN I 2022-06-20 09:42:00 Bhanu Cain [facility] THYROID STIMULATING HORMONE 2022-06-20 09:42:00 Bhanu Cain [facility] BASIC METABOLIC PANEL (NA, K, CL, CO2, GLUCOSE, BUN, CREATININE, CA) 2022-06-20 09:42:00 Bhanu Cain [facility] CBC WITH DIFF 2022-06-20 09:42:[address] [facility] TROPONIN I 2022-06-20 02:17:00 Bhanu Cain [facility] LIPID PANEL ([id number])(TOTAL CHOLESTEROL, TRIGLYCERIDES, HDL) 2022-06-20 02:17:00 Patricia Fagan [facility] XR CHEST 1 VW 2022-06-19 21:18:27 Jeffrey Lara [facility] TROPONIN I 2022-06-19 21:11:00 Jeffrey Lara [facility] COMP. METABOLIC PANEL ([id number]) 2022-06-19 21:11:00 Jeffrey Lara [facility] CBC WITH DIFF 2022-06-19 21:11:00 Jeffrey Lara [facility] PROTHROMBIN TIME / INR 2022-06-19 21:11:00 Mario Lara [facility] ACTIVATED PARTIAL THRMPLAS DIDIER 2022-06-19 21:11:00 Jeffrey Lara [facility] N-TERMINAL PRO-BNP 2022-06-19 21:11:00 Jeffrey Lara [facility] COVID-19 (ID NOW RAPID TESTING) 2022-06-19 21:11:00 Jeffrey Lara [facility] LAB ONLY COVID INTERPRETATION 2022-06-19 21:11:00 Jeffrey Lara [facility] HB ECG ROUTINE & RHYTHM STRIP 2022-06-19 20:40:50 Jeffrey Lara [facility] CONSENT/REFUSAL FOR DIAGNOSIS AND TREATMENT 2022-06-19 20:34:15 Doctor Unassigned, [place] [facility] Encounters Start Date/Time End Date/Time Encounter Type Admission Type Attending [facility] Care Department Encounter ID Source 2021-11-13 10:58:49 Outpatient ColtonNikitai [facility] [id number] [facility] 2024-09-28 10:48:01 2024-09-28 10:48:01 Outpatient [facility]FA [facility] [id number] Goldy Hernandez 2024-06-29 10:37:24 2024-06-29 10:37:24 Outpatient SFA SFA [id number] Goldy Hernandez 2024-04-18 14:52:51 2024-04-18 14:52:51 Outpatient SFA SFA [id number] Goldy Hernandez 2024-03-15 11:00:42 2024-03-15 11:00:42 Outpatient SFA SFA [id number] Goldy Hernandez 2024-02-02 14:57:11 2024-02-02 14:57:11 Outpatient SFA SFA [id number] Goldy Hernandez 2024-01-26 15:22:09 2024-01-26 15:22:09 Outpatient SFA SFA [id number] Goldy Hernandez 2023-09-29 14:28:19 2023-09-29 14:28:19 Outpatient SFA SFA [id number] Goldy Hernandez 2023-05-04 14:10:12 2023-05-04 14:10:12 Outpatient SFA SFA [id number] Goldy Hernandez 2023-04-10 08:58:41 2023-04-10 08:58:41 Outpatient SFA SFA [id number] Goldy Hernandez 2023-04-03 16:42:57 2023-04-03 16:42:57 Outpatient SFA SFA [id number] Golyd Hernandez 2022-08-27 00:00:00 2022-08-27 00:00:00 Outpatient MEKHI MOLINA [facility] [id number] [facility] 2022-07-09 05:05:00 2022-07-09 05:05:00 [id number] [id number] 2022-06-24 00:00:00 2022-06-24 00:00:00 Transition of Care Gerri Boland 1..840.114 350.1.13.10 4.2.7.2.[id number] [facility] 2022-06-19 15:47:00 2022-06-21 14:18:00 Outpatient LORENZA [facility] [id number] [facility] 2022-06-19 15:47:00 2022-06-21 14:18:00 Emergency Jeffrey Lara David [facility] 1..840.114 350.1.13.10 4.2.7.2.[id number] 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 2022-02-24 09:15:00 2022-02-24 10:08:38 Outpatient R ROBB [facility] [id number] [facility] 2022-02-24 09:15:00 2022-02-24 10:08:38 Office Visit Robb [facility] 1..840.114 350.1.13.10 4.2.7.2.[id number] [facility] 2022-02-24 00:00:00 2022-02-24 00:00:00 Orders Only Doctor Unassigned, [place] [facility] 1.2.840.114 350.1.13.10 4.2.7.2.[id number] [facility] 2021-12-30 11:30:00 2021-12-30 11:30:00 Outpatient R ROBB [facility] [id number] [facility] 2021-08-20 11:22:46 2021-08-20 23:59:00 Hospital Encounter Bruna Monahan [facility] [id number] 350.1.13.10 4.2.7.2.[id number] [facility] 2021-08-20 11:22:46 2021-08-20 23:59:00 Outpatient R BRUNA MONAHAN [facility] [id number] 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 2021-07-18 13:54:19 2021-07-18 14:51:57 Office Visit [facility] 1.2.840.114 350.1.13.10 4.2.7.2.[id number] [facility] 2021-07-18 14:30:00 2021-07-18 14:30:00 Outpatient R ROBB [facility] [id number] [facility] 2021-07-18 00:00:00 2021-07-18 00:00:00 Orders Only Doctor Unassigned, [place] [facility] 1.2.840.114 350.1.13.10 4.2.7.2.[id number] [facility] 2020-12-26 11:08:15 2020-12-26 11:23:15 Laboratory Only Only, Adc Test [facility] 1.2.840.114 350.1.13.10 4.2.7.2.686 [id number] 2020-12-26 11:08:15 2020-12-26 11:23:15 Laboratory Only Only, Adc Test Juan Daugherty [facility] 1.2.840.114 350.1.13.10 4.2.7.2.[id number] [facility] 2020-12-26 11:00:00 2020-12-26 11:00:00 Outpatient JUAN HUGGINS [facility] [id number] [facility] 2020-12-26 00:00:00 2020-12-26 00:00:00 Orders Only Doctor Unassigned, [place] [facility] 1.2.840.114 350.1.13.10 4.2.7.2.686 [id number] 2020-12-26 00:00:00 2020-12-26 00:00:00 Orders Only Doctor Unassigned, [place] [facility] 1.2.840.114 350.1.13.10 4.2.7.2.[id number] [facility] 2019-10-17 16:23:00 2019-10-17 16:23:00 Outpatient [facility] [id number] [facility] 2019-09-19 14:33:00 2019-09-19 14:33:00 [facility] [id number] [facility] 2019-09-09 09:00:00 2019-09-09 09:00:00 Outpatient [facility] [id number] [facility] 2019-08-23 13:30:00 2019-08-23 13:30:00 [facility] [id number] [facility] 2019-08-01 08:00:00 2019-08-01 08:00:00 Outpatient [facility] [id number] [facility] 2018-06-01 10:30:00 2018-06-01 10:30:00 Outpatient [facility] [id number] [facility] Results Test Description Test Time Test Comments Results Result Co mments Source [id number] 09:27:00* Test Item Value Reference Range Interpretation Comme nts ACT-ISTAT (test code = ACTI) 306 SEC 74-137 H 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 at [facility] CBC W/AUTO [id number] 13:11:00* Test Item Value Reference Range Interpretation [...] (test c ode = MDIFF) NO RBC [id number] 13:11:00* Test Item Value Reference Range Interpretation Comme nts ANISOCYTOSIS (test code = ANISO) 2+ POIKILOCYTOSIS (test code = POIK) 1+ MICROCYTOSIS (test code = MICR) 1+ ELLIPTOCYTES (test code = ELL) 1+ BASIC METABOLIC [id number] 11:54:00* Test Item Value Reference Range Interpretation [...] = CA) 9.2 mg/dL 8.0-10.5 N PROTHROMBIN [id number] 11:53:00* Test Item Value Reference Range Interpretation [...] prevent recurrent infarct). - XR CHEST 2 [id number] 00:00:00 [facility] : 1955 Sex: M FAX: Gurpreet Christianson MD [phone] [place]: St: PRE Name: ELMER BLOUNT [facility] : 1955 Age/S: 67/M [address] [place] [address] Unit #: [id number] Loc: [place] [address] Phys: Gurpreet Benítez MD Acct:[id number] Dis Date: Status: PRE SDC PHONE #: [phone] Exam Date: 07/07/2022 1245 FAX #: [phone] Reason: PREOP EXAMS: CPT CODE: [id number] XR CHEST 2 V 42333 PROCEDURE INFORMATION: Exam: XR Chest Exam date and time: 07/07/2022 12:40 PM Age: 67 years old Clinical indication: Pre-operativeexam; Respiratory screening exam; Additional info: Preop TECHNIQUE: [...] MD Technologist: RT Laurel(R) Trnscrd Date/Time/By: 07/07/2022 (1402) : By: [email or web address] Orig Print D/T: S: 07/07/2022 (4719) PAGE 1 Signed Report
--- NOTE | 2024-10-05 11:48 | RAD REPORT ---
EXAM: CT brain without contrast HISTORY: DIZZINESS COMPARISON: None TECHNIQUE: Multiple contiguous axial images were obtained and a CT of the brain without contrast. Sag ittal and coronal reformats were performed. One or more of the following dose reduction techniques were used: Automated exposure control, adjust ment of the mA and/or kV according to patient size, and/or iterative reconstruction. FINDINGS: No evidence of hydrocephalus, intracranial hemorrhage, or extra-axial fluid collection. Mild brain atrophy with mild periventricular and deep white matter chronic microvascular ischemic ch anges present. No evidence of midline shift or areas of brain edema. The calvarium is intact. The visualized paranasal sinuses and mastoid air cells are essentially clear . 5 mm osteoma noted left ethmoid air cells. IMPRESSION: No evidence of acute intracranial abnormality.
--- NOTE | 2024-10-05 12:12 | RAD REPORT ---
EXAMINATION: ONE VIEW CHEST XR CLINICAL INDICATION: dizziness TECHNIQUE: Frontal chest projection is submitted. Examination is limited by patient positioning and t echnique. COMPARISON: 01/02/2024 FINDINGS: The lungs are well inflated and clear. The heart is upper limit of normal in size. No displaced fract ures identified. IMPRESSION: No acute intrathoracic abnormalities.
[2024-10-05] MEDS ORDERED: NA CHLORIDE 0.9% 500 ML ONE (12:15)
--- NOTE | 2024-10-05 12:17 | RAD REPORT ---
EXAMINATION: XR LEFT SHOULDER CLINICAL INDICATION: Male, 69 years old. PAIN TECHNIQUE: Multiple views of the left shoulder were obtained. COMPARISON: 07/03/2016 FINDINGS: Moderate AC joint degenerative changes are present with small osteophytes projecting inferi sakina. Slightly high riding humeral head suggests possible underlying rotator cuff tear. Mild glenohumeral arthritic changes. No fracture, dislocation or AVN.
[2024-10-05 12:18] LABS: Absolute Eosinophils 0.3 K/uL (0-0.5); Absolute Lymphocytes (CBC) 1.4 K/uL (0.7-4.9); Absolute Monocytes 0.5 K/uL (0.1-1.3); Absolute Neutrophil 3.2 K/uL (1.8-8.0); Basophils % 0.5 % (0-1.3); Eosinophils % 5.1 % (0-4.4); Hematocrit 34.9 % (39.6-49.0); Hemoglobin 10.9 g/dL (13.6-17.9); MCH 22.6 pg (27.0-35.0); MCHC 31.1 g/dL (32.0-36.0); MCV 72.8 fL (80-100); MPV 8.3 fL (7.6-11.3); Monocytes % 8.9 % (3.3-12.3); Neutrophils % 59.5 % (41.7-73.7); Platelets 221 thou/uL (152-406); RBC Red Blood Cell Count 4.79 M/uL (4.33-5.43); Red Cell Distribution Width 17.8 % (12.1-15.2)
[2024-10-05 12:24] LABS: PT Prothrombin Time 12.2 SECONDS (9.4-12.5); PTT, Activated Partial Thromb 29.9 SECONDS (24.3-36.9); Protime INR 1.09
[2024-10-05 12:37] LABS: Albumin 3.1 g/dL (3.4-5.0); Albumin/Globulin Ratio 0.9 (1.1-1.8); Alkaline Phosphatase 66 U/L (45-117); Anion Gap 6.1 mEq/L (5.0-15.0); BUN Blood Urea Nitrogen 12 mg/dL (7-18); Bicarbonate 28 mEq/L (21-32); Bilirubin Total 0.3 mg/dL (0.2-1.0); Globulin 3.6 g/dL (2.3-3.5); Glomerular Filtration Rate 78 ml/min (=/>90); Glucose Level 93 mg/dL (74-106); Magnesium 2.2 mg/dL (1.6-2.4); Potassium 4.1 mEq/L (3.5-5.1); Protein, Total 6.7 g/dL (6.4-8.2); Sodium Level 137 mEq/L (136-145); Troponin High Sensitivity 7.4 pg/mL (<58.9)
[2024-10-05 12:38] LABS: ALT/SGPT < 14 U/L (16-61); AST/SGOT < 10 U/L (15-37); Bilirubin Direct < 0.2 mg/dL (0-0.2); Bilirubin Indirect, Calculated 0.1 mg/dL (0.2-0.8)
[2024-10-05 12:39] LABS: Sqamous Epithelial <5 /HPF (None Seen); Urine Bacteria None Seen /HPF (<20); Urine Bilirubin NEGATIVE (Negative); Urine Blood Negative (Negative); Urine Clarity Clear (Clear); Urine Color Yellow (Yellow); Urine Culture Reflex Order NOT NEEDED; Urine Glucose NEGATIVE (Negative); Urine Ketones NEGATIVE (Negative); Urine Microscopic Reflex YN ORDER UMIC; Urine Mucus 3+ /HPF (None Seen); Urine Nitrite NEGATIVE (Negative); Urine Protein TRACE (Negative); Urine RBC <5 /HPF (None Seen); Urine Urobilinogen Normal (Normal); Urine WBC <5 /HPF (<5)
--- NOTE | 2024-10-05 13:07 | ER ---
Nurse's Notes [facility] Name: Jose Neil Age: 69 yrs Sex: Male : 1955 Arrival Date: 10/05/2024 Time: 10:46 Bed 19 Private MD: Diagnosis: Dizziness and giddiness;Iron deficiency anemia, unspecified;Strain of muscle(s) and tendon(s) of the rotator cuff of left shoulder Presentation: 10/05 11:03 Chief complaint: Patient states: he started having nausea and light headedness this ap3 morning at approx 0600, and vomited X's1. patient denies any pain at this time. Coronavirus screen: At this time, the client does not indicate any symptoms associated with coronavirus-19. Ebola Screen: No symptoms or risks identified at this time. Initial Sepsis Screen: Does the patient meet any 2 criteria? No. Patient's initial sepsis screen is negative. Does the patient have a suspected source of infection? No. Patient's initial sepsis screen is negative. Risk Assessment: Do you want to hurt yourself or someone else? Patient reports no desire to harm self or others. Onset of symptoms was October 05, 2024 at 06:00. 11:03 Method Of Arrival: Ambulatory ap3 11:03 Acuity: ANGIE 3 ap3 Triage Assessment: 11:05 General: Appears in no apparent distress. Behavior is calm, cooperative, appropriate ap3 for age. Pain: Denies pain. Neuro: Level of Consciousness is awake, alert, obeys commands, Oriented to person, place, time, situation, Gait is steady, Speech is normal, Reports light headedness. Cardiovascular: Patient's skin is warm and dry. Respiratory: Airway is patent Respiratory effort is even, unlabored, Respiratory pattern is regular, symmetrical. GI: Reports nausea, vomiting. Historical: - Allergies: 11:05 PENICILLINS; ap3 - PMHx: 11:05 coronary atherosclerosis; High Cholesterol; Hypertension; Myocardial infarction; ap3 neuropathy; - PSHx: 11:05 Coronary Angioplasty; Stented artery; ap3 - Immunization history:: Client reports receiving the 2nd dose of the Covid vaccine, Flu vaccine is not up to date. - Infectious Disease History:: Denies. - Social history:: Smoking status: Patient denies any tobacco usage or history of. - Family history:: not pertinent. - Hospitalizations: : No recent hospitalization is reported. Screenin:06 Abuse screen: Denies threats or abuse. Nutritional screening: No deficits noted. ap3 Tuberculosis screening: No symptoms or risk factors identified. 13:40 [facility] ED Fall Risk Assessment (Adult) History of falling in the last 3 months, db including since admission No falls in past 3 months (0 pts) Confusion or Disorientation No (0 pts) Intoxicated or Sedated No (0 pts) Impaired Gait No (0 pts) Mobility Assist Device Used No (0 pt) Altered Elimination No (0 pt) Score/Fall Risk Level 0 - 2 = Low Risk Oriented to surroundings, Maintained a safe environment. Assessment: 11:00 Reassessment: Patient appears in no apparent distress at this time. Patient and/or db family updated on plan of care and expected duration. Pain level reassessed. Patient is alert, oriented x 3, equal unlabored respirations, skin warm/dry/pink. General: Appears in no apparent distress. comfortable, Behavior is calm, cooperative. Neuro: Level of Consciousness is awake, alert, obeys commands, Oriented to person, place, time, situation. Respiratory: Airway is patent Respiratory effort is even, unlabored, Respiratory pattern is regular, symmetrical. GI: Reports nausea, vomiting. 12:00 Reassessment: Patient appears in no apparent distress at this time. Patient and/or db family updated on plan of care and expected duration. Pain level reassessed. Patient is alert, oriented x 3, equal unlabored respirations, skin warm/dry/pink. GI:. 13:30 Reassessment: Patient appears in no apparent distress at this time. Patient and/or db family updated on plan of care and expected duration. Pain level reassessed. Patient is alert, oriented x 3, equal unlabored respirations, skin warm/dry/pink. Patient states feeling better. Patient states symptoms have improved. GI: Reports nausea, GONE. Vital Signs: 10:55 BP 154 / 84; Pulse 65; Resp 17; Pulse Ox 97% on R/A; db 11:03 Pulse 66; Resp 19; Temp 97.4; Pulse Ox 98% on R/A; Pain 0/10; ap3 11:30 BP 143 / 90; Pulse 59; Resp 16; Pulse Ox 99% on R/A; db 12:15 BP 139 / 83; Pulse 54; Resp 16; Pulse Ox 97% on R/A; db 12:45 BP 134 / 77; Pulse 52; Resp 16; Pulse Ox 96% on R/A; db 13:15 BP 123 / 75; Pulse 57; Resp 18; Pulse Ox 99% on R/A; db 11:03 Pain Scale: Adult ap3 Vitals: 12:15 Cardiac Rhythm Assessment Regular Sinus rhythm. db ED Course: 10:50 Patient arrived in ED. al6 11:00 Sameer Hopper MD is Attending Physician. rn 11:03 Patient has correct armband on for positive identification. Bed in low position. Call ap3 light in reach. Side rails up X 1. Adult w/ patient. Client placed on continuous cardiac and pulse oximetry monitoring. NIBP monitoring applied. desk monitor on. Pulse ox on. 11:05 Triage completed. ap3 11:06 Arm band placed on right wrist. ap3 11:34 CT Head Brain wo Cont In Process Unspecified. EDMS 12:00 Inserted saline lock: 20 gauge in right forearm, using aseptic technique. ,using db aseptic technique. BY RADHA Blood collected. Flushed with 10 mL NS. 12:07 Chest Single View XRAY In Process Unspecified. EDMS 12:07 XRAY Shoulder LEFT 2 view In Process Unspecified. EDMS 12:10 EKG done, by ED staff, reviewed by Sameer Hopper MD. kb4 12:30 Tiffany Fulton, RN is Primary Nurse. db 13:40 Provided Education on: DISCHARGE AND FOLLOWUP. Warm blanket given. Pillow given. db 13:40 No provider procedures requiring assistance completed. IV discontinued, intact, db bleeding controlled, No redness/swelling at site. Administered Medications: 12:30 Drug: NS 0.9% IV 500 ml IV at bolus once; to be given as a bolus over 30 minutes Route: db IV; Rate: bolus; Site: right forearm; 13:08 Follow up: Response: No adverse reaction; IV Status: Completed infusion; IV Intake: db 500ml 13:15 Follow up: Response: No adverse reaction; IV Status: Completed infusion; IV Intake: db 500ml Medication: 12:32 VIS not applicable for this client. db Intake: 13:08 IV: 500ml; Total: 500ml. db 13:15 IV: 500ml; Total: 1000ml. db Outcome: 13:06 Discharge ordered by . rn 13:40 Discharged to home ambulatory, with family, db 13:40 Condition: stable 13:40 Discharge instructions given to patient, family, Instructed on discharge instructions, follow up and referral plans. Prescriptions given X 1, 13:43 Patient left the ED. db Signatures: Dispatcher [employer] EDMS Sameer Hopper MD MD rn Prokisch, Amanda RN RN ap3 Tiffany Fulton RN RN db Shantel Walter al6 Radha Field kb4 Corrections: (The following items were deleted from the chart) 13:02 12:59 EKG done, by ED staff, reviewed by Sameer Hopper MD kb4 kb4
--- NOTE | 2024-10-05 13:07 | EDPHYS ---
Physician Documentation [facility] Name: Jose Neil Age: 69 yrs Sex: Male : 1955 Arrival Date: 10/05/2024 Time: 10:46 Bed 19 Private MD: ED Physician Sameer Hopper HPI: 10/05 13:00 This 69 yrs old Black Male presents to ER via Ambulatory with complaints of Dizziness. rn 13:00 Pt reports dizziness and lightheadedness, began this morning when he woke up and got rn out of bed. No syncope. No chest pain or shortness of breath. No abdominal pain. No longer feels dizzy. Has had vertigo before. This has happened before and told he was dehydrated. Patient also reports chronic left shoulder pain that he feels is a rotator cuff problem and would like an x-ray.. Onset: The symptoms/episode began/occurred this morning. Severity of symptoms: At their worst the symptoms were mild in the emergency department the symptoms have improved. The patient has experienced similar episodes in the past. Historical: - Allergies: 11:05 PENICILLINS; ap3 - PMHx: 11:05 coronary atherosclerosis; High Cholesterol; Hypertension; Myocardial infarction; ap3 neuropathy; - PSHx: 11:05 Coronary Angioplasty; Stented artery; ap3 - Immunization history:: Client reports receiving the 2nd dose of the Covid vaccine, Flu vaccine is not up to date. - Infectious Disease History:: Denies. - Social history:: Smoking status: Patient denies any tobacco usage or history of. - Family history:: not pertinent. - Hospitalizations: : No recent hospitalization is reported. ROS: 13:00 Constitutional: Negative for fever, chills, and weight loss, Neck: Negative for injury, rn pain, and swelling, Cardiovascular: Negative for chest pain, palpitations, and edema, Respiratory: Negative for shortness of breath, cough, wheezing, and pleuritic chest pain, Abdomen/GI: Negative for abdominal pain, nausea, vomiting, diarrhea, and constipation, Back: Negative for injury and pain, MS/Extremity: Positive for left shoulder pain, negative for injury Skin: Negative for injury, rash, and discoloration, Neuro: Positive for dizziness and feeling lightheaded Exam: 13:00 Constitutional: This is a well developed, well nourished patient who is awake, alert, rn and in no acute distress. ENT: Dry mucous membranes Cardiovascular: Regular rhythm, bradycardic. No pulse deficits. Respiratory: Speaking full sentences, unlabored. No increased work of breathing, no retractions or nasal flaring. Abdomen/GI: Soft, non-tender MS/ Extremity: Pulses equal, no cyanosis. Neurovascular intact. Full, normal range of motion. Equal circumference. Neuro: Awake and alert, GCS 15, oriented to person, place, time, and situation. Cranial nerves II-XII grossly intact. Motor strength 5/5 in all extremities. Sensory grossly intact. Given his 13:05 ECG was reviewed by the Attending Physician. rn Vital Signs: 10:55 BP 154 / 84; Pulse 65; Resp 17; Pulse Ox 97% on R/A; db 11:03 Pulse 66; Resp 19; Temp 97.4; Pulse Ox 98% on R/A; Pain 0/10; ap3 11:30 BP 143 / 90; Pulse 59; Resp 16; Pulse Ox 99% on R/A; db 12:15 BP 139 / 83; Pulse 54; Resp 16; Pulse Ox 97% on R/A; db 12:45 BP 134 / 77; Pulse 52; Resp 16; Pulse Ox 96% on R/A; db 13:15 BP 123 / 75; Pulse 57; Resp 18; Pulse Ox 99% on R/A; db 11:03 Pain Scale: Adult ap3 MDM: 11:00 Medical Screening Exam initiated rn 13:04 Differential Diagnosis Dehydration, chronic anemia, vertigo. Data reviewed: vital rn signs, nurses notes, lab test result(s), EKG, radiologic studies, CT scan, plain films, and as a result, I will discharge patient. Counseling: I had a detailed discussion with the patient and/or guardian regarding the historical points, exam findings, and any diagnostic results supporting the discharge/admit diagnosis, lab results, radiology results, the need for outpatient follow up, to return to the emergency department if symptoms worsen or persist or if there are any questions or concerns that arise at home. Special discussion: I discussed with the patient/guardian in detail that at this point there is no indication for admission to the hospital. It is understood, however, that if the symptoms persist or worsen the patient needs to return immediately for re-evaluation. ED course: Patient back to baseline after IV fluids. Negative workup. X-ray shoulder shows possible rotator cuff injury in the past per my interpretation. No indication for emergent admission at this time. Troponin negative. ECG without acute ischemia. Urged to start taking his iron supplements again and stay hydrated with PCP follow-up.. 10/05 11:20 Order name: Basic Metabolic Panel; Complete Time: 12:47 rn 10/05 11:20 Order name: CBC with Diff; Complete Time: 12:47 rn 10/05 11:20 Order name: Hepatic Function; Complete Time: 12:47 rn 10/05 11:20 Order name: Magnesium; Complete Time: 12:47 rn 10/05 11:20 Order name: Protime (+inr); Complete Time: 12:47 rn 10/05 11:20 Order name: Ptt, Activated; Complete Time: 12:47 rn 10/05 11:20 Order name: Troponin High Sensitivity; Complete Time: 12:47 rn 10/05 11:20 Order name: Urinalysis w/ reflexes; Complete Time: 12:47 rn 10/05 11:20 Order name: CT Head Brain wo Cont; Complete Time: 12:47 rn 10/05 11:20 Order name: Chest Single View XRAY; Complete Time: 12:47 rn 10/05 11:20 Order name: XRAY Shoulder LEFT 2 view; Complete Time: 12:47 rn 10/05 11:20 Order name: Cardiac monitoring; Complete Time: 12:30 rn 10/05 11:20 Order name: EKG - Nurse/Tech; Complete Time: 12:30 rn 10/05 11:20 Order name: IV Saline Lock; Complete Time: 12:30 rn 10/05 11:20 Order name: Labs collected and sent; Complete Time: 12:30 rn 10/05 11:20 Order name: O2 Per Protocol; Complete Time: 12:30 rn 10/05 11:20 Order name: O2 Sat Monitoring; Complete Time: 12:30 rn 10/05 11:20 Order name: Orthostatics; Complete Time: 13:07 rn EC:05 Rate is 51 beats/min. Rhythm is regular. QRS Adams is Normal. QT interval is normal. No rn Q waves. T waves are Normal. No ST changes noted. Clinical impression: 1st degree heart block and Sinus bradycardia. Interpreted by me. Reviewed by me. Administered Medications: 12:30 Drug: NS 0.9% IV 500 ml IV at bolus once; to be given as a bolus over 30 minutes Route: db IV; Rate: bolus; Site: right forearm; 13:08 Follow up: Response: No adverse reaction; IV Status: Completed infusion; IV Intake: db 500ml 13:15 Follow up: Response: No adverse reaction; IV Status: Completed infusion; IV Intake: db 500ml Disposition Summary: 10/05/24 13:06 Discharge Ordered Notes: Location: Home rn Problem: new rn Symptoms: have improved rn Condition: Stable rn Diagnosis - Dizziness and giddiness rn - Iron deficiency anemia, unspecified rn - Strain of muscle(s) and tendon(s) of the rotator cuff of left shoulder rn Followup: rn - With: Private Physician - When: As needed - Reason: Recheck today's complaints, Re-evaluation by your physician Discharge Instructions: - Discharge Summary Sheet rn - Iron Deficiency Anemia, Adult rn - Dehydration, Adult rn - Iron-Rich Diet rn - Dizziness rn - Rotator Cuff Tear rn Forms: - Medication Reconciliation Form rn - Antibiotic rn mobile - Prescription Opioid Use rn - Patient Portal Instructions rn - Leadership Thank You Letter rn Prescriptions: - ondansetron 4 mg Oral Tablet,disintegrating - take 1 tablet ORAL route every 8 hours As needed; 12 tablet; Refills: 0, rn Product Selection Permitted Signatures: Dispatcher [employer] EDSameer Hernández MD MD rn Prokisch, Amanda, RN RN ap3 Tiffany Fulton RN RN db Corrections: (The following items were deleted from the chart) 11:21 11:21 BASIC METABOLIC PANEL+C.LAB.BRZ ordered. EDMS EDMS 11: 11:21 CBC+H.LAB.BRZ ordered. EDMS EDMS 11:21 11:21 HEPATIC FUNCTION+C.LAB.BRZ ordered. EDMS EDMS 11:21 11:21 MAGNESIUM+C.LAB.BRZ ordered. EDMS EDMS 11:21 11:21 PROTIME (+INR)+COAG.LAB.BRZ ordered. EDMS EDMS 11:21 11:21 PTT, ACTIVATED+COAG.LAB.BRZ ordered. EDMS EDMS 11:21 11:21 Troponin High Sensitivity+C.LAB.BRZ ordered. EDMS EDMS 11:21 11:21 Urinalysis+U.LAB.BRZ ordered. EDMS EDMS : 11: Head Brain Wo Cont+CT.RAD.BRZ ordered. EDMS EDMS 11: Chest Single View+RAD.RAD.BRZ ordered. EDMS EDMS 11: Shoulder Left 2 View+RAD.RAD.BRZ ordered. EDMS EDMS
[2024-10-05 14:10] VITALS: TEMP 97.4
[2024-10-05 14:17] VITALS: BP 123/75; O2SAT 99
--- NOTE | 2024-10-06 11:27 | EKG ---
Test Date: 2024-10-05 Test Time: 12:12:53 [employer] Communications Superintendent: YESENIA MEASUREMENT RESULTS: Intervals: Rate: 51 MO: 224 QRSD: 96 QT: 426 QTc: 392 [place]: P: 63 MO: 224 QRS: 2 T: 1 INTERPRETIVE STATEMENTS: Sinus bradycardia with 1st degree AV block Inferior infarct, age undetermined Cannot rule out Anterior infarct, age undetermined Abnormal ECG Compared to ECG 04/14/2024 13:50:16 No significant changes Electronically Signed On 10-06-24 11:26:56 TEST CONDUCTOR by Alexis Hassan
== END 2024-10-05 13:43 | disposition home or self-care (01) ==
LOC: ER 10:46
DX: D50.9 Iron deficiency anemia, unspecified (principal); S46.012A Strain of muscle(s) and tendon(s) of the rotator cuff of left shoulder, initial encounter; E78.00 Pure hypercholesterolemia, unspecified; I10 Essential (primary) hypertension; I25.2 Old myocardial infarction; I25.10 Atherosclerotic heart disease of native coronary artery without angina pectoris; R42 Dizziness and giddiness; Z88.0 Allergy status to penicillin
CPT/HCPCS: 93005; 85025; 81001; 80048; 36415; 83735; 85610; 80076; 85730; 84484; 70450; 71045; 73030; 96360; 99285; J7040

== ENCOUNTER 2025-05-29 13:35 | Emergency (ER) | payer OTHER ==
--- OUTSIDE RECORDS SUMMARY | 2025-05-29 13:40 | XMS REPORT | Continuity of Care Document ---
Author Name Unknown Address [address] [facility] [address] [place] [address] [facility] [place] Address [address] [facility] [place] [address] Care Team Providers Care Public Affairs Officer Name Role Phone Jessica Segura Primary Care Physician [phone] Mohini Segura Attending Clinician Unavailabl e Doctor Unassigned, Bluejacket Attending Clinician U navailable Martha Chaparro Attending Clinician [phone] MEKHI ZAMUDIO Attending Clinician Unavailable Mekhi Zamudio MD Attending Clinician [phone], Adc Surg Proc Attending Clinician Unavail le 2, Adc Lab Attending Clinician Unavailable Gurpreet Benítez Attending Clinician Unavailable Kya ELLIS, Gerri Attending Clinician Unavailable LORENZA SMITH Attending Clinician Unavailable Jeffrey Lara MD Attending Clinician [phone] Lorenza Smith DO Attending Clinician GONZALES Attending Clinician Unavailable 2, Adc Lab Attending Clinician Unavailable Mekhi Zamudio MD Attending Clinician [phone] Doctor Unassigned, Bluejacket Attending Clinician U navailable Bruna Valenzuela Attending Clinician [phone] BRUNA MONAHAN Attending Clinician Unavailable Only, Adc Test Attending Clinician Unavailable Juan Daugherty MD Attending Clinician [phone] JUAN DAUGHERTY Attending Clinician Unavailabl e MEKHI ZAMUDIO Admitting Clinician Unavailable Referred, Self Admitting Clinician Unavailable LORENZA SMITH Admitting Clinician Unavailable Lorenza Smith DO Admitting Clinician [phone] GONZALES Admitting Clinician Unavailable BRUNA MONAHAN Admitting Clinician Unavailable Payers Payer Name Policy Type Policy Number Effective Date Expirati on Date Source [employer] MEDICARE ADVANTAGE HMO/POS [id number] 2024 00:00:00 MEDICARE PART A \\T\\ B [id number] 2009 00:00:00 Problems Condition Name Condition Details Condition Category Status Onset Date Resolution Date Last Treatment Date Treating Clinician Comments Source 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 Disease Active 06-21 [...] Active 06-21 00:00: 00 [facility] 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 Disease Active 06-21 [...] known active problems Disease [facility] [id number] Primary osteoarthr itis of left shoulder Problem [facility] [id number] Primary osteoarthr itis of right knee Problem [facility] [id number] Carpal tunnel syndrome of right wrist Problem [facility] Allergies, Adverse Reactions, Alerts Allergy Name Allergy Type Status Severity Reaction(s) Onset Date Inactive Date Treating Clinician Comments Source Penicill ins DA Active SV RASH, SWELLING 06-27 00:00: 00 [facility] PENICILL IN DRUG INGREDI Active Swelling 06-19 00:00: 00 [facility] Penicill in Propensi ty to adverse reaction s Active Swelling 06-19 00:00: 00 [facility] NO KNOWN ALLERGIE S Drug Class Active [facility] [id number] Drug allergy Active Unknown [facility] Social History Social Habit Start Date Stop Date Quantity Comments Source [facility] History of Tobacco Use [facility] Sex Assigned At [facility] History of Social function 2024-11-30 00:00:00 2024-11-30 00:00:00 [facility] Exposure to SARS-CoV-2 (event) 2022-06-09 00:00:00 2022-06-19 19:09:00 Not sure [facility] Tobacco use and exposure 2022-06-19 00:00:00 2022-06-19 00:00:00 Smokeless tobacco non-user [facility] Education 2022-06-19 00:00:00 2022-06-19 00:00:00 14 [facility] Smoking Status Start Date Stop Date Source Ex-smoker 2022-06-19 00:00:00 2022-06-19 00:00:00 U [facility] Medications Ordered Medication Name Filled Medication Name Start Date Stop Date Current Medication? Ordering Clinician Indication Dosage Frequency Signature (SIG) Comments Components Source gadobenate dimeglumine (MULTIHANCE -20 mL) injection 0.2 mL/kg 03-21 18:15: 00 03-21 18:00 :00 No [id number] .2mL/kg 0.2 mL/kg, Intravenou s, ONCE, 1 dose, On Thu03/21/25 at 1315, Routine [facility] lidocaine (XYLOCAINE) 2 % jelly URO-JET 10 mL 02-15 18:00: 00 02-15 17:58 :00 No [id number] 10mL 10 mL, Urethral, ONCE, 1 dose, On Thu02/15/25 at 1300, Routine [facility] gentamicin injection 160 mg 02-15 16:30: 00 02-15 15:46 :00 No [id number] 160mg 160 mg, Intramuscu lar, ONCE, 1 dose, On Thu02/15/25 at 1130, MARICRUZ, Reason for Anti-Infec tive: Surgical Prophylaxi s, Surgical Prophylaxi s: Genitourin cele, Duration of therapy: within 24 hours of surgery [facility] FLUoxetine 40 mg capsule 11-30 15:03: 17 Yes 40mg Take 1 capsule by mouth in the morning. [facility] esomeprazol e 40 mg capsule 11-30 15:03: 17 Yes 40mg Take 1 capsule by mouth daily with breakfast. [facility] Gabapentin 300 MG Gabapentin 300 MG 10-25 00:00: 00 No 1{capsu le} QD Gabapentin 300 MG BUPivacaine HCl BUPivacaine HCl 10-25 00:00: 00 No 5mL [facility] Kenalog (Triamcinol one) Kenalog (Triamcinol one) 10-25 00:00: 00 No 1mL [facility] docusate 100 mg capsule 06-22 00:00: 00 07-23 04:59 :00 No [id number] 100mg Take 1 capsule by mouth in the morning for 30 days. [facility] aspirin 81 mg EC tablet 06-22 00:00: 07-23 04:59 :00 No [id number] 81mg Take 1 tablet by mouth in [...] Thu06/20/22 at 2100, Until Discontinu ed, Routine
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 [facility] ferrous sulfate 325 mg (65 mg iron) tablet 06-21 00:00: 07-22 04:59 :00 No [id number] 325mg Take 1 tablet by mouth in the morning for 30 days. [facility] sulfur hexafluorid e microsphr (LUMASON) injection 5 mL 06-20 18:45: 00 06-20 18:45 :00 No [id number] 5mL 5 mL, Intravenou s, ONCE, 1 dose, On Thu06/20/22 at 1345, Routine
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 Restricted medication : HIMANSHU BOLAÑOS [facility] FLUoxetine (PROZAC) capsule 40 mg 06-20 14:00: 00 Yes 40mg 40 mg, Oral, DAILY, First dose on Thu06/20/22 at 0900, Until Discontinu ed, Routine [facility] docusate (COLACE) capsule 100 mg 06-20 14:00: 00 Yes 100mg 100 mg, Oral, DAILY, First dose on Thu06/20/22 at 0900, Until Discontinu ed, Routine [facility] enoxaparin (LOVENOX) injection 40 mg 06-20 14:00: 00 Yes 40mg 40 mg, Subcutaneo us, DAILY, First dose on Thu06/20/22 at 0900, Until Discontinu ed, Routine [facility] ticagrelor (BRILINTA) tablet 90 mg 06-20 14:00: 00 06-20 19:37 :36 No 90mg 90 mg, Oral, DAILY, First dose on Thu06/20/22 at 0900, Until Discontinu ed, Routine [facility] pravastatin (PRAVACHOL) tablet 40 mg 06-20 14:00: 00 06-20 19:37 :36 No 40mg 40 mg, Oral, DAILY, First dose on Thu06/20/22 at 0900, Until Discontinu ed, Routine [facility] gabapentin (NEURONTIN) capsule 100 mg 06-20 13:00: 00 Yes 100mg 100 mg, Oral, TID, First dose on Thu06/20/22 at 0800, Until Discontinu ed, Routine [facility] maalox:diph enhydrAMINE :lidocaine 2 % viscous 1:1:1 ([facility]) oral suspension 15 mL 06-20 06:00: [...] tablet 07-15 00:00: 00 Yes 25mg Take 1 tablet by mouth in the morning. [facility] BRILINTA 60 mg Tab 07-01 00:00: 00 Yes 1{tbl} Take 1 tablet by mouth 2 (two) times daily. [facility] TICAGRELOR 90 mg tablet 07-01 00:00: 00 Yes 1{tbl} Take 1 tablet by mouth in the morning. [facility] lisinopriL 30 mg tablet 07-01 00:00: 00 Yes 30mg Take 30 mg by mouth daily. [facility] TICAGRELOR 90 mg tablet 07-01 00:00: 00 Yes 90mg Take 1 tablet by mouth in the morning. [facility] tamsulosin 0.4 mg 24 hr capsule 06-07 00:00: 00 Yes [facility] pravastatin 40 mg tablet 05-28 00:00: 00 Yes 40mg Take 40 mg by mouth daily. [facility] Brilinta 90 MG Brilinta 90 MG No 1{table t} BID Brilinta 90 MG Isosorbide Mononitrate ER 30 MG Isosorbide Mononitrate ER 30 MG No Isosorbide Mononitrat e ER 30 MG Atorvastati n Calcium 40 MG Atorvastati n Calcium 40 MG No Atorvastat in Calcium 40 MG Pantoprazol e Sodium 40 MG Pantoprazol e Sodium 40 MG No 1{table t} QD Pantoprazo le Sodium 40 MG Nitroglycer in 0.4 MG Nitroglycer in 0.4 MG No Nitroglyce rin 0.4 MG Immunizations Ordered Immunization Name Filled Immunization Name Date Status Comments Source SARS-COV-2 COVID-19 MODERNA 0.25ML BOOSTER VACCINE 2021-09-10 00:00:00 Completed [facility] SARS-COV-2 COVID-19 MODERNA 0.25ML BOOSTER VACCINE 2021-09-10 00:00:00 Completed [facility] SARS-COV-2 COVID-19 MODERNA 0.25ML BOOSTER VACCINE 2021-09-10 00:00:00 Completed SARS-COV-2 COVID-19 MODERNA 12+ YRS VACCINE 2021-03-10 00:00:00 Completed [facility] SARS-COV-2 COVID-19 MODERNA 12+ YRS VACCINE 2021-03-10 00:00:00 Completed [facility] SARS-COV-2 COVID-19 MODERNA 12+ YRS VACCINE 2021-03-10 00:00:00 Completed SARS-COV-2 COVID-19 MODERNA 12+ YRS VACCINE 2021-02-08 00:00:00 Completed [facility] SARS-COV-2 COVID-19 MODERNA 12+ YRS VACCINE 2021-02-08 00:00:00 Completed [facility] SARS-COV-2 COVID-19 MODERNA 12+ YRS VACCINE 2021-02-08 00:00:00 Completed [facility] Vital Signs Vital Name Observation Time Observation Value Radha arriola Systolic blood pressure 2025-02-15 15:05:00 134 mm[Hg] [facility] Diastolic blood pressure 2025-02-15 15:05:00 79 mm[Hg] [facility] Heart rate 2025-02-15 15:05:00 57 /min [facility] Body temperature 2025-02-15 15:05:00 36.28 Sidra [facility] Respiratory rate 2025-02-15 15:05:00 20 /min [facility] Body height 2025-02-15 15:05:00 170.2 cm [facility] Body weight 2025-02-15 15:05:00 125.102 kg [facility] BMI 2025-02-15 15:05:00 43.20 kg/m2 [facility] Oxygen saturation in Arterial blood by Pulse oximetry 2025-02-15 15:05:00 98 /min [facility] height 2025-01-03 09:45:00 67 [in_i] Commo n [facility] weight 2025-01-03 09:45:00 287 [lb_av] Comm on [facility] temperature 2025-01-03 09:45:00 97.9 [degF] Com mon [facility] bmi 2025-01-03 09:45:00 44.95 kg/m2 Comm on [facility] blood pressure systolic 2025-01-03 09:45:00 134 mm[Hg] [facility] blood pressure diastolic 2025-01-03 09:45:00 71 mm[Hg] [facility] Systolic blood pressure 2024-11-30 21:03:00 123 mm[Hg] [facility] Diastolic blood pressure 2024-11-30 21:03:00 78 mm[Hg] [facility] Heart rate 2024-11-30 21:03:00 72 /min [facility] Body temperature 2024-11-30 21:03:00 36.89 Sidra [facility] Respiratory rate 2024-11-30 21:03:00 18 /min [facility] Body height 2024-11-30 21:03:00 170.2 cm [facility] Body weight 2024-11-30 21:03:00 122.018 kg [facility] BMI 2024-11-30 21:03:00 42.13 kg/m2 [facility] Oxygen saturation in Arterial blood by Pulse oximetry 2024-11-30 21:03:00 96 /min [facility] height 2024-10-25 09:30:00 67 [in_i] Commo n [facility] weight 2024-10-25 09:30:00 287 [lb_av] Comm on [facility] temperature 2024-10-25 09:30:00 98.3 [degF] Com mon [facility] bmi 2024-10-25 09:30:00 44.95 kg/m2 Comm on [facility] blood pressure systolic 2024-10-25 09:30:00 138 mm[Hg] [facility] blood pressure diastolic 2024-10-25 09:30:00 86 mm[Hg] [facility] Systolic blood pressure 2022-06-21 12:39:00 122 mm[Hg] [facility] Diastolic blood pressure 2022-06-21 12:39:00 68 mm[Hg] [facility] Heart rate 2022-06-21 12:39:00 54 /min [facility] Body temperature 2022-06-21 12:39:00 36.44 Sidra [facility] Respiratory rate 2022-06-21 12:39:00 14 /min [facility] Oxygen saturation in Arterial blood by Pulse oximetry 2022-06-21 12:39:00 95 /min [facility] Body weight 2022-06-21 08:20:00 125.465 kg [facility] BMI 2022-06-21 08:20:00 43.32 kg/m2 [facility] Body height 2022-06-20 00:19:00 170.2 cm [facility] Systolic blood pressure 2022-02-24 14:25:00 102 mm[Hg] [facility] Diastolic blood pressure 2022-02-24 14:25:00 70 mm[Hg] [facility] Heart rate 2022-02-24 14:25:00 76 /min [facility] Respiratory rate 2022-02-24 14:25:00 18 /min [facility] Body height 2022-02-24 14:25:00 170.2 cm [facility] Body weight 2022-02-24 14:25:00 127.461 kg [facility] BMI 2022-02-24 14:25:00 44.01 kg/m2 [facility] Oxygen saturation in Arterial blood by Pulse oximetry 2022-02-24 14:25:00 98 /min [facility] Procedures Procedure Date / Time Performed Performing Clinician Source DEANNA,POST-VOID RES,US,NON-IMAGING 2025-02-15 16:33:00 Mekhi Zamudio [facility] POCT URINALYSIS AUTO 2025-02-15 15:19:00 Satya Zamudio [facility] POCT URINALYSIS AUTO 2024-11-30 21:06:00 Satya Zamudio [facility] FERRITIN SERUM 2022-06-21 09:38:00 [facility] 2022-06-21 09:38:[address] [facility] IRON PANEL 2022-06-21 09:38:[address] [facility] TROPONIN I 2022-06-20 21:14:[address] [facility] MAGNESIUM 2022-06-20 09:42:[address] [facility] TROPONIN I 2022-06-20 09:42:[address] [facility] THYROID STIMULATING HORMONE 2022-06-20 09:42:00 Bhanu Cain [facility] BASIC METABOLIC PANEL (NA, K, CL, CO2, GLUCOSE, BUN, CREATININE, CA) 2022-06-20 09:42:00 Bhanu Cain [facility] CBC WITH DIFF 2022-06-20 09:42:00 [facility] 2022-06-20 02:17:00 Bhanu Cain [facility] LIPID PANEL ([id number])(TOTAL CHOLESTEROL, TRIGLYCERIDES, HDL) 2022-06-20 02:17:00 Patricia Fagan [facility] XR CHEST 1 VW 2022-06-19 21:18:27 Jeffrey Lara [facility] TROPONIN I 2022-06-19 21:11:00 [facility] COMP. METABOLIC PANEL ([id number]) 2022-06-19 21:11:00 Jeffrey Lara [facility] CBC WITH DIFF 2022-06-19 21:11:00 Jeffrey Lara [facility] PROTHROMBIN TIME / INR 2022-06-19 21:11:00 Mario Lara [facility] ACTIVATED PARTIAL THRMPLAS DIDIER 2022-06-19 21:11:00 Jeffrey Lara [facility] N-TERMINAL PRO-BNP 2022-06-19 21:11:00 Jeffrey Lara [facility] COVID-19 (ID NOW RAPID TESTING) 2022-06-19 21:11:00 Jeffrey Lara [facility] LAB ONLY COVID INTERPRETATION 2022-06-19 21:11:00 Jeffrey Lara [facility] HB ECG ROUTINE & RHYTHM STRIP 2022-06-19 20:40:50 Jeffrey Lara [facility] CONSENT/REFUSAL FOR DIAGNOSIS AND TREATMENT 2022-06-19 20:34:15 Doctor Unassigned, Bluejacket [facility] Encounters Start Date/Time End Date/Time Encounter Type Admission Type Attending Clinicians Care Facility Care Department Encounter ID Source 2024-12-26 11:41:00 [facility] [id number] [facility] 2024-10-25 14:59:00 Outpatient Mohini Segura [facility] [id number] [facility] 2024-10-05 13:55:00 Outpatient Mohini Segura [facility] [id number] [facility] 2021-11-13 10:58:49 Outpatient Mohini Segura [facility] [id number] [facility] 2025-03-20 00:00:00 2025-04-22 18:25:43 Patient Secure Msg Doctor Unassigned, Bluejacket Doctor Unassigned, Bluejacket [facility]) 1..840.114 350.1.13.10 4.2.7.2.686 [id number] [facility] 2025-04-05 09:46:08 2025-04-05 09:46:08 Outpatient [facility] [id number] Goldy Hernandez 2025-03-22 00:00:00 2025-03-23 12:48:42 Telephone Martha Chaparro [facility] 1..840.114 350.1.13.10 4.2.7.2.686 [id number] [facility] 2025-03-21 11:15:05 2025-03-21 23:59:00 Hospital Encounter R MEKHI ZAMUDIO [facility] 1..840.114 350.1.13.10 4.2.7.2.686 [id number] [facility] 2025-02-28 00:00:00 2025-03-01 08:29:05 Clinic Assessment Mekhi Zamudio [facility] 1.2.840.114 350.1.13.10 4.2.7.2.686 [id number] [facility] 2025-02-28 16:22:23 2025-02-28 16:22:[address] [facility] [id number] Goldy Hernandez 2025-02-28 00:00:00 2025-02-28 11:01:51 Telephone Mekhi Zamudio [facility] 1.2.840.114 350.1.13.10 4.2.7.2.686 [id number] [facility] 2025-02-14 00:00:00 2025-02-24 09:09:28 Telephone Mekhi Zamudio [facility] 1.2.840.114 350.1.13.10 4.2.7.2.686 [id number] [facility] 2025-02-16 00:00:00 2025-02-16 11:31:32 Telephone Mekhi Zamudio [facility] 1.2.840.114 350.1.13.10 4.2.7.2.686 [id number] [facility] 2025-02-15 11:00:00 2025-02-15 11:23:07 Outpatient R MEKHI ZAMUDIO [facility] [id number] [facility] 2025-02-15 11:00:00 2025-02-15 11:23:07 Office Visit Mekhi Zamudio Rm2, Adc Surg Proc Rm2, Adc Surg Proc [facility] 1.2.840.114 350.1.13.10 4.2.7.2.686 [id number] [facility] 2025-01-11 14:00:00 2025-01-11 14:00:00 Outpatient R MEKHI ZAMUDIO [facility] [id number] [facility] 2025-01-07 00:00:00 2025-01-09 09:50:54 [facility] 1.2.840.114 350.1.13.10 4.2.7.2.686 [id number] [facility] 2025-01-03 00:00:00 2025-01-03 00:00:00 OFFICE VISIT ESTAB PT LEVEL 4 STLMLC STLMLC [id number] [facility] 2024-12-29 11:00:00 2024-12-29 11:00:[address] [facility] [id number] [facility] 2024-12-23 10:36:26 2024-12-23 10:36:[address] [facility] [id number] Goldy Menon David 2024-11-30 16:15:00 2024-11-30 16:30:00 Implementation Consultant Visit 2, Adc Lab Mekhi Zamudio 2, Adc Lab [facility] 1.2.840.114 350.1.13.10 4.2.7.2.686 [id number] [facility] 2024-11-30 14:45:00 2024-11-30 15:56:38 Out[address] R MEKHI ZAMUDIO [facility] [id number] [facility] 2024-11-30 14:45:00 2024-11-30 15:56:38 [facility] 1.2.840.114 350.1.13.10 4.2.7.2.686 [id number] [facility] 2024-10-25 00:00:00 2024-10-25 00:00:00 OFFICE VISIT NEW PT LEVEL 4 STLMLC STLMLC [id number] [facility] 2024-09-28 10:48:01 2024-09-28 10:48:01 Outpatient SFA [facility] [id number] Goldy Hernandez 2024-06-29 10:37:24 2024-06-29 10:37:24 Outpatient SFA [facility] [id number] Goldy Hernandez 2024-04-18 14:52:51 2024-04-18 14:52:51 Outpatient SFA [facility] [id number] Goldy Hernandez 2024-03-15 11:00:42 2024-03-15 11:00:42 Outpatient SFA [facility]FA [id number] Goldy Hernandez 2024-02-02 14:57:11 2024-02-02 14:57:11 Outpatient SFA SFA [id number] Goldy Hernandez 2024-01-26 15:22:09 2024-01-26 15:22:09 Outpatient SFA [facility] [id number] Goldy Hernandez 2023-09-29 14:28:19 2023-09-29 14:28:19 Outpatient SFA SFA [id number] Goldy Hernandez 2023-05-04 14:10:12 2023-05-04 14:10:12 Outpatient SFA SFA [id number] Goldy Hernandez 2023-04-10 08:58:41 2023-04-10 08:58:41 Outpatient SFA SFA [id number] Goldy Hernandez 2023-04-03 16:42:57 2023-04-03 16:42:57 Outpatient SFA SFA [id number] Goldy Hernandez 2022-08-27 00:00:00 2022-08-27 00:00:[address] [facility] [id number] [facility] 2022-07-09 05:05:00 2022-07-09 05:05:00 Outpatient DEANA [id number] 96 [facility] 2022-06-24 00:00:00 2022-06-24 00:00:00 Transition of Care Kya Gerri DANNA NOBLES 1.2.840.114 350.1.13.10 4.2.7.2.686 [id number] [facility] 2022-06-19 15:47:00 2022-06-21 14:18:00 Outpatient Sabrina SMITH [facility] [id number] [facility] 2022-06-19 15:47:00 2022-06-21 14:18:00 Emergency Jeffrey Lara David [facility] 1.0.114 350.1.13.10 4.2.7.2.686 [id number] [facility] 2022-02-24 10:15:00 2022-02-24 10:30:00 Implementation Consultant Visit 2, Adc Lab Robb [facility] N[facility]ILD[facility] 1.2.114 350.1.13.10 4.2.7.2.686 [id number] [facility] 2022-02-24 09:15:00 2022-02-24 10:08:38 Outpatient R ROBB [facility] [id number] [facility] 2022-02-24 09:15:00 2022-02-24 10:08:38 [facility] 1.20.114 350.1.13.10 4.2.7.2.686 [id number] [facility] 2022-02-24 00:00:00 2022-02-24 00:00:00 Orders Only Doctor Unassigned, Bluejacket [facility] 1.20.114 350.1.13.10 4.2.7.2.686 [id number] [facility] 2021-12-30 11:30:00 2021-12-30 11:30:00 Outpatient R ROBB [facility] [id number] [facility] 2021-08-20 11:22:46 2021-08-20 23:59:00 Hospital Encounter Bruna Monahan [facility] 1..114 350.1.13.10 4.2.7.2.686 [id number] [facility] 2021-08-20 11:22:46 2021-08-20 23:59:00 Outpatient R BRUNA MONAHAN [facility] [id number] [facility] 2021-07-18 14:54:30 2021-07-18 15:09:30 Implementation Consultant Visit 2, Adc Lab Robb [facility] 1.840.114 350.1.13.10 4.2.7.2.686 [id number] [facility] 2021-07-18 13:54:19 2021-07-18 14:51:57 Office Visit Robb [facility] 1.20.114 350.1.13.10 4.2.7.2.686 [id number] [facility] 2021-07-18 14:30:00 2021-07-18 14:30:00 Outpatient R ROBB [facility] [id number] [facility] 2021-07-18 00:00:00 2021-07-18 00:00:00 Orders Only Doctor Unassigned, [place] [facility] 1.2.114 350.1.13.10 4.2.7.2.686 [id number] [facility] 2020-12-26 11:08:15 2020-12-26 11:23:15 Laboratory Only Only, Adc Test Juan Daugherty [facility] 1.20.114 350.1.13.10 4.2.7.2.686 [id number] [facility] 2020-12-26 11:08:15 2020-12-26 11:23:15 Laboratory Only Only, Adc Test [facility] [id number] 350.1.13.10 4.2.7.2.686 [id number] 2020-12-26 11:00:00 2020-12-26 11:00:00 Outpatient Tracie JAYSONJUAN DAVILA [facility] [id number] [facility] 2020-12-26 00:00:00 2020-12-26 00:00:00 Orders Only Doctor Unassigned, [place] [facility] [id number] 350.1.13.10 4.2.7.2.686 [id number] [facility] 2020-12-26 00:00:00 2020-12-26 00:00:00 Orders Only Doctor Unassigned, [place] [facility] [id number] 350.1.13.10 4.2.7.2.686 [id number] 2019-10-17 16:23:00 2019-10-17 16:23:00 [facility] [id number] [facility] 2019-09-19 14:33:00 2019-09-19 14:33:00 [facility] [id number] [facility] 2019-09-09 09:00:00 2019-09-09 09:00:00 [facility]patient [facility] [id number] [facility] 2019-08-23 13:30:00 2019-08-23 13:30:00 [facility] [id number] [facility] 2019-08-01 08:00:00 2019-08-01 08:00:00 [facility] [id number] [facility] 2018-06-01 10:30:00 2018-06-01 10:30:00 [facility] [id number] [facility] Results Test Description Test Time Test Comments Results Result Co mments Source [facility] Urinalysis, [id number] 15:19:00 * Test Item Value Reference Range Interpretation Comme nts POCT U SP GRAV (test code = 3255) 1.03 mg/dl 1.005-1.025 A POCT PH U (test code = 3254) 5.5 mg/dl 5-8 POCT U LEUK EST (test code = 3263) neg Negative - Negative POCT U NIT (test code = 3262) neg Negative - Negati ve POCT U PROT (test code = 3259) 30 Negative - Negat karin A POCT U GLU (test code = 3256) neg Negative - Negati ve POCT U KETONE (test code = 3258) trace Negative - Negative A POCT U UROBILI (test code = 3260) 0.2 mg/dl 0.2-1 POCT U BILI (test code = 3261) small Negative - Negat karin A POCT U BLD (test code = 3257) neg Negative - Negati ve POCT U COLOR (test code = 3266) yellow POCT U APPEAR (test code = 3267) clear Lab Interpretation (test cod e = [id number]) Abnormal [facility] Urinalysis, [id number] 21:06:00 * Test Item Value Reference Range Interpretation Comme nts POCT U SP GRAV (test code = 3255) 1.005-1.025 POCT PH U (test code = 3254) 5.5 mg/dl 5-8 POCT U LEUK EST (test code = 3263) neg Negative - Negative POCT U NIT (test code = 3262) neg Negative - Negati ve POCT U PROT (test code = 3259) neg Negative - Negat karin POCT U GLU (test code = 3256) neg Negative - Negati ve POCT U KETONE (test code = 3258) neg Negative - Negative POCT U UROBILI (test code = 3260) 0.2 mg/dl 0.2-1 POCT U BILI (test code = 3261) neg Negative - Negat karin POCT U BLD (test code = 3257) neg Negative - Negati ve POCT U COLOR (test code = 3266) POCT U APPEAR (test code = 3267) [id number] 10:06:00* Test Item Value Reference Range Interpretation Comme nts ACT-ISTAT (test code = ACTI) 277 SEC 74-137 H Performed by cer tified stem processing machine operator at [facility] [id number] 09:27:00* Test Item Value Reference Range Interpretation Comme nts ACT-ISTAT (test code = ACTI) 306 SEC 74-137 H Performed by cer tified stem processing machine operator at [facility] CBC W/AUTO [id number] 13:11:00* Test Item Value Reference Range Interpretation [...] (test c ode = MDIFF) NO RBC [id number] 13:11:00* Test Item Value Reference Range Interpretation Comme nts ANISOCYTOSIS (test code = ANISO) 2+ POIKILOCYTOSIS (test code = POIK) 1+ MICROCYTOSIS (test code = MICR) 1+ ELLIPTOCYTES (test code = ELL) 1+ BASIC METABOLIC [id number] 11:54:00* Test Item Value Reference Range Interpretation [...] = CA) 9.2 mg/dL 8.0-10.5 N PROTHROMBIN [id number] 11:53:00* Test Item Value Reference Range Interpretation [...] prevent recurrent infarct). - XR CHEST 2 [id number] 00:00:00 [facility] JOSE [facility] : 1955 Sex: M FAX: Gurpreet Christianson MD [phone] [place]: [address]: PRE Name: JOSE BLOUNT [facility] [place] : 1955 Age/S: 67/M [address] [place] [address] Unit #: [id number] Loc: [place] [address] Phys: Gurpreet Benítez MD Acct: [id number] Dis Date: Status: PRE SDC PHONE #: [phone] Exam Date: 07/07/2022 1245 FAX #: [phone] Reason: PREOP EXAMS: CPT CODE: [id number] XR CHEST 2 V 39554 PROCEDURE INFORMATION: Exam: XR Chest Exam date [...] Trnscrd Date/Time/By: 07/07/2022 (140) : By: [email or web address] [facility] Print D/T: S: 07/07/2022 (1402) PAGE 1 Signed Report Notes Date/Time Note Provider Source 2025-03-23 12:42:56 Spoke to patient through the 's mobile phone. Advised that the MRI of prostate showed no suspicious lesions. Prostate volume increased to 250 cc. Advised patient that he will be scheduled for follow up with Dr. Zamudio to discuss surgical options. Patient verbalized understanding. Please schedule patient with Dr. Zamudio. MRI Prostate Result. 69 YEAR OLD PATIENT WITH PROGRESSIVE AND SEVERE TYPE III BPH HAS PROSTATE VOLUME OF 193 CC IN 2020 BUT NOW 250CC. CONTINUED NORMAL PSA DENSITY OF 0.04. NO FOCAL LESIONS SUSPICIOUS FOR PROSTATE CANCER. 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 MRI of prostate showed prostate volume of 250cc. Schedule patient with Dr. Aranda to discuss HoLEP per his last clinic note on 02/15/2025. MRI Prostate IMPRESSION 69 YEAR OLD PATIENT WITH PROGRESSIVE AND SEVERE TYPE III BPH HAS PROSTATE VOLUME OF 193 CC IN 202 BUT NOW 250CC. CONTINUED NORMAL PSA DENSITY OF 0.04. NO FOCAL LESIONS SUSPICIOUS FOR PROSTATE CANCER. A PSA LEVEL OF 10 IS CONSIDERED NORMAL IN THIS PATIENT WITH A SEVERELY ENLARGED PROSTATE GLAND SMALL BLADDER STONES OR DEBRIS WITH BLADDER MUSCULAR HYPERTROPHY RELATED TO BPH [facility] 2025-02-28 13:03:41 Patient's states they have an appointment at 3pm with pcp and patient is currently "outside working" and declined NV. Keesha Bowling RN [facility] 2025-02-28 11:23:23 Can we offer RTC NV to assess and take picture ? [facility] 2025-02-28 10:46:51 Spoke with patient; states that "close to the area" where he recently received an IM injection is "hard" and "warm to touch", denies any fever. Encouraged patient to see care from his PCP regarding this issue. Patient verbalized understanding, stated "I will call them now". Keesha Bowling RN [facility] 2025-02-28 09:35:16 Patient's called stating that patient is in a large amount of pain where injection was. Please advise. Gertrudis Escobar [facility] 2025-02-16 11:28:39 Courtesy post-procedure call attempted. No VM. msg sent. Gala Murphy RN [facility] 2025-02-14 10:15:26 Proceed and UA on the day [facility] 2025-02-14 08:54:01 Patient is scheduled for cysto on 02/15/25. Last urine culture completed 11/30/24. Will route to provider for notification/ recommendations. Kimberly Srinivasan RN [facility] 2025-01-09 11:32:26 Per patient request, cysto appointment was rescheduled for 02/15/25 Parisa Morley [facility] 2025-01-07 11:33:50 Jose Blount is a 69 year old male. Spouse is calling to reschedule appointment for 01/11 Please advise Clarisa Henao MA 01/07/2025 11:34 AM Clarisa Henao MA [facility] 2024-11-30 16:15:00 Images from the original note were not included. Venipuncture collection performed by clean technique on the left anticubitus. Total of 1 attempts were made. Slight pressure and a bandage/dressing were applied to the site(s). The patient experienced no complications. The following specimens were processed according to instructions and sent to [facility] laboratories per lab order on 11/30/2024: LT BLUE SST 1 RED LAV PPT DK GREEN (LiHep) DK GREEN (SodH) MORALES DK BLUE (K2) DK BLUE (S) ACD Blood Culture NIPT/NTD Patient has been identified by and name and was provided with cup, antiseptic towelette, and clean catch instructions. 1 urine specimen(s) sent. Unpreserved Urine Culture 1 Aptima tube Other urine [facility] 2024-11-30 14:45:00 Addended by: EVA HERNANDEZ RN on: 11/30/2024 03:36 PM Modules accepted: Orders A Hernandez RN [facility] 2024-11-30 14:45:00 Addended by: MEKHI ZAMUDIO on: 12/02/2024 10:23 AM Modules accepted: Orders [facility] 2022-07-09 10:31:00 [phone] [place], [place] [address] PATIENT NAME: JOSE BLOUNT ADMIT DATE: 07/09/22 ACCOUNT NO: [id number] ROOM NO: AGE: 67 REPORT TYPE: CARDIAC CATHETERIZATION REPORT SEX: M ADMITTING PHYSICIAN: ATTENDING PHYSICIAN:Gurpreet Benítez MD PROCEDURE DATE: 07/09/2022 PROCEDURE PERFORMED: 1. Selective coronary angiogram. 2. Failed attempt of PCI to proximal to mid RCA SHOVEL MECHANIC. INDICATION: Angina with known SHOVEL MECHANIC of the mid RCA. ACCESS: Right femoral artery, 6-Bhutanese with 6-Bhutanese Angio-Seal. COMPLICATIONS: None. BLEEDING: Less than 20 [...] under fluoroscopy and ultrasound guidance and placed 6-Bhutanese [place] sheath and took a 6-Bhutanese JR4 catheter into the aortic root, engaged the RCA and took a Fielder XT wire, [TIME: 01:08] SHOVEL MECHANIC and the microcatheter and also placed a GuideLiner for further support, placed it in the mid RCA and then subsequently was able to get through all the way to the stent of the distal RCA; however, once I get to the stent, I could not advance the wires anymore. I exchanged for a [employer] 6 and a Extra Hand 200 wires without success. At this point, [...] the guide and the sheath, placed a 6-Bhutanese Angio-Seal for closure with good hemostasis. FINDINGS: Mid RCA 100% occluded all the way to the distal portion, status post failed attempt to PCI . PLAN: Continue medical management and follow up in 1 to 2 weeks in the office. Dictated By: Gurpreet Benítez MD Date Dictated: 07/09/2022 10:31:31 Date Transcribed: 07/09/2022 13:38:38 PATIENT NAME: JOSE BLOUNT SR/FINA/AMI Receipt ID: [id number] Authenticated by Gurpreet Benítez MD On 08/20/2022 09:56:42 AM at 0956 PATIENT NAME: JOSE BLOUNT [facility] 2022-07-07 12:15:00 [id number] [place] [address] PATIENT NAME: JOSE BLOUNT ADMIT DATE: ACCOUNT NO: [id number] ROOM NO: AGE: 67 REPORT TYPE: eELECTROCARDIOGRAM REPORT SEX: M ADMITTING PHYSICIAN: ATTENDING PHYSICIAN:Gurpreet Benítez MD Order: [id number] Test Reason : PREOP Test Date/Time Stamp: [...] by:SHELL YAN MD at 0842 PATIENT NAME: JOSE BLOUNT [facility]
[2025-05-29 14:53] LABS: Influenza A Ag Negative; Influenza B Ag Negative; SARS-CoV-2 Antigen Rapid Res Negative (Negative)
--- NOTE | 2025-05-29 15:09 | RAD REPORT ---
EXAM: Chest Single View HISTORY: 70 years Male COUGH COMPARISON: 10/05/2024 FINDINGS: LUNGS/PLEURA: The lungs are clear. No pleural effusions or pneumothorax. No pulmonary edema. CARDIAC/MEDIASTINUM: Mild cardiomegaly UPPER ABDOMEN: No significant abnormality. BONES: No acute abnormality. LINES/TUBES/OTHER: N/A IMPRESSION: No evidence of acute cardiopulmonary disease.
--- NOTE | 2025-05-29 15:17 | EDPHYS ---
Physician Documentation [facility] Name: Jose Neil Age: 70 yrs Sex: Male : 1955 Arrival Date: 05/29/2025 Time: 13:35 Bed 10 Private MD: ED Physician Inderjit Trotter HPI: 05/29 14:07 This 70 yrs old Black Male presents to ER via Ambulatory with complaints of Sore Throat.kb 14:07 Pt is a 70 year old male who presents for cough, sore throat and headache that started kb this morning. States he has been coughing up phlem. Concerned about RSV because his granddaughter has it right now. Denies shortness of breath, fever. Historical: - Allergies: 14:07 PENICILLINS; dd2 - PMHx: 14:07 coronary atherosclerosis; High Cholesterol; Hypertension; Myocardial infarction; dd2 neuropathy; - PSHx: 14:07 Coronary Angioplasty; Stented artery; dd2 - Immunization history:: Adult Immunizations up to date. - Infectious Disease History:: Denies. - Social history:: Smoking status: Patient denies any tobacco usage or history of. ROS: 14:08 Constitutional: As per HPI kb Exam: 14:08 Constitutional: This is a well developed, well nourished patient who is awake, alert, kb and in no acute distress. Head/Face: Normocephalic, atraumatic. ENT: Moist Mucous membranes Cardiovascular: Regular rate Respiratory: Respirations even and unlabored. No increased work of breathing. Talking in full sentences Skin: Warm, dry with normal turgor. Normal color. MS/ Extremity: Pulses equal, no cyanosis. Neurovascular intact. Full, normal range of motion. Neuro: Awake and alert, GCS 15, oriented to person, place, time, and situation. Vital Signs: 14:03 BP 123 / 75; Pulse 69; Resp 17; Temp 97.1; Pulse Ox 96% ; Weight 112.49 kg; Height 5 dd2 ft. 7 in. ; 14:03 Body Mass Index 38.84 (112.49 kg, 170.18 cm) dd2 MDM: 13:59 Medical Screening Exam initiated kb 14:08 Differential diagnosis: strep, flu, covid, uri, rsv, pneumonia. Data reviewed: vital kb signs, nurses notes. Historians other than the Patient: Spouse/Significant Other: . 14:32 ED course: Lab called and states RSV tests cannot be ran on pt's over the age of 5. kb Order cancelled. . 15:15 Counseling: I had a detailed discussion with the patient and/or guardian regarding the kb historical points, exam findings, and any diagnostic results supporting the discharge/admit diagnosis, lab results, radiology results, the need for outpatient follow up, a family practitioner, to return to the emergency department if symptoms worsen or persist or if there are any questions or concerns that arise at home. 05/29 14:08 Order name: Group A Streptococcus Rapid; Complete Time: 14:46 kb 05/29 14:08 Order name: COVID-19 Ag + Flu A+B Ag; Complete Time: 14:54 kb 05/29 14:08 Order name: RSV Ag kb 05/29 14:43 Order name: Throat Culture EDNJ 05/29 14:08 Order name: Chest Single View XRAY; Complete Time: 15:10 kb Administered Medications: No medications were administered Disposition Summary: 05/29/25 15:16 Discharge Ordered Notes: Location: Home kb Condition: Stable kb Diagnosis - Viral infection, unspecified kb Followup: kb - With: Emergency Department - When: As needed - Reason: Worsening of condition Followup: kb - With: Private Physician - When: 2 - 3 days - Reason: Recheck today's complaints, Continuance of care, Re-evaluation by your physician Discharge Instructions: - Discharge Summary Sheet kb - Viral Illness, Adult kb Forms: - Medication Reconciliation Form kb - Antibiotic Education kb - Prescription Opioid Use kb - Patient Portal Instructions kb - Leadership Thank You Letter kb Addendum: 06/01/2025 14:38 Co-signature as Attending Physician, Inderjit Trotter MD I agree with the assessment and c castillo plan of care. Signatures: Dispatcher [employer] EDLisbet Soto, PRADIP-C PRADIP-Inderjit Flores MD MD cha DAVIS, DIANA, RN RN dd2
--- NOTE | 2025-05-29 15:17 | ER ---
Nurse's Notes [facility] Name: Jose Neil Age: 70 yrs Sex: Male : 1955 Arrival Date: 05/29/2025 Time: 13:35 Bed 10 Private MD: Diagnosis: Viral infection, unspecified Presentation: 05/29 14:03 Chief complaint: Patient states: WOKE UP WITH A SORE THROAT. ALSO REPORTS HEADACHE, dd2 SLIGHT COUGH AND CONGESTION. Coronavirus screen: congestion, cough unrelated to allergies, headache, sore throat. Ebola Screen: No symptoms or risks identified at this time. Initial Sepsis Screen: Does the patient meet any 2 criteria? No. Patient's initial sepsis screen is negative. Does the patient have a suspected source of infection? No. Patient's initial sepsis screen is negative. Risk Assessment: Do you want to hurt yourself or someone else? Patient reports no desire to harm self or others. Onset of symptoms was May 29, 2025. 14:03 Method Of Arrival: Ambulatory dd2 14:03 Acuity: ANGIE 4 dd2 Triage Assessment: 14:07 General: Appears in no apparent distress. Behavior is calm, cooperative, appropriate dd2 for age. Pain: Complains of pain in THROAT, HEADACHE. EENT: Throat is clear Reports nasal congestion pain when swallowing. Respiratory: Reports cough that is dry. Historical: - Allergies: 14:07 PENICILLINS; dd2 - PMHx: 14:07 coronary atherosclerosis; High Cholesterol; Hypertension; Myocardial infarction; dd2 neuropathy; - PSHx: 14:07 Coronary Angioplasty; Stented artery; dd2 - Immunization history:: Adult Immunizations up to date. - Infectious Disease History:: Denies. - Social history:: Smoking status: Patient denies any tobacco usage or history of. Screenin:12 [facility] ED Fall Risk Assessment (Adult) History of falling in the last 3 months, ap3 including since admission No falls in past 3 months (0 pts) Confusion or Disorientation No (0 pts) Intoxicated or Sedated No (0 pts) Impaired Gait No (0 pts) Mobility Assist Device Used No (0 pt) Altered Elimination No (0 pt) Score/Fall Risk Level 0 - 2 = Low Risk Oriented to surroundings, Maintained a safe environment, Educated pt \T\ family on fall prevention, incl call for assistance when getting out of bed, Assessed \T\ reinforced patient's understanding of fall precautions, Hourly rounding (assess needs \T\ fall precautionary measures) done, Used ambulatory aids as needed (educated on \T\ assisted with). Abuse screen: Denies threats or abuse. Nutritional screening: No deficits noted. Tuberculosis screening: No symptoms or risk factors identified. Assessment: 15:12 General: Appears in no apparent distress. Behavior is calm, cooperative, appropriate ap3 for age. Pain: Complains of pain in throat. Pain: Pain began 1 day ago. Neuro: Level of Consciousness is awake, alert, obeys commands, Oriented to person, place, time, situation, Appropriate for age Speech is normal. Cardiovascular: Patient's skin is warm and dry. Respiratory: Airway is patent Respiratory effort is even, unlabored, Vital Signs: 14:03 BP 123 / 75; Pulse 69; Resp 17; Temp 97.1; Pulse Ox 96% ; Weight 112.49 kg; Height 5 dd2 ft. 7 in. ; 14:03 Body Mass Index 38.84 (112.49 kg, 170.18 cm) dd2 ED Course: 13:37 Patient arrived in ED. im 13:52 Lisbet Morgan [facility]-C [facility]. kb 13:52 Inderjit Trotter MD is Attending Physician. kb 14:07 Triage completed. dd2 14:07 Arm band placed on right wrist. dd2 14:54 Chest Single View XRAY In Process Unspecified. EDMS 15:08 Patient placed in an exam room, on a stretcher. ll1 15:13 Patient has correct armband on for positive identification. Provided Education on: call ap3 light education . 15:32 No provider procedures requiring assistance completed. Patient did not have IV access ap3 during this emergency room visit. Administered Medications: No medications were administered Medication: 15:13 VIS not applicable for this client. ap3 Outcome: 15:16 Discharge ordered by . kb 15:32 Discharged to home ambulatory, ap3 15:32 Condition: good 15:32 Discharge instructions given to patient, family, Instructed on discharge instructions, follow up and referral plans. Demonstrated understanding of instructions, follow-up care, 15:32 Patient left the ED. ap3 Signatures: Dispatcher [employer] EDWY Lisbet Morgan FNP-C FNP-Ckb Prokisch, Amanda RN RN ap3 Beck Sands, RN RN ll1 Anahy Wright DIANA, RN RN dd2
[2025-05-29 16:23] VITALS: BP 123/75; TEMP 97.1; O2SAT 96
== END 2025-05-29 15:32 | disposition home or self-care (01) ==
LOC: ER 13:35
DX: B34.9 Viral infection, unspecified (principal); Z11.52 Encounter for screening for COVID-19
CPT/HCPCS: 36415; 71045; 87070; 87428; 99282